=== PATIENT | male | born 1965 | race Caucasian/White ===

== ENCOUNTER 2018-10-16 11:09 | Emergency (ER) | payer MEDICARE, OTHER ==
[2018-10-16 11:27] VITALS: BP 158/99; PULSE 86; RESP 18; TEMP 98.1
[2018-10-16] MEDS ORDERED: KETOROLAC 30 MG/ML 1 ML VIAL IM STA (12:19)
[2018-10-16] MEDS ORDERED: DEXAMETHASONE SOD PHOSPHATE 10 MG/ML 1 ML VIAL IM STA (12:19)
[2018-10-16] MEDS ORDERED: HYDROcodone/APAP 5-325MG 1 EACH TAB PO STA (12:19)
[2018-10-16] MEDS ORDERED: CYCLOBENZAPRINE 10 MG TAB PO STA (12:19)
--- NOTE | 2018-10-16 12:39 | ED ---
General Adult HPI - General Chief complaint: Extremity Problem,Nontraumatic Stated complaint: sciatic nerve problem Time Seen by Provider: 10/16/18 11:56 Source: patient, RN notes reviewed, old records reviewed Mode of arrival: ambulatory Limitations: no limitations - History of Present Illness Initial comments: Pt is a 52 year old male, presents with with chronic back pain and pain radiating down L leg for months. [facility] and had one cancelled today. Patient denies saddle anesthesia. HE takes motrin and tylenol for pain. Pt reports he is frustrated and looking for second opinion. - Related Data Previous Rx's Medication Instructions Recorded Acetaminophen with Codeine 1 tab PO Q6H PRN 3 Days #12 tab 10/16/18 [Tylenol w/codeine #3] Cyclobenzaprine [Flexeril] 10 mg PO TID #20 tab 10/16/18 Dexamethasone 0.75 mg PO DAILY #12 tab 10/16/18 Allergies Allergy/AdvReac Type Severity Reaction Status Date / Time No Known Allergies Allergy Verified 10/16/18 11:27 Review of Systems ROS Statement: Those systems with pertinent positive or pertinent negative responses have been documented in the HPI. ROS Other: All systems not noted in ROS Statement are negative. Past Medical History Past Medical History: Diabetes Mellitus Additional Past Medical History / Comment(s): herniated disks and chronic back issues History of Any Multi-Drug Resistant Organisms: None Reported Past Surgical History: Appendectomy, Orthopedic Surgery Additional Past Surgical History / Comment(s): bilateral rotator cuff, bilateral knee scopes, neck fusion Past Psychological History: PTSD Smoking Status: Current every day smoker Past Alcohol Use History: None Reported Past Drug Use History: None Reported General Exam - General Exam Comments Initial Comments: Pleasant 52 year old male, no distress. Limitations: no limitations General appearance: alert, in no apparent distress Head exam: Present: atraumatic, normocephalic, normal inspection Eye exam: Present: normal appearance, PERRL, EOMI. Absent: scleral icterus, conjunctival injection, periorbital swelling ENT exam: Present: normal exam, mucous membranes moist Neck exam: Present: normal inspection. Absent: tenderness, meningismus, lymphadenopathy Respiratory exam: Present: normal lung sounds bilaterally. Absent: respiratory distress, wheezes, rales, rhonchi, stridor Cardiovascular Exam: Present: regular rate, normal rhythm, normal heart sounds. Absent: systolic murmur, diastolic murmur, rubs, gallop, clicks GI/Abdominal exam: Present: soft, normal bowel sounds. Absent: distended, tenderness, guarding, rebound, rigid Extremities exam: Present: normal inspection, full ROM, normal capillary refill. Absent: tenderness, pedal edema, joint swelling, calf tenderness Back exam: Present: normal inspection Neurological exam: Present: alert, oriented X3, CN II-XII intact Psychiatric exam: Present: normal affect, normal mood Skin exam: Present: warm, dry, intact, normal color. Absent: rash Course Vital Signs 10/16/18 11:23 Temperature 98.1 F Pulse Rate 86 Respiratory 18 Rate Blood Pressure 158/99 O2 Sat by Pulse 98 Oximetry Medical Decision Making - Medical Decision Making 52 year old male preetns with chronic sciatic and back pain looking for relief [facility]. Patient denies saddle anesthis. Patient has normal cap refill, no swelling, and reports prestheia in sciatic nerve pattern. Has had multiple MRI and discussed no need for further imaging today. Patient agrees. Given i< pain medication, steoriods and muscle relaxer. Opiat start talking form completed. Return parameters discussed. Given referral for orthopedic spine specialty. Disposition Clinical Impression: Left sided sciatica Disposition: HOME SELF-CARE Condition: Good Instructions (If sedation given, give patient instructions): Sciatica (ED), Lumbar Radiculopathy (ED) Additional Instructions: Patient advsied to follow-up with her primary care physician and insurance marketing specialist. Take the medication as prescribed. Alternate between heat and ice over the lower back. Return to the emergency department if any alarming signs or symptoms occur. Prescriptions: Dexamethasone 0.75 mg PO DAILY #12 tab Cyclobenzaprine [Flexeril] 10 mg PO TID #20 tab Acetaminophen with Codeine [Tylenol w/codeine #3] 1 tab PO Q6H PRN 3 Days #12 tab PRN Reason: Pain Is patient prescribed a controlled substance at d/c from ED?: Yes If prescribed controlled substance>3 days was MAPS reviewed?: Prescribed <3 Days If opioid is for acute pain is fill amount 7 days or less?: Yes If Rx opioid, was Start Talking consent form obtained?: Yes Referrals: Nonstaff,Physician [Primary Care Provider] - 1-2 days Oscar Paredes DO [Doctor of Osteopathic Medicine] - 1-2 days Time of Disposition: 12:38
== END 2018-10-16 13:06 | disposition home or self-care (01) ==
LOC: EC 11:09
DX: M54.32 Sciatica, left side (principal); F17.200 Nicotine dependence, unspecified, uncomplicated
CPT/HCPCS: 99283; 96372 ×2; J1100; J1885

== ENCOUNTER 2019-03-12 18:45 | Emergency (ER) | payer MEDICARE, OTHER ==
[2019-03-12 19:15] VITALS: RESP 18; TEMP 97.9
--- NOTE | 2019-03-12 20:12 | ED ---
Skin/Abscess/FB HPI - General Chief complaint: Skin/Abscess/Foreign Body Stated complaint: bug bite lt leg Time Seen by Provider: 03/12/19 19:53 Source: patient Mode of arrival: ambulatory Limitations: no limitations - History of Present Illness Initial comments: 53-year-old male patient presents to the emergency department today for evaluation of wounds to the left leg. Patient states that the area started 2 months ago with 3 areas of what he thought were spider bites. Patient states that the one area has completely healed. States he has 2 areas left that have become infected. States they are draining purulent fluid. States that over the last few days the largest one seemed to become worse. States he is having some swelling to the leg. He denies any fever or chills. Denies nausea or vomiting. States he does have vascular insufficiency and did recently have testing to determine the extent. Patient denies any recent rash, shortness breath, chest pain, abdominal pain, diarrhea, constipation, back pain, numbness, tingling, dizziness, weakness, hematuria, dysuria, urinary urgency, urinary frequency, headache, visual changes, or any other complaints. - Related Data Home Medications Medication Instructions Recorded Confirmed Aspirin EC [Ecotrin Low Dose] 81 mg PO BID 03/12/19 03/12/19 Empagliflozin [Jardiance] 25 mg PO DAILY 03/12/19 03/12/19 Insulin Glargine,Hum.rec.anlog 60 unit SQ BID 03/12/19 03/12/19 [Lantus Solostar] Pravastatin Sodium [Pravachol] 80 mg PO HS 03/12/19 03/12/19 Pregabalin [Lyrica] 225 mg PO BID 03/12/19 03/12/19 Previous Rx's Medication Instructions Recorded Cephalexin [Keflex] 500 mg PO Q6HR #40 cap 03/12/19 Sulfamethoxazole/Trimethoprim 1 each PO BID #20 tablet 03/12/19 [Bactrim DS 800-160 mg] Allergies Allergy/AdvReac Type Severity Reaction Status Date / Time No Known Allergies Allergy Verified 03/12/19 20:36 Review of Systems ROS Statement: Those systems with pertinent positive or pertinent negative responses have been documented in the HPI. ROS Other: All systems not noted in ROS Statement are negative. Past Medical History Past Medical History: Diabetes Mellitus Additional Past Medical History / Comment(s): herniated disks and chronic back issues History of Any Multi-Drug Resistant Organisms: None Reported Past Surgical History: Appendectomy, Orthopedic Surgery Additional Past Surgical History / Comment(s): bilateral rotator cuff, bilateral knee scopes, neck fusion Past Psychological History: PTSD Smoking Status: Current every day smoker Past Alcohol Use History: None Reported Past Drug Use History: None Reported General Exam Limitations: no limitations General appearance: alert, in no apparent distress, other (This is a well- developed, well-nourished adult male patient in no acute distress. Vital signs upon presentation are temperature 97.9F, pulse 91, respirations 18, blood pressure 125/84, pulse ox 99% on room air.) Eye exam: Present: normal appearance, PERRL, EOMI. Absent: scleral icterus, conjunctival injection, periorbital swelling ENT exam: Present: normal exam, normal oropharynx, mucous membranes moist Respiratory exam: Present: normal lung sounds bilaterally. Absent: respiratory distress, wheezes, rales, rhonchi, stridor Cardiovascular Exam: Present: regular rate, normal rhythm, normal heart sounds. Absent: systolic murmur, diastolic murmur, rubs, gallop, clicks Extremities exam: Present: full ROM, normal capillary refill, other (There are 2 ulcers noted to the left larson. Both exhibit purulent drainage with mild surrounding erythema. Skin is otherwise pink, warm, dry. Cap refills less than 3 seconds. Pulses are diminished, patient states this is chronic.). Absent: normal inspection, tenderness, pedal edema, joint swelling, calf tenderness Neurological exam: Present: alert, oriented X3, CN II-XII intact Psychiatric exam: Present: normal affect, normal mood Skin exam: Present: warm, dry, intact, normal color. Absent: rash Course Vital Signs 03/12/19 03/12/19 19:13 20:46 Temperature 97.9 F 97.9 F Pulse Rate 91 90 Respiratory 18 18 Rate Blood Pressure 125/84 126/72 O2 Sat by Pulse 99 99 Oximetry Medical Decision Making - Medical Decision Making 53-year-old male patient presents to the emergency department today for evaluation of wounds to the left lower leg. Physical examination did reveal 2 ulcers noted to the anterior left lower leg. There is evidence or purulent drainage and mild surrounding erythema. Wound was cultured. Vital signs are stable no fever. We did discuss wound care. We started on antibiotics. He is instructed to follow up with wound care center for further evaluation. Return parameters were discussed in detail. He verbalizes understanding and agrees with this plan. Disposition Clinical Impression: Chronic wound of extremity Disposition: HOME SELF-CARE Condition: Good Instructions (If sedation given, give patient instructions): Wound Infection (ED), Chronic Wound Care (ED) Additional Instructions: Keep wound clean and dry. Apply wet dressings and peel off dry. Follow up with wound center for evaluation as soon as possible. Return to the emergency department for any new, worsening, or concerning symptoms. Prescriptions: Sulfamethoxazole/Trimethoprim [Bactrim DS 800-160 mg] 1 each PO BID #20 tablet Cephalexin [Keflex] 500 mg PO Q6HR #40 cap Is patient prescribed a controlled substance at d/c from ED?: No Referrals: Nonstaff,Physician [Primary Care Provider] - 1-2 days [facility] [NON-STAFF] - 1-2 days Time of Disposition: 20:25
[2019-03-12] MEDS ORDERED: SULFAMETH-TMP DS STARTER PACK 2 TAB BTL PO STA (20:23)
[2019-03-12] MEDS ORDERED: CEPHALEXIN 500MG STARTER PACK 4 CAP BTL PO STA (20:23)
[2019-03-12 20:47] VITALS: BP 126/72; PULSE 90
== END 2019-03-12 20:47 | disposition home or self-care (01) ==
LOC: EC 18:45
DX: L97.929 Non-pressure chronic ulcer of unspecified part of left lower leg with unspecified severity (principal); E11.9 Type 2 diabetes mellitus without complications; F17.200 Nicotine dependence, unspecified, uncomplicated; Z79.82 Long term (current) use of aspirin; Z79.4 Long term (current) use of insulin; Z79.899 Other long term (current) drug therapy
CPT/HCPCS: 87070; 87205; 99283

== ENCOUNTER 2020-07-10 10:56 | Inpatient (IN) | payer MEDICARE, OTHER ==
[2020-07-10 11:38] LABS: Glucose,Whole Blood 229 mg/dL (75-99)
--- NOTE | 2020-07-10 11:38 | ED ---
SOB HPI - General Source: patient Mode of arrival: ambulatory Limitations: no limitations <Ila Boles - Last Filed: 07/10/20 12:44> <Andrew Diaz - Last Filed: 07/10/20 13:06> - General Chief Complaint: Shortness of Breath Stated Complaint: cough, SOB Time Seen by Provider: 07/10/20 11:11 - History of Present Illness Initial Comments: 54-year-old male presenting for left hand 'wont work" and cough/dyspnea. P atient states the past week he has had worsening cough and shortness of breath. He states that he has coughing spells and he looses his breath. He stated that that time he does have some chest discomfort but other than that he denies any chest pressure jaw or arm pain and he denies pain with deep inspiration patient denies any fevers upper respiratory symptoms leg swelling calf pain hemoptysis h istory of known active cancer hx of DVT/PE, recent surgeries. Patient deniess nausea, vomiting, diarrhea. he denies headaches, vision changes, speech changes, sensation deficits-denies changes in the left hand. (Ila Boles) - Related Data Home Medications Medication Instructions Recorded Confirmed Aspirin EC [Ecotrin Low Dose] 81 mg PO BID 03/12/19 03/12/19 Empagliflozin [Jardiance] 25 mg PO DAILY 03/12/19 03/12/19 Insulin Glargine,Hum.rec.anlog 60 unit SQ BID 03/12/19 03/12/19 [Lantus Solostar] Pravastatin Sodium [Pravachol] 80 mg PO HS 03/12/19 03/12/19 Pregabalin [Lyrica] 225 mg PO BID 03/12/19 03/12/19 Previous Rx's Medication Instructions Recorded Cephalexin [Keflex] 500 mg PO Q6HR #40 cap 03/12/19 Sulfamethoxazole/Trimethoprim 1 each PO BID #20 tablet 03/12/19 [Bactrim DS 800-160 mg] Allergies Allergy/AdvReac Type Severity Reaction Status Date / Time No Known Allergies Allergy Verified 07/10/20 11:08 Review of Systems ROS Other: All systems not noted in ROS Statement are negative. <Ila Boles - Last Filed: 07/10/20 12:44> ROS Other: All systems not noted in ROS Statement are negative. <Andrew Diaz - Last Filed: 07/10/20 13:06> ROS Statement: Those systems with pertinent positive or pertinent negative responses have been documented in the HPI. Past Medical History Past Medical History: Diabetes Mellitus Additional Past Medical History / Comment(s): herniated disks and chronic back issues History of Any Multi-Drug Resistant Organisms: None Reported Past Surgical History: Appendectomy, Coronary Bypass/CABG, Orthopedic Surgery Additional Past Surgical History / Comment(s): bilateral rotator cuff, bilateral knee scopes, neck fusion Past Psychological History: PTSD Smoking Status: Former smoker Past Alcohol Use History: None Reported Past Drug Use History: None Reported <Ila Boles - Last Filed: 07/10/20 12:44> General Exam Limitations: no limitations <Ila Boles - Last Filed: 07/10/20 12:44> Limitations: no limitations General appearance: alert, in no apparent distress Head exam: Present: atraumatic Eye exam: Present: normal appearance, PERRL, EOMI. Absent: nystagmus ENT exam: Present: normal oropharynx Neck exam: Present: normal inspection Extremities exam: Present: pedal edema Neurological exam: Present: alert, oriented X3, CN II-XII intact Expanded Neurological exam: Present: protecting the airway Patient oriented to: Present: person, place, time Speech: Present: fluid speech Cranial nerves: EOM's Intact: Normal, Facial Sensation: Normal Sensory exam: Upper Extremity Light Touch: Normal, Lower Extremity Light Touch: Normal Motor strength exam: RUE: 5, LUE: 4, RLE: 5, LLE: 5 Eye Response: (4) open spontaneously Motor Response: (6) obeys commands Verbal Response: (5) oriented Psychiatric exam: Present: normal affect, normal mood Skin exam: Present: other (Tobacco stained fingers) <Andrew Diaz - Last Filed: 07/10/20 13:06> - General Exam Comments Initial Comments: General: The patient is awake and alert, in no distress Eye: +3 mm pupils are equal, round and reactive to light, extra-ocular movements are intact. No nystagmus. There is normal conjunctiva bilaterally. No signs of icterus. Ears, nose, mouth and throat: There are moist mucous membranes and no oral lesions. Neck: The neck is supple, there is no tenderness or JVD. Cardiovascular: There is a regular rate and rhythm. No murmur, rub or gallop is appreciated. Respiratory: Respirations are non-labored, breath sounds are equal. No wheezes, stridor. Diffuse rhonchi and rales at lung bases. Gastrointestinal: Soft, non-distended, non-tender abdomen without masses or organomegaly noted. There is no rebound or guarding present. Musculoskeletal: Normal ROM, no tenderness. Strength 5/5. Sensation intact. Radial and DP pulses equal bilaterally 2+. Neurological: A&O x 3. CN II-XII intact, weakness with closure of the left hand, states sensation intact. full strength of the elbow, shoulder of left UE. LE 5/5 equal b/l. Sensation intact including hands b/k of the UE and LE, face, chest, abdomen, and back equal per patient. There is possible left sided drift of the UE, none lower. Speech is normal. Skin: Skin is warm and dry and no rashes or lesions are noted. b/l LE swelling, no unilateral swelling or calf pain. Psychiatric: Cooperative, appropriate mood & affect, normal judgment. (Ila Boles) Course <Andrew Diaz - Last Filed: 07/10/20 13:06> Vital Signs 07/10/20 07/10/20 07/10/20 11:05 11:24 11:53 Temperature 98.1 F 98.1 F Pulse Rate 95 98 Respiratory 22 18 18 Rate Blood Pressure 181/113 177/98 O2 Sat by Pulse 99 99 Oximetry 07/10/20 07/10/20 11:57 12:17 Temperature 98.0 F 98.0 F Pulse Rate 100 101 H Respiratory 18 18 Rate Blood Pressure 187/123 190/121 O2 Sat by Pulse 98 98 Oximetry - Reevaluation(s) Reevaluation #1: 07/10/20 11:39 Patient reevaluated by myself, Dr. Diaz. Patient comes in with complaint of shortness of breath. Patient is a heavy smoker and has tobacco staining fingers. 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 Patient states this started yesterday around 2 or 3 PM. Patient states he also needs to concentrate to use that hand more than normal. Patient denies any other area of weakness. Patient denies loss of sensation. No respiratory distress. Computed tomography scan ordered. Code stroke has been ordered. 07/10/20 13:05 Case was earlier discussed with Dr. Rowley who agreed patient is not a TPA candidate secondary to onset greater than 4.5 hours. He does recommend aspirin and Lipitor. He has concern for subacute stroke on CT. He does recommend admission here with consult for neurology. Secondary to possible cardiac component with T wave inversion on EKG and elevated troponin heparin will be started. Cardiology will also be placed on consult. Patient also has quintin estive heart failure (Andrew Diaz) Medical Decision Making - Lab Data Result diagrams: 07/10/20 11:50 07/10/20 11:50 <Ila Boles - Last Filed: 07/10/20 12:44> - Lab Data Result diagrams: 07/10/20 11:50 07/10/20 11:50 <Andrew Diaz - Last Filed: 07/10/20 13:06> - Medical Decision Making 54yo dyspnea cough spells left hand weak. weak localized left hand. lungs has significant rales. leg swelling b/l mild. pt denies chest pain. pt states he has had cough on and off. difficulty lying flat. hx of HTN, PAD. code stroke called. CT no obviuos acute findings. Troponin elevated, BNP high ~56386, no known history, BP elevated. BP medications ordered, lasix initiated and nitro paste. Patient initiated on heparin given the t wave inversion on EKG with elevated troponin. pt case was co-managed with my attending German Diaz is agreeable to admission and care plan. he personally evaluated patient. (Ila Boles) - Lab Data Lab Results 07/10/20 07/10/20 07/10/20 Range/Units 11:37 11:50 11:50 WBC 8.6 (3.8-10.6) k/uL RBC 4.11 L (4.30-5.90) m/uL Hgb 12.2 L (13.0-17.5) gm/dL Hct 35.8 L (39.0-53.0) % MCV 87.1 (80.0-100.0) fL MCH 29.6 (25.0-35.0) pg MCHC 34.0 (31.0-37.0) g/dL RDW 13.5 (11.5-15.5) % Plt Count 242 (150-450) k/uL MPV 8.4 Neutrophils % 70 % Lymphocytes % 19 % Monocytes % 5 % Eosinophils % 4 % Basophils % 2 % Neutrophils # 6.0 (1.3-7.7) k/uL Lymphocytes # 1.7 (1.0-4.8) k/uL Monocytes # 0.4 (0-1.0) k/uL Eosinophils # 0.3 (0-0.7) k/uL Basophils # 0.1 (0-0.2) k/uL PT 9.6 (9.0-12.0) sec INR 0.9 (<1.2) APTT 22.3 (22.0-30.0) sec Sodium (137-145) mmol/L Potassium (3.5-5.1) mmol/L Chloride (98-107) mmol/L Carbon Dioxide (22-30) mmol/L Anion Gap mmol/L BUN (9-20) mg/dL Creatinine (0.66-1.25) mg/dL Est GFR (CKD-EPI)AfAm (>60 ml/min/1.73 sqM) Est GFR (CKD-EPI)NonAf (>60 ml/min/1.73 sqM) Glucose (74-99) mg/dL POC Glucose (mg/dL) 229 H (75-99) mg/dL POC Glu Appetizer Packer ID Calcium (8.4-10.2) mg/dL Total Bilirubin (0.2-1.3) mg/dL AST (17-59) U/L ALT (4-49) U/L Alkaline Phosphatase (38-126) U/L Troponin I (0.000-0.034) ng/mL NT-Pro-B Natriuret Pep pg/mL Total Protein (6.3-8.2) g/dL Albumin (3.5-5.0) g/dL 07/10/20 07/10/20 07/10/20 Range/Units 11:50 11:50 11:50 WBC (3.8-10.6) k/uL RBC (4.30-5.90) m/uL Hgb (13.0-17.5) gm/dL Hct (39.0-53.0) % MCV (80.0-100.0) fL MCH (25.0-35.0) pg MCHC (31.0-37.0) g/dL RDW (11.5-15.5) % Plt Count (150-450) k/uL MPV Neutrophils % % Lymphocytes % % Monocytes % % Eosinophils % % Basophils % % Neutrophils # (1.3-7.7) k/uL Lymphocytes # (1.0-4.8) k/uL Monocytes # (0-1.0) k/uL Eosinophils # (0-0.7) k/uL Basophils # (0-0.2) k/uL PT (9.0-12.0) sec INR (<1.2) APTT (22.0-30.0) sec Sodium 132 L (137-145) mmol/L Potassium 4.4 (3.5-5.1) mmol/L Chloride 104 (98-107) mmol/L Carbon Dioxide 23 (22-30) mmol/L Anion Gap 5 mmol/L BUN 28 H (9-20) mg/dL Creatinine 1.21 (0.66-1.25) mg/dL Est GFR (CKD-EPI)AfAm 78 (>60 ml/min/1.73 sqM) Est GFR (CKD-EPI)NonAf 67 (>60 ml/min/1.73 sqM) Glucose 227 H (74-99) mg/dL POC Glucose (mg/dL) (75-99) mg/dL POC Glu Appetizer Packer ID Calcium 8.8 (8.4-10.2) mg/dL Total Bilirubin 0.5 (0.2-1.3) mg/dL AST 25 (17-59) U/L ALT 13 (4-49) U/L Alkaline Phosphatase 91 (38-126) U/L Troponin I 0.311 H* (0.000-0.034) ng/mL NT-Pro-B Natriuret Pep 57415 pg/mL Total Protein 6.3 (6.3-8.2) g/dL Albumin 3.5 (3.5-5.0) g/dL Disposition Is patient prescribed a controlled substance at d/c from ED?: No Time of Disposition: 12:46 Decision to Admit Reason: Admit from EC Decision Date: 07/10/20 Decision Time: 12:46 <Ila Boles - Last Filed: 07/10/20 12:44> <Andrew Diaz - Last Filed: 07/10/20 13:06> Clinical Impression: Stroke, Elevated troponin, Dyspnea, Heart failure, Pleural effusion Disposition: ADMITTED IP TO THIS [facility] Condition: Serious Referrals: Nonstaff,Physician [Primary Care Provider] - 1-2 days
--- NOTE | 2020-07-10 11:52 | CT ---
EXAMINATION TYPE: CT brain wo con for TPA DATE OF EXAM: 07/10/2020 COMPARISON: None HISTORY: Neuro deficit, acute, stroke suspected CT DLP: 1165.8 mGycm Automated exposure control for dose reduction was used. Helical imaging through the brain. FINDINGS: Periventricular white matter shows patchy low attenuation. There is no hemorrhage or hydrocephalus. C alvarium is intact. Paranasal sinuses and mastoid air cells as visualized are normal. IMPRESSION: NONSPECIFIC WHITE MATTER DEMYELINATION MAY BE DUE TO CHRONIC SMALL VESSEL ISCHEMIC CHANGES. CONSIDER MRI INDICATED.
[2020-07-10 11:58] LABS: Basophils # (A) 0.1 k/uL (0-0.2); Basophils % (A) 2 %; Eosinophils # (A) 0.3 k/uL (0-0.7); Eosinophils % (A) 4 %; HCT 35.8 % (39.0-53.0); HGB 12.2 gm/dL (13.0-17.5); Lymphocytes # (A) 1.7 k/uL (1.0-4.8); Lymphocytes % (A) 19 %; MCH 29.6 pg (25.0-35.0); MCV 87.1 fL (80.0-100.0); Mean Platelet Volume 8.4; Monocytes # (A) 0.4 k/uL (0-1.0); Monocytes % (A) 5 %; Neutrophils % (A) 70 %; Platelet Count 242 k/uL (150-450); RBC 4.11 m/uL (4.30-5.90); RDW 13.5 % (11.5-15.5); WBC 8.6 k/uL (3.8-10.6)
[2020-07-10 12:09] LABS: Albumin 3.5 g/dL (3.5-5.0); Calcium 8.8 mg/dL (8.4-10.2); Potassium 4.4 mmol/L (3.5-5.1); Total Bilirubin 0.5 mg/dL (0.2-1.3); Total Protein 6.3 g/dL (6.3-8.2)
[2020-07-10 12:10] LABS: INR 0.9 (<1.2); Partial Thromboplastin Time 22.3 sec (22.0-30.0); Prothrombin Time 9.6 sec (9.0-12.0)
[2020-07-10] MEDS ORDERED: hydrALAZINE HCL 20 MG/ML 1 ML VIAL IVP STA (12:16)
--- NOTE | 2020-07-10 12:19 | CT ---
EXAMINATION TYPE: CT angio head neck DATE OF EXAM: 07/10/2020 HISTORY: Neuro deficit COMPARISON: CT brain same date CT DLP: 627.1 mGycm. Automated Exposure Control for Dose Reduction was Utilized. TECHNIQUE: CTA scan of the neck is performed with IV Contrast, patient injected with 65 mL of Isovue 370, axial images are obtained, coronal and sagittal reformatted images are reviewed. Three-D recons tructed images are created on an independent workstation and reviewed. FINDINGS: Carotid/Vascular Structures: There are 4 super aortic branch vessels. The innominate, left and right common carotid, left and right subclavian arteries are patent. 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 Atheromatous changes are present at the carotid bulbs. No hemodynamic significant stenosis by NASCET criteria. Vertebral arteries are patent and codominant. [place] of [place] shows no dissection, aneurysm, or embo nicky. Cerebral vascular calcifications are present. . Other: There are large bilateral pleural effusions, some patchy airspace disease present in the upper lobes. Degenerative disc changes and postop changes are noted within the cervical spine IMPRESSION: Large bilateral pleural effusions, correlate for edema, congestive heart failure, pneumon ia.
--- NOTE | 2020-07-10 12:20 | XR ---
EXAMINATION TYPE: XR chest 2V DATE OF EXAM: 07/10/2020 COMPARISON: NONE HISTORY: Dyspnea, cough and shortness of breath TECHNIQUE: Frontal and lateral views of the chest are obtained. FINDINGS: Interstitium is prominent bilaterally. There is patchy perihilar increased attenuation. Bi basilar effusions are present, there is blunting the costophrenic angles. Heart size within normal li mits. There are overlying leads. Postop change noted the cervical spine. IMPRESSION: Correlate for congestive heart failure.
[2020-07-10] MEDS ORDERED: FUROSEMIDE 10 MG/ML 4 ML VIAL IV STA (12:27)
[2020-07-10] MEDS ORDERED: NITROGLYCERIN SL TABS 0.4 MG TAB SUBLINGUAL PRN (12:35)
[2020-07-10] MEDS ORDERED: HEPARIN SODIUM,PORCINE 5,000 UNIT/ML 1 ML VIAL IV PRN (12:39)
[2020-07-10] MEDS ORDERED: HEPARIN SODIUM,PORCINE 5,000 UNIT/ML 1 ML VIAL IV ONE (12:39)
[2020-07-10] MEDS ORDERED: ATORVASTATIN 40 MG TAB PO STA (12:42)
[2020-07-10] MEDS ORDERED: ASPIRIN 81 MG PO STA (12:42)
[2020-07-10] MEDS ORDERED: NITROGLYCERIN OINT 1 INCH/GM PACKET TOPICAL STA (12:43)
[2020-07-10] MEDS: HEPARIN SOD,PORK IN 0.45% NACL 25,000 UNIT in 0.45% NACL 1 250ML.BAG IV SCH (13:10)
--- NOTE | 2020-07-10 15:27 | P.HPIM ---
History of Present Illness This is a pleasant 54 years old male with past medical history of coronary artery disease status post CABG, diabetes mellitus, chronic back pain secondary to herniated disc. He is a patient of the [place] [facility] at [place]. His PCP is Dr. Plata, he sees a inspector repairer at [facility] to where he had bypass of his lower extremity about one week earlier. He sees cocoa bean roaster helper for his diabetes at [facility] as well. Presents because of dyspnea and weakness of the left hand. Patient states for about a week since last Sunday his been having coughing spells mainly last Sunday and today lasted like for 15 minutes associated with no phlegm but he vomited once which looks like phlegm. Associated with some dyspnea but he denies chest pain. Also for the last couple days he is been complaining of from weak left hand pattern vault clerk, he denies trauma. He denies headache, no blurred vision or difficulty talking or swallowing. No other weakness or numbness He is a previous polys office or and he smokes about half pack per day, he is c ounseled to quit and he agrees after risks are explained. He does not want nicotine patch Vitas looks stable, on the presentation his blood pressure was elevated to 187/123, currently is 123/82. Labs including CBC is unremarkable, INR is normal at 0.9. BMP showing only mild hyponatremia at 132, resolved BMP and liver enzymes were unremarkable. Sugar is elevated 2-9 and troponin is elevated at 0.3 EKG showed normal sinus rhythm with left ventricular hypertrophy. Rate at 97 Chest x-ray showing CHF CTA of the brain showing large bilateral pleural effusion correlate for edema and heart failure, possible pneumonia per reports. No significant stenosis CT of the brain: No acute process. In the emergency room he was started on aspirin 325 mg and heparin drip Review of Systems CONSTITUTIONAL: No fever, no malaise, no fatigue. HEENT: No recent visual problems or hearing problems. Denied any sore throat. CARDIOVASCULAR: No palpitation, no dizziness Pulmonary: no chest wall tenderness shortness of breath, no cough, no hemoptysis. GASTROINTESTINAL: No diarrhea, no nausea, no vomiting, no abdominal pain. Normoactive bowel sounds. NEUROLOGICAL: No headaches, no weakness, no numbness. HEMATOLOGICAL: Denies any bleeding or petechiae. GENITOURINARY: Denies any burning micturition, frequency, or urgency. MUSCULOSKELETAL/RHEUMATOLOGICAL: Denies any joint pain, swelling, or any muscle pain. ENDOCRINE: Denies any polyuria or polydipsia. Past Medical History Past Medical History: Diabetes Mellitus Additional Past Medical History / Comment(s): herniated disks and chronic back issues History of Any Multi-Drug Resistant Organisms: None Reported Past Surgical History: Appendectomy, Coronary Bypass/CABG, Orthopedic Surgery Additional Past Surgical History / Comment(s): bilateral rotator cuff, bilateral knee scopes, neck fusion Past Psychological History: PTSD Smoking Status: Former smoker Past Alcohol Use History: None Reported Past Drug Use History: None Reported Medications and Allergies Home Medications Medication Instructions Recorded Confirmed Type Aspirin EC [Ecotrin Low Dose] 81 mg PO BID 03/12/19 03/12/19 History Cephalexin [Keflex] 500 mg PO Q6HR #40 cap 03/12/19 Rx Empagliflozin [Jardiance] 25 mg PO DAILY 03/12/19 03/12/19 History Insulin Glargine,Hum.rec.anlog 60 unit SQ BID 03/12/19 03/12/19 History [Lantus Solostar] Pravastatin Sodium [Pravachol] 80 mg PO HS 03/12/19 03/12/19 History Pregabalin [Lyrica] 225 mg PO BID 03/12/19 03/12/19 History Sulfamethoxazole/Trimethoprim 1 each PO BID #20 tablet 03/12/19 Rx [Bactrim DS 800-160 mg] Allergies Allergy/AdvReac Type Severity Reaction Status Date / Time No Known Allergies Allergy Verified 07/10/20 14:39 Physical Exam Vitals: Vital Signs Temp Pulse Resp BP Pulse Ox 07/10/20 14:37 98.0 F 93 18 123/82 98 07/10/20 12:17 98.0 F 101 H 18 190/121 98 07/10/20 11:57 98.0 F 100 18 187/123 98 07/10/20 11:53 98.1 F 98 18 177/98 99 07/10/20 11:24 18 07/10/20 11:05 98.1 F 95 22 181/113 99 Intake and Output 07/09/20 07/10/20 07/10/20 22:59 06:59 14:59 Other: Weight 83.915 kg GENERAL: The patient is alert and oriented x3, not in any acute distress. Well developed, well nourished. HEENT: Pupils are round and equally reacting to light. EOMI. No scleral icterus. No conjunctival pallor. Normocephalic, atraumatic. No pharyngeal erythema. No thyromegaly. CARDIOVASCULAR: S1 and S2 present. No murmurs, rubs, or gallops. -PULMONARY: Chest is clear to auscultation, no wheezing. Bilateral basal crepitation, decreased breath sounds bilaterally ABDOMEN: Soft, nontender, nondistended, normoactive bowel sounds. No palpable organomegaly. MUSCULOSKELETAL: No joint swelling or deformity. EXTREMITIES: No cyanosis, clubbing, or pedal edema. -NEUROLOGICAL: Cranial nerves are grossly intact. Left hand with weak pattern vault clerk. Sensation is intact. Rest of motor examination is 5/5 of all other extremity except the left hand. Meningeal signs are absent SKIN: No rashes. No petechiae Results CBC & Chem 7: 07/10/20 11:50 07/10/20 11:50 Labs: Abnormal Lab Results - Last 24 Hours (Table) 07/10/20 07/10/20 07/10/20 Range/Units 11:37 11:50 11:50 RBC 4.11 L (4.30-5.90) m/uL Hgb 12.2 L (13.0-17.5) gm/dL Hct 35.8 L (39.0-53.0) % Sodium 132 L (137-145) mmol/L BUN 28 H (9-20) mg/dL Glucose 227 H (74-99) mg/dL POC Glucose (mg/dL) 229 H (75-99) mg/dL Troponin I (0.000-0.034) ng/mL 07/10/20 Range/Units 11:50 RBC (4.30-5.90) m/uL Hgb (13.0-17.5) gm/dL Hct (39.0-53.0) % Sodium (137-145) mmol/L BUN (9-20) mg/dL Glucose (74-99) mg/dL POC Glucose (mg/dL) (75-99) mg/dL Troponin I 0.311 H* (0.000-0.034) ng/mL Assessment and Plan Assessment: possible non-STEMI with elevated troponin Acute dyspnea could be acute CHF , unknown ejection fraction Weakness of the left hand, rule out stroke Diabetes mellitus with hyperglycemia Chronic back pain secondary to herniated disc History of coronary artery disease status post CABG. Plan: this is a pleasant 54 years old male who presents with non-STEMI, acute CHF and possible stroke. Continue with heparin drip and aspirin. Cardiology consult. Neurology consult. We'll check echocardiogram and hb a1c Labs and medication were reviewed.. Continue same treatment. Continue with symptomatic treatment. Resume home medication. Monitor lytes and vitals. DVT and GI prophylaxis. Further recommendations depends on the clinical course of the patient DVT prophylaxis: Subcutaneous heparin GI Prophylaxis: Pepcid PT/OT: Pending Prognosis is guarded
--- NOTE | 2020-07-10 16:36 | ECHOF ---
Referral Reason:heart failure MEASUREMENTS -------- HEIGHT: 193.0 cm WEIGHT: 83.9 kg BP: 162/88 RVIDd: 3.0 cm (< 3.3) IVSd: 1.4 cm (0.6 - 1.1) LVIDd: 5.1 cm (3.9 - 5.3) LVPWd: 1.3 cm (0.6 - 1.1) IVSs: 1.7 cm LVIDs: 4.2 cm LVPWs: 1.9 cm LA Diam: 3.5 cm (2.7 - 3.8) LAESV Index (A-L): 30.30 ml/m Ao Diam: 3.7 cm (2.0 - 3.7) AV Cusp: 2.1 cm (1.5 - 2.6) MV EXCURSION: 21.171 mm (> 18.000) MV EF SLOPE: 125 mm/s (70 - 150) EPSS: 1.6 cm MV E Jose A: 1.28 m/s MV DecT: 116 ms MV A Jose A: 0.82 m/s MV E/A Ratio: 1.57 FINDINGS -------- Resting tachycardia (HR>100bpm). This was a technically adequate study. The left ventricular size is normal. There is moderate concentric left ventricular hypertrophy. O verall left ventricular systolic function is severely impaired with, an EF between 25 - 30 %. The right ventricle is normal in size. LA is midly dilated 29-33ml/m2. The right atrium is normal in size. Interatrial and interventricular septum intact. There is mild aortic valve sclerosis. The mitral valve leaflets are mildly thickened. Mild mitral annular calcification present. Mild m itral regurgitation is present. The tricuspid valve appears structurally normal. The pulmonic valve was not well visualized. The aortic root size is normal. Normal inferior vena cava with normal inspiratory collapse consistent with estimated right atrial pre ssure of 5 mmHg. There is no pericardial effusion. CONCLUSIONS -------- 1. The left ventricular size is normal. 2. There is moderate concentric left ventricular hypertrophy. 3. Overall left ventricular systolic function is severely impaired with, an EF between 25 - 30 %. 4. LA is midly dilated 29-33ml/m2. 5. There is mild aortic valve sclerosis. 6. The mitral valve leaflets are mildly thickened. 7. Mild mitral annular calcification present. 8. Mild mitral regurgitation is present. 9. There is no pericardial effusion. LUGGAGE LINER: Jeanne Mckenzie RDCS
--- NOTE | 2020-07-10 16:41 | P.CNNES ---
History of Present Illness Consult date: 07/10/20 Reason for Consult: left hand weakness, rule out stroke History of Present Illness: The patient is a pleasant, 54-year-old male who is seen in neurologic consultation on July 10, 2020, via teleneurology. The patient is being seen because of left hand weakness and possible stroke. The patient reports that he noticed yesterday, at a proximally 2 PM, that his left hand was "acting weird". 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 He reports noticing this loss of strength, when he was walking his dog. He normally uses a pole and he was unable to hold onto the pole. The patient denies numbness, tingling and pain in his left hand. He denies weakness in his left arm. He denies other weakness. The patient denies headache, difficulty with speech, difficulty swallowing, changes in vision and loss of balance. The patient denies a history of stroke. The patient does report recent coughing and shortness of breath. He states that last Sunday, he had a 5 hour period of continuous coughing. He says that it was a dry cough. He finally vomited. The cough then resolved. Apparently, last night the patient's coughing and shortness of breath returned. He elected to come into the emergency department. He denies a history of fever, chills and exposure to anyone with Covid 19. Review of Systems Eyes: left decreased vision (secondary to "ruptured blood vessels" in the back of the eye) Musculoskeletal: absent: hand pain Past Medical History Past Medical History: Diabetes Mellitus Additional Past Medical History / Comment(s): herniated disks and chronic back issues, peripheral neuropathy History of Any Multi-Drug Resistant Organisms: None Reported Past Surgical History: Appendectomy, Coronary Bypass/CABG, Orthopedic Surgery Additional Past Surgical History / Comment(s): bilateral rotator cuff, bilateral knee scopes, neck fusion Past Anesthesia/Blood Transfusion Reactions: No Reported Reaction Past Psychological History: PTSD Smoking Status: Former smoker Past Alcohol Use History: None Reported Past Drug Use History: None Reported - Past Family History Mother Family Medical History: Congestive Heart Failure (CHF), CVA/TIA, Myocardial Infarction ([place]) Medications and Allergies Home Medications Medication Instructions Recorded Confirmed Type Aspirin EC [Ecotrin Low Dose] 81 mg PO BID 03/12/19 03/12/19 History Cephalexin [Keflex] 500 mg PO Q6HR #40 cap 03/12/19 Rx Empagliflozin [Jardiance] 25 mg PO DAILY 03/12/19 03/12/19 History Insulin Glargine,Hum.rec.anlog 60 unit SQ BID 03/12/19 03/12/19 History [Lantus Solostar] Pravastatin Sodium [Pravachol] 80 mg PO HS 03/12/19 03/12/19 History Pregabalin [Lyrica] 225 mg PO BID 03/12/19 03/12/19 History Sulfamethoxazole/Trimethoprim 1 each PO BID #20 tablet 03/12/19 Rx [Bactrim DS 800-160 mg] Allergies Allergy/AdvReac Type Severity Reaction Status Date / Time No Known Allergies Allergy Verified 07/10/20 14:39 Physical Examination - Vital Signs Vital Signs: Vital Signs Temp Pulse Pulse Resp BP BP Pulse Ox 07/10/20 15:11 97.8 F 95 18 156/90 98 07/10/20 14:37 98.0 F 93 18 123/82 98 07/10/20 12:17 98.0 F 101 H 18 190/121 98 07/10/20 11:57 98.0 F 100 18 187/123 98 07/10/20 11:53 98.1 F 98 18 177/98 99 07/10/20 11:24 18 07/10/20 11:05 98.1 F 95 22 181/113 99 Intake and Output 07/10/20 07/10/20 07/10/20 06:59 14:59 22:59 Other: Weight 83.915 kg 83.915 kg Gen.: The patient is reclining in the bed. He is well-nourished, well-developed and in no acute distress. HEENT: Head is atraumatic, normocephalic. Fundus not visualized. There is no scleral icterus. Mucous membranes are moist. Neck: Without carotid bruits Heart: Regular rate and rhythm Lungs: Clear to auscultation Extremities: There is swelling of the feet bilaterally, left > right. There is evidence of a well healing scar on the left proximal lower extremity. Neurological examination Mental status: Patient is awake, alert and oriented 3. His speech is clear. There is no dysarthria or aphasia Cranial nerves: Pupils are equal at 3 mm and reactive. Visual cotton are full to confrontation. Extraocular movements are intact. There is no nystagmus. Facial sensation is intact. There is possible flattening of the left nasolabial fold. Hearing is grossly intact. Uvula and palate are midline. Shoulder shrug is symmetric. Tongue protrudes to the right of midline. Motor: Bilateral lower extremity strength 5/5. Right upper extremity strength 5/5. Left intrinsic hand muscles 4/5. Left opponens pollicis 3/5. Left finger flexors 4/5. Left finger extensors 4/5. The patient is unable to fully extend his left index finger. He is unable to oppose his left thumb and fifth finger. Other left upper extremity muscle strength is 5/5. Deep tendon reflexes: 1-2+/4+ in the bilateral upper extremities and patellar. Bilateral Achilles reflexes 1+/4+. Plantar responses flexor bilaterally Sensation: Grossly intact to light touch in the upper extremities. Lower extremity sensation was not assessed Coordination: [id number] and [id number] testing are intact. CT scan of the brain images are reviewed. There is a questionable, small area of hypodensity in the right motor strip. CT angiogram of the head and neck reveals no significant stenosis or occlusion Results - Laboratory Findings CBC and BMP: 07/10/20 11:50 07/10/20 11:50 Abnormal Lab Findings: Abnormal Labs 07/10/20 07/10/20 07/10/20 11:37 11:50 11:50 RBC 4.11 L Hgb 12.2 L Hct 35.8 L Sodium 132 L BUN 28 H Glucose 227 H POC Glucose (mg/dL) 229 H Troponin I 07/10/20 11:50 RBC Hgb Hct Sodium BUN Glucose POC Glucose (mg/dL) Troponin I 0.311 H* Assessment and Plan Assessment: 1. The patient is a 54-year-old male with vascular risk factors including coronary artery disease, diabetes mellitus, tobacco abuse who presents to the emergency department with complaints of shortness of breath, coughing and the left hand weakness. The patient's neurological examination reveals weakness confined to his left hand. The left arm and left leg strength are intact. I am concerned that the abnormality on CT scan and the patient's left hand weakness may be consistent with a small lacunar infarct 2. The patient has been checked for Covid 19 infection and has found to be negative. If positive, this could be a potential etiology for cerebral infarct 3. Possible non-ST elevated [place] Plan: 1. Stroke order set including PT, OT and speech therapy consultations 2. 2-D echocardiogram 3. Hemoglobin A1c, lipid panel and TSH 4. High-dose statin and Plavix should be added to the patient's regime when IV heparin has been discontinued 5. We will order MRI of brain to further evaluate infarct Time with Patient: Greater than 30 (spent 40 minutes with patient via teleneurology)
[2020-07-10 17:06] LABS: Glucose,Whole Blood 207 mg/dL (75-99)
[2020-07-10] MEDS: INSULIN ASPART (NovoLOG) 100 UNIT/ML VIAL SQ SCH ×2 (17:22→22:29)
[2020-07-10] MEDS ORDERED: ARTIFICIAL TEARS-HYPROMELLOSE DROPS 15 ML BTL BOTH EYES PRN (18:42)
[2020-07-10 20:22] LABS: Glucose,Whole Blood 196 mg/dL (75-99)
[2020-07-10] MEDS ORDERED: ASPIRIN 81 MG PO SCH (21:00)
[2020-07-10] MEDS: FUROSEMIDE 10 MG/ML 4 ML VIAL IV SCH (22:28)
[2020-07-10] MEDS: PRAVASTATIN SODIUM 80 MG TAB PO SCH (22:29)
[2020-07-10] MEDS: INSULIN DETEMIR (LEVEMIR) 100 UNIT/ML SYR SQ SCH (22:30)
[2020-07-11 05:01] LABS: Glucose,Whole Blood 88 mg/dL (75-99)
[2020-07-11 05:48] LABS: Basophils # (A) 0.1 k/uL (0-0.2); Basophils % (A) 2 %; Eosinophils # (A) 0.2 k/uL (0-0.7); Eosinophils % (A) 3 %; HCT 35.2 % (39.0-53.0); HGB 11.7 gm/dL (13.0-17.5); Lymphocytes # (A) 1.5 k/uL (1.0-4.8); Lymphocytes % (A) 21 %; MCH 29.2 pg (25.0-35.0); MCHC 33.2 g/dL (31.0-37.0); Mean Platelet Volume 8.3; Monocytes # (A) 0.3 k/uL (0-1.0); Monocytes % (A) 4 %; Neutrophils % (A) 69 %; Platelet Count 251 k/uL (150-450); RDW 13.6 % (11.5-15.5); WBC 7.3 k/uL (3.8-10.6)
[2020-07-11 05:58] LABS: Potassium 4.1 mmol/L (3.5-5.1)
[2020-07-11] MEDS: INSULIN ASPART (NovoLOG) 100 UNIT/ML VIAL SQ SCH ×4 (07:32→22:00)
[2020-07-11] MEDS: HEPARIN SOD,PORK IN 0.45% NACL 25,000 UNIT in 0.45% NACL 1 250ML.BAG IV SCH (07:52)
[2020-07-11] MEDS ORDERED: ASPIRIN 81 MG PO SCH (09:00)
[2020-07-11] MEDS ORDERED: ASPIRIN 325 MG TAB PO SCH (09:00)
[2020-07-11] MEDS ORDERED: METOPROLOL TARTRATE 25 MG TAB PO SCH (09:00)
--- NOTE | 2020-07-11 10:18 | P.PN ---
Subjective This is a pleasant 54 years old male with past medical history of coronary artery disease status post CABG, diabetes mellitus, chronic back pain secondary to herniated disc. [facility] a [facility] [place]. His PCP is Dr. Plata, he sees a plate inspector at [facility] to where he had bypass of his lower extremity about one week earlier. He sees hand hide stretcher for his diabetes at [facility] as well. Presents because of dyspnea and weakness of the left hand. Patient states for about a week since last Sunday his been having c oughing spells mainly last Sunday and today lasted like for 15 minutes associated with no phlegm but he vomited once which looks like phlegm. Associated with some dyspnea but he denies chest pain. Also for the last couple days he is been complaining of from weak left hand websphere portal developer, he denies trauma. He denies headache, no blurred vision or difficulty talking or swallowing. 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 He does not want nicotine patch Vitas looks stable, on the presentation his blood pressure was elevated to 187/123, currently is 123/82. Labs including CBC is unremarkable, INR is normal at 0.9. BMP showing only mild hyponatremia at 132, resolved BMP and liver enzymes were unremarkable. Sugar is elevated 2-9 and troponin is elevated at 0.3 EKG showed normal sinus rhythm with left ventricular hypertrophy. Rate at 97 Chest x-ray showing CHF CTA of the brain showing large bilateral pleural effusion correlate for edema and heart failure, possible pneumonia per reports. No significant stenosis CT of the brain: No acute process. In the emergency room he was started on aspirin 325 mg and heparin drip 07/11/2020 States that his breathing is better although he stayed in bed it did not try to get out. No chest pain or coughing Distal have bilateral patellar leg edema. His left hand websphere portal developer is improving up to 80% of its normal function and on examination it looks stronger Neurology input is appreciated and they recommended MRI of the brain which is pending also. Plavix once heparin drip was stopped. Echocardiogram showed ejection fraction of 25-30% with moderate concentric LVH. Labs looks stable History remains on heparin drip for possible non-STEMI and aspirin 81 mg, cardiology team consulted. Also he is on IV Lasix for CHF. Review of Systems CONSTITUTIONAL: No fever, no malaise, no fatigue. HEENT: No recent visual problems or hearing problems. Denied any sore throat. CARDIOVASCULAR: No palpitation, no dizziness Pulmonary: no chest wall tenderness shortness of breath, no cough, no hemoptysis. GASTROINTESTINAL: No diarrhea, no nausea, no vomiting, no abdominal pain. Normoactive bowel sounds. NEUROLOGICAL: No headaches, no weakness, no numbness. HEMATOLOGICAL: Denies any bleeding or petechiae. Active Medications Generic Name Dose Route Start Last Admin Trade Name Freq PRN Reason Stop Dose Admin Artificial Tears 1 drops 07/10/20 18:42 Artificial Tears-Hypromellose Drops 15 Ml Btl BOTH EYES QID PRN Dry Eye(s) Aspirin 81 mg 07/11/20 09:00 Aspirin 81 Mg PO DAILY [facility] Duloxetine HCl 20 mg 07/11/20 09:00 Duloxetine Hcl 20 Mg Capsule.Dr PO DAILY [facility] Ezetimibe 10 mg 07/11/20 09:00 Ezetimibe 10 Mg Tab PO DAILY [facility] Furosemide 40 mg 07/10/20 21:00 07/10/20 22:28 Furosemide 10 Mg/Ml 4 Ml Vial IV 40 mg Q12HR [facility] Administration Heparin Sodium (Porcine) 0 unit 07/10/20 12:39 Heparin Sodium,Porcine 5,000 Unit/Ml 1 Ml Vial IV PER PROTOCOL PRN Low PTT Protocol Heparin Sodium/Sodium Chloride 250 mls @ 10.07 mls/hr 07/10/20 12:45 07/11/20 07:52 25,000 unit/ Sodium Chloride IV 18 units/kg/hr .Q24H [facility] 15.105 mls/hr Administration Protocol 12 UNITS/KG/HR Insulin Aspart 0 unit 07/10/20 17:30 07/11/20 07:32 Insulin Aspart (Novolog) 100 Unit/Ml Vial SQ Not Given ACHS [facility] Protocol Insulin Detemir 25 unit 07/10/20 21:00 07/10/20 22:30 Insulin Detemir (Levemir) 100 Unit/Ml Syr SQ 25 unit BID [facility] Administration Metoprolol Tartrate 25 mg 07/11/20 09:00 Metoprolol Tartrate 25 Mg Tab PO BID [facility] Nitroglycerin 0.4 mg 07/10/20 12:35 Nitroglycerin Sl Tabs 0.4 Mg Tab SUBLINGUAL Q5M PRN Chest Pain Pravastatin Sodium 80 mg 07/10/20 21:00 07/10/20 22:29 Pravastatin Sodium 80 Mg Tab PO 80 mg HS [facility] Administration Objective - Vital Signs Vital signs: Vital Signs Temp 97.8 F 07/11/20 07:55 Pulse 83 07/11/20 07:55 Resp 16 07/11/20 07:55 BP 161/96 07/11/20 07:55 Pulse Ox 94 L 07/11/20 07:55 Intake & Output 07/10/20 07/11/20 07/11/20 18:59 06:59 18:59 Intake Total 240 195.689 19.888 Output Total 350 Balance 240 -154.311 19.888 Weight 83.915 kg 87.3 kg Intake: Intake, IV Titration 195.689 19.888 Amount Heparin Sod,Pork in 0.45% 195.689 19.888 NaCl 25,000 unit In 0.45 % NaCl 1 250ml.bag @ 12 UNITS/KG/HR 10.07 mls/hr IV .Q24H [facility] Rx#: [id number] Oral 240 Output: Urine 350 - Exam GENERAL: The patient is alert and oriented x3, not in any acute distress. Well developed, well nourished. HEENT: Pupils are round and equally reacting to light. EOMI. No scleral icterus. No conjunctival pallor. Normocephalic, atraumatic. No pharyngeal erythema. No thyromegaly. CARDIOVASCULAR: S1 and S2 present. No murmurs, rubs, or gallops. -PULMONARY: Chest is clear to auscultation, no wheezing. Bilateral basal crepitation, decreased breath sounds bilaterally ABDOMEN: Soft, nontender, nondistended, normoactive bowel sounds. No palpable organomegaly. MUSCULOSKELETAL: No joint swelling or deformity. EXTREMITIES: No cyanosis, clubbing, or pedal edema. -NEUROLOGICAL: Cranial nerves are grossly intact. Left hand with weak websphere portal developer, but improving compared to yesterday. Sensation is intact. Rest of motor examination is 5/5 of all other extremity except the left hand. Meningeal signs are absent SKIN: No rashes. No petechiae - Labs CBC & Chem 7: 07/11/20 04:53 07/11/20 04:53 Labs: Abnormal Lab Results - Last 24 Hours (Table) 07/10/20 07/10/20 07/10/20 Range/Units 11:37 11:50 11:50 RBC 4.11 L (4.30-5.90) m/uL Hgb 12.2 L (13.0-17.5) gm/dL Hct 35.8 L (39.0-53.0) % APTT (22.0-30.0) sec Sodium 132 L (137-145) mmol/L BUN 28 H (9-20) mg/dL Creatinine (0.66-1.25) mg/dL Glucose 227 H (74-99) mg/dL POC Glucose (mg/dL) 229 H (75-99) mg/dL Troponin I (0.000-0.034) ng/mL Triglycerides (<150) mg/dL Cholesterol (<200) mg/dL LDL Cholesterol, Calc (0-99) mg/dL 07/10/20 07/10/20 07/10/20 Range/Units 11:50 15:21 17:02 RBC (4.30-5.90) m/uL Hgb (13.0-17.5) gm/dL Hct (39.0-53.0) % APTT (22.0-30.0) sec Sodium (137-145) mmol/L BUN (9-20) mg/dL Creatinine (0.66-1.25) mg/dL Glucose (74-99) mg/dL POC Glucose (mg/dL) 207 H (75-99) mg/dL Troponin I 0.311 H* 0.304 H* (0.000-0.034) ng/mL Triglycerides (<150) mg/dL Cholesterol (<200) mg/dL LDL Cholesterol, Calc (0-99) mg/dL 07/10/20 07/10/20 07/11/20 Range/Units 18:29 20:09 04:53 RBC (4.30-5.90) m/uL Hgb (13.0-17.5) gm/dL Hct (39.0-53.0) % APTT (22.0-30.0) sec Sodium 136 L (137-145) mmol/L BUN 28 H (9-20) mg/dL Creatinine 1.48 H (0.66-1.25) mg/dL Glucose (74-99) mg/dL POC Glucose (mg/dL) 196 H (75-99) mg/dL Troponin I 0.295 H* (0.000-0.034) ng/mL Triglycerides 155 H (<150) mg/dL Cholesterol 221 H (<200) mg/dL LDL Cholesterol, Calc 145 H (0-99) mg/dL 07/11/20 07/11/20 Range/Units 04:53 04:53 RBC 4.00 L (4.30-5.90) m/uL Hgb 11.7 L (13.0-17.5) gm/dL Hct 35.2 L (39.0-53.0) % APTT 32.8 H (22.0-30.0) sec Sodium (137-145) mmol/L BUN (9-20) mg/dL Creatinine (0.66-1.25) mg/dL Glucose (74-99) mg/dL POC Glucose (mg/dL) (75-99) mg/dL Troponin I (0.000-0.034) ng/mL Triglycerides (<150) mg/dL Cholesterol (<200) mg/dL LDL Cholesterol, Calc (0-99) mg/dL Assessment and Plan Assessment: possible non-STEMI with elevated troponin Acute dyspnea could be acute CHF , unknown ejection fraction Weakness of the left hand, rule out stroke Diabetes mellitus with hyperglycemia Chronic back pain secondary to herniated disc History of coronary artery disease status post CABG. Plan: this is a pleasant 54 years old male who presents with non-STEMI, acute CHF and possible stroke. Continue with heparin drip and aspirin. Cardiology consult. Neurology consult. We'll check echocardiogram and hb a1c Labs and medication were reviewed.. Continue same treatment. Continue with symptomatic treatment. Resume home medication. Monitor lytes and vitals. DVT and GI prophylaxis. Further recommendations depends on the clinical course of the patient DVT prophylaxis: Subcutaneous heparin GI Prophylaxis: Pepcid PT/OT: Pending Prognosis is guarded
[2020-07-11 11:36] LABS: Glucose,Whole Blood 81 mg/dL (75-99)
[2020-07-11] MEDS: EZETIMIBE 10 MG TAB PO SCH (12:06)
[2020-07-11] MEDS: DULoxetine HCL 20 MG CAPSULE.DR PO SCH (12:06)
[2020-07-11] MEDS: METOPROLOL SUCCINATE (ER) 25 MG TAB.ER.24H PO SCH (12:06)
[2020-07-11] MEDS: FUROSEMIDE 10 MG/ML 4 ML VIAL IV SCH (12:07)
[2020-07-11] MEDS: INSULIN DETEMIR (LEVEMIR) 100 UNIT/ML SYR SQ SCH ×2 (12:08→20:48)
[2020-07-11] MEDS ORDERED: ALPRAZolam 0.5 MG TAB PO PRN (12:47)
[2020-07-11] MEDS ORDERED: ALPRAZolam 0.25 MG TAB PO PRN (12:47)
--- NOTE | 2020-07-11 12:49 | P.CRDCN ---
<Vandana Cochran - Last Filed: 07/11/20 12:46> History of Present Illness History of present illness: HISTORY OF PRESENTING ILLNESS This is a pleasant 54-year-old male past medical history significant for peripheral vascular disease status post left lower extremity bypass, diabetes mellitus, chronic nicotine dependence the patient quit smoking last week and dyslipidemia. The follows in the [facility] for his medical needs. We have been asked to see in consultation for heart failure. He presented to the hospital with a one-week history of shortness of breath and cough. He states one week ago it started with a 5 hour episode of persistent coughing. He was not able to clear any phlegm or sputum at that time. Throughout the week he noticed worsening shortness of breath. He then had another episode of coughing that seemed to exacerbate things even worse. He also is experiencing numbness and weakness in the left arm. He is currently being evaluated by neurology. An echocardiogram was obtained revealing impaired LV systolic function with ejection fraction 25-30%, mildly dilated left atrium and mild mitral regurgitation. According to the patient he has undergone a cardiac catheterization approximately 10 years ago that he states was normal. As far as he can remember he did have an echocardiogram one to 2 years ago that also he says was normal. He denies any symptoms of chest discomfort throughout the previous one week when he was short of breath. He has no dizziness or palpitati ons. DIAGNOSTICS EKG reveals sinus mechanism heart rate of 97 with T-wave inversions in the anterolateral leads suggestive of LVH. Telemetry tracings indicate persistent sinus mechanism with no acute arrhythmia. Chest xray bibasilar effusions with blunting of the costophrenic angles. CT brain with nonspecific white matter demyelinization due to chronic small vessel ischemic changes. CT angiography reveals large bilateral pleural effusions. Patent left and right internal in a sterile carotid arteries with atheromatous changes. Laboratory reviewed, WBC 7.3, hemoglobin 11.7, platelets 251, sodium 136, potassium 4.1, creatinine on admission 1.20 1 repeat today 1.48, troponin 0.311, 0.304, 0.295, and T proBNP 10,600, LDL 145, HDL 45 and TSH 4.05. Current cardiac medications include aspirin 81 mg twice a day and pravastatin 80 mg at bedtime. REVIEW OF SYSTEMS At the time of my exam: CONSTITUTIONAL: Denies fever or chills. CARDIOVASCULAR: Complains of shortness of breath and orthopnea. Denies chest pain, PND or palpitations. RESPIRATORY: Denies cough. GASTROINTESTINAL: Denies abdominal pain, diarrhea, constipation, nausea or vomiting. MUSCULOSKELETAL: Mild left arm weakness improved since admission. NEUROLOGIC: Denies numbness, tingling, headacbe or weakness. ENDOCRINE: Denies fatigue, weight change, polydipsia or polyurina. GENITOURINARY: Denies burning, hematuria or urgency with micturation. HEMATOLOGIC: Denies history of anemia or bleeding. PHYSICAL EXAMINATION Blood pressure 161/96 heart rate 83 afebrile and maintaining oxygen saturation on room air. CONSTITUTIONAL: No apparent distress. HEENT: Head is normocephalic. Pupils are equal, round. Sclerae anicteric. Mucous membranes of the mouth are moist. No JVD. Bilateral carotid bruit. CHEST EXAMINATION: Bibasilar rales, no rhonchi or wheezes. No chest wall tenderness is noted on palpation or with deep breathing. HEART EXAMINATION: Regular rate and rhythm. S1, S2 heard. No murmurs, gallops or rub. ABDOMEN: Soft, nontender. Positive bowel sounds. EXTREMITIES: 2+ peripheral pulses, no lower extremity edema and no calf tenderness. NEUROLOGIC EXAMINATION: Patient is awake, alert and oriented x3. ASSESSMENT Acute systolic heart failure Right arm weakness, neurology following Hypertension Acute kidney injury Peripheral vascular disease Diabetes mellitus Dyslipidemia Chronic nicotine dependence PLAN Continue IV heparin infusion. Initiate Toprol 25 mg daily. Patient is scheduled to undergo an MRI of the brain today. Recommend proceeding with cardiac catheterization tomorrow if his renal function remained stable. I have discussed the risks, benefits and alternative therapies for the above-mentioned procedure and for both sedation/analgesia as well as necessary blood product administration, if indicated, as they pertain to this patient. The patient has indicated understanding and acceptance of the risks and procedures discussed. Questions have been answered appropriately and he is agreeable to move forward with the above stated procedure. Hold STANLEY/ARB secondary to acute kidney injury. Further recommendations to follow based upon clinical course. Thank you kindly for this consultation. Nurse Practitioner note has been reviewed, I agree with a documented findings and plan of care. Patient was seen and examined. Past Medical History Past Medical History: Diabetes Mellitus Additional Past Medical History / Comment(s): herniated disks and chronic back issues, peripheral neuropathy History of Any Multi-Drug Resistant Organisms: None Reported Past Surgical History: Appendectomy, Coronary Bypass/CABG, Orthopedic Surgery Additional Past Surgical History / Comment(s): bilateral rotator cuff, bilateral knee scopes, neck fusion Past Anesthesia/Blood Transfusion Reactions: No Reported Reaction Past Psychological History: PTSD Smoking Status: Former smoker Past Alcohol Use History: None Reported Past Drug Use History: None Reported - Past Family History Mother Family Medical History: Congestive Heart Failure (CHF), CVA/TIA, Myocardial Infarction ([place]) Medications and Allergies Home Medications Medication Instructions Recorded Confirmed Type Aspirin EC [Ecotrin Low Dose] 81 mg PO BID 03/12/19 07/10/20 History Empagliflozin [Jardiance] 25 mg PO DAILY 03/12/19 07/10/20 History Insulin Glargine,Hum.rec.anlog 30 unit SQ BID 03/12/19 07/10/20 History [Lantus Solostar] Pravastatin Sodium [Pravachol] 80 mg PO HS 03/12/19 07/10/20 History Carboxymethylcellulose Sodium 1 drop BOTH EYES QID PRN 07/10/20 07/10/20 History [Refresh Tears] DULoxetine HCL [Cymbalta] 20 mg PO DAILY 07/10/20 07/10/20 History Insulin Aspart [NovoLOG Flexpen] 6 units SQ AC-TID 07/10/20 07/10/20 History Allergies Allergy/AdvReac Type Severity Reaction Status Date / Time No Known Allergies Allergy Verified 07/10/20 14:39 Physical Exam Vitals: Vital Signs Temp Pulse Pulse Resp BP BP Pulse Ox 07/11/20 07:55 97.8 F 83 16 161/96 94 L 07/11/20 04:00 98.4 F 85 18 154/92 96 07/11/20 02:00 85 20 07/11/20 00:00 97.6 F 85 20 173/109 95 07/10/20 20:00 98.1 F 86 20 153/95 07/10/20 17:55 135/78 07/10/20 15:11 97.8 F 95 18 156/90 98 07/10/20 14:37 98.0 F 93 18 123/82 98 07/10/20 12:17 98.0 F 101 H 18 190/121 98 07/10/20 11:57 98.0 F 100 18 187/123 98 07/10/20 11:53 98.1 F 98 18 177/98 99 07/10/20 11:24 18 07/10/20 11:05 98.1 F 95 22 181/113 99 Intake and Output 07/10/20 07/11/20 07/11/20 22:59 06:59 14:59 Intake Total 332.476 103.213 19.888 Output Total 350 Balance -17.524 103.213 19.888 Intake: Intake, IV Titration 92.476 103.213 19.888 Amount Heparin Sod,Pork in 0.45% 92.476 103.213 19.888 NaCl 25,000 unit In 0.45 % NaCl 1 250ml.bag @ 12 UNITS/KG/HR 10.07 mls/hr IV .Q24H [facility] Rx#: [id number] Oral 240 Output: Urine 350 Other: Weight 83.915 kg 87.3 kg Results 07/11/20 04:53 07/11/20 04:53 Cardiac Enzymes 07/10/20 07/10/20 07/10/20 Range/Units 11:50 11:50 15:21 AST 25 (17-59) U/L Troponin I 0.311 H* 0.304 H* (0.000-0.034) ng/mL 07/10/20 Range/Units 18:29 AST (17-59) U/L Troponin I 0.295 H* (0.000-0.034) ng/mL Coagulation 07/10/20 07/10/20 07/11/20 Range/Units 11:50 18:29 04:53 PT 9.6 (9.0-12.0) sec APTT 22.3 28.9 32.8 H (22.0-30.0) sec Lipids 07/11/20 Range/Units 04:53 Triglycerides 155 H (<150) mg/dL Cholesterol 221 H (<200) mg/dL HDL Cholesterol 45 (40-60) mg/dL CBC 07/10/20 07/11/20 Range/Units 11:50 04:53 WBC 8.6 7.3 (3.8-10.6) k/uL RBC 4.11 L 4.00 L (4.30-5.90) m/uL Hgb 12.2 L 11.7 L (13.0-17.5) gm/dL Hct 35.8 L 35.2 L (39.0-53.0) % Plt Count 242 251 (150-450) k/uL Comprehensive Metabolic Panel 07/10/20 07/11/20 Range/Units 11:50 04:53 Sodium 132 L 136 L (137-145) mmol/L Potassium 4.4 4.1 (3.5-5.1) mmol/L Chloride 104 106 (98-107) mmol/L Carbon Dioxide 23 24 (22-30) mmol/L BUN 28 H 28 H (9-20) mg/dL Creatinine 1.21 1.48 H (0.66-1.25) mg/dL Glucose 227 H 87 (74-99) mg/dL Calcium 8.8 9.0 (8.4-10.2) mg/dL AST 25 (17-59) U/L ALT 13 (4-49) U/L Alkaline Phosphatase 91 (38-126) U/L Total Protein 6.3 (6.3-8.2) g/dL Albumin 3.5 (3.5-5.0) g/dL Current Medications Generic Name Dose Route Start Last Admin Trade Name Freq PRN Reason Stop Dose Admin Artificial Tears 1 drops 07/10/20 18:42 Artificial Tears-Hypromellose Drops 15 Ml Btl BOTH EYES QID PRN Dry Eye(s) Aspirin 81 mg 07/11/20 09:00 Aspirin 81 Mg PO DAILY [facility] Duloxetine HCl 20 mg 07/11/20 09:00 Duloxetine Hcl 20 Mg Capsule.Dr PO DAILY [facility] Ezetimibe 10 mg 07/11/20 09:00 Ezetimibe 10 Mg Tab PO DAILY [facility] Furosemide 40 mg 07/10/20 21:00 07/10/20 22:28 Furosemide 10 Mg/Ml 4 Ml Vial IV 40 mg Q12HR [facility] Administration Heparin Sodium (Porcine) 0 unit 07/10/20 12:39 Heparin Sodium,Porcine 5,000 Unit/Ml 1 Ml Vial IV PER PROTOCOL PRN Low PTT Protocol Heparin Sodium/Sodium Chloride 250 mls @ 10.07 mls/hr 07/10/20 12:45 07/11/20 07:52 25,000 unit/ Sodium Chloride IV 18 units/kg/hr .Q24H [facility] 15.105 mls/hr Administration Protocol 12 UNITS/KG/HR Insulin Aspart 0 unit 07/10/20 17:30 07/11/20 07:32 Insulin Aspart (Novolog) 100 Unit/Ml Vial SQ Not Given ACHS [facility] Protocol Insulin Detemir 25 unit 07/10/20 21:00 07/10/20 22:30 Insulin Detemir (Levemir) 100 Unit/Ml Syr SQ 25 unit BID [facility] Administration Metoprolol Tartrate 25 mg 07/11/20 09:00 Metoprolol Tartrate 25 Mg Tab PO BID [facility] Nitroglycerin 0.4 mg 07/10/20 12:35 Nitroglycerin Sl Tabs 0.4 Mg Tab SUBLINGUAL Q5M PRN Chest Pain Pravastatin Sodium 80 mg 07/10/20 21:00 07/10/20 22:29 Pravastatin Sodium 80 Mg Tab PO 80 mg HS [facility] Administration Intake and Output 07/10/20 07/11/20 07/11/20 22:59 06:59 14:59 Intake Total 332.476 103.213 19.888 Output Total 350 Balance -17.524 103.213 19.888 Intake: Intake, IV Titration 92.476 103.213 19.888 Amount Heparin Sod,Pork in 0.45% 92.476 103.213 19.888 NaCl 25,000 unit In 0.45 % NaCl 1 250ml.bag @ 12 UNITS/KG/HR 10.07 mls/hr IV .Q24H [facility] Rx#: [id number] Oral 240 Output: Urine 350 Other: Weight 83.915 kg 87.3 kg 07/11/20 04:53 07/11/20 04:53 <Asad Alcaraz - Last Filed: 07/11/20 16:07> History of Present Illness History of present illness: Agree with assessment besides right arm weakness should be left arm weakness. MRI+, will do PRATIMA/ catheterization tomorrow. Physical Exam Vitals: Vital Signs Temp Pulse Resp BP Pulse Ox 07/11/20 15:48 83 16 07/11/20 15:41 98.4 F 83 16 159/96 97 07/11/20 11:20 80 16 161/97 98 07/11/20 07:55 97.8 F 83 16 161/96 94 L 07/11/20 04:00 98.4 F 85 18 154/92 96 07/11/20 02:00 85 20 07/11/20 00:00 97.6 F 85 20 173/109 95 07/10/20 20:00 98.1 F 86 20 153/95 07/10/20 17:55 135/78 Intake and Output 07/11/20 07/11/20 07/11/20 06:59 14:59 22:59 Intake Total 103.213 19.888 Balance 103.213 19.888 Intake: Intake, IV Titration 103.213 19.888 Amount Heparin Sod,Pork in 0.45% 103.213 19.888 NaCl 25,000 unit In 0.45 % NaCl 1 250ml.bag @ 12 UNITS/KG/HR 10.07 mls/hr IV .Q24H [facility] Rx#: [id number] Other: # Voids 2 Weight 87.3 kg Results 07/11/20 04:53 07/11/20 04:53 Cardiac Enzymes 07/10/20 07/10/20 Range/Units 15:21 18:29 Troponin I 0.304 H* 0.295 H* (0.000-0.034) ng/mL Coagulation 07/10/20 07/11/20 Range/Units 18:29 04:53 APTT 28.9 32.8 H (22.0-30.0) sec Lipids 07/11/20 Range/Units 04:53 Triglycerides 155 H (<150) mg/dL Cholesterol 221 H (<200) mg/dL HDL Cholesterol 45 (40-60) mg/dL CBC 07/11/20 Range/Units 04:53 WBC 7.3 (3.8-10.6) k/uL RBC 4.00 L (4.30-5.90) m/uL Hgb 11.7 L (13.0-17.5) gm/dL Hct 35.2 L (39.0-53.0) % Plt Count 251 (150-450) k/uL Comprehensive Metabolic Panel 07/11/20 Range/Units 04:53 Sodium 136 L (137-145) mmol/L Potassium 4.1 (3.5-5.1) mmol/L Chloride 106 (98-107) mmol/L Carbon Dioxide 24 (22-30) mmol/L BUN 28 H (9-20) mg/dL Creatinine 1.48 H (0.66-1.25) mg/dL Glucose 87 (74-99) mg/dL Calcium 9.0 (8.4-10.2) mg/dL Current Medications Generic Name Dose Route Start Last Admin Trade Name Freq PRN Reason Stop Dose Admin Alprazolam 0.25 mg 07/11/20 12:47 Alprazolam 0.25 Mg Tab PO Q6HR PRN Mild Anxiety Alprazolam 0.5 mg 07/11/20 12:47 Alprazolam 0.5 Mg Tab PO Q6HR PRN Moderate Anxiety Artificial Tears 1 drops 07/10/20 18:42 Artificial Tears-Hypromellose Drops 15 Ml Btl BOTH EYES QID PRN Dry Eye(s) Aspirin 81 mg 07/13/20 09:00 Aspirin 81 Mg PO DAILY [facility] Aspirin 324 mg 07/12/20 06:00 Aspirin 81 Mg PO 07/12/20 06:01 ONCE ONE Duloxetine HCl 20 mg 07/11/20 09:00 07/11/20 12:06 Duloxetine Hcl 20 Mg Capsule.Dr PO 20 mg DAILY [facility] Administration Ezetimibe 10 mg 07/11/20 09:00 07/11/20 12:06 Ezetimibe 10 Mg Tab PO 10 mg DAILY [facility] Administration Furosemide 40 mg 07/10/20 21:00 07/11/20 12:07 Furosemide 10 Mg/Ml 4 Ml Vial IV 40 mg Q12HR [facility] Administration Heparin Sodium (Porcine) 0 unit 07/10/20 12:39 Heparin Sodium,Porcine 5,000 Unit/Ml 1 Ml Vial IV PER PROTOCOL PRN Low PTT Protocol Heparin Sodium/Sodium Chloride 250 mls @ 10.07 mls/hr 07/10/20 12:45 07/11/20 07:52 25,000 unit/ Sodium Chloride IV 18 units/kg/hr .Q24H [facility] 15.105 mls/hr Administration Protocol 12 UNITS/KG/HR Sodium Chloride 1,000 ml/ IV 1,000 mls @ 87.3 mls/hr 07/11/20 23:59 Solution IV 07/12/20 11:26 .[id number] ONE 1 ML/KG/HR Heparin Sodium (Porcine) 10, 1,001 mls @ 999 mls/hr 07/12/20 07:00 000 unit/ Sodium Chloride IRRIGATION 07/12/20 23:00 ONCE PRN INTRA-OP Heparin Sodium (Porcine) 2,500 250.5 mls @ 250 mls/hr 07/12/20 07:00 unit/ Sodium Chloride IRRIGATION 07/12/20 23:00 ONCE PRN INTRA-OP Insulin Aspart 0 unit 07/10/20 17:30 07/11/20 11:38 Insulin Aspart (Novolog) 100 Unit/Ml Vial SQ Not Given ACHS [facility] Protocol Insulin Detemir 25 unit 07/10/20 21:00 07/11/20 12:08 Insulin Detemir (Levemir) 100 Unit/Ml Syr SQ 25 unit BID [facility] Administration Metoprolol Succinate 25 mg 07/11/20 10:30 07/11/20 12:06 Metoprolol Succinate (Er) 25 Mg Tab.Er.24h PO 25 mg DAILY [facility] Administration Nitroglycerin 0.4 mg 07/10/20 12:35 Nitroglycerin Sl Tabs 0.4 Mg Tab SUBLINGUAL Q5M PRN Chest Pain Pravastatin Sodium 80 mg 07/10/20 21:00 07/10/20 22:29 Pravastatin Sodium 80 Mg Tab PO 80 mg HS [facility] Administration Intake and Output 07/11/20 07/11/20 07/11/20 06:59 14:59 22:59 Intake Total 103.213 19.888 Balance 103.213 19.888 Intake: Intake, IV Titration 103.213 19.888 Amount Heparin Sod,Pork in 0.45% 103.213 19.888 NaCl 25,000 unit In 0.45 % NaCl 1 250ml.bag @ 12 UNITS/KG/HR 10.07 mls/hr IV .Q24H [facility] Rx#: [id number] Other: # Voids 2 Weight 87.3 kg 07/11/20 04:53 07/11/20 04:53
[2020-07-11 14:19] LABS: Hemoglobin A1C 8.4 % (4.0-6.0)
--- NOTE | 2020-07-11 14:34 | MR ---
MR brain without contrast HISTORY: Cerebrovascular accident Multiplanar multisequence imaging through the brain and correlated to CT brain 07/10/2020 Scattered hyperintensities are present in the periventricular region on the right, right parietal lob e as well as frontal lobes. Extensive confluent and scattered hyperintensities are also present on in version recovery T2-weighted sequences in the periventricular, pericallosal and subcortical white mat ter as well as in the distribution of the restricted diffusion. There is no evident hemorrhage or hyd rocephalus. Corpus callosum, pituitary, cervical medullary junction in cerebellopontine angles are no rmal. There are normal vascular flow voids. There is no hemorrhage or hydrocephalus. Orbits show symm etric appearance. IMPRESSION: Subacute infarcts are present bilaterally within the brain, greater than a single vascula r distribution, correlate for possible embolic phenomenon. There is underlying age-related changes of atrophy and probable chronic small vessel ischemia.
--- NOTE | 2020-07-11 15:04 | P.PN ---
Subjective Progress Note Date: 07/11/20 The patient is a pleasant, 54-year-old male who is seen in neurologic consultation on July 10, 2020, via teleneurology. The patient is being seen because of left hand weakness and possible stroke. The patient reports that he noticed yesterday, at a proximally 2 PM, that his left hand was "acting weird". He says that he had loss of scheduling agent strength. He reports noticing this loss of strength, when he was walking his dog. He normally uses a pole and he was unable to hold onto the pole. The patient denies numbness, tingling and pain in his left hand. He denies weakness in his left arm. He denies other weakness. The patient denies headache, difficulty with speech, difficulty swallowing, changes in vision and loss of balance. The patient denies a history of stroke. The patient does report recent coughing and shortness of breath. He states that last Sunday, he had a 5 hour period of continuous coughing. He says that it was a dry cough. He finally vomited. The cough then resolved. Apparently, last night the patient's coughing and shortness of breath returned. He elected to come into the emergency department. He denies a history of fever, chills and exposure to anyone with Covid 19. The patient is seen in neurologic follow-up on July 11, 2020 via telemetry neurology. He feels as if his left hand strength is improving. He is not aware of any new deficits. 2-D echocardiogram has been completed and shows an ejection fraction of 25%. Per patient's RN, cardiology has been consulted. Objective - Vital Signs Vital signs: Vital Signs Temp 97.8 F 07/11/20 07:55 Pulse 83 07/11/20 07:55 Resp 16 07/11/20 07:55 BP 161/96 07/11/20 07:55 Pulse Ox 94 L 07/11/20 07:55 Intake & Output 07/10/20 07/11/20 07/11/20 18:59 06:59 18:59 Intake Total 240 195.689 19.888 Output Total 350 Balance 240 -154.311 19.888 Weight 83.915 kg 87.3 kg Intake: Intake, IV Titration 195.689 19.888 Amount Heparin Sod,Pork in 0.45% 195.689 19.888 NaCl 25,000 unit In 0.45 % NaCl 1 250ml.bag @ 12 UNITS/KG/HR 10.07 mls/hr IV .Q24H [facility] Rx#: [id number] Oral 240 Output: Urine 350 - Exam Gen.: The patient is reclining in the bed. He is well-nourished, well-developed and in no acute distress. HEENT: Head is atraumatic, normocephalic. Fundus not visualized. There is no scleral icterus. Mucous membranes are moist. Extremities: Feet are less mottled today. Pulses are present Neurological examination Cranial nerves: Pupils are equal, round and reactive to light. Visual cotton are full to confrontation. Extraocular movements are intact. There is no nystagmus. Facial sensations intact. There is no facial asymmetry. Hearing is grossly intact. Uvula and palate are midline. Shoulder shrug is symmetric. Tongue protrudes midline. Motor: Left opponens pollicis 4/5. Left finger extensors 4/5. Left finger abductors 4/5. The patient is able to touch his left fifth finger with his thumb. Other muscle strength is 5/5 throughout. Deep tendon reflexes: 1-2+/4+. Sensation: Distal gradient sensory loss to touch in the lower extremities. - Labs CBC & Chem 7: 07/11/20 04:53 07/11/20 04:53 Labs: Abnormal Lab Results - Last 24 Hours (Table) 07/10/20 07/10/20 07/10/20 Range/Units 11:37 11:50 11:50 RBC 4.11 L (4.30-5.90) m/uL Hgb 12.2 L (13.0-17.5) gm/dL Hct 35.8 L (39.0-53.0) % APTT (22.0-30.0) sec Sodium 132 L (137-145) mmol/L BUN 28 H (9-20) mg/dL Creatinine (0.66-1.25) mg/dL Glucose 227 H (74-99) mg/dL POC Glucose (mg/dL) 229 H (75-99) mg/dL Troponin I (0.000-0.034) ng/mL Triglycerides (<150) mg/dL Cholesterol (<200) mg/dL LDL Cholesterol, Calc (0-99) mg/dL 07/10/20 07/10/20 07/10/20 Range/Units 11:50 15:21 17:02 RBC (4.30-5.90) m/uL Hgb (13.0-17.5) gm/dL Hct (39.0-53.0) % APTT (22.0-30.0) sec Sodium (137-145) mmol/L BUN (9-20) mg/dL Creatinine (0.66-1.25) mg/dL Glucose (74-99) mg/dL POC Glucose (mg/dL) 207 H (75-99) mg/dL Troponin I 0.311 H* 0.304 H* (0.000-0.034) ng/mL Triglycerides (<150) mg/dL Cholesterol (<200) mg/dL LDL Cholesterol, Calc (0-99) mg/dL 07/10/20 07/10/20 07/11/20 Range/Units 18:29 20:09 04:53 RBC (4.30-5.90) m/uL Hgb (13.0-17.5) gm/dL Hct (39.0-53.0) % APTT (22.0-30.0) sec Sodium 136 L (137-145) mmol/L BUN 28 H (9-20) mg/dL Creatinine 1.48 H (0.66-1.25) mg/dL Glucose (74-99) mg/dL POC Glucose (mg/dL) 196 H (75-99) mg/dL Troponin I 0.295 H* (0.000-0.034) ng/mL Triglycerides 155 H (<150) mg/dL Cholesterol 221 H (<200) mg/dL LDL Cholesterol, Calc 145 H (0-99) mg/dL 07/11/20 07/11/20 Range/Units 04:53 04:53 RBC 4.00 L (4.30-5.90) m/uL Hgb 11.7 L (13.0-17.5) gm/dL Hct 35.2 L (39.0-53.0) % APTT 32.8 H (22.0-30.0) sec Sodium (137-145) mmol/L BUN (9-20) mg/dL Creatinine (0.66-1.25) mg/dL Glucose (74-99) mg/dL POC Glucose (mg/dL) (75-99) mg/dL Troponin I (0.000-0.034) ng/mL Triglycerides (<150) mg/dL Cholesterol (<200) mg/dL LDL Cholesterol, Calc (0-99) mg/dL Assessment and Plan Assessment: 1. The patient is a 54-year-old male with vascular risk factors including coronary artery disease, diabetes mellitus, tobacco abuse who presents to the emergency department with complaints of shortness of breath, coughing and the left hand weakness. The patient's neurological examination reveals weakness confined to his left hand. The left arm and left leg strength are intact. I am concerned that the abnormality on CT scan and the patient's left hand weakness may be consistent with a small lacunar infarct along the motor strip, consistent with left hand strength ADDENDUM: MRI of the brain had not been obtained at this time of my evaluation of this patient this morning. MRI report indicates bilateral small subacute infarcts, possible embolic etiology. Images have been reviewed Plan: 1. Transesophageal echocardiogram should be obtained looking for etiology embolic infarcts 2. Dr. Delfino Bro will assume neurologic coverage of this patient on July 12, 2020 Time with Patient: Less than 30 (spent 20 minutes with patient via teleneurology)
[2020-07-11 16:33] LABS: Glucose,Whole Blood 188 mg/dL (75-99)
[2020-07-11 20:39] LABS: Glucose,Whole Blood 92 mg/dL (75-99)
[2020-07-11] MEDS: PRAVASTATIN SODIUM 80 MG TAB PO SCH (20:48)
[2020-07-11] MEDS ORDERED: SODIUM CHLORIDE 0.9% 1,000 ML in EMPTY BAG 1 BAG IV ONE (23:59)
[2020-07-12] MEDS: HEPARIN SOD,PORK IN 0.45% NACL 25,000 UNIT in 0.45% NACL 1 250ML.BAG IV SCH (00:35)
[2020-07-12 04:49] LABS: Basophils # (A) 0.2 k/uL (0-0.2); Basophils % (A) 2 %; Eosinophils # (A) 0.5 k/uL (0-0.7); Eosinophils % (A) 5 %; HCT 38.1 % (39.0-53.0); HGB 12.9 gm/dL (13.0-17.5); Lymphocytes # (A) 2.7 k/uL (1.0-4.8); Lymphocytes % (A) 26 %; MCV 88.3 fL (80.0-100.0); Mean Platelet Volume 8.6; Monocytes # (A) 0.5 k/uL (0-1.0); Monocytes % (A) 4 %; Neutrophils # (A) 6.4 k/uL (1.3-7.7); Neutrophils % (A) 62 %; Platelet Count 280 k/uL (150-450); RBC 4.31 m/uL (4.30-5.90); RDW 13.4 % (11.5-15.5); WBC 10.3 k/uL (3.8-10.6)
[2020-07-12 05:42] LABS: Calcium 8.9 mg/dL (8.4-10.2); Potassium 3.7 mmol/L (3.5-5.1)
[2020-07-12] MEDS ORDERED: ASPIRIN 81 MG PO ONE (06:00)
[2020-07-12 06:06] LABS: Glucose,Whole Blood 68 mg/dL (75-99)
[2020-07-12 06:56] LABS: Glucose,Whole Blood 68 mg/dL (75-99)
[2020-07-12] MEDS ORDERED: HEPARIN SODIUM,PORCINE 2,500 UNIT in SODIUM CHLORIDE 0.9% 250 ML IRRIGATION PRN (07:00)
[2020-07-12] MEDS ORDERED: HEPARIN SODIUM,PORCINE 10,000 UNIT in SODIUM CHLORIDE 0.9% 1,000 ML IRRIGATION PRN (07:00)
[2020-07-12] MEDS: INSULIN ASPART (NovoLOG) 100 UNIT/ML VIAL SQ SCH ×4 (07:01→20:59)
[2020-07-12 07:47] LABS: Glucose,Whole Blood 94 mg/dL (75-99)
[2020-07-12] MEDS ORDERED: DEXTROSE 5%-0.9% NACL 1,000 ML IV SCH (08:00)
[2020-07-12] MEDS: METOPROLOL SUCCINATE (ER) 25 MG TAB.ER.24H PO SCH (08:56)
[2020-07-12] MEDS: FUROSEMIDE 40 MG TAB PO SCH (09:32)
--- NOTE | 2020-07-12 09:47 | P.NPCON ---
History of Present Illness - Reason for Consult acute renal failure - History of Present Illness Reason for consultation: Acute kidney injury History of present illness: Patient is a 54-year-old male seen in renal consultation for acute kidney injury. Patient's creatinine on admission 07/10/2020 was 1.21 and is up to 1.53 today. Patient presented to the hospital on 07/10/2020 with left upper extremit y weakness. He was also complaining of cough and shortness of breath. He underwent CT angiogram of the head and neck on July 10 which revealed no significant stenosis. However large bilateral pleural effusions were noted. MRI of the brain revealed subacute infarcts bilaterally with concern for possible embolic phenomenon. Also underwent echocardiogram which revealed ejection fraction of 25-30%. He's scheduled for cardiac catheterization today. PRATIMA has also been ordered. He denies regular use of nonsteroidals. He's been a diabetic for over 15 years. Denies any edema. No chest pain or shortness of breath now. He was been taken on IV Lasix 40 mg twice daily and was changed to oral diuretics today. He was also started on IV fluids today as he is going for cardiac catheterization. No hematuria. No family history of renal disease. Vital signs are stable. General: The patient appeared well nourished and normally developed. HEENT: Head exam is unremarkable. Neck is without jugular venous distension. LUNGS: Breath sounds decreased. HEART: Rate and Rhythm are regular. ABDOMEN: Soft, nontender. EXTREMITITES: No edema. Past Medical History Past Medical History: Diabetes Mellitus Additional Past Medical History / Comment(s): herniated disks and chronic back issues, peripheral neuropathy History of Any Multi-Drug Resistant Organisms: None Reported Past Surgical History: Appendectomy, Coronary Bypass/CABG, Orthopedic Surgery Additional Past Surgical History / Comment(s): bilateral rotator cuff, bilateral knee scopes, neck fusion Past Anesthesia/Blood Transfusion Reactions: No Reported Reaction Past Psychological History: PTSD Smoking Status: Former smoker Past Alcohol Use History: None Reported Past Drug Use History: None Reported - Past Family History Mother Family Medical History: Congestive Heart Failure (CHF), CVA/TIA, Myocardial Infarction ([place]) Medications and Allergies Home Medications Medication Instructions Recorded Confirmed Type Aspirin EC [Ecotrin Low Dose] 81 mg PO BID 03/12/19 07/10/20 History Empagliflozin [Jardiance] 25 mg PO DAILY 03/12/19 07/10/20 History Insulin Glargine,Hum.rec.anlog 30 unit SQ BID 03/12/19 07/10/20 History [Lantus Solostar] Pravastatin Sodium [Pravachol] 80 mg PO HS 03/12/19 07/10/20 History Carboxymethylcellulose Sodium 1 drop BOTH EYES QID PRN 07/10/20 07/10/20 History [Refresh Tears] DULoxetine HCL [Cymbalta] 20 mg PO DAILY 07/10/20 07/10/20 History Insulin Aspart [NovoLOG Flexpen] 6 units SQ AC-TID 07/10/20 07/10/20 History Allergies Allergy/AdvReac Type Severity Reaction Status Date / Time No Known Allergies Allergy Verified 07/10/20 14:39 Physical Exam Vitals: Vital Signs Temp Pulse Resp BP Pulse Ox 07/12/20 08:50 97.6 F 73 18 155/87 95 07/12/20 04:00 82 18 165/97 95 07/12/20 01:07 79 18 07/12/20 00:00 79 18 154/89 94 L 07/11/20 20:15 98.6 F 80 18 168/95 96 07/11/20 15:48 83 16 07/11/20 15:41 98.4 F 83 16 159/96 97 07/11/20 11:20 80 16 161/97 98 Intake and Output 07/11/20 07/12/20 07/12/20 22:59 06:59 14:59 Intake Total 1312.477 37.523 Balance 1312.477 37.523 Intake: Intake, IV Titration 332.477 37.523 Amount Heparin Sod,Pork in 0.45% 212.477 37.523 NaCl 25,000 unit In 0.45 % NaCl 1 250ml.bag @ 12 UNITS/KG/HR 10.07 mls/hr IV .Q24H [facility] Rx#: [id number] Sodium Chloride 0.9% 1, 120 000 ml In Empty Bag 1 bag @ 1 ML/KG/HR 87.3 mls/hr IV .[id number] ONE Rx#: [id number] Oral 980 Other: # Voids 1 2 Weight 88 kg Results - Lab Results Most recent lab results Calcium 8.9 mg/dL (8.4-10.2) 07/12/20 04:36 07/12/20 04:36 07/12/20 04:36 Assessment and Plan Plan: Assessment: 1. Acute kidney injury mostly prerenal secondary to contrast-induced acute kidney injury and component of cardiorenal syndrome. Creatinine was 1.2 on admission and is 1.5 today. Unknown baseline renal function. 2. Diabetes mellitus. 3. Subacute infarcts noted on MRI. Concern for embolic etiology. Also discussed with neurology possible underlying hypercoagulable state. Currently on heparin drip. 4. Acute systolic CHF with ejection fraction of 25-30%. Cardiology following. Cardiac catheterization today. 5. Volume overload. Improved to diuresis. Plan: Hold Lasix today. Can be resumed tomorrow. Maintain IV fluids. Hep-Lock IV fluids 10-12 hours post cardiac catheterization. Check urinalysis. Check renal ultrasound. Avoid nephrotoxins. Risk of worsening renal failure post-IV contrast exposure was discussed with the patient. He understands. Thank you for the consultation. I will continue to follow the patient with you during his hospital stay.
--- NOTE | 2020-07-12 10:23 | P.PN ---
Subjective This is a pleasant 54 years old male with past medical history of coronary artery disease status post CABG, diabetes mellitus, chronic back pain secondary to herniated disc. [facility] [place]. His PCP is Dr. 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 Presents because of dyspnea and weakness of the left hand. Patient states for about a week since last Sunday his been having c oughing spells mainly last Sunday and today lasted like for 15 minutes associated with no phlegm but he vomited once which looks like phlegm. Associated with some dyspnea but he denies chest pain. 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 He denies headache, no blurred vision or difficulty talking or swallowing. 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 He does not want nicotine patch Vitas looks stable, on the presentation his blood pressure was elevated to 187/123, currently is 123/82. Labs including CBC is unremarkable, INR is normal at 0.9. BMP showing only mild hyponatremia at 132, resolved BMP and liver enzymes were unremarkable. Sugar is elevated 2-9 and troponin is elevated at 0.3 EKG showed normal sinus rhythm with left ventricular hypertrophy. Rate at 97 Chest x-ray showing CHF CTA of the brain showing large bilateral pleural effusion correlate for edema and heart failure, possible pneumonia per reports. No significant stenosis CT of the brain: No acute process. In the emergency room he was started on aspirin 325 mg and heparin drip 07/11/2020 States that his breathing is better although he stayed in bed it did not try to get out. No chest pain or coughing Distal have bilateral patellar leg edema. 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 Plavix once heparin drip was stopped. Echocardiogram showed ejection fraction of 25-30% with moderate concentric LVH. Labs looks stable History remains on heparin drip for possible non-STEMI and aspirin 81 mg, cardiology team consulted. Also he is on IV Lasix for CHF. 07/12/2020 Patient today feels better, he denies chest pain, no dyspnea no exertional dyspnea. His hand strength is improving each day and today is better but still weaker than the right side. [employer] are planning for cardiac cath today for non-STEMI. His glucose was running on the low side, his was on normal saline at 88 mL/h change to D5 normal saline at the same rate. STANLEY inhibitor on hold for high creatinine. Lasix also was held today. Nephrology team were consulted on exam he has bilateral basal crepitation and bilateral leg edema however as he stated he has no exertional dyspnea Also regarding his stroke he had MRI of the brain showing multiple bilateral subacute infarcts burning for emboli and for this reason he is scheduled for PRATIMA possibly today. Neurologist on the case. physical therapy and speech evaluation are pending Review of Systems CONSTITUTIONAL: No fever, no malaise, no fatigue. HEENT: No recent visual problems or hearing problems. Denied any sore throat. CARDIOVASCULAR: No palpitation, no dizziness Pulmonary: no chest wall tenderness shortness of breath, no cough, no hemoptysis. GASTROINTESTINAL: No diarrhea, no nausea, no vomiting, no abdominal pain. Nor moactive bowel sounds. NEUROLOGICAL: No headaches, no weakness, no numbness. HEMATOLOGICAL: Denies any bleeding or petechiae. Active Medications Generic Name Dose Route Start Last Admin Trade Name Freq PRN Reason Stop Dose Admin Alprazolam 0.25 mg 07/11/20 12:47 Alprazolam 0.25 Mg Tab PO Q6HR PRN Mild Anxiety Alprazolam 0.5 mg 07/11/20 12:47 Alprazolam 0.5 Mg Tab PO Q6HR PRN Moderate Anxiety Artificial Tears 1 drops 07/10/20 18:42 Artificial Tears-Hypromellose Drops 15 Ml Btl BOTH EYES QID PRN Dry Eye(s) Aspirin 81 mg 07/13/20 09:00 Aspirin 81 Mg PO DAILY [facility] Duloxetine HCl 20 mg 07/11/20 09:00 07/11/20 12:06 Duloxetine Hcl 20 Mg Capsule. PO 20 mg DAILY [facility] Administration Ezetimibe 10 mg 07/11/20 09:00 07/11/20 12:06 Ezetimibe 10 Mg Tab PO 10 mg DAILY [facility] Administration Furosemide 40 mg 07/12/20 09:00 07/12/20 09:32 Furosemide 40 Mg Tab PO Not Given DAILY [facility] Heparin Sodium (Porcine) 0 unit 07/10/20 12:39 Heparin Sodium,Porcine 5,000 Unit/Ml 1 Ml Vial IV PER PROTOCOL PRN Low PTT Protocol Heparin Sodium/Sodium Chloride 250 mls @ 10.07 mls/hr 07/10/20 12:45 07/12/20 00:35 25,000 unit/ Sodium Chloride IV 20 units/kg/hr .Q24H [facility] 16.783 mls/hr Administration Protocol 12 UNITS/KG/HR Sodium Chloride 1,000 ml/ IV 1,000 mls @ 87.3 mls/hr 07/11/20 23:59 07/12/20 06:33 Solution IV 07/12/20 11:26 87.3 mls/hr .[id number] ONE Administration 1 ML/KG/HR Heparin Sodium (Porcine) 10, 1,001 mls @ 999 mls/hr 07/12/20 07:00 000 unit/ Sodium Chloride IRRIGATION 07/12/20 23:00 ONCE PRN INTRA-OP Heparin Sodium (Porcine) 2,500 250.5 mls @ 250 mls/hr 07/12/20 07:00 unit/ Sodium Chloride IRRIGATION 07/12/20 23:00 ONCE PRN INTRA-OP Dextrose/Sodium Chloride 1,000 mls @ 88 mls/hr 07/12/20 08:00 07/12/20 08:02 Dextrose 5%-Ns Iv Soln IV 88 mls/hr .[id number] [facility] Administration Insulin Aspart 0 unit 07/10/20 17:30 07/12/20 07:01 Insulin Aspart (Novolog) 100 Unit/Ml Vial SQ Not Given ACHS [facility] Protocol Insulin Detemir 25 unit 07/10/20 21:00 07/11/20 20:48 Insulin Detemir (Levemir) 100 Unit/Ml Syr SQ 25 unit BID [facility] Administration Metoprolol Succinate 25 mg 07/11/20 10:30 07/12/20 08:56 Metoprolol Succinate (Er) 25 Mg Tab.Er.24h PO 25 mg DAILY [place] Administration Nitroglycerin 0.4 mg 07/10/20 12:35 Nitroglycerin Sl Tabs 0.4 Mg Tab SUBLINGUAL Q5M PRN Chest Pain Pravastatin Sodium 80 mg 07/10/20 21:00 07/11/20 20:48 Pravastatin Sodium 80 Mg Tab PO 80 mg HS [facility] Administration Objective - Vital Signs Vital signs: Vital Signs Temp 97.6 F 07/12/20 08:50 Pulse 73 07/12/20 08:50 Resp 18 07/12/20 08:50 BP 155/87 07/12/20 08:50 Pulse Ox 95 07/12/20 08:50 Intake & Output 07/11/20 07/12/20 07/12/20 18:59 06:59 18:59 Intake Total 1119.888 250.000 Balance 1119.888 250.000 Weight 88 kg Intake: Intake, IV Titration 139.888 250.000 Amount Heparin Sod,Pork in 0.45% 19.888 250.000 NaCl 25,000 unit In 0.45 % NaCl 1 250ml.bag @ 12 UNITS/KG/HR 10.07 mls/hr IV .Q24H [facility] Rx#: [id number] Sodium Chloride 0.9% 1, 120 000 ml In Empty Bag 1 bag @ 1 ML/KG/HR 87.3 mls/hr IV .[id number] ONE Rx#: [id number] Oral 980 Other: # Voids 1 2 - Exam GENERAL: The patient is alert and oriented x3, not in any acute distress. Well developed, well nourished. HEENT: Pupils are round and equally reacting to light. EOMI. No scleral icterus. No conjunctival pallor. Normocephalic, atraumatic. No pharyngeal erythema. No thyromegaly. CARDIOVASCULAR: S1 and S2 present. No murmurs, rubs, or gallops. -PULMONARY: Chest is clear to auscultation, no wheezing. Bilateral basal crepit ation, decreased breath sounds bilaterally ABDOMEN: Soft, nontender, nondistended, normoactive bowel sounds. No palpable organomegaly. MUSCULOSKELETAL: No joint swelling or deformity. EXTREMITIES: No cyanosis, clubbing, or pedal edema. -NEUROLOGICAL: Cranial nerves are grossly intact. 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 Sensation is intact. Rest of motor examinatio n is 5/5 of all other extremity except the left hand. Meningeal signs are absent SKIN: No rashes. No petechiae - Labs CBC & Chem 7: 07/12/20 04:36 07/12/20 04:36 Labs: Abnormal Lab Results - Last 24 Hours (Table) 07/11/20 07/11/20 07/11/20 Range/Units 04:53 16:32 18:54 Hgb (13.0-17.5) gm/dL Hct (39.0-53.0) % APTT 37.7 H (22.0-30.0) sec BUN (9-20) mg/dL Creatinine (0.66-1.25) mg/dL POC Glucose (mg/dL) 188 H (75-99) mg/dL Hemoglobin A1c 8.4 H (4.0-6.0) % 07/12/20 07/12/20 07/12/20 Range/Units 04:36 04:36 04:36 Hgb 12.9 L (13.0-17.5) gm/dL Hct 38.1 L (39.0-53.0) % APTT 50.3 H (22.0-30.0) sec BUN 34 H (9-20) mg/dL Creatinine 1.53 H (0.66-1.25) mg/dL POC Glucose (mg/dL) (75-99) mg/dL Hemoglobin A1c (4.0-6.0) % 07/12/20 07/12/20 Range/Units 06:04 06:54 Hgb (13.0-17.5) gm/dL Hct (39.0-53.0) % APTT (22.0-30.0) sec BUN (9-20) mg/dL Creatinine (0.66-1.25) mg/dL POC Glucose (mg/dL) 68 L 68 L (75-99) mg/dL Hemoglobin A1c (4.0-6.0) % Assessment and Plan Assessment: possible non-STEMI with elevated troponin Acute dyspnea could be acute systolic CHF , ejection fraction 25-30% Weakness of the left hand, secondary to bilateral subacute stroke Acute kidney injury secondary to contrast-induced nephropathy and cardiorenal syndrome Diabetes mellitus with hyperglycemia Chronic back pain secondary to herniated disc History of coronary artery disease status post CABG. Plan: this is a pleasant 54 years old male who presents with non-STEMI, acute CHF and bilateral subacute stroke. Also kidney injury Continue with heparin drip and aspirin. Cardiology consult. Neurology consult. Labs and medication were reviewed.. Continue same treatment. Continue with symptomatic treatment. Resume home medication. Monitor lytes and vitals. DVT and GI prophylaxis. Further recommendations depends on the clinical course of the patient DVT prophylaxis: Subcutaneous heparin GI Prophylaxis: Pepcid PT/OT: Pending Prognosis is guarded
[2020-07-12] MEDS ORDERED: fentaNYL (PF) 50 MCG/ML 2 ML AMP ONE (11:50)
--- NOTE | 2020-07-12 11:51 | ECHOF ---
Referral Reason:R/O THROMBUS MEASUREMENTS -------- HEIGHT: 188.0 cm WEIGHT: 88.0 kg BP: FINDINGS -------- Limited Study with lumason to rule out clot. No clot seen. Lumason used CONCLUSIONS -------- 1. Limited Study with lumason to rule out clot. No clot seen. 2. Lumason used DOCUMENT CONTROL MANAGER: Tori Lang RDCS
[2020-07-12] MEDS ORDERED: IV FLUID CONTINUATION 1,000 ML IV ONE ×2 (12:15→12:29)
[2020-07-12] MEDS: BENZOCAINE SPRAY 1 CAN MUCOUS MEM ONE ×2 (12:20→12:25)
[2020-07-12] MEDS: fentaNYL (PF) 50 MCG/ML 2 ML AMP IV ONE ×2 (12:21→12:25)
[2020-07-12] MEDS: MIDAZOLAM 2 MG/2 ML VIAL IV ONE ×2 (12:21→12:25)
--- NOTE | 2020-07-12 12:56 | P.TEE ---
Description of Procedure(s): Procedure performed: Transesophageal Echocardiogram with color flow doppler, pulsed wave doppler and continuous wave doppler, moderate conscious sedation Moderate conscious sedation: Moderate conscious sedation was supplied with direct supervision of myself using Versed and Fentanyl. Complications: none Indications: Cryptogenic stroke History: Patient is a pleasant 54-year-old male with history of peripheral vascular disease status post left lower extremity bypass, diabetes mellitus, tobacco abuse and hyperlipidemia who presented secondary to one week history of shortness breath and cough as well as left-sided weakness. Patient had workup showing echocardiogram with EF 25-30% which was a new diagnosis as well as MRI showing new stroke. Due to concern of cardioembolic source, PRATIMA was recommended. PROCEDURE: After the risks, benefits and alternatives of the above mentioned procedure was explained in detail with the patient, informed consent was obtained. Patient was brought to the lab in a fasting state. Patient was given IV Versed and Fentanyl for sedation. The throat was sprayed with Hurricane to anesthetize the throat. A lubricated Omni probe was then introduced into the esophagus and stomach and multiple views were obtained. 2D echo with color flow doppler, pulsed wave doppler and continuous wave doppler was utilized. Agitated saline bubbles were injected to assess for any intra-atrial shunt. The probe was then removed. Patient tolerated the procedure well. Patient was transferred to the post procedure area in stable and satisfactory condition. FINDINGS: 1. The aortic valve is tricuspid with normal function. There is mild aortic sclerosis without significant aortic regurgitation or aortic stenosis. 2. The mitral valve appears be normal with mild mitral regurgitation. 3. Tricuspid valve appears to be normal with trace tricuspid regurgitation. RVSP not obtainable. 4. There is evidence of PFO by bubble study. 5. Left atrial appendage is free of clot. 6. Left ventricular function is severely reduced with ejection fraction 30- 35%. 7. There is a moderate pleural effusion noted.
[2020-07-12] MEDS ORDERED: LIDOCAINE 1% INJ 10MG/ML (20 ML MDV) SQ ONE (13:01)
[2020-07-12] MEDS ORDERED: MIDAZOLAM 2 MG/2 ML VIAL IV ONE (13:02)
[2020-07-12] MEDS ORDERED: VERAPAMIL SYRINGE (5 MG/10 ML) INTRAARTER ONE (13:03)
[2020-07-12] MEDS ORDERED: HEPARIN SODIUM 1,000 UN/ML (10ML VL) ONE (13:05)
[2020-07-12] MEDS ORDERED: IOPAMIDOL-370 125ML BTL INJ ONE (13:16)
--- NOTE | 2020-07-12 13:40 | P.CARDCATH ---
Description of Procedure: PROCEDURES PERFORMED: Left heart catheterization, bilateral coronary angiography INDICATION: Elevated troponins, cardiomyopathy HISTORY: Patient is a pleasant 54-year-old male with history of peripheral vascular disease status post left lower extremity bypass, diabetes mellitus, tobacco abuse and hyperlipidemia who presented secondary to one week history of shortness breath and cough as well as left-sided weakness. Patient had workup showing echocardiogram with EF 25-30% which was a new diagnosis as well as MRI showing new stroke. Due to mildly elevated troponins and new-onset heart cardiomyopathy left heart catheterization was recommended. Patient denies having any significant chest pain or pressure. Patient was noted to have mild increase in creatinine today however risks and benefits were explained to the patient by nephrology. CONSENT:I have discussed the risks, benefits and alternative therapies for the above-mentioned procedure and for both sedation/analgesia as well as necessary blood product administration, if indicated, as they pertain to this patient. The patient has indicated understanding and acceptance of the risks and procedures discussed. PROCEDURE: After the risks, benefits and alternatives of the above mentioned procedure explained in detail with the patient, informed consent was obtained. Patient was taken to the catheterization lab and prepped and draped in usual fashion. 1% lidocaine was used to anesthetize the right radial artery. A 6- Haitian sheath was placed in the right radial artery using modified Seldinger technique. Left coronary angiography was performed with a 5-Haitian JL 3.5 catheter and right coronary angiography was performed with a 5-Haitian JR5 catheter in various views. The FR5 catheter was inserted into the left ventricle and pressure measurements were obtained. The right radial sheath was removed and a TR band was placed with hemostasis achieved. The patient tolerated the procedure well. Patient was transported back to the post catheterization holding area in stable condition. Conscious Sedation: Patient was monitored under the direct supervision of vision of myself for conscious sedation using Versed and fentanyl for a total duration of [] minutes HEMODYNAMICS: Aorta: 144/72 LV: 146/4, LVEDP 21 SELECTIVE CORONARY ARTERIOGRAPHY: LEFT MAIN: The left main is a large caliber vessel which bifurcates into the LAD and circumflex. There is 10% stenosis. LEFT ANTERIOR DESCENDING CORONARY ARTERY: LAD is a large caliber vessel which wraps around to the apex. There are mild luminal irregularities of the proximal LAD and then the mid LAD has a 50-60% stenosis after a small caliber diagonal 1 branch. Diagonal 1 has a proximal 50% stenosis. Diagonal 2 nearly trifurcates with diagonal 1 and has a long 90% stenosis. The distal LAD has a 80% stenosis. LEFT CIRCUMFLEX CORONARY ARTERY: Left circumflex is a moderate caliber vessel. There is a long 40-50% stenosis of the proximal to mid circumflex with a mid more focal 80% stenosis. This is approximately 50mm in length. The circumflex is 100% occluded after the OM1 and there are faint left to left collaterals. RIGHT CORONARY ARTERY: The right coronary artery is a moderate to large caliber vessel which gives off a PDA and PLV branch and is the dominant vessel. There is diffuse disease including a 80% proximal RCA, 70% mid, 50-60% distal RCA stenosis. The PLV has mild to moderate disease up to 40%. The PDA is diffusely diseased with long 80-90% stenosis proximally and distal 80% stenosis. FINAL IMPRESSION: 1. Multivessel CAD as described above 2. Elevated left sided filling pressures PLAN: 1. Aggressive risk factor modification per most recent ACC/AHA guidelines. 2. Patient predominantly presenting with heart failure symptoms and stroke and no significant angina. Would recommend optimize heart failure regimen as able then consider revascularization. Will consult cardiothoracic surgery for possible CABG however not ideal targets. Would monitor patient for another day and monitor Cr.
[2020-07-12 14:08] LABS: Glucose,Whole Blood 84 mg/dL (75-99)
[2020-07-12] MEDS: INSULIN DETEMIR (LEVEMIR) 100 UNIT/ML SYR SQ SCH ×2 (14:37→20:56)
[2020-07-12] MEDS: EZETIMIBE 10 MG TAB PO SCH (15:34)
[2020-07-12] MEDS: DULoxetine HCL 20 MG CAPSULE.DR PO SCH (15:35)
--- NOTE | 2020-07-12 16:32 | P.GSCN ---
<Tori Alexander - Last Filed: 07/12/20 16:03> History of Present Illness Consult date: 07/12/20 Reason for Consult: Coronary artery disease Requesting physician: Asad Alcaraz History of present illness: This is a 54-year-old gentleman who follows on an outpatient basis for primary and cardiology at the [facility]. He has a previous medical history of hypertension, hyperlipidemia, insulin dependent diabetes, multiple orthopedic surgeries, and current tobacco dependence with recent cessation approximately 1 week ago. He presented to [facility] emergency room 2 days ago with complaints of his left arm not working properly, as well as shortness of breath. He denied any chest pain, or numbness or weakness in any other extremity. Denied inability to speak or get his thoughts out. Denied any other aggravating or alleviating symptoms. CT of the brain was completed demonstrating nonspecific white matter demyelination due to chronic small vessel ischemic changes. CTA of the head and neck demonstrated no hemodynamically significant stenosis of the neck vessels, patent vertebral arteries, presence of cerebral vascular calcifications. Of note there was also bilateral pleural effusions. Code stroke was called. EKG demonstrated normal sinus rhythm with T-wave inversions in lead 1, aVL, V4 through V6. BNP was 10,600, troponins were elevated and patient was ruled in for non-STEMI. IV heparin was initiated. The patient was admitted for evaluation and treatment with consultation placed to neurology and cardiology. Workup included echocardiogram demonstrating impaired left ventricular systolic function with EF 25-30% with dilated left atrium and mild mitral regurgitation. In addition MRI of the brain was completed indicating bilateral small subacute infarcts, possibly embolic in nature, the patient was recommended to have a transesophageal echocardiogram by neurology, and left heart catheterization by cardiology. Both were completed today. Transesophageal echocardiogram demonstrated EF 30-35%, mild mitral regurgitation, trace tricuspid regurgitation, evidence of small PFO, no clot in the left atrial appendage. Heart catheterization revealed triple-vessel coronary artery disease with mid LAD stenosis 50-60%, distal LAD 80%, first diagonal 50%, second diagonal 90%, mid circumflex 80%, distal circumflex 100% with left to left collaterals, proximal RCA 80%, mid RCA 70%, distal RCA 50-60%, PDA 80-90%. Due to these findings consultation was placed to Dr. Lynch from cardiothoracic surgery for future surgical revascularization recommendations. 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 objects Reports as per HPI Past Medical History Past Medical History: Coronary Artery Disease (CAD), Diabetes Mellitus, Hyperlipidemia, Hypertension, Renal Disease Additional Past Medical History / Comment(s): herniated disks and chronic back issues, peripheral neuropathy History of Any Multi-Drug Resistant Organisms: None Reported Past Surgical History: Appendectomy, Orthopedic Surgery Additional Past Surgical History / Comment(s): bilateral rotator cuff, bilateral knee scopes, neck fusion, left lower extremity bypass last year Past Anesthesia/Blood Transfusion Reactions: No Reported Reaction Past Psychological History: PTSD Smoking Status: Former smoker Past Alcohol Use History: None Reported Additional Past Alcohol Use History / Comment(s): Recent smoking cessation, previously one pack per day 20 years Past Drug Use History: None Reported - Past Family History Mother Family Medical History: Congestive Heart Failure (CHF), CVA/TIA, Myocardial Infarction ([place]) Father Family Medical History: Cancer Medications and Allergies Home Medications Medication Instructions Recorded Confirmed Type Aspirin EC [Ecotrin Low Dose] 81 mg PO BID 03/12/19 07/10/20 History Empagliflozin [Jardiance] 25 mg PO DAILY 03/12/19 07/10/20 History Insulin Glargine,Hum.rec.anlog 30 unit SQ BID 03/12/19 07/10/20 History [Lantus Solostar] Pravastatin Sodium [Pravachol] 80 mg PO HS 03/12/19 07/10/20 History Carboxymethylcellulose Sodium 1 drop BOTH EYES QID PRN 07/10/20 07/10/20 History [Refresh Tears] DULoxetine HCL [Cymbalta] 20 mg PO DAILY 07/10/20 07/10/20 History Insulin Aspart [NovoLOG Flexpen] 6 units SQ AC-TID 07/10/20 07/10/20 History Allergies Allergy/AdvReac Type Severity Reaction Status Date / Time No Known Allergies Allergy Verified 07/10/20 14:39 Surgical - Exam Vital Signs Temp Pulse Resp BP Pulse Ox 98.1 F 95 22 181/113 99 07/10/20 11:05 07/10/20 11:05 07/10/20 11:05 07/10/20 11:05 07/10/20 11:05 - General well developed, well nourished, no distress, no pain - Eyes normal ocular movement - ENT no hearing loss - Neck no masses, trachea midline carotid bruit: bilateral - Respiratory Lungs sounds diminished bilaterally. Respirations even, nonlabored. Currently on room air with oxygen saturation 97%. No chest wall deformities. No clubbing or cyanosis present. - Cardiovascular S1, S2 present. Regular rate and rhythm, sinus rhythm on telemetry with heart rate in the 70s. Palpable peripheral pulses bilaterally. No edema present. No calf pain or tenderness noted. - Abdomen Abdomen: soft, non tender, bowel sounds - Genitourinary Deferred - Rectum Deferred - Integumentary Well-healed incisional scar to left medial knee area no rash, no growths - Neurologic Patient able to wiggle all fingers on his left hand, squeeze ball, somewhat diminished strength normal coordination, normal sensation - Musculoskeletal normal posture - Psychiatric oriented to time, oriented to person, oriented to place, speech is normal, memory intact Results - Labs 07/12/20 04:36 07/12/20 04:36 Abnormal Lab Results - Last 24 Hours (Table) 07/11/20 07/11/20 07/12/20 Range/Units 16:32 18:54 04:36 Hgb 12.9 L (13.0-17.5) gm/dL Hct 38.1 L (39.0-53.0) % APTT 37.7 H (22.0-30.0) sec BUN (9-20) mg/dL Creatinine (0.66-1.25) mg/dL POC Glucose (mg/dL) 188 H (75-99) mg/dL 07/12/20 07/12/20 07/12/20 Range/Units 04:36 04:36 06:04 Hgb (13.0-17.5) gm/dL Hct (39.0-53.0) % APTT 50.3 H (22.0-30.0) sec BUN 34 H (9-20) mg/dL Creatinine 1.53 H (0.66-1.25) mg/dL POC Glucose (mg/dL) 68 L (75-99) mg/dL 07/12/20 Range/Units 06:54 Hgb (13.0-17.5) gm/dL Hct (39.0-53.0) % APTT (22.0-30.0) sec BUN (9-20) mg/dL Creatinine (0.66-1.25) mg/dL POC Glucose (mg/dL) 68 L (75-99) mg/dL Diabetes panel 07/12/20 Range/Units 04:36 Sodium 137 (137-145) mmol/L Potassium 3.7 (3.5-5.1) mmol/L Chloride 105 (98-107) mmol/L Carbon Dioxide 26 (22-30) mmol/L BUN 34 H (9-20) mg/dL Creatinine 1.53 H (0.66-1.25) mg/dL Glucose 86 (74-99) mg/dL Calcium 8.9 (8.4-10.2) mg/dL Calcium panel 07/12/20 Range/Units 04:36 Calcium 8.9 (8.4-10.2) mg/dL Pituitary panel 07/12/20 Range/Units 04:36 Sodium 137 (137-145) mmol/L Potassium 3.7 (3.5-5.1) mmol/L Chloride 105 (98-107) mmol/L Carbon Dioxide 26 (22-30) mmol/L BUN 34 H (9-20) mg/dL Creatinine 1.53 H (0.66-1.25) mg/dL Glucose 86 (74-99) mg/dL Calcium 8.9 (8.4-10.2) mg/dL Adrenal panel 07/12/20 Range/Units 04:36 Sodium 137 (137-145) mmol/L Potassium 3.7 (3.5-5.1) mmol/L Chloride 105 (98-107) mmol/L Carbon Dioxide 26 (22-30) mmol/L BUN 34 H (9-20) mg/dL Creatinine 1.53 H (0.66-1.25) mg/dL Glucose 86 (74-99) mg/dL Calcium 8.9 (8.4-10.2) mg/dL - Imaging Chest x-ray: report reviewed, image reviewed EKG: image reviewed Additional studies: Heart catheterization and PRATIMA films reviewed Assessment and Plan Assessment: 1. Triple-vessel coronary artery disease, non-STEMI this admission 2. Acute CVA with left arm weakness 3. Acute kidney injury 4. Acute systolic heart failure, EF 30-35% on PRATIMA 5. Small PFO noted on PRATIMA 6. Hypertension 7. Hyperlipidemia, cholesterol 221, LDL 145, triglycerides 155 8. Insulin-dependent diabetes, A1c 8.4% 9. Current tobacco dependence, recent cessation 10. Peripheral vascular disease status post left lower extremity bypass Plan: The patient was seen and examined at the bedside. Chart/diagnostics reviewed. The case was discussed with Dr. Croft via phone, will be discussed tomorrow with Dr. Lynch. We would recommend recovery from stroke and heart failure management. Continue aspirin, statin, beta samuel, diuretic therapy. Smoking cessation encouraged. Risk factor modification discussed with the patient and encouraged. Increase activity as tolerated. Patient can be reevaluated for best revascularization strategy once recovered from stroke and acute heart failure. The patient does utilize physicians at the [facility] and indicated he may want to return there for care. Medical management of other comorbidities per primary care service. More recommendations to follow. Thank you Dr. Alcaraz for this consult Time with Patient: Greater than 30 <Delfino Lynch - Last Filed: 07/13/20 10:20> Surgical - Exam Vital Signs Temp Pulse Resp BP Pulse Ox 98.1 F 95 22 181/113 99 07/10/20 11:05 07/10/20 11:05 07/10/20 11:05 07/10/20 11:05 07/10/20 11:05 Results - Labs 07/13/20 07:41 07/13/20 07:41 Abnormal Lab Results - Last 24 Hours (Table) 07/12/20 07/12/20 07/12/20 Range/Units 17:00 20:46 21:40 RBC (4.30-5.90) m/uL Hgb (13.0-17.5) gm/dL Hct (39.0-53.0) % Sodium (137-145) mmol/L BUN (9-20) mg/dL Creatinine (0.66-1.25) mg/dL Glucose (74-99) mg/dL POC Glucose (mg/dL) 150 H 116 H (75-99) mg/dL Urine Protein 1+ H (Negative) Urine Blood Small H (Negative) Urine RBC 8 H (0-5) /hpf Hyaline Casts 4 H (0-2) /lpf Urine Mucus Rare H (None) /hpf 07/13/20 07/13/20 07/13/20 Range/Units 06:19 07:41 07:41 RBC 4.20 L (4.30-5.90) m/uL Hgb 12.7 L (13.0-17.5) gm/dL Hct 37.4 L (39.0-53.0) % Sodium 135 L (137-145) mmol/L BUN 32 H (9-20) mg/dL Creatinine 1.39 H (0.66-1.25) mg/dL Glucose 112 H (74-99) mg/dL POC Glucose (mg/dL) 114 H (75-99) mg/dL Urine Protein (Negative) Urine Blood (Negative) Urine RBC (0-5) /hpf Hyaline Casts (0-2) /lpf Urine Mucus (None) /hpf Diabetes panel 07/13/20 Range/Units 07:41 Sodium 135 L (137-145) mmol/L Potassium 4.5 (3.5-5.1) mmol/L Chloride 104 (98-107) mmol/L Carbon Dioxide 24 (22-30) mmol/L BUN 32 H (9-20) mg/dL Creatinine 1.39 H (0.66-1.25) mg/dL Glucose 112 H (74-99) mg/dL Calcium 8.9 (8.4-10.2) mg/dL Calcium panel 07/13/20 Range/Units 07:41 Calcium 8.9 (8.4-10.2) mg/dL Pituitary panel 07/13/20 Range/Units 07:41 Sodium 135 L (137-145) mmol/L Potassium 4.5 (3.5-5.1) mmol/L Chloride 104 (98-107) mmol/L Carbon Dioxide 24 (22-30) mmol/L BUN 32 H (9-20) mg/dL Creatinine 1.39 H (0.66-1.25) mg/dL Glucose 112 H (74-99) mg/dL Calcium 8.9 (8.4-10.2) mg/dL Adrenal panel 07/13/20 Range/Units 07:41 Sodium 135 L (137-145) mmol/L Potassium 4.5 (3.5-5.1) mmol/L Chloride 104 (98-107) mmol/L Carbon Dioxide 24 (22-30) mmol/L BUN 32 H (9-20) mg/dL Creatinine 1.39 H (0.66-1.25) mg/dL Glucose 112 H (74-99) mg/dL Calcium 8.9 (8.4-10.2) mg/dL Assessment and Plan Plan: The patient was seen and examined. I agree with the above history and plan. The patient is a 54 year old male who presented to the hospital with left upper extremity weakness. Workup including MRI brain revealed acute CVA. PRATIMA revealed an EF of 30% and no evidence of thrombus. Troponin was slightly elevated with increased BNP, consistent with NSTEMI. Cardiac cath with diffuse, multi-vessel CAD. Proximal LAD with mild/moderate disease with more significant lesion distally followed by small vessel. Patient denies chest pain, shortness of breath, or lower extremity edema. At this time, I recommend medical management secondary to heart failure. I would ideally wait at least 4 weeks following his recent CVA before considering intervention as lesions are not critical. Will review films with cardiology as PCI may be an option. He normally receives care at the [facility] in [place] and is scheduled to see them after discharge from the hospital. He may follow up with us as an outpatient if he is cleared to receive care locally.
[2020-07-12 17:01] LABS: Glucose,Whole Blood 150 mg/dL (75-99)
--- NOTE | 2020-07-12 17:36 | P.PN ---
Subjective Progress Note Date: 07/12/20 The patient was seen at bedside and he stated that the he continues to have left hand weakness but he feels like it somewhat better today compared to his initial presentation. He stated that the his mother had the history of stroke but he does not know at what age exactly. Patient was started on heparin drip on 0 2020. Please refer to Dr. Knott's note for further details of that neurological history.. Today the patient had a transesophageal echocardiogram and it's reported as there is mild aortic stenosis without significant aortic regurgitation or stenosis. There is evidence of PFO by bubble study. The left atrial appendage is free of clot. Left ventricular function was severely reduced with ejection fraction between 30-35%. There is moderate pleural effusion noted. Patient PTT today last one the record is 50.3. Objective - Vital Signs Vital signs: Vital Signs Temp 97.6 F 07/12/20 15:30 Pulse 66 07/12/20 12:38 Resp 20 07/12/20 15:30 BP 144/88 07/12/20 15:30 Pulse Ox 97 07/12/20 15:30 Intake & Output 07/11/20 07/12/20 07/12/20 18:59 06:59 18:59 Intake Total 1119.888 647.820 6612 Balance 1119.888 457.479 9895 Weight 88 kg Intake: IV 250 Intake, IV Titration 139.888 250.000 792 Amount Dextrose 5%-0.9% NaCl 1, 528 000 ml @ 88 mls/hr IV . [id number] [facility] Rx#:[id number] Heparin Sod,Pork in 0.45% 19.888 250.000 NaCl 25,000 unit In 0.45 % NaCl 1 250ml.bag @ 12 UNITS/KG/HR 10.07 mls/hr IV .[id number] [facility] Rx#: [id number] Sodium Chloride 0.9% 1, 120 264 000 ml In Empty Bag 1 bag @ 1 ML/KG/HR 87.3 mls/hr IV .[id number] [facility] Rx#: [id number] Oral 980 Other: # Voids 1 2 1 - Exam Gen.: The patient is reclining in the bed. He is well-nourished, well-developed and in no acute distress. HEENT: Head is atraumatic, normocephalic. Fundus not visualized. There is no scleral icterus. Mucous membranes are moist. Neurological examination Higher mental function: The patient is awake, alert, oriented to self place and time. Patient is following simple and complex command. No aphasia and no neglect. Cranial nerves: Pupils are equal, round and reactive to light. Visual cotton are full to confrontation. Extraocular movements are intact. There is no nystagmus. Facial sensations intact. There is no facial asymmetry. Hearing is grossly intact. Uvula and palate are midline. No dysarthria. Shoulder shrug is symmetric. Tongue protrudes midline. Motor: Gait is defered. Left opponens pollicis 4+/5. Left finger extensors 4+/5. Left finger abductors 4+/5. Left hand paper inspector is about 4+ to 5 minus. Oth er muscle strength is 5/5 throughout. Sensation: Distal gradient sensory loss to touch in the lower extremities. Cerebellar: Finger to nose is intact bilaterally without dysmetria or ataxia. Deep tendon reflexes: 1-2+/4+. - Labs CBC & Chem 7: 07/12/20 04:36 07/12/20 04:36 Labs: Abnormal Lab Results - Last 24 Hours (Table) 07/11/20 07/12/20 07/12/20 Range/Units 18:54 04:36 04:36 Hgb 12.9 L (13.0-17.5) gm/dL Hct 38.1 L (39.0-53.0) % APTT 37.7 H (22.0-30.0) sec BUN 34 H (9-20) mg/dL Creatinine 1.53 H (0.66-1.25) mg/dL POC Glucose (mg/dL) (75-99) mg/dL 07/12/20 07/12/20 07/12/20 Range/Units 04:36 06:04 06:54 Hgb (13.0-17.5) gm/dL Hct (39.0-53.0) % APTT 50.3 H (22.0-30.0) sec BUN (9-20) mg/dL Creatinine (0.66-1.25) mg/dL POC Glucose (mg/dL) 68 L 68 L (75-99) mg/dL 01/18/21 Range/Units 17:00 Hgb (13.0-17.5) gm/dL Hct (39.0-53.0) % APTT (22.0-30.0) sec BUN (9-20) mg/dL Creatinine (0.66-1.25) mg/dL POC Glucose (mg/dL) 150 H (75-99) mg/dL Assessment and Plan Assessment: 1. The patient is a 54-year-old male with vascular risk factors including coronary artery disease, diabetes mellitus, tobacco abuse who presents to the emergency department with complaints of shortness of breath, coughing and the left hand weakness. The patient's neurological examination reveals weakness confined to his left hand. Acute Left hand weakness due to acute ischemic stroke over bilateral hemisphere greater (predominately over the right hemisphere upon reviewing MRI Brain). Etiology is emblolic. There is a patent foraminal valve present on today's PRATIMA Acute systolic congestive heart failure with ejection fraction the of 25-30%. Diabetes mellitus not controlled (HbA1c 8.4) Dyslipidemia Acute kidney insufficiency Elevated troponin History of coronary artery disease status post CABG Plan: MRI the brain is a reported as subacute infarct are present bilaterally with the brain, greater than a single vascular distribution, correlate for possible embolic phenomena. There is underlying age-related changes of atrophy and probable chronic small vessel ischemia. Upon reviewing MRI the brain, stroke predominately over the right hemisphere. CTA of the head and neck is reported as the left and right internal and external carotid arteries are patent. After Jonathon changes are present at the carotid bu lbs. No hemodynamic significant stenosis by basic criteria. The vertebral arteries are patent and cold dominant. [place] shows no dissection, aneurysm or embolus. Cerebrovascular consultation are present. The panel: Triglyceride 155, cholesterol is 221, LDL is 145 and HDL of 45. Curently the patient is on aspirin 81 mg and is on heparin drip. Patient is also on the pravastatin 80 mg daily. I'll stop the pravastatin and I'll start the patient on the atorvastatin 80 mg daily Regarding the heparin drip please keep the PTT between 45-60 and please avoid any heparin boluses to avoid the any hemorrhagic conversion of the acute/subacute stroke. I ordered event monitor to be placed prior to discharge. Because of a stroke at a young age I ordered hypercoagulable workup: I ordered a day, antithrombin III, factor V Leiden mutation, homocysteine, lupus anticoagulant, MTHFR genotyping, protein C and protein S activity. I also ordered a duplex of the bilateral upper and lower extremity to rule out any DVT especially with a PFO. I did not order factor VII or 8 at this time. PT and OT as well as METAL FENCE ERECTOR are consulted. I'll speak with the cardiology team tomorrow and find out the size of PFO seen on the PRATIMA. Regarding patient acute kidney insufficiency will defer to the nephrology team. We'll defer the rest of the medical management to the primary team. We'll continue to follow up with the patient. Delfino Bro MD Neuro-Hospitalist Time with Patient: Less than 30
[2020-07-12] MEDS ORDERED: FUROSEMIDE 10 MG/ML 4 ML VIAL IV STA (18:48)
[2020-07-12] MEDS: ATORVASTATIN 80 MG TAB PO SCH (20:52)
[2020-07-12 20:55] LABS: Glucose,Whole Blood 116 mg/dL (75-99)
--- NOTE | 2020-07-12 21:44 | US ---
EXAMINATION TYPE: US venous doppler duplex UE DATE OF EXAM: 07/12/2020 COMPARISON: NONE CLINICAL HISTORY: rule out DVT because stroke with PFO.. R/O DVT because stroke with PFO per order. L imited history from patient. Patient had heart cath today. SIDE PERFORMED: Bilateral Right Arm: No evidence of DVT in veins imaged at this time within the right arm. Limited imaging/eval uation of radial and ulnar veins to due heart catheterization procedure/bandaging. Color flow seen in radial and ulnar veins within upper-mid forearm. Left Arm: No evidence of DVT in veins imaged at this time within the left arm. IMPRESSION: No sign of deep vein thrombosis in the Arms.
--- NOTE | 2020-07-12 21:53 | US ---
EXAMINATION TYPE: US venous doppler duplex LE DATE OF EXAM: 07/12/2020 5:47 PM COMPARISON: NONE CLINICAL HISTORY: rule out DVT because stroke with PFO.. R/O DVT because stroke with PFO per order. L imited history from patient. Patient had heart cath today. SIDE PERFORMED: Bilateral TECHNIQUE: The lower extremity deep venous system is examined utilizing real time linear array sonog jorge with graded compression, doppler sonography and color-flow sonography. VESSELS IMAGED: Common Femoral Vein Deep Femoral Vein Greater Saphenous Vein * Femoral Vein Popliteal Vein Small Saphenous Vein * Proximal Calf Veins (* superficial vessels) Right Leg: No evidence of DVT in veins imaged at this time from prox calf veins to CFV/GSV. Left Leg: No evidence of DVT in veins imaged at this time from prox calf veins to CFV/GSV. IMPRESSION: Normal bilateral leg duplex venous sonogram.
[2020-07-12 22:18] LABS: Appearance,Urine Clear (Clear); Bilirubin,Urine Negative (Negative); Blood,Urine Small (Negative); Color,Urine Colorless; Glucose,Urine (UA) Negative (Negative); Hyaline Casts,Urine 4 /lpf (0-2); Ketones,Urine Negative (Negative); Leukocyte Esterase,Urine Negative (Negative); Mucus,Urine Rare /hpf; Nitrite,Urine Negative (Negative); PH, Urine 5.5 (5.0-8.0); Protein,Urine 1+ (Negative); RBC,Urine 8 /hpf (0-5); Urobilinogen,Urine <2.0 mg/dL (<2.0); WBC,Urine 1 /hpf (0-5)
[2020-07-13 06:40] LABS: Glucose,Whole Blood 114 mg/dL (75-99)
[2020-07-13] MEDS: INSULIN ASPART (NovoLOG) 100 UNIT/ML VIAL SQ SCH ×4 (06:48→21:21)
[2020-07-13 07:58] LABS: Basophils # (A) 0.2 k/uL (0-0.2); Basophils % (A) 2 %; Eosinophils # (A) 0.4 k/uL (0-0.7); Eosinophils % (A) 4 %; HCT 37.4 % (39.0-53.0); HGB 12.7 gm/dL (13.0-17.5); Lymphocytes # (A) 1.5 k/uL (1.0-4.8); Lymphocytes % (A) 18 %; MCH 30.2 pg (25.0-35.0); MCHC 33.9 g/dL (31.0-37.0); Mean Platelet Volume 8.2; Monocytes # (A) 0.3 k/uL (0-1.0); Monocytes % (A) 4 %; Neutrophils # (A) 5.8 k/uL (1.3-7.7); Neutrophils % (A) 71 %; Platelet Count 236 k/uL (150-450); RDW 13.3 % (11.5-15.5); WBC 8.2 k/uL (3.8-10.6)
[2020-07-13 08:07] LABS: Calcium 8.9 mg/dL (8.4-10.2); Potassium 4.5 mmol/L (3.5-5.1)
[2020-07-13] MEDS: INSULIN DETEMIR (LEVEMIR) 100 UNIT/ML SYR SQ SCH ×2 (08:12→21:21)
[2020-07-13] MEDS: EZETIMIBE 10 MG TAB PO SCH (08:12)
[2020-07-13] MEDS: METOPROLOL SUCCINATE (ER) 25 MG TAB.ER.24H PO SCH ×2 (08:12→21:21)
[2020-07-13] MEDS: DULoxetine HCL 20 MG CAPSULE.DR PO SCH (08:12)
[2020-07-13] MEDS: FUROSEMIDE 40 MG TAB PO SCH ×2 (08:12→15:33)
[2020-07-13] MEDS: ASPIRIN 81 MG PO SCH (08:12)
[2020-07-13] MEDS ORDERED: FUROSEMIDE 10 MG/ML 2 ML VIAL IV ONE (09:30)
--- NOTE | 2020-07-13 09:57 | P.PN ---
Subjective Patient is seen in follow-up for acute kidney injury. Renal function a little better today. Good urine output. No chest pain or shortness of breath. Vital signs are stable. General: The patient appeared well nourished and normally developed. HEENT: Head exam is unremarkable. Neck is without jugular venous distension. LUNGS: Breath sounds decreased. HEART: Rate and Rhythm are regular. ABDOMEN: Soft, nontender. EXTREMITITES: No edema. Objective - Vital Signs Vital signs: Vital Signs Temp 98.1 F 07/13/20 08:00 Pulse 80 07/13/20 08:00 Resp 18 07/13/20 08:00 BP 156/91 07/13/20 08:00 Pulse Ox 95 07/13/20 08:00 Intake & Output 07/12/20 07/13/20 07/13/20 18:59 06:59 18:59 Intake Total 1042 800 240 Output Total 750 Balance 1042 800 -510 Weight 88.9 kg Intake: IV 250 Intake, IV Titration 792 Amount Dextrose 5%-0.9% NaCl 1, 528 000 ml @ 88 mls/hr IV . [id number] [facility] Rx#:[id number] Sodium Chloride 0.9% 1, 264 000 ml In Empty Bag 1 bag @ 1 ML/KG/HR 87.3 mls/hr IV .[id number] [facility] Rx#: [id number] Oral 800 240 Output: Urine 750 Other: # Voids 1 2 - Labs CBC & Chem 7: 07/13/20 07:41 07/13/20 07:41 Labs: Abnormal Lab Results - Last 24 Hours (Table) 07/12/20 07/12/20 07/12/20 Range/Units 17:00 20:46 21:40 RBC (4.30-5.90) m/uL Hgb (13.0-17.5) gm/dL Hct (39.0-53.0) % Sodium (137-145) mmol/L BUN (9-20) mg/dL Creatinine (0.66-1.25) mg/dL Glucose (74-99) mg/dL POC Glucose (mg/dL) 150 H 116 H (75-99) mg/dL Urine Protein 1+ H (Negative) Urine Blood Small H (Negative) Urine RBC 8 H (0-5) /hpf Hyaline Casts 4 H (0-2) /lpf Urine Mucus Rare H (None) /hpf 07/13/20 07/13/20 07/13/20 Range/Units 06:19 07:41 07:41 RBC 4.20 L (4.30-5.90) m/uL Hgb 12.7 L (13.0-17.5) gm/dL Hct 37.4 L (39.0-53.0) % Sodium 135 L (137-145) mmol/L BUN 32 H (9-20) mg/dL Creatinine 1.39 H (0.66-1.25) mg/dL Glucose 112 H (74-99) mg/dL POC Glucose (mg/dL) 114 H (75-99) mg/dL Urine Protein (Negative) Urine Blood (Negative) Urine RBC (0-5) /hpf Hyaline Casts (0-2) /lpf Urine Mucus (None) /hpf Assessment and Plan Plan: Assessment: 1. Acute kidney injury mostly prerenal secondary to contrast-induced acute kidney injury and component of cardiorenal syndrome. Creatinine peaked at 1.5 this admission and is 1.36 today. Unknown baseline renal function. 2. Diabetes mellitus. 3. Subacute infarcts noted on MRI. Concern for embolic etiology. Also discussed with neurology possible underlying hypercoagulable state. No clot n oted on PRATIMA. Currently on heparin drip. CTS following. 4. Acute systolic CHF with ejection fraction of 25-30%. Cardiology following. Cardiac catheterization done July 12 revealed multivessel disease. 5. Volume overload. Improved with diuresis. Plan: Off IV fluids. Maintain Lasix. Repeat UA and check UPC. Check renal ultrasound. Avoid nephrotoxins. Continue to monitor renal function and urine output.
--- NOTE | 2020-07-13 10:47 | P.PN ---
Subjective This is a pleasant 54 years old male with past medical history of coronary artery disease status post CABG, diabetes mellitus, chronic back pain secondary to herniated disc. [facility] His PCP is Dr. Plata, he sees a group insurance special agent at [facility] to where he had bypass of his lower extremity about one week earlier. He sees patternmaker plaster for his diabetes at [facility] as well. Presents because of dyspnea and weakness of the left hand. Patient states for about a week since last Sunday his been having c oughing spells mainly last Sunday and today lasted like for 15 minutes associated with no phlegm but he vomited once which looks like phlegm. Associated with some dyspnea but he denies chest pain. 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 He denies headache, no blurred vision or difficulty talking or swallowing. 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 He does not want nicotine patch Vitas looks stable, on the presentation his blood pressure was elevated to 187/123, currently is 123/82. Labs including CBC is unremarkable, INR is normal at 0.9. BMP showing only mild hyponatremia at 132, resolved BMP and liver enzymes were unremarkable. Sugar is elevated 2-9 and troponin is elevated at 0.3 EKG showed normal sinus rhythm with left ventricular hypertrophy. Rate at 97 Chest x-ray showing CHF CTA of the brain showing large bilateral pleural effusion correlate for edema and heart failure, possible pneumonia per reports. No significant stenosis CT of the brain: No acute process. In the emergency room he was started on aspirin 325 mg and heparin drip 07/11/2020 States that his breathing is better although he stayed in bed it did not try to get out. No chest pain or coughing Distal have bilateral patellar leg edema. 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 Plavix once heparin drip was stopped. Echocardiogram showed ejection fraction of 25-30% with moderate concentric LVH. Labs looks stable History remains on heparin drip for possible non-STEMI and aspirin 81 mg, cardiology team consulted. Also he is on IV Lasix for CHF. 07/12/2020 Patient today feels better, he denies chest pain, no dyspnea no exertional dyspnea. His hand strength is improving each day and today is better but still weaker than the right side. [facility] are planning for cardiac cath today for non-STEMI. His glucose was running on the low side, his was on normal saline at 88 mL/h change to D5 normal saline at the same rate. STANLEY inhibitor on hold for high creatinine. Lasix also was held today. Nephrology team were consulted on exam he has bilateral basal crepitation and bilateral leg edema however as he stated he has no exertional dyspnea Also regarding his stroke he had MRI of the brain showing multiple bilateral subacute infarcts burning for emboli and for this reason he is scheduled for PRATIMA possibly today. Neurologist on the case. physical therapy and speech evaluation are pending 07/13/2020 Patient was a slightly dyspneic this morning, yesterday he received 1 Accent dose of IV Lasix and his. When become short of breath. He has minimal crepitation and bilateral leg swelling, hives on by mouth Lasix 40 mg daily and an extra dose of 20 mg is a provided. However he denies chest pain, his weakness in the left hand is significantly improved although it's not back to normal limits. Vitals are stable and labs are stable, creatinine is improving down to 1.3. ProBNP [place] 9150 [place] 66002 upon admission. Cardiac workup yesterday showed triple coronary artery disease, cardiothoracic surgery has been consulted for possible bypass procedure. IV heparin was a stalk. [facility] team. The subcu heparin While stroke workup was PRATIMA showed patent foramen of failed and ultrasound of upper and lower extremity is negative for DVT. Review of Systems CONSTITUTIONAL: No fever, no malaise, no fatigue. HEENT: No recent visual problems or hearing problems. Denied any sore throat. CARDIOVASCULAR: No palpitation, no dizziness Pulmonary: no chest wall tenderness shortness of breath, no cough, no hemoptysis. GASTROINTESTINAL: No diarrhea, no nausea, no vomiting, no abdominal pain. Normoactive bowel sounds. NEUROLOGICAL: No headaches, no weakness, no numbness. HEMATOLOGICAL: Denies any bleeding or petechiae. Active Medications Generic Name Dose Route Start Last Admin Trade Name Freq PRN Reason Stop Dose Admin Alprazolam 0.25 mg 07/11/20 12:47 Alprazolam 0.25 Mg Tab PO Q6HR PRN Mild Anxiety Alprazolam 0.5 mg 07/11/20 12:47 Alprazolam 0.5 Mg Tab PO Q6HR PRN Moderate Anxiety Artificial Tears 1 drops 07/10/20 18:42 Artificial Tears-Hypromellose Drops 15 Ml Btl BOTH EYES QID PRN Dry Eye(s) Aspirin 81 mg 07/13/20 09:00 07/13/20 08:12 Aspirin 81 Mg PO 81 mg DAILY [facility] Administration Atorvastatin Calcium 80 mg 07/12/20 21:00 07/12/20 20:52 Atorvastatin 80 Mg Tab PO 80 mg HS [facility] Administration Duloxetine HCl 20 mg 07/11/20 09:00 07/13/20 08:12 Duloxetine Hcl 20 Mg Capsule.Dr PO 20 mg DAILY [facility] Administration Ezetimibe 10 mg 07/11/20 09:00 07/13/20 08:12 Ezetimibe 10 Mg Tab PO 10 mg DAILY [facility] Administration Furosemide 40 mg 07/13/20 16:00 Furosemide 40 Mg Tab PO BID@0900,1600 [facility] Heparin Sodium (Porcine) 0 unit 07/10/20 12:39 Heparin Sodium,Porcine 5,000 Unit/Ml 1 Ml Vial IV 07/13/20 20:00 PER PROTOCOL PRN Low PTT Protocol Heparin Sodium (Porcine) 5,000 unit 07/13/20 21:00 Heparin Sodium,Porcine 5,000 Unit/Ml 1 Ml Vial SQ Q12HR [facility] Hydralazine HCl 25 mg 07/13/20 16:00 Hydralazine Hcl 25 Mg Tab PO TID [facility] Insulin Aspart 0 unit 07/10/20 17:30 07/13/20 06:48 Insulin Aspart (Novolog) 100 Unit/Ml Vial SQ Not Given ACHS [facility] Protocol Insulin Detemir 18 unit 07/13/20 09:00 07/13/20 08:12 Insulin Detemir (Levemir) 100 Unit/Ml Syr SQ 18 unit BID [facility] Administration Isosorbide Mononitrate 30 mg 07/13/20 10:30 Isosorbide Mononitrate Er 30 Mg Tab.Er.24h PO DAILY [facility] Metoprolol Succinate 25 mg 07/13/20 21:00 Metoprolol Succinate (Er) 25 Mg Tab.Er.24h PO BID [facility] Nitroglycerin 0.4 mg 07/10/20 12:35 Nitroglycerin Sl Tabs 0.4 Mg Tab SUBLINGUAL Q5M PRN Chest Pain Objective - Vital Signs Vital signs: Vital Signs Temp 98.1 F 07/13/20 08:00 Pulse 80 07/13/20 08:00 Resp 18 07/13/20 08:00 BP 156/91 07/13/20 08:00 Pulse Ox 95 07/13/20 08:00 Intake & Output 07/12/20 07/13/20 07/13/20 18:59 06:59 18:59 Intake Total 1042 800 240 Output Total 750 Balance 1042 800 -510 Weight 88.9 kg Intake: IV 250 Intake, IV Titration 792 Amount Dextrose 5%-0.9% NaCl 1, 528 000 ml @ 88 mls/hr IV . [id number] [facility] Rx#:[id number] Sodium Chloride 0.9% 1, 264 000 ml In Empty Bag 1 bag @ 1 ML/KG/HR 87.3 mls/hr IV .[id number] [facility] Rx#: [id number] Oral 800 240 Output: Urine 750 Other: # Voids 1 2 - Exam GENERAL: The patient is alert and oriented x3, not in any acute distress. Well developed, well nourished. HEENT: Pupils are round and equally reacting to light. EOMI. No scleral icterus. No conjunctival pallor. Normocephalic, atraumatic. No pharyngeal erythema. No thyromegaly. CARDIOVASCULAR: S1 and S2 present. No murmurs, rubs, or gallops. -PULMONARY: Chest is clear to auscultation, no wheezing. Bilateral basal crepitation, decreased breath sounds bilaterally ABDOMEN: Soft, nontender, nondistended, normoactive bowel sounds. No palpable organomegaly. MUSCULOSKELETAL: No joint swelling or deformity. EXTREMITIES: No cyanosis, clubbing, or pedal edema. -NEUROLOGICAL: Cranial nerves are grossly intact. 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 Sensation is intact. Rest of motor examination is 5/5 of all other extremity except the left hand. Meningeal signs are absent SKIN: No rashes. No petechiae - Labs CBC & Chem 7: 07/13/20 07:41 07/13/20 07:41 Labs: Abnormal Lab Results - Last 24 Hours (Table) 07/12/20 07/12/20 07/12/20 Range/Units 17:00 20:46 21:40 RBC (4.30-5.90) m/uL Hgb (13.0-17.5) gm/dL Hct (39.0-53.0) % Sodium (137-145) mmol/L BUN (9-20) mg/dL Creatinine (0.66-1.25) mg/dL Glucose (74-99) mg/dL POC Glucose (mg/dL) 150 H 116 H (75-99) mg/dL Urine Protein 1+ H (Negative) Urine Blood Small H (Negative) Urine RBC 8 H (0-5) /hpf Hyaline Casts 4 H (0-2) /lpf Urine Mucus Rare H (None) /hpf 07/13/20 07/13/20 07/13/20 Range/Units 06:19 07:41 07:41 RBC 4.20 L (4.30-5.90) m/uL Hgb 12.7 L (13.0-17.5) gm/dL Hct 37.4 L (39.0-53.0) % Sodium 135 L (137-145) mmol/L BUN 32 H (9-20) mg/dL Creatinine 1.39 H (0.66-1.25) mg/dL Glucose 112 H (74-99) mg/dL POC Glucose (mg/dL) 114 H (75-99) mg/dL Urine Protein (Negative) Urine Blood (Negative) Urine RBC (0-5) /hpf Hyaline Casts (0-2) /lpf Urine Mucus (None) /hpf Assessment and Plan Assessment: non-STEMI with elevated troponin secondary to coronary artery disease Acute dyspnea could be acute systolic CHF , ejection fraction 25-30% Weakness of the left hand, secondary to bilateral subacute stroke, improving Patent foramen ovale Acute kidney injury secondary to contrast-induced nephropathy and cardiorenal syndrome Diabetes mellitus with hyperglycemia Chronic back pain secondary to herniated disc History of coronary artery disease status post CABG. Plan: this is a pleasant 54 years old male who presents with non-STEMI, acute CHF and bilateral subacute stroke. Also kidney injury Continue with heparin drip and aspirin. Cardiology consult. Neurology consult. Labs and medication were reviewed.. Continue same treatment. Continue with symptomatic treatment. Resume home medication. Monitor lytes and vitals. DVT and GI prophylaxis. Further recommendations depends on the clinical course of the patient DVT prophylaxis: Subcutaneous heparin GI Prophylaxis: Pepcid PT/OT: Pending Prognosis is guarded
--- NOTE | 2020-07-13 11:40 | US ---
EXAMINATION TYPE: US kidneys/renal and bladder DATE OF EXAM: 07/13/2020 COMPARISON: NONE CLINICAL HISTORY: shahid. SHAHID EXAM MEASUREMENTS: Right Kidney: 12.0 x 4.7 x 4.4 cm Left Kidney: 11.8 x 5.8 x 5.8 cm Right Kidney: Appeared wnl, lower pole gassed out Left Kidney: Appeared wnl, lower pole gassed out Bladder: wnl Bilateral Jets seen: Yes Incidental finding bilateral pleural effusions, more on left IMPRESSION: No obvious hydronephrosis or nephrolithiasis. Incidental note made of bilateral pleural effusions. Co rrelate clinically.
[2020-07-13] MEDS: ISOSORBIDE MONONITRATE ER 30 MG TAB.ER.24H PO SCH (11:43)
[2020-07-13 12:13] LABS: Glucose,Whole Blood 102 mg/dL (75-99)
--- NOTE | 2020-07-13 13:08 | XR ---
EXAMINATION TYPE: XR chest 2V DATE OF EXAM: 07/13/2020 COMPARISON: 07/10/2020 TECHNIQUE: PA and lateral views submitted. HISTORY: Shortness of breath FINDINGS: Diffuse interstitial pattern with bilateral infiltrate and pleural effusion. Arthropathy of the shoul ders. No pneumothorax. Heart size stable. Postsurgical change overlying the cervical spine. IMPRESSION: 1. Correlate for CHF otherwise consider interstitial pneumonia with basilar infiltrates.
--- NOTE | 2020-07-13 14:42 | P.PN ---
Subjective Progress Note Date: 07/13/20 Patient was seen today and he stated that he's doing well and denies any worsening of the weakness today compared to his initial presentation. He continues to have this mild weakness on the left hand but he stated that it's much improved compared to his initial presentation. Yesterday the patient was taken for cardiac cath and a showed multivessel coronary artery disease as well as elevated left sided filling pressure. The heparin drip was stopped by cardiology yesterday. Objective - Vital Signs Vital signs: Vital Signs Temp 98.1 F 07/13/20 11:56 Pulse 73 07/13/20 11:56 Resp 20 07/13/20 14:00 BP 157/99 07/13/20 11:56 Pulse Ox 94 L 07/13/20 11:56 Intake & Output 07/12/20 07/13/20 07/13/20 18:59 06:59 18:59 Intake Total 1042 800 240 Output Total 750 Balance 1042 800 -510 Weight 88.9 kg Intake: IV 250 Intake, IV Titration 792 Amount Dextrose 5%-0.9% NaCl 1, 528 000 ml @ 88 mls/hr IV . [id number] [facility] Rx#:[id number] Sodium Chloride 0.9% 1, 264 000 ml In Empty Bag 1 bag @ 1 ML/KG/HR 87.3 mls/hr IV .[id number] [facility] Rx#: [id number] Oral 800 240 Output: Urine 750 Other: # Voids 1 2 - Exam Gen.: The patient is reclining in the bed. He is well-nourished, well-developed and in no acute distress. HEENT: Head is atraumatic, normocephalic. Fundus not visualized. There is no scleral icterus. Mucous membranes are moist. Neurological examination Higher mental function: The patient is awake, alert, oriented to self place and time. Patient is following simple and complex command. No aphasia and no neglect. Cranial nerves: Pupils are equal, round and reactive to light. Visual cotton are full to confrontation. Extraocular movements are intact. There is no nystagmus. Facial sensations intact. There is no facial asymmetry. Hearing is grossly intact. Uvula and palate are midline. No dysarthria. Shoulder shrug is symmetric. Tongue protrudes midline. Motor: Gait is defered. Left hand muscles are 4+ to 5-/5. Left hand cold roll catcher is about 4+ to 5 minus. Other muscle strength is 5/5 throughout. Sensation: Distal gradient sensory loss to touch in the lower extremities. Cerebellar: Finger to nose is intact bilaterally without dysmetria or ataxia. Deep tendon reflexes: 1-2+/4+. - Labs CBC & Chem 7: 07/13/20 07:41 07/13/20 07:41 Labs: Abnormal Lab Results - Last 24 Hours (Table) 07/12/20 07/12/20 07/12/20 Range/Units 17:00 20:46 21:40 RBC (4.30-5.90) m/uL Hgb (13.0-17.5) gm/dL Hct (39.0-53.0) % Sodium (137-145) mmol/L BUN (9-20) mg/dL Creatinine (0.66-1.25) mg/dL Glucose (74-99) mg/dL POC Glucose (mg/dL) 150 H 116 H (75-99) mg/dL Urine Protein 1+ H (Negative) Urine Blood Small H (Negative) Urine RBC 8 H (0-5) /hpf Hyaline Casts 4 H (0-2) /lpf Urine Mucus Rare H (None) /hpf 07/13/20 07/13/20 07/13/20 Range/Units 06:19 07:41 07:41 RBC 4.20 L (4.30-5.90) m/uL Hgb 12.7 L (13.0-17.5) gm/dL Hct 37.4 L (39.0-53.0) % Sodium 135 L (137-145) mmol/L BUN 32 H (9-20) mg/dL Creatinine 1.39 H (0.66-1.25) mg/dL Glucose 112 H (74-99) mg/dL POC Glucose (mg/dL) 114 H (75-99) mg/dL Urine Protein (Negative) Urine Blood (Negative) Urine RBC (0-5) /hpf Hyaline Casts (0-2) /lpf Urine Mucus (None) /hpf 07/13/20 Range/Units 12:11 RBC (4.30-5.90) m/uL Hgb (13.0-17.5) gm/dL Hct (39.0-53.0) % Sodium (137-145) mmol/L BUN (9-20) mg/dL Creatinine (0.66-1.25) mg/dL Glucose (74-99) mg/dL POC Glucose (mg/dL) 102 H (75-99) mg/dL Urine Protein (Negative) Urine Blood (Negative) Urine RBC (0-5) /hpf Hyaline Casts (0-2) /lpf Urine Mucus (None) /hpf Assessment and Plan Assessment: 1. The patient is a 54-year-old male with vascular risk factors including coronary artery disease, diabetes mellitus, tobacco abuse who presents to the emergency department with complaints of shortness of breath, coughing and the left hand weakness. The patient's neurological examination reveals weakness confined to his left hand. Acute Left hand weakness due to acute ischemic stroke over bilateral hemisphere greater (predominately over the right hemisphere upon reviewing MRI Brain). Etiology is emblolic and seem cardioembolic especially with history of PFO. There is a patent foraminal valve present on PRATIMA (unsure of size) Multivessel coronary artery disease Acute systolic congestive heart failure with ejection fraction the of 25-30%. Diabetes mellitus not controlled (HbA1c 8.4) Dyslipidemia Acute kidney insufficiency Elevated troponin History of coronary artery disease status post CABG Plan: MRI the brain is a reported as subacute infarct are present bilaterally with the brain, greater than a single vascular distribution, correlate for possible embolic phenomena. There is underlying age-related changes of atrophy and probable chronic small vessel ischemia. Upon reviewing MRI the brain, stroke predominately over the right hemisphere. CTA of the head and neck is reported as the left and right internal and external carotid arteries are patent. After Jonathon changes are present at the carotid bulbs. No hemodynamic significant stenosis by basic criteria. The vertebral arteries are patent and cold dominant. Center of [place] shows no dissection, aneurysm or embolus. Cerebrovascular consultation are present. The panel: Triglyceride 155, cholesterol is 221, LDL is 145 and HDL of 45. Currently the patient is on aspirin 81 mg and heparin drip was stopped by cardiology team yesterday. I notified the patient that likely his stroke is a seems cardioembolic and I notified him that the this is not 100% the surgeon but it seems like it. I notified him that the we can either start him on aspirin and Plavix versus strong on the anticoagulation to prevent future stroke and there is a risk of a bleeding with anticoagulation. He decided to pursue with the anticoagulation so we'll go with Eliquis as well as continue aspirin 81 mg daily. Continue with a total 80 mg daily for secondary stroke prophylaxis. PT and OT as well as BUSINESS EXCELLENCE LEADER are consulted. Because of a stroke at a young age I ordered hypercoagulable workup: ARIAN screen is negative. Venous duplex of bilateral upper and lower extremities are negative for DVT. Pending antithrombin III, factor V Leiden mutation, homocysteine, lupus anticoagulant, MTHFR genotyping, protein C and protein S activity. I did not order factor VII or 8 at this time and can obtain as outpatient. I spoke with the cardiology team and they stated the PFO was small per PRATIMA finding. There is no reason to close it if small. Regarding patient acute kidney insufficiency will defer to the nephrology team. We'll defer the rest of the medical management to the primary team. We'll continue to follow up with the patient. Delfino Bro MD Neuro-Hospitalist Time with Patient: Less than 30
[2020-07-13] MEDS: hydrALAZINE HCL 25 MG TAB PO SCH ×2 (15:33→21:21)
--- NOTE | 2020-07-13 15:52 | P.PN ---
Subjective Progress Note Date: 07/13/20 HISTORY OF PRESENT ILLNESS: Patient underwent PRATIMA yesterday revealing no clot on the left atrial appendage, and evidence of PFO by bubble study. Aortic valve is tricuspid with normal function. Mitral valve appears to be normal with mild mitral regurgitation. Tricuspid valve appears to be normal with trace tricuspid regurgitation. Left ventricular function severely reduced with ejection fraction 30-35%. Moderate pleural effusion noted. He also underwent heart catheterization revealing triple-vessel coronary artery disease with mid LAD stenosis 50-60%, distal LAD 80%, first diagonal 50%, second diagonal 90%, mid circumflex 80%, distal circumflex 100% with left to left collaterals, proximal RCA 80%, mid RCA 70%, distal RCA 50-60%, PDA 80-90%. Cardiothoracic surgery was consulted for possible CABG. CTS recommending to wait at least 4 weeks from his CVA before considering intervention. PHYSICAL EXAM: VITAL SIGNS: Reviewed. GENERAL: Well-developed in no acute distress. NECK: Supple. No JVD or thyromegaly LUNGS: Respirations even and unlabored. Lungs essentially clear to auscultation bilaterally. HEART: Regular rate and rhythm. S1 and S2 heard. EXTREMITIES: Normal range of motion. No clubbing or cyanosis. Peripheral pulses intact. No lower extremity edema. Right radial cath site with pulse present. ASSESSMENT: Non-ST elevated myocardial infection Triple-vessel coronary artery disease Acute CVA PFO noted on PRATIMA Acute systolic heart failure, EF 30-35% per PRATIMA Acute kidney injury Hypertension Peripheral vascular disease Diabetes mellitus Chronic nicotine dependence PLAN: Case discussed with neurology. Will begin patient on Eliquis 5 mg twice a day. Case management consulted to check Eliquis co-pay Continue aspirin 81 mg Patient required a dose of IV Lasix yesterday. Will increase patient's oral Lasix to 40 mg by mouth twice a day Increase metoprolol succinate to 25 mg BID Add Imdur 30 mg daily Add hydralazine 25 mg 3 times a day Monitor blood pressure Monitor kidney function Further recommendations pending patient's course Nurse practitioner note has been reviewed by physician. Signing provider agrees with the documented findings, assessment, and plan of care. Objective - Vital Signs Vital signs: Vital Signs Temp 98.1 F 07/13/20 11:56 Pulse 73 07/13/20 11:56 Resp 20 07/13/20 14:00 BP 157/99 07/13/20 11:56 Pulse Ox 94 L 07/13/20 11:56 Intake & Output 07/12/20 07/13/20 07/13/20 18:59 06:59 18:59 Intake Total 1042 800 240 Output Total 750 Balance 1042 800 -510 Weight 88.9 kg Intake: IV 250 Intake, IV Titration 792 Amount Dextrose 5%-0.9% NaCl 1, 528 000 ml @ 88 mls/hr IV . [id number] [facility] Rx#:[id number] Sodium Chloride 0.9% 1, 264 000 ml In Empty Bag 1 bag @ 1 ML/KG/HR 87.3 mls/hr IV .[id number] [facility] Rx#: [id number] Oral 800 240 Output: Urine 750 Other: # Voids 1 2 - Labs CBC & Chem 7: 07/13/20 07:41 07/13/20 07:41 Labs: Abnormal Lab Results - Last 24 Hours (Table) 07/12/20 07/12/20 07/12/20 Range/Units 17:00 20:46 21:40 RBC (4.30-5.90) m/uL Hgb (13.0-17.5) gm/dL Hct (39.0-53.0) % Sodium (137-145) mmol/L BUN (9-20) mg/dL Creatinine (0.66-1.25) mg/dL Glucose (74-99) mg/dL POC Glucose (mg/dL) 150 H 116 H (75-99) mg/dL Urine Protein 1+ H (Negative) Urine Blood Small H (Negative) Urine RBC 8 H (0-5) /hpf Hyaline Casts 4 H (0-2) /lpf Urine Mucus Rare H (None) /hpf 07/13/20 07/13/20 07/13/20 Range/Units 06:19 07:41 07:41 RBC 4.20 L (4.30-5.90) m/uL Hgb 12.7 L (13.0-17.5) gm/dL Hct 37.4 L (39.0-53.0) % Sodium 135 L (137-145) mmol/L BUN 32 H (9-20) mg/dL Creatinine 1.39 H (0.66-1.25) mg/dL Glucose 112 H (74-99) mg/dL POC Glucose (mg/dL) 114 H (75-99) mg/dL Urine Protein (Negative) Urine Blood (Negative) Urine RBC (0-5) /hpf Hyaline Casts (0-2) /lpf Urine Mucus (None) /hpf 07/13/20 Range/Units 12:11 RBC (4.30-5.90) m/uL Hgb (13.0-17.5) gm/dL Hct (39.0-53.0) % Sodium (137-145) mmol/L BUN (9-20) mg/dL Creatinine (0.66-1.25) mg/dL Glucose (74-99) mg/dL POC Glucose (mg/dL) 102 H (75-99) mg/dL Urine Protein (Negative) Urine Blood (Negative) Urine RBC (0-5) /hpf Hyaline Casts (0-2) /lpf Urine Mucus (None) /hpf
[2020-07-13 17:12] LABS: Appearance,Urine Clear (Clear); Bacteria,Urine Rare /hpf; Bilirubin,Urine Negative (Negative); Blood,Urine Small (Negative); Color,Urine Colorless; Glucose,Urine (UA) Negative (Negative); Hyaline Casts,Urine 4 /lpf (0-2); Ketones,Urine Negative (Negative); Leukocyte Esterase,Urine Negative (Negative); Mucus,Urine Rare /hpf; Nitrite,Urine Negative (Negative); PH, Urine 5.5 (5.0-8.0); Protein,Urine 2+ (Negative); RBC,Urine 8 /hpf (0-5); Urobilinogen,Urine <2.0 mg/dL (<2.0); WBC,Urine 1 /hpf (0-5)
[2020-07-13 17:16] LABS: Glucose,Whole Blood 85 mg/dL (75-99)
[2020-07-13 17:18] LABS: Creatinine,Urine Random 38.9 mg/dL; Protein/Creatinine Ratio,Urine 3.111
[2020-07-13 20:51] LABS: Glucose,Whole Blood 110 mg/dL (75-99)
[2020-07-13] MEDS ORDERED: HEPARIN SODIUM,PORCINE 5,000 UNIT/ML 1 ML VIAL SQ SCH (21:00)
[2020-07-13] MEDS: ATORVASTATIN 80 MG TAB PO SCH (21:21)
[2020-07-13] MEDS: APIXABAN 5 MG TAB PO SCH (21:21)
[2020-07-14 03:12] LABS: Glucose,Whole Blood 71 mg/dL (75-99)
[2020-07-14 06:30] LABS: Glucose,Whole Blood 93 mg/dL (75-99)
[2020-07-14] MEDS: INSULIN ASPART (NovoLOG) 100 UNIT/ML VIAL SQ SCH ×2 (06:30→12:13)
[2020-07-14 07:58] VITALS: RESP 16
[2020-07-14] MEDS ORDERED: hydrALAZINE HCL 50 MG TAB PO SCH (09:00)
[2020-07-14] MEDS ORDERED: INSULIN DETEMIR (LEVEMIR) 100 UNIT/ML SYR SQ SCH ×2 (09:00→21:00)
[2020-07-14 09:03] LABS: Calcium 8.4 mg/dL (8.4-10.2); Potassium 4.2 mmol/L (3.5-5.1)
[2020-07-14 09:48] LABS: APTT 47 Sec(s) (<43); APTT 1:1 Mix 42 Sec(s) (<43); Dilute Russell Viper Venom 40 Sec(s) (<44)
[2020-07-14] MEDS: ASPIRIN 81 MG PO SCH (09:56)
[2020-07-14] MEDS: APIXABAN 5 MG TAB PO SCH (09:56)
[2020-07-14] MEDS: DULoxetine HCL 20 MG CAPSULE.DR PO SCH (09:56)
[2020-07-14] MEDS: METOPROLOL SUCCINATE (ER) 25 MG TAB.ER.24H PO SCH (09:56)
[2020-07-14] MEDS: FUROSEMIDE 40 MG TAB PO SCH (09:56)
[2020-07-14] MEDS: EZETIMIBE 10 MG TAB PO SCH (09:56)
[2020-07-14] MEDS: ISOSORBIDE MONONITRATE ER 30 MG TAB.ER.24H PO SCH (09:56)
[2020-07-14 10:21] LABS: Glucose,Whole Blood 222 mg/dL (75-99)
--- NOTE | 2020-07-14 11:14 | P.PN ---
Subjective Patient is seen in follow-up for acute kidney injury. Renal function stable. Sodium level 131. Does admit to drinking quite a bit of water. Good urine output. No chest pain or shortness of breath. Vital signs are stable. General: The patient appeared well nourished and normally developed. HEENT: Head exam is unremarkable. Neck is without jugular venous distension. LUNGS: Breath sounds decreased. HEART: Rate and Rhythm are regular. ABDOMEN: Soft, nontender. EXTREMITITES: No edema. Objective - Vital Signs Vital signs: Vital Signs Temp 98.1 F 07/14/20 07:57 Pulse 95 07/14/20 08:46 Resp 16 07/14/20 08:46 BP 126/70 07/14/20 07:57 Pulse Ox 95 07/14/20 04:00 Intake & Output 07/13/20 07/14/20 07/14/20 18:59 06:59 18:59 Intake Total 980 240 Output Total 750 900 Balance 230 -900 240 Weight 87.7 kg Intake: Oral 980 240 Output: Urine 750 900 Other: Voiding Method Toilet Toilet # Voids 2 - Labs CBC & Chem 7: 07/13/20 07:41 07/14/20 08:05 Labs: Abnormal Lab Results - Last 24 Hours (Table) 07/13/20 07/13/20 07/13/20 Range/Units 07:41 07:41 12:11 Lupus Anticoag aPTT 47 H (<43) Sec(s) Sodium (137-145) mmol/L BUN (9-20) mg/dL Creatinine (0.66-1.25) mg/dL Glucose (74-99) mg/dL POC Glucose (mg/dL) 102 H (75-99) mg/dL Homocysteine 23.20 H (4.00-14.00) umol/L Urine Protein (Negative) Urine Blood (Negative) Urine RBC (0-5) /hpf Urine Bacteria (None) /hpf Hyaline Casts (0-2) /lpf Urine Mucus (None) /hpf 07/13/20 07/13/20 07/14/20 Range/Units 16:15 20:49 03:10 Lupus Anticoag aPTT (<43) Sec(s) Sodium (137-145) mmol/L BUN (9-20) mg/dL Creatinine (0.66-1.25) mg/dL Glucose (74-99) mg/dL POC Glucose (mg/dL) 110 H 71 L (75-99) mg/dL Homocysteine (4.00-14.00) umol/L Urine Protein 2+ H (Negative) Urine Blood Small H (Negative) Urine RBC 8 H (0-5) /hpf Urine Bacteria Rare H (None) /hpf Hyaline Casts 4 H (0-2) /lpf Urine Mucus Rare H (None) /hpf 07/14/20 07/14/20 Range/Units 08:05 10:00 Lupus Anticoag aPTT (<43) Sec(s) Sodium 131 L (137-145) mmol/L BUN 32 H (9-20) mg/dL Creatinine 1.42 H (0.66-1.25) mg/dL Glucose 169 H (74-99) mg/dL POC Glucose (mg/dL) 222 H (75-99) mg/dL Homocysteine (4.00-14.00) umol/L Urine Protein (Negative) Urine Blood (Negative) Urine RBC (0-5) /hpf Urine Bacteria (None) /hpf Hyaline Casts (0-2) /lpf Urine Mucus (None) /hpf Assessment and Plan Plan: Assessment: 1. Acute kidney injury mostly prerenal secondary to contrast-induced acute kidney injury and component of cardiorenal syndrome. Creatinine peaked at 1.5 this admission and is stable at 1.4 to today. Unknown baseline renal function. No hydronephrosis noted on kidney ultrasound. 2. Diabetes mellitus. 3. Subacute infarcts noted on MRI. Concern for embolic etiology. Also discussed with neurology possible underlying hypercoagulable state. No clot noted on PRATIMA. On anticoagulation. CTS following. 4. Acute systolic CHF with ejection fraction of 25-30%. Cardiology following. Cardiac catheterization done July 12 revealed multivessel disease. 5. Volume overload. Improved with diuresis. 6. Proteinuria. UPC 3.1 g. Etiology is most likely diabetic kidney disease. Further workup outpatient. Plan: Maintain Lasix. 1500 mL fluid restriction. Avoid nephrotoxins. Continue to monitor renal function and urine output. Patient states he will be going to the [facility] today. Add low-dose losartan. Follow up outpatient in 1 week.
[2020-07-14 11:33] LABS: Glucose,Whole Blood 138 mg/dL (75-99)
[2020-07-14 11:41] VITALS: BP 137/84; TEMP 97.8
--- NOTE | 2020-07-14 11:53 | P.PN ---
Subjective Progress Note Date: 07/14/20 Was seen at bedside and he stated that he feels he is improving on a daily basis. He denies any worsening of his left-sided weakness of the arm or any new weakness or numbness or visual disturbance. He denies any difficulty getting his words out. History the patient was started on Eliquis 5 mg 1 tablet twice a day. Objective - Vital Signs Vital signs: Vital Signs Temp 97.8 F 07/14/20 11:40 Pulse 96 07/14/20 11:40 Resp 16 07/14/20 11:40 BP 137/84 07/14/20 11:40 Pulse Ox 95 07/14/20 04:00 Intake & Output 07/13/20 07/14/20 07/14/20 18:59 06:59 18:59 Intake Total 980 240 Output Total 750 900 Balance 230 -900 240 Weight 87.7 kg Intake: Oral 980 240 Output: Urine 750 900 Other: Voiding Method Toilet Toilet Toilet # Voids 2 - Exam Gen.: The patient is reclining in the bed. He is well-nourished, well-developed and in no acute distress. HEENT: Head is atraumatic, normocephalic. Fundus not visualized. There is no scleral icterus. Mucous membranes are moist. Neurological examination Higher mental function: The patient is awake, alert, oriented to self place and time. Patient is following simple and complex command. No aphasia and no neglect. Cranial nerves: Pupils are equal, round and reactive to light. Visual cotton are full to confrontation. Extraocular movements are intact. There is no nystagmus. Facial sensations intact. There is no facial asymmetry. Hearing is grossly intact. Uvula and palate are midline. No dysarthria. Shoulder shrug is symmetric. Tongue protrudes midline. Motor: Gait is normal with normal arm swings. Left hand muscles are 4+ to 5-/5. Left hand bottling attendant is 4+ to 5-. Other muscle strength is 5/5 throughout. Sensation: Distal gradient sensory loss to touch in the lower extremities. Cerebellar: Finger to nose is intact bilaterally without dysmetria or ataxia. Deep tendon reflexes: 1-2+/4+. - Labs CBC & Chem 7: 07/13/20 07:41 07/14/20 08:05 Labs: Abnormal Lab Results - Last 24 Hours (Table) 07/13/20 07/13/20 07/13/20 Range/Units 07:41 07:41 12:11 Lupus Anticoag aPTT 47 H (<43) Sec(s) Sodium (137-145) mmol/L BUN (9-20) mg/dL Creatinine (0.66-1.25) mg/dL Glucose (74-99) mg/dL POC Glucose (mg/dL) 102 H (75-99) mg/dL Homocysteine 23.20 H (4.00-14.00) umol/L Urine Protein (Negative) Urine Blood (Negative) Urine RBC (0-5) /hpf Urine Bacteria (None) /hpf Hyaline Casts (0-2) /lpf Urine Mucus (None) /hpf 07/13/20 07/13/20 07/14/20 Range/Units 16:15 20:49 03:10 Lupus Anticoag aPTT (<43) Sec(s) Sodium (137-145) mmol/L BUN (9-20) mg/dL Creatinine (0.66-1.25) mg/dL Glucose (74-99) mg/dL POC Glucose (mg/dL) 110 H 71 L (75-99) mg/dL Homocysteine (4.00-14.00) umol/L Urine Protein 2+ H (Negative) Urine Blood Small H (Negative) Urine RBC 8 H (0-5) /hpf Urine Bacteria Rare H (None) /hpf Hyaline Casts 4 H (0-2) /lpf Urine Mucus Rare H (None) /hpf 07/14/20 07/14/20 07/14/20 Range/Units 08:05 10:00 11:31 Lupus Anticoag aPTT (<43) Sec(s) Sodium 131 L (137-145) mmol/L BUN 32 H (9-20) mg/dL Creatinine 1.42 H (0.66-1.25) mg/dL Glucose 169 H (74-99) mg/dL POC Glucose (mg/dL) 222 H 138 H (75-99) mg/dL Homocysteine (4.00-14.00) umol/L Urine Protein (Negative) Urine Blood (Negative) Urine RBC (0-5) /hpf Urine Bacteria (None) /hpf Hyaline Casts (0-2) /lpf Urine Mucus (None) /hpf Assessment and Plan Assessment: 1. The patient is a 54-year-old male with vascular risk factors including coronary artery disease, diabetes mellitus, tobacco abuse who presents to the emergency department with complaints of shortness of breath, coughing and the left hand weakness. The patient's neurological examination reveals weakness confined to his left hand. Acute Left hand weakness due to acute ischemic stroke over bilateral hemisphere greater (predominately over the right hemisphere upon reviewing MRI Brain). Etiology is emblolic and seems cardioembolic. There is a patent foraminal valve present on PRATIMA (unsure of size) Multivessel coronary artery disease Acute systolic congestive heart failure with ejection fraction the of 25-30%. Diabetes mellitus not controlled (HbA1c 8.4) Dyslipidemia Acute kidney insufficiency Elevated troponin History of coronary artery disease status post CABG Plan: MRI the brain is a reported as subacute infarct are present bilaterally with the brain, greater than a single vascular distribution, correlate for possible embolic phenomena. There is underlying age-related changes of atrophy and probable chronic small vessel ischemia. Upon reviewing MRI the brain, stroke predominately over the right hemisphere. CTA of the head and neck is reported as the left and right internal and external carotid arteries are patent. After Jonathon changes are present at the carotid bulbs. No hemodynamic significant stenosis by basic criteria. The vertebral arteries are patent and cold dominant. [place] shows no dissection, aneurysm or embolus. Cerebrovascular consultation are present. The panel: Triglyceride 155, cholesterol is 221, LDL is 145 and HDL of 45. Currently the patient is on aspirin 81 mg and heparin drip was stopped by cardiology team yesterday. I notified the patient that likely his stroke is a seems cardioembolic and I notified him that the this is not 100% the surgeon but it seems like it. I notified him that the we can either start him on aspirin and Plavix versus strong on the anticoagulation to prevent future stroke and there is a risk of a bleeding with anticoagulation. He decided to pursue with the anticoagulation so we'll go with Eliquis as well as continue aspirin 81 mg daily. Continue with a total 80 mg daily for secondary stroke prophylaxis. PT and OT as well as ELECTRICAL TECH/PROJECT MANAGER are consulted. Because of a stroke at a young age I ordered hypercoagulable workup: ARIAN screen is negative. Venous duplex of bilateral upper and lower extremities are negative for DVT. antithrombin III antigen is 98% (normal). Lupus anticoagulant-not detected. homocysteine 23.2 (normal is 4-14). Recommend repeating and it within 4-6 weeks to see whether this is actually truly elevated or as in the reactive. Pending , factor V Leiden mutation, ,, MTHFR genotyping, protein C and protein S activity. I did not order factor VII or 8 at this time and can obtain as outpatient. I spoke with the cardiology team and they stated the PFO was small per PRATIMA finding. There is no reason to close it if small. Regarding patient acute kidney insufficiency will defer to the nephrology team. We'll defer the rest of the medical management to the primary team. Neurologic perspective the patient the needs to follow-up with a neurologist as an outpatient within 1 week. He stated that he'll follow up at the [place] [facility]. No further work-up from neurology perspective. Delfino Bro MD Neuro-Hospitalist Time with Patient: Less than 30
--- NOTE | 2020-07-14 12:49 | P.DS ---
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 Do you want consulting provider notified?: Yes Consult Physician Urgent Consulting Provider: Raphael Bragg Consult Reason/Comments: dyspnea with heart failure and troponin elevated Do you want consulting provider notified?: Yes 07/12/20 07:49 Consult Physician Routine Consulting Provider: David Alcantar Consult Reason/Comments: elevated BUN/CREAT Do you want consulting provider notified?: Yes 07/12/20 14:37 Consult Physician Routine Consulting Provider: Delfino Lynch Consult Reason/Comments: CABG Do you want consulting provider notified?: Yes Primary care physician: Physician Nonstaff Hospital Course: Diagnoses: non-STEMI with elevated troponin secondary to coronary artery disease. Cardiac cath showing multiple coronary artery disease as below Acute dyspnea secondary to acute systolic CHF , ejection fraction 25-30%, PRATIMA showed ejection fraction 30-35% Weakness of the left hand, secondary to bilateral subacute stroke, improving Patent foramen ovale Acute kidney injury secondary to contrast-induced nephropathy and cardiorenal syndrome Diabetes mellitus with hyperglycemia Chronic back pain secondary to herniated disc History of coronary artery disease status post CABG. Nicotine dependence, patient is counseled Hospital course: This is a pleasant 54 years old male with past medical history of coronary artery disease status post CABG, diabetes mellitus, chronic back pain secondary to herniated disc. He is a patient of the [facility] at [place]. His PCP is Dr. Plata, he sees a hardness inspector at [place] to where he had bypass of his lower extremity about one week earlier. He sees quantitative software engineer for his diabetes at [place] as well. Presents because of dyspnea and weakness of the left hand. Patient states for about a week he is been having coughing spells some dyspnea but no chest pain. On admission his troponin is elevated at 0.3, Echocardiogram showed ejection fraction of 25-30% with moderate concentric LVH. Patient has been evaluated by hardness inspector for non-STEMI, cardiac cath showed multivessel CAD, LAD has a proximal 50-60% stenosis and distal 80% stenosis, diagonal 1 branch has 90% stenosis, left circumflex artery has 40-50% stenosis and right coronary artery has 80% proximal, 70% mid and 50-60% distal RCA stenosis. Cardiothoracic surgery team were consulted for possible bypass procedure, I discussed the case with the team and they recommended rest and stabilizing the patient heart failure and stroke prior to cardiac bypass surgery. Surgery could be done in a few weeks as per the recommendation. Patient was treated with Lasix and aspirin. I discussed with the cardiology team who cleared the patient for discharge and follow-up as an outpatient. Also I spoke with AMA from CTS recommended outpatient follow-up and they cleared him for discharge today as well Also patient was found to have acute left hand weakness although it is significantly improved upon discharge almost close to normal. MRI of the brain showing multiple bilateral subacute infarcts concerning for emboli , PRATIMA showed small patent foramen ovale and ultrasound of upper and lower extremity is negative for DVT. No exact source for the emboli is found however cardiac structure is highly suspected, patient was started on Eliquis twice daily and he looks okay with it. Also patient is on aspirin, risks including but not limited to intracranial hemorrhage organ dysfunction and/or are explained for the patient and he verbalized understanding and acceptance to continue with the medication. However with think benefits outer years. Co-pay for Eliquis is $4 and patient agrees Also neurologist ordered some hypercoagulable workup but patient does not want to wait for the results to be back and he was to follow up as an outpatient with his PCP. Patient was cleared by neurologist for discharge with Hypercoagulable workup ARIAN screen is negative. Venous duplex of bilateral upper and lower extremities are negative for DVT. antithrombin III antigen is 98% (normal). Lupus anticoagulant-not detected. homocysteine 23.2 (normal is 4-14). Recommend repeating and it within 4-6 weeks to see whether this is actually truly elevated or as in the reactive. Pending , factor V Leiden mutation, ,, MTHFR genotyping, protein C and protein S activity. I did not order factor VII or 8 at this time and can obtain as outpatient. crew dispatcher so the patient for elevated creatinine which is stable on discharge at 1.4, also sodium is with slight dropped to 131, compared to 135 yesterday, water restriction is recommended for the patient Risk of bleeding including but not limited to intracranial hemorrhage are explai alex for the patient and he verbalized understanding and acceptance He takes insulin at home along collecting Lantus 30 units twice a day, here his sugar was on low-dose sotalol was lowered to 16 units twice a day, Problems and management plan were discussed with the patient and he verbalized understanding and acceptance Patient was found stable and can be discharged home in guarded prognosis however he needs follow-up as an outpatient. Patient was instructed to follow up with PCP Dr. Saez on this coming Wednesday 07/19 at 1 PM Also patient was instructed to follow up with hardness inspector Dr. Alcaraz in 2 week, and to follow up with urologist in 1 week and a few names are suggested for him like Shashi Barrientos. Kristy Barrientos, and Dr. brock Patient was instructed to follow up with Dr. Williamson the crew dispatcher in 2 weeks and the cardiothoracic surgeon Dr. Lynch in 2-3 weeks, patient agrees and states he will follow these recommendations Physical exam Gen: patient is a AAOx3, no distress CVS: S1-S2, RRR, no murmur -Lungs: B/L CTA, no wheezing. 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, rest of water examined both extremities upper and lower is 5/5, sensation intact, meningeal signs are absent Time spent more than 35 minutes Patient Condition at Discharge: Serious Plan - Discharge Summary Discharge Rx Participant: No New Discharge Prescriptions: New Apixaban [Eliquis] 5 mg PO BID #60 tab hydrALAZINE HCL [Apresoline] 50 mg PO TID #21 tab Losartan [Cozaar] 25 mg PO DAILY 7 Days #7 tab Isosorbide Mononitrate ER [Imdur] 30 mg PO DAILY 7 Days #7 tab.er.24h Furosemide [Lasix] 40 mg PO BID@0900,1600 7 Days #14 tab Insulin Detemir (Levemir) [Levemir] 17 unit SQ BID #1 vial Atorvastatin [Lipitor] 80 mg PO HS 7 Days #7 tab Nitroglycerin Sl Tabs [Nitrostat] 0.4 mg SUBLINGUAL Q5M PRN #7 tab PRN Reason: Chest Pain Metoprolol Succinate (ER) [Toprol XL] 25 mg PO BID 7 Days #14 tab.er.24h Ezetimibe [Zetia] 10 mg PO DAILY 7 Days #7 tab Continue Aspirin EC [Ecotrin Low Dose] 81 mg PO BID DULoxetine HCL [Cymbalta] 20 mg PO DAILY Carboxymethylcellulose Sodium [Refresh Tears] 1 drop BOTH EYES QID PRN PRN Reason: Dry Eye(S) Discontinued Insulin Glargine,Hum.rec.anlog [Lantus Solostar] 30 unit SQ BID Pravastatin Sodium [Pravachol] 80 mg PO HS Empagliflozin [Jardiance] 25 mg PO DAILY Insulin Aspart [NovoLOG Flexpen] 6 units SQ AC-TID Discharge Medication List Aspirin EC [Ecotrin Low Dose] 81 mg PO BID 03/12/19 [History] Carboxymethylcellulose Sodium [Refresh Tears] 1 drop BOTH EYES QID PRN 07/10/20 [History] DULoxetine HCL [Cymbalta] 20 mg PO DAILY 07/10/20 [History] Apixaban [Eliquis] 5 mg PO BID #60 tab 07/13/20 [Rx] Atorvastatin [Lipitor] 80 mg PO HS 7 Days #7 tab 07/14/20 [Rx] Ezetimibe [Zetia] 10 mg PO DAILY 7 Days #7 tab 07/14/20 [Rx] Furosemide [Lasix] 40 mg PO BID@0900,1600 7 Days #14 tab 07/14/20 [Rx] Insulin Detemir (Levemir) [Levemir] 17 unit SQ BID #1 vial 07/14/20 [Rx] Isosorbide Mononitrate ER [Imdur] 30 mg PO DAILY 7 Days #7 tab.er.24h 07/14/20 [Rx] Losartan [Cozaar] 25 mg PO DAILY 7 Days #7 tab 07/14/20 [Rx] Metoprolol Succinate (ER) [Toprol XL] 25 mg PO BID 7 Days #14 tab.er.24h 07/14/20 [Rx] Nitroglycerin Sl Tabs [Nitrostat] 0.4 mg SUBLINGUAL Q5M PRN #7 tab 07/14/20 [Rx] hydrALAZINE HCL [Apresoline] 50 mg PO TID #21 tab 07/14/20 [Rx] Follow up Appointment(s)/Referral(s): Shashi Garcia MD [REFERRING] - 1 Week Asad Alcaraz DO [STAFF PHYSICIAN] - 2 Weeks Kristy Garcia MD [REFERRING] - 1 Week Delfino Brock MD [STAFF PHYSICIAN] - 1 Week David Alcantar DO [STAFF PHYSICIAN] - 2 Weeks Delfino Lynch MD [STAFF PHYSICIAN] - (Cardiothoracic surgeon) Activity/Diet/Wound Care/Special Instructions: Eliquis covered by insurance, copay is $4 Heart healthy diet, keep salt restriction We recommend water and fluid restriction to 1500 mL the whole day [including juice, soups] Activity is restricted until you see your doctor Please [facility] Dr. Salcedo this coming Sunday on 07/19 at 2:00 in the afternoon. She is expecting U and she is going to order some labs for you and refill your scripts. we recommend you check your blood glucose 4 times a day, before each meal and at bedtime keep the numbers in a log book, and bring continue her doctor on her appointment date If her glucose is less than 70 or more than 400, then called 911 on come to emergency room Discharge Disposition: HOME SELF-CARE
--- NOTE | 2020-07-14 13:06 | P.PN ---
Subjective Progress Note Date: 07/14/20 HISTORY OF PRESENT ILLNESS: 07/13/2020 Patient underwent PRATIMA yesterday revealing no clot on the left atrial appendage, and evidence of PFO by bubble study. Aortic valve is tricuspid with normal function. Mitral valve appears to be normal with mild mitral regurgitation. Tricuspid valve appears to be normal with trace tricuspid regurgitation. Left ventricular function severely reduced with ejection fraction 30-35%. Moderate pleural effusion noted. He also underwent heart catheterization revealing triple-vessel coronary artery disease with mid LAD stenosis 50-60%, distal LAD 80%, first diagonal 50%, second diagonal 90%, mid circumflex 80%, distal circumflex 100% with left to left collaterals, proximal RCA 80%, mid RCA 70%, distal RCA 50-60%, PDA 80-90%. Cardiothoracic surgery was consulted for possible CABG. CTS recommending to wait at least 4 weeks from his CVA before considering intervention. 07/14/2020 Patient examined this morning at the bedside. He denies chest pain or pressure. Denies shortness of breath. Patient's blood pressure was elevated yesterday a nd medication changes were made. Patient's blood pressure significantly improved this morning. She is hoping to be discharged home today. PHYSICAL EXAM: VITAL SIGNS: Reviewed. GENERAL: Well-developed in no acute distress. NECK: Supple. No JVD or thyromegaly LUNGS: Respirations even and unlabored. Lungs essentially clear to auscultation bilaterally. HEART: Regular rate and rhythm. S1 and S2 heard. EXTREMITIES: Normal range of motion. No clubbing or cyanosis. Peripheral pulses intact. No lower extremity edema. Right radial cath site with pulse present. ASSESSMENT: Non-ST elevated myocardial infection Triple-vessel coronary artery disease Acute CVA PFO noted on PRATIMA Acute systolic heart failure, EF 30-35% per PRATIMA Acute kidney injury Hypertension Peripheral vascular disease Diabetes mellitus Chronic nicotine dependence PLAN: Continue current cardiac medications Patient is stable for discharge today from a cardiac perspective. He is to follow up outpatient with Dr. Alcaraz. Nurse practitioner note has been reviewed by physician. Signing provider agrees with the documented findings, assessment, and plan of care. Objective - Vital Signs Vital signs: Vital Signs Temp 97.8 F 07/14/20 11:40 Pulse 96 07/14/20 11:40 Resp 16 07/14/20 11:40 BP 137/84 07/14/20 11:40 Pulse Ox 95 07/14/20 04:00 Intake & Output 07/13/20 07/14/20 07/14/20 18:59 06:59 18:59 Intake Total 980 1020 Output Total 750 900 Balance 230 -900 1020 Weight 87.7 kg Intake: Oral 980 1020 Output: Urine 750 900 Other: Voiding Method Toilet Toilet Toilet # Voids 2 1 - Labs CBC & Chem 7: 07/13/20 07:41 07/14/20 08:05 Labs: Abnormal Lab Results - Last 24 Hours (Table) 07/13/20 07/13/20 07/13/20 Range/Units 07:41 07:41 16:15 Lupus Anticoag aPTT 47 H (<43) Sec(s) Sodium (137-145) mmol/L BUN (9-20) mg/dL Creatinine (0.66-1.25) mg/dL Glucose (74-99) mg/dL POC Glucose (mg/dL) (75-99) mg/dL Homocysteine 23.20 H (4.00-14.00) umol/L Urine Protein 2+ H (Negative) Urine Blood Small H (Negative) Urine RBC 8 H (0-5) /hpf Urine Bacteria Rare H (None) /hpf Hyaline Casts 4 H (0-2) /lpf Urine Mucus Rare H (None) /hpf 07/13/20 07/14/20 07/14/20 Range/Units 20:49 03:10 08:05 Lupus Anticoag aPTT (<43) Sec(s) Sodium 131 L (137-145) mmol/L BUN 32 H (9-20) mg/dL Creatinine 1.42 H (0.66-1.25) mg/dL Glucose 169 H (74-99) mg/dL POC Glucose (mg/dL) 110 H 71 L (75-99) mg/dL Homocysteine (4.00-14.00) umol/L Urine Protein (Negative) Urine Blood (Negative) Urine RBC (0-5) /hpf Urine Bacteria (None) /hpf Hyaline Casts (0-2) /lpf Urine Mucus (None) /hpf 07/14/20 07/14/20 Range/Units 10:00 11:31 Lupus Anticoag aPTT (<43) Sec(s) Sodium (137-145) mmol/L BUN (9-20) mg/dL Creatinine (0.66-1.25) mg/dL Glucose (74-99) mg/dL POC Glucose (mg/dL) 222 H 138 H (75-99) mg/dL Homocysteine (4.00-14.00) umol/L Urine Protein (Negative) Urine Blood (Negative) Urine RBC (0-5) /hpf Urine Bacteria (None) /hpf Hyaline Casts (0-2) /lpf Urine Mucus (None) /hpf
[2020-07-14 13:15] VITALS: PULSE 80
[2020-07-15] MEDS ORDERED: LOSARTAN 25 MG TAB PO SCH (09:00)
[2020-07-16 09:13] LABS: Protein C (Activity) 112 % (71-138)
== END 2020-07-14 14:55 | disposition home or self-care (01) | DRG 64 ==
LOC: EC 10:56 → 3SCARD 14:03
PROVIDERS: ADMIT Internal Medicine; ATTEND Internal Medicine
PROC: 4A023N7 Measurement of Cardiac Sampling and Pressure, Left Heart, Percutaneous Approach (ICD-10-PCS; 2020-07-12)
PROC: B2111ZZ Fluoroscopy of Multiple Coronary Arteries using Low Osmolar Contrast (ICD-10-PCS; 2020-07-12)
PROC: B246ZZ4 Ultrasonography of Right and Left Heart, Transesophageal (ICD-10-PCS; principal; 2020-07-12 10:45)
DX: I63.49 Cerebral infarction due to embolism of other cerebral artery (principal); I21.4 Non-ST elevation (NSTEMI) myocardial infarction; I50.21 Acute systolic (congestive) heart failure; E87.1 Hypo-osmolality and hyponatremia; N17.9 Acute kidney failure, unspecified; I13.0 Hypertensive heart and chronic kidney disease with heart failure and stage 1 through stage 4 chronic kidney disease, or unspecified chronic kidney disease; Q21.1 Atrial septal defect; I42.9 Cardiomyopathy, unspecified; E11.42 Type 2 diabetes mellitus with diabetic polyneuropathy; E11.51 Type 2 diabetes mellitus with diabetic peripheral angiopathy without gangrene; E11.22 Type 2 diabetes mellitus with diabetic chronic kidney disease; Z20.822 Contact with and (suspected) exposure to COVID-19; E11.65 Type 2 diabetes mellitus with hyperglycemia; G83.24 Monoplegia of upper limb affecting left nondominant side; I25.10 Atherosclerotic heart disease of native coronary artery without angina pectoris; Z79.4 Long term (current) use of insulin; F43.10 Post-traumatic stress disorder, unspecified; N18.9 Chronic kidney disease, unspecified; G89.29 Other chronic pain; M51.26 Other intervertebral disc displacement, lumbar region; E78.5 Hyperlipidemia, unspecified; I34.0 Nonrheumatic mitral (valve) insufficiency; N14.1 Nephropathy induced by other drugs, medicaments and biological substances; T50.8X5A Adverse effect of diagnostic agents, initial encounter; Z79.899 Other long term (current) drug therapy; Z79.82 Long term (current) use of aspirin; Z87.891 Personal history of nicotine dependence; Z95.828 Presence of other vascular implants and grafts; Z95.1 Presence of aortocoronary bypass graft; Z90.49 Acquired absence of other specified parts of digestive tract; Z98.890 Other specified postprocedural states; Z98.1 Arthrodesis status; Z82.49 Family history of ischemic heart disease and other diseases of the circulatory system; Z82.3 Family history of stroke
CPT/HCPCS: 36415; 70450; 70496; 70498; 70551; 71046; 76770; 80048; 80053; 80061; 81001; 81241; 81291; 82570; 83036; 83090; 83735; 83880; 84156; 84443; 84484; 85025; 85300; 85301; 85303; 85306; 85610; 85613; 85730; 86038; 87635; 93005; 93306; 93308; 93312; 93320; 93325; 93458; 93970; 96365; 96366; 96375; 96376; 99285

== ENCOUNTER 2021-03-28 16:25 | Inpatient (IN) | payer MEDICARE, OTHER ==
[2021-03-28 17:07] LABS: Basophils # (A) 0.1 k/uL (0-0.2); Basophils % (A) 1 %; Eosinophils # (A) 0.2 k/uL (0-0.7); Eosinophils % (A) 3 %; HCT 35.7 % (39.0-53.0); HGB 12.3 gm/dL (13.0-17.5); Lymphocytes # (A) 1.3 k/uL (1.0-4.8); Lymphocytes % (A) 16 %; MCH 30.8 pg (25.0-35.0); MCHC 34.5 g/dL (31.0-37.0); MCV 89.3 fL (80.0-100.0); Monocytes # (A) 0.4 k/uL (0-1.0); Monocytes % (A) 5 %; Neutrophils # (A) 6.2 k/uL (1.3-7.7); Neutrophils % (A) 74 %; Platelet Count 191 k/uL (150-450); RBC 3.99 m/uL (4.30-5.90); RDW 12.9 % (11.5-15.5); WBC 8.3 k/uL (3.8-10.6)
[2021-03-28 17:15] LABS: INR 0.9 (<1.2); Prothrombin Time 9.7 sec (9.0-12.0)
[2021-03-28 17:20] LABS: Albumin 3.7 g/dL (3.5-5.0); Calcium 8.8 mg/dL (8.4-10.2); Potassium 4.7 mmol/L (3.5-5.1); Total Bilirubin 0.6 mg/dL (0.2-1.3); Total Protein 6.4 g/dL (6.3-8.2)
--- NOTE | 2021-03-28 17:53 | CT ---
EXAMINATION TYPE: CT brain wo con DATE OF EXAM: 03/28/2021 COMPARISON: MR brain 07/11/2020 HISTORY: Left sided weakness CT DLP: 1912 mGycm Automated exposure control for dose reduction was used. FINDINGS: No intracranial hemorrhage, large vessel territory infarct, mass, mass effect or midline shift. No hy drocephalus or extra-axial fluid collection. The blakely-white distinction is maintained. No effacement of the cerebral sulci are the subarachnoid basal cisterns. There is patchy hypodensity of the periven tricular and subcortical white matter. The sinuses and air cells are well-developed and pneumatized. No osseous abnormality. The globes and orbits are within normal limits. IMPRESSION: CHRONIC ISCHEMIC CHANGES WITHOUT AN ACUTE INTRACRANIAL PROCESS.
--- NOTE | 2021-03-28 18:13 | CT ---
EXAMINATION TYPE: CT angio head neck DATE OF EXAM: 03/28/2021 HISTORY: Left sided weakness COMPARISON: CT angiography 07/10/2020 CT DLP: 1912 mGycm. Automated Exposure Control for Dose Reduction was Utilized. TECHNIQUE: CTA scan of the neck is performed with IV Contrast, patient injected with 65 mL of Isovue 370, axial images are obtained, coronal and sagittal reformatted images are reviewed. 3D reconstruct ed images are created on an independent workstation and reviewed. FINDINGS: Carotid/Vascular Structures: 4 Vessel aortic arch. The left vertebral artery arises from the aortic a rch. Mild to moderate atherosclerotic plaque of the common carotid arteries with less than 50% stenos is. Atherosclerotic calcifications at the carotid bifurcations with approximately 70% stenosis of the proximal left ICA and less than 50% stenosis of the cervical right ICA. Atherosclerotic disease proximal right vertebral artery with moderate stenosis. Intracranial vertebral arteries and carotid arteries are patent. A1 segment is hypoplastic. The bilat eral anterior, middle and posterior cerebral arteries are patent. The basilar artery is patent. IMPRESSION: 1. No large vessel occlusion, hemodynamically significant stenosis or aneurysm in the head. 2. Atherosclerotic disease of the bilateral common and internal carotid arteries with approximately 70% stenosis of the proximal left ICA and less than 50% stenosis of the cervical right ICA. 3. Atherosclerotic disease proximal right vertebral artery with moderate stenosis. NASCET criteria was used in interpretation of this exam?
--- NOTE | 2021-03-28 19:03 | XR ---
EXAMINATION TYPE: XR chest 2V DATE OF EXAM: 03/28/2021 COMPARISON: Chest radiograph 07/13/2020 HISTORY: Left arm weakness and AMS. TECHNIQUE: Frontal and lateral views of the chest are obtained. FINDINGS: There is no focal air space opacity, pleural effusion, or pneumothorax seen. The cardiac silhouette size is within normal limits. The osseous structures are intact. Partially visualized ACDF IMPRESSION: No acute cardiopulmonary process.
[2021-03-28] MEDS ORDERED: ASPIRIN 325 MG TAB PO STA (19:08)
--- NOTE | 2021-03-28 19:08 | ED ---
General Adult HPI - General Chief complaint: Neuro Symptoms/Deficit Stated complaint: left arm weakness, possible stroke Time Seen by Provider: 03/28/21 16:36 Source: patient Mode of arrival: ambulatory Limitations: no limitations - History of Present Illness Initial comments: Patient is a 55-year-old male with past medical history of stroke who presents emergency department with strokelike symptoms. 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 He did have a stroke previously in June of this year. States that after the stroke he regained full function and strength. The weakness is completely new as of 2 days ago. He denies any headaches or visual changes. No head trauma. Patient is unsure if he is on a blood thinner. He denies any chest pain or shortness of breath. Does have chronic drop foot in the left lower extremity but does admit to some mild new weakness. Patient states that he has a hole in his heart that is known however was told that this did not cause his old stroke. No other alleviating, precipitating or modifying factors - Related Data Home Medications Medication Instructions Recorded Confirmed Aspirin EC [Ecotrin Low Dose] 81 mg PO DAILY 03/12/19 03/28/21 Carboxymethylcellulose Sodium 1 drop BOTH EYES QID PRN 07/10/20 03/28/21 [Refresh Tears] DULoxetine HCL [Cymbalta] 20 mg PO DAILY 07/10/20 03/28/21 Empagliflozin [Jardiance] 25 mg PO DAILY 03/28/21 03/28/21 Furosemide [Lasix] 40 mg PO DAILY 03/28/21 03/28/21 Metoprolol Succinate (ER) [Toprol 50 mg PO DAILY 03/28/21 03/28/21 Xl] Omeprazole 20 mg PO AC-SUPPER 03/28/21 03/28/21 Pravastatin Sodium [Pravachol] 80 mg PO HS 03/28/21 03/28/21 Previous Rx's Medication Instructions Recorded Apixaban [Eliquis] 5 mg PO BID #60 tab 07/13/20 Allergies Allergy/AdvReac Type Severity Reaction Status Date / Time atorvastatin AdvReac Liver Verified 03/28/21 19:04 Enzymes Abnormal & Muscle Pain simvastatin AdvReac Liver Verified 03/28/21 19:04 Enzymes Abnormal & Muscle Pain Review of Systems ROS Statement: Those systems with pertinent positive or pertinent negative responses have been documented in the HPI. ROS Other: All systems not noted in ROS Statement are negative. Past Medical History Past Medical History: Coronary Artery Disease (CAD), CVA/TIA, Diabetes Mellitus, Hyperlipidemia, Hypertension, Myocardial Infarction ([place]), Renal Disease Additional Past Medical History / Comment(s): herniated disks and chronic back issues, peripheral neuropathy History of Any Multi-Drug Resistant Organisms: None Reported Past Surgical History: Appendectomy, Orthopedic Surgery Additional Past Surgical History / Comment(s): bilateral rotator cuff, bilateral knee scopes, neck fusion, left lower extremity bypass last year Past Anesthesia/Blood Transfusion Reactions: No Reported Reaction Past Psychological History: PTSD Smoking Status: Former smoker Past Alcohol Use History: None Reported Past Drug Use History: None Reported - Past Family History Mother Family Medical History: Congestive Heart Failure (CHF), CVA/TIA, Myocardial Infarction ([place]) Father Family Medical History: Cancer General Exam Limitations: no limitations Course Vital Signs 03/28/21 03/28/21 03/28/21 16:29 17:04 17:44 Temperature 98.4 F Pulse Rate 77 70 73 Respiratory 18 18 18 Rate Blood Pressure 178/84 196/109 176/97 O2 Sat by Pulse 100 100 99 Oximetry 03/28/21 03/28/21 03/28/21 18:04 19:04 20:10 Temperature 98.4 F Pulse Rate 72 75 74 Respiratory 18 18 18 Rate Blood Pressure 197/98 181/105 180/105 O2 Sat by Pulse 98 98 98 Oximetry 03/28/21 03/28/21 03/28/21 21:10 22:10 22:13 Temperature 98.4 F Pulse Rate 75 70 Respiratory 18 18 Rate Blood Pressure 152/101 187/109 O2 Sat by Pulse 98 98 Oximetry EKG Findings - EKG Comments: EKG Findings:: EKG demonstrates a sinus rhythm with ventricular rate of 69. VA interval 148. QRS 94. QTC of 462. No acute ST segment elevations or depressions Medical Decision Making - Medical Decision Making Upon arrival patient is placed into room 5. Thorough history and physical exam is performed. NIH is obtained and is 6 for the patient. Code stroke is not activated as the patient has had symptoms for 48 hours. IV is established. Laboratory studies were conducted and the patient went over for a CT as well as CT angiography. Laboratory studies are reviewed. CT of the patient's brain demonstrates no large vessel occlusion. Atherosclerotic disease of the bilateral common and internal carotid arteries approximate 70% stenosis of the left ICA and 50% of the stenosis of the right ICA. Chest x-ray demonstrates no acute cardio pleuritic process. Recommended admission for neurology consultation for which the patient did agree to. Spoke with Dr. Avilez who agreed to admit the patient. Patient given an aspirin. He is currently awaiting a bed on the floor. - Lab Data Result diagrams: 03/28/21 17:01 03/28/21 17:01 Lab Results 03/28/21 03/28/21 03/28/21 Range/Units 17: 17: 17:01 WBC 8.3 (3.8-10.6) k/uL RBC 3.99 L (4.30-5.90) m/uL Hgb 12.3 L (13.0-17.5) gm/dL Hct 35.7 L (39.0-53.0) % MCV 89.3 (80.0-100.0) fL MCH 30.8 (25.0-35.0) pg MCHC 34.5 (31.0-37.0) g/dL RDW 12.9 (11.5-15.5) % Plt Count 191 (150-450) k/uL MPV 8.0 Neutrophils % 74 % Lymphocytes % 16 % Monocytes % 5 % Eosinophils % 3 % Basophils % 1 % Neutrophils # 6.2 (1.3-7.7) k/uL Lymphocytes # 1.3 (1.0-4.8) k/uL Monocytes # 0.4 (0-1.0) k/uL Eosinophils # 0.2 (0-0.7) k/uL Basophils # 0.1 (0-0.2) k/uL PT 9.7 (9.0-12.0) sec INR 0.9 (<1.2) APTT 23.0 (22.0-30.0) sec Sodium 135 L (137-145) mmol/L Potassium 4.7 (3.5-5.1) mmol/L Chloride 104 (98-107) mmol/L Carbon Dioxide 23 (22-30) mmol/L Anion Gap 8 mmol/L BUN 40 H (9-20) mg/dL Creatinine 1.79 H (0.66-1.25) mg/dL Est GFR (CKD-EPI)AfAm 48 (>60 ml/min/1.73 sqM) Est GFR (CKD-EPI)NonAf 42 (>60 ml/min/1.73 sqM) Glucose 152 H (74-99) mg/dL Calcium 8.8 (8.4-10.2) mg/dL Total Bilirubin 0.6 (0.2-1.3) mg/dL AST 29 (17-59) U/L ALT 15 (4-49) U/L Alkaline Phosphatase 94 (38-126) U/L Troponin I (0.000-0.034) ng/mL Total Protein 6.4 (6.3-8.2) g/dL Albumin 3.7 (3.5-5.0) g/dL 03/28/21 Range/Units 17:01 WBC (3.8-10.6) k/uL RBC (4.30-5.90) m/uL Hgb (13.0-17.5) gm/dL Hct (39.0-53.0) % MCV (80.0-100.0) fL MCH (25.0-35.0) pg MCHC (31.0-37.0) g/dL RDW (11.5-15.5) % Plt Count (150-450) k/uL MPV Neutrophils % % Lymphocytes % % Monocytes % % Eosinophils % % Basophils % % Neutrophils # (1.3-7.7) k/uL Lymphocytes # (1.0-4.8) k/uL Monocytes # (0-1.0) k/uL Eosinophils # (0-0.7) k/uL Basophils # (0-0.2) k/uL PT (9.0-12.0) sec INR (<1.2) APTT (22.0-30.0) sec Sodium (137-145) mmol/L Potassium (3.5-5.1) mmol/L Chloride (98-107) mmol/L Carbon Dioxide (22-30) mmol/L Anion Gap mmol/L BUN (9-20) mg/dL Creatinine (0.66-1.25) mg/dL Est GFR (CKD-EPI)AfAm (>60 ml/min/1.73 sqM) Est GFR (CKD-EPI)NonAf (>60 ml/min/1.73 sqM) Glucose (74-99) mg/dL Calcium (8.4-10.2) mg/dL Total Bilirubin (0.2-1.3) mg/dL AST (17-59) U/L ALT (4-49) U/L Alkaline Phosphatase (38-126) U/L Troponin I <0.012 (0.000-0.034) ng/mL Total Protein (6.3-8.2) g/dL Albumin (3.5-5.0) g/dL Disposition Clinical Impression: Left arm weakness, CVA (cerebral vascular accident) Disposition: ADMITTED IP TO THIS [facility] Condition: Serious Is patient prescribed a controlled substance at d/c from ED?: No Decision to Admit Reason: Admit from EC Decision Date: 03/28/21 Decision Time: 19:08
--- NOTE | 2021-03-28 21:51 | P.HPIM ---
History of Present Illness H&P Date: 03/28/21 Patient is a 55-year-old male with a PMH of ? PFO (on Eliquis), history of CVA last year, type II DM, hypertension, hyperlipidemia, and chronic kidney disease who presented to the emergency room with complaints of strokelike symptoms. The patient reports that he initially noticed left arm and weakness that started roughly 3 days ago. The weakness gradually worsened, and involved the left face with facial drooping and subsequent drooling on the side. He also reported difficulty walking with 2-3 falls at home due to his left leg weakness. The patient reports that his weakness continued to get worse and reached its peak last night, at which time he became alarmed and subsequently came to the hospital earlier today. He reports that his left leg weakness has improved somewhat but he continues to have significant left arm weakness along with facial droop. He also reported left arm numbness and tingling. Denied visual disturbances or changes in his speech. Denied coughing or difficulty eating. Denied headache or neck pain. Denied chest discomfort, shortness of breath, palpitations. Denied lightheadedness or dizziness. Denied nausea, vomiting, abdominal pain, diarrhea. Reports that his symptoms are similar to when he previously had a stroke last year. Reports compliance with all his medications at home. He underwent an extensive evaluation in the emergency room with a CT angiogram of head and neck showing no large vessel occlusion with atherosclerotic disease of bilateral common and internal carotid arteries with approximate 70% stenosis of the proximal left ICA along with moderate stenosis of the right vertebral artery. Chest x-ray was unremarkable. Laboratory ev aluation was remarkable for BUN 40, creatinine 1.79, glucose 152, and troponin less than 0.012. Review of systems: Pertinent positives and negatives as discussed in HPI, a complete review of systems was performed and all other systems are negative. Physical examination: General: non toxic, no distress, appears at stated age, normal weight Derm: no unusual rashes/lesions no unusual ecchymoses, warm, dry Head: atraumatic, normocephalic, symmetric Eyes: EOMI, no lid lag, anicteric sclera, pupils equal round reactive to light ENT: Nose and ears atraumatic, no thrush, no pharyngeal erythema Neck: No thyromegaly, no cervical lymphadenopathy, trachea midline, supple Mouth: no lip lesion, mucus membranes moist Cardiovascular: S1S2 reg, no murmur, positive posterior tibial pulse bilateral, no edema, capillary refill less than 2 seconds Lungs: CTA bilateral, no rhonchi, no rales , no accessory muscle use Abdominal: soft, nontender to palpation, no guarding, no appreciable organomegaly, normal bowel sounds Ext: no gross muscle atrophy, right upper extremity and right lower extremity strengths are 5 out of 5, left upper extremity strength 3 out of 5, left lower extremity strength 4 out of 5, no contractures Neuro: CN II-XI intact with the exception of left facial droop, light touch in tact all 4 extremities, finger to nose within normal limits for right upper extremity but unable to test due to left upper extremity weakness Psych: Alert, oriented, appropriate affect Assessment/plan Acute CVA -Patient not a candidate for TPA due to onset of symptoms nearly 72 hours ago -Head and neck CTA showing greater than 70% stenosis. Vascular surgery consult -Neurology consult -MRI ordered -Neurochecks -Fall, aspiration, seizure precautions -Obtain echocardiogram -The patient is already on Eliquis -AGRONOMY ADVISOR evaluation -Permissive hypertension -PT eval -C/w ASA and Eliquis SHAHID on chronic kidney disease -Monitor BMP for now -Gentle hydration Chronic conditions: Type II DM, hypertension, hyperlipidemia, chronic kidney disease -Check A1c -Lispro insulin sliding scale blood glucose monitoring -Permissive hypertension DVT prophylaxis -Eliquis The patient is admitted with an anticipated greater than 2 midnight stay for evaluation of acute CVA CODE STATUS: Full Code Discussed with: Patient Anticipated discharge date: 2-[address]: Home Past Medical History Past Medical History: Coronary Artery Disease (CAD), CVA/TIA, Diabetes Mellitus, Hyperlipidemia, Hypertension, Myocardial Infarction ([place]), Renal Disease Additional Past Medical History / Comment(s): herniated disks and chronic back issues, peripheral neuropathy History of Any Multi-Drug Resistant Organisms: None Reported Past Surgical History: Appendectomy, Orthopedic Surgery Additional Past Surgical History / Comment(s): bilateral rotator cuff, bilateral knee scopes, neck fusion, left lower extremity bypass last year Past Anesthesia/Blood Transfusion Reactions: No Reported Reaction Past Psychological History: PTSD Smoking Status: Former smoker Past Alcohol Use History: None Reported Past Drug Use History: None Reported - Past Family History Mother Family Medical History: Congestive Heart Failure ([place]), CVA/TIA, Myocardial Infarction ([place]) Father Family Medical History: Cancer Medications and Allergies Home Medications Medication Instructions Recorded Confirmed Type Aspirin EC [Ecotrin Low Dose] 81 mg PO DAILY 03/12/19 03/28/21 History Carboxymethylcellulose Sodium 1 drop BOTH EYES QID PRN 07/10/20 03/28/21 History [Refresh Tears] DULoxetine HCL [Cymbalta] 20 mg PO DAILY 07/10/20 03/28/21 History Apixaban [Eliquis] 5 mg PO BID #60 tab 07/13/20 03/28/21 Rx Empagliflozin [Jardiance] 25 mg PO DAILY 03/28/21 03/28/21 History Furosemide [Lasix] 40 mg PO DAILY 03/28/21 03/28/21 History Metoprolol Succinate (ER) [Toprol 50 mg PO DAILY 03/28/21 03/28/21 History Xl] Omeprazole 20 mg PO AC-SUPPER 03/28/21 03/28/21 History Pravastatin Sodium [Pravachol] 80 mg PO HS 03/28/21 03/28/21 History Allergies Allergy/AdvReac Type Severity Reaction Status Date / Time atorvastatin AdvReac Liver Verified 03/28/21 19:04 Enzymes Abnormal & Muscle Pain simvastatin AdvReac Liver Verified 03/28/21 19:04 Enzymes Abnormal & Muscle Pain Physical Exam Vitals: Vital Signs Temp Pulse Resp BP Pulse Ox 03/28/21 20:10 98.4 F 74 18 180/105 98 03/28/21 19:04 75 18 181/105 98 03/28/21 18:04 72 18 197/98 98 03/28/21 17:44 73 18 176/97 99 03/28/21 17:04 70 18 196/109 100 03/28/21 16:29 98.4 F 77 18 178/84 100 Intake and Output 03/28/21 03/28/21 03/28/21 06:59 14:59 22:59 Other: Weight 83.915 kg Results CBC & Chem 7: 03/28/21 17:01 03/28/21 17:01 Labs: Abnormal Lab Results - Last 24 Hours (Table) 03/28/21 03/28/21 Range/Units 17:01 17:01 RBC 3.99 L (4.30-5.90) m/uL Hgb 12.3 L (13.0-17.5) gm/dL Hct 35.7 L (39.0-53.0) % Sodium 135 L (137-145) mmol/L BUN 40 H (9-20) mg/dL Creatinine 1.79 H (0.66-1.25) mg/dL Glucose 152 H (74-99) mg/dL
[2021-03-28] MEDS: INSULIN DETEMIR (LEVEMIR) 100 UNIT/ML SYR SQ SCH (22:25)
[2021-03-28 22:27] LABS: Glucose,Whole Blood 185 mg/dL (75-99)
[2021-03-29 06:47] LABS: Glucose,Whole Blood 107 mg/dL (75-99)
[2021-03-29 07:47] LABS: WBC 6.9 k/uL (3.8-10.6)
[2021-03-29 07:48] LABS: HCT 33.8 % (39.0-53.0); HGB 11.5 gm/dL (13.0-17.5); MCH 30.7 pg (25.0-35.0); MCV 90.1 fL (80.0-100.0); Mean Platelet Volume 7.7; Platelet Count 185 k/uL (150-450); RBC 3.75 m/uL (4.30-5.90); RDW 13.1 % (11.5-15.5)
[2021-03-29 08:06] LABS: Calcium 8.8 mg/dL (8.4-10.2)
[2021-03-29 08:12] LABS: Glucose,Whole Blood 114 mg/dL (75-99)
[2021-03-29] MEDS: INSULIN ASPART (NovoLOG) 100 UNIT/ML VIAL SQ SCH ×4 (08:16→20:28)
[2021-03-29] MEDS: METOPROLOL SUCCINATE (ER) 50 MG TAB.ER.24H PO SCH (08:51)
[2021-03-29] MEDS: DULoxetine HCL 20 MG CAPSULE.DR PO SCH (08:52)
[2021-03-29] MEDS: APIXABAN 5 MG TAB PO SCH ×2 (08:52→20:28)
[2021-03-29] MEDS ORDERED: ASPIRIN 325 MG TAB PO SCH (09:00)
--- NOTE | 2021-03-29 14:18 | P.PN ---
Subjective Patient is feeling a lot better today. Weakness involving his left arm is completely reserved today. Patient does not have any complaint this morning. Objective - Vital Signs Vital signs: Vital Signs Temp 97.5 F L 03/29/21 06:10 Pulse 69 03/29/21 12:45 Resp 18 03/29/21 12:45 BP 182/102 03/29/21 12:45 Pulse Ox 98 03/29/21 12:45 Intake & Output 03/28/21 03/29/21 03/29/21 18:59 06:59 18:59 Weight 83.915 kg - Exam General: The patient is awake and alert, in no distress Eye: there is normal conjunctiva bilaterally. Neck: The neck is supple, there is no JVD. Cardiovascular: Normal S1-S2, no S3-S4, no murmurs. Respiratory: Lungs clear to auscultation bilaterally Gastrointestinal: Abdomen is soft, nontender Musculoskeletal: There is no pedal edema. Neurological:. Speech is normal. Skin: Skin is warm and dry - Labs CBC & Chem 7: 03/29/21 07:15 03/29/21 07:15 Labs: Abnormal Lab Results - Last 24 Hours (Table) 03/28/21 03/28/21 03/28/21 Range/Units 17:01 17:01 22:16 RBC 3.99 L (4.30-5.90) m/uL Hgb 12.3 L (13.0-17.5) gm/dL Hct 35.7 L (39.0-53.0) % Sodium 135 L (137-145) mmol/L BUN 40 H (9-20) mg/dL Creatinine 1.79 H (0.66-1.25) mg/dL Glucose 152 H (74-99) mg/dL POC Glucose (mg/dL) 185 H (75-99) mg/dL Hemoglobin A1c (4.0-6.0) % 03/29/21 03/29/21 03/29/21 Range/Units 06:45 07:15 07:15 RBC (4.30-5.90) m/uL Hgb (13.0-17.5) gm/dL Hct (39.0-53.0) % Sodium (137-145) mmol/L BUN 36 H (9-20) mg/dL Creatinine 1.66 H (0.66-1.25) mg/dL Glucose 112 H (74-99) mg/dL POC Glucose (mg/dL) 107 H (75-99) mg/dL Hemoglobin A1c 7.1 H (4.0-6.0) % 03/29/21 03/29/21 Range/Units 07:15 08:10 RBC 3.75 L (4.30-5.90) m/uL Hgb 11.5 L (13.0-17.5) gm/dL Hct 33.8 L (39.0-53.0) % Sodium (137-145) mmol/L BUN (9-20) mg/dL Creatinine (0.66-1.25) mg/dL Glucose (74-99) mg/dL POC Glucose (mg/dL) 114 H (75-99) mg/dL Hemoglobin A1c (4.0-6.0) % Assessment and Plan Assessment: This is a 55-year-old male with very complex past medical history noted below that presented to the emergency room 3 days after having symptoms of home of left sided weakness and subsequently left facial droop. Patient was evaluated in the ER and admitted to the hospital for further management of his medical problems noted below. 1. Suspected CVA, computed tomography scan of the head and CT angiogram of the head and neck with no acute findings. MRI done and pending. She is maintained on aspirin and Eliquis. Neurology consulted for further evaluation. Echocardiogram pending. 3. History of prior CVA with reported underlying PFO on anticoagulation with Eliquis 3. Type 2 diabetes, continue home dose of insulin plus sliding scale 4. Hyperlipidemia, maintained on Pravachol awaiting testing lipid profile 5. Essential hypertension, blood pressure not well controlled. Allowed permissive hypertension for the first 24-48 hours. Start Norvasc 5 mg daily starting tomorrow morning. 6. Stage IIIB chronic kidney disease, creatinine appeared to be around baseline Today, I reviewed his medication list and lab work results. CT angiogram of the neck showed bilateral atherosclerotic disease involving the common and internal carotid arteries with approximately 70% stenosis of the proximal left ICA. Awaiting urology evaluation. We will continue supportive care otherwise. Repeat lab work in the morning.
--- NOTE | 2021-03-29 15:57 | MR ---
EXAMINATION TYPE: MR brain wo/w con DATE OF EXAM: 03/29/2021 COMPARISON: 03/28/2021 CT brain HISTORY: Acute CVA, left side weakness CONTRAST: Performed utilizing 8.5 mL intravenous Gadavist gadolinium contrast. TECHNIQUE: Multiplanar, multiecho imaging on a 3.0 Rocio magnet is performed through the brain. Stud y is performed within 24 hours of arrival to the hospital. The craniovertebral junction is normal. The pituitary is normal. Diffusion-weighted imaging is performed. Hyperintensity is present on diffusion weighted imaging thr ough periventricular white matter. Multiple scattered cortical and subcortical white matter changes a re also present within the centrum semiovale and watershed region on the right. Findings are compatib le with acute ischemic changes. There are additional scattered periventricular and deep white matter changes greater than expected fo r patient of this age. Differential diagnosis could include microvascular ischemic change. Consider m ultiple sclerosis and vasculitis within the differential. This is greater than expected for typical m igraine headaches. Lyme disease could be considered. Ventricles and sulci are appropriate for the patient age. No abnormal enhancement is evident. IMPRESSIONS: 1. Acute ischemic type changes scattered within periventricular and deep white matter within the righ t centrum semiovale on the some within the cortex. 2. Additional scattered periventricular white matter changes, likely on the basis of chronic white ma tter ischemic change. Differential diagnosis would include multiple sclerosis.
[2021-03-29] MEDS: CLOPIDOGREL 75 MG TAB PO SCH (16:06)
[2021-03-29 16:34] LABS: Glucose,Whole Blood 178 mg/dL (75-99)
[2021-03-29 16:41] LABS: Chol/HDL Ratio 6.25 Ratio; HDL Cholesterol 33.9 mg/dL (40.00-60.00); LDL Cholesterol,Calculated 128.9 mg/dL (0.0-131.0); VLDL Calculation 49.2 mg/dL (5.00-40.00)
[2021-03-29 20:18] LABS: Glucose,Whole Blood 154 mg/dL (75-99)
[2021-03-29] MEDS ORDERED: PRAVASTATIN SODIUM 80 MG TAB PO SCH (21:00)
--- NOTE | 2021-03-29 21:56 | P.CNNES ---
History of Present Illness Consult date: 03/29/21 Requesting physician: Munira Neumann Reason for Consult: acute left upper extremity weakness, suspected cva History of Present Illness: Patient is a 55-year-old male with history of CAD, hypertension, diabetes, tobacco abuse, recently suffered from a stroke in June 2020, came to the hospital yesterday at 4:25 PM for 2 day history of left arm weakness, left facial droop, left leg weakness and off balance. Patient states that on Sunday, on 03/26/2020 1 in the afternoon he had an argument with his . Right after the argument he noticed acute weakness of the left arm. Also noticed some problems with the balance and droopy face on the left side. Patient states that he did not have any car available at home, therefore he stayed home on the weekend. [place] the car was [place] available. His left-sided weakness was not as severe, but yesterday it became acutely weak, and left arm was flaccid. He went to the bathroom, and his left leg also gave out and he fell. He finally decided to come to the ER. Vital signs on arrival blood pressure 178/84, which went up to 196/109. Heart rate 77, temperature 98.4. Most recent blood pressure is 182/102. CT head showed chronic ischemic changes without an acute intracranial process. CTA of head and neck revealed no large vessel occlusion, hemodynamically significant stenosis or aneurysm in the head. Atherosclerotic disease of the bilateral common and internal carotid arteries with approximately 70% stenosis of the prox imal left ICA and less than 50% stenosis of the cervical right ICA. Atherosclerotic disease proximal right vertebral artery with moderate stenosis. Chest x-ray showed no acute cardiopulmonary process. EKG with normal sinus rhythm. Cannot rule out anterior infarct, age undetermined. Patient was recently admitted to the hospital on 07/10/2020, found to have bilateral ischemic strokes, greater over the right hemispheric region. Etiology was felt to be embolic. Patient had a PFO noted on PRATIMA. Also has multivessel coronary artery disease. Patient was placed on Eliquis and aspirin 81 mg, and Lipitor 80 mg. Hypercoagulable workup was also done. PRATIMA from 07/10/2020 shows mild aortic sclerosis without significant aortic regurgitation or aortic stenosis. There is evidence of PFO by bubble study. Hypercoagulable workup from 07/13/2020 shows negative lupus anticoagulant, normal protein C activity 1 and 12%, normal protein S activity 94%, anti- thrombin 3 and TG 98% and anti-thrombin 3 activity 81%. Factor V Leiden mutation was negative. Hemoglobin A1c 7.1 on 03/29/2021. Patient's total cholesterol 221, LDL 145, HDL 45 and triglycerides 155 on 07/11/2020. Homocystine was quite elevated 23.2/14.0 on 07/13/2020. ARIAN negative. MTHFR is homozygous for the [id number] variant and negative for the [id number] variant. This genotype is, in the general population. Current literature does not support a significant dissociation of this result with coronary artery disease, venous thrombolic embolism or recurrent loss. Patient has history of diabetes for 20 years, hypertension and hyperlipidemia. Patient has been smoking one pack per day since 1995, quit on 06/25/2020. Patient currently takes aspirin 81 mg, Eliquis 5 mg twice a day, Pravachol 80 mg, Lasix, [place]'s, metoprolol, Cymbalta 20 mg. patient states that he is compliant with his medications, did not missed dose of aspirin, or Eliquis for days before his current stroke. Patient has history of bypass surgery 6 months prior to his previous stroke in June 2020. He has been using cane for last 2 years because of chronic back issues. He also has drop foot on the left side for last 2+ years which he attributes to the back. Review of Systems As mentioned above in HPI. Denies any chest pain shortness of breath wheezing or cough. Denies any double vision, loss of vision. No hoarseness, sore throat, dysphagia. No abdominal pain, nausea vomiting diarrhea. No fever or chills. No rash. All other review of systems reviewed and noncontributory. Past Medical History Past Medical History: Coronary Artery Disease (CAD), CVA/TIA, Diabetes Mellitus, Hyperlipidemia, Hypertension, Myocardial Infarction (ND), Renal Disease Additional Past Medical History / Comment(s): herniated disks and chronic back issues, peripheral neuropathy History of Any Multi-Drug Resistant Organisms: None Reported Past Surgical History: Appendectomy, Orthopedic Surgery Additional Past Surgical History / Comment(s): bilateral rotator cuff, bilateral knee scopes, neck fusion, left lower extremity bypass last year Past Anesthesia/Blood Transfusion Reactions: No Reported Reaction Past Psychological History: PTSD Smoking Status: Former smoker Past Alcohol Use History: None Reported Past Drug Use History: None Reported - Past Family History Mother Family Medical History: Congestive Heart Failure (CHF), CVA/TIA, Myocardial Infarction (ND) Father Family Medical History: Cancer Medications and Allergies Home Medications Medication Instructions Recorded Confirmed Type Aspirin EC [Ecotrin Low Dose] 81 mg PO DAILY 03/12/19 03/28/21 History Carboxymethylcellulose Sodium 1 drop BOTH EYES QID PRN 07/10/20 03/28/21 History [Refresh Tears] DULoxetine HCL [Cymbalta] 20 mg PO DAILY 07/10/20 03/28/21 History Apixaban [Eliquis] 5 mg PO BID #60 tab 07/13/20 03/28/21 Rx Empagliflozin [Jardiance] 25 mg PO DAILY 03/28/21 03/28/21 History Furosemide [Lasix] 40 mg PO DAILY 03/28/21 03/28/21 History Metoprolol Succinate (ER) [Toprol 50 mg PO DAILY 03/28/21 03/28/21 History Xl] Omeprazole 20 mg PO AC-SUPPER 03/28/21 03/28/21 History Pravastatin Sodium [Pravachol] 80 mg PO HS 03/28/21 03/28/21 History Allergies Allergy/AdvReac Type Severity Reaction Status Date / Time atorvastatin AdvReac Liver Verified 03/28/21 19:04 Enzymes Abnormal & Muscle Pain simvastatin AdvReac Liver Verified 03/28/21 19:04 Enzymes Abnormal & Muscle Pain Physical Examination - Vital Signs Vital Signs: Vital Signs Temp Pulse Resp BP Pulse Ox 03/29/21 12:45 69 18 182/102 98 03/29/21 06:10 97.5 F L 60 18 185/97 97 03/29/21 05:10 67 18 193/96 97 03/29/21 04:10 62 18 193/96 97 03/29/21 03:10 62 18 185/95 97 03/29/21 02:10 60 18 185/105 98 03/29/21 01:10 62 18 172/92 98 03/29/21 00:10 67 18 165/91 98 03/28/21 23:10 67 18 179/100 98 03/28/21 22:13 98.4 F 03/28/21 22:10 68 18 187/109 98 03/28/21 21:10 75 18 152/101 98 03/28/21 20:10 98.4 F 74 18 180/105 98 03/28/21 19:04 75 18 181/105 98 03/28/21 18:04 72 18 197/98 98 03/28/21 17:44 73 18 176/97 99 03/28/21 17:04 70 18 196/109 100 03/28/21 16:29 98.4 F 77 18 178/84 100 Intake and Output 03/28/21 03/29/21 03/29/21 22:59 06:59 14:59 Other: Weight 83.915 kg Patient is a middle aged male, very pleasant, in no acute distress. Patient is alert awake oriented to time place and person. Speech and language functions are normal. Attention, concentration and fund of knowledge is adequate. Patient can name and repeat. No aphasia or dysarthria. On cranial examination, pupils are round and reacting to light, visual cotton are full on confrontation, extraocular muscles are intact with no nystagmus. Patient has left facial weakness, central type. His tongue protrudes to the midline. Palatal elevation and sensation normal, hearing and shoulder shrug normal, facial sensation normal. Shoulder shrug normal. On muscle strength testing, there is left pronator drift , and the left arm almost hits the bed. Muscle strength is normal in the right arm and right leg. 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 His left hip flexion is 5-, and he had drop left foot about 3-4-, which the patient states is chronic in nature. Deep tendon reflexes are 0 in the right upper limb, 1 in the left upper limb. Knees are 1 bilaterally, absent ankles and plantars are flat on either side. Sensory to touch is equal with no neglect. Cerebellar function showed ataxia for [id number] testing on the left side, normal on the right. Tone and bulk of muscles normal. Gait deferred. On general examination, there is no carotid bruit or murmur, S1-S2 audible. Ab domen is soft nontender. Chest is clear. Peripheral pulses are present. No edema. Results - Laboratory Findings CBC and BMP: 03/29/21 07:15 03/29/21 07:15 Abnormal Lab Findings: Abnormal Labs 03/28/21 03/28/21 03/28/21 17:01 17:01 22:16 RBC 3.99 L Hgb 12.3 L Hct 35.7 L Sodium 135 L BUN 40 H Creatinine 1.79 H Glucose 152 H POC Glucose (mg/dL) 185 H Hemoglobin A1c 03/29/21 03/29/21 03/29/21 06:45 07:15 07:15 RBC Hgb Hct Sodium BUN 36 H Creatinine 1.66 H Glucose 112 H POC Glucose (mg/dL) 107 H Hemoglobin A1c 7.1 H 03/29/21 03/29/21 07:15 08:10 RBC 3.75 L Hgb 11.5 L Hct 33.8 L Sodium BUN Creatinine Glucose POC Glucose (mg/dL) 114 H Hemoglobin A1c Assessment and Plan Assessment: * Acute ischemic stroke within right periventricular and deep white matter within the right centrum semiovale and some within the cortex. CVA likely embolic in nature. Current NIH stroke scale is 5. Patient not a candidate for TPA. * Bilateral ICA stenosis, approximately 70% on the left (asymptomatic side), and less than 50% on the right ICA (symptomatic side). * History of PFO, not underwent closure. * Hypertension * Diabetes * Hyperlipidemia * Chronic back pain, with left foot drop. * X tobacco use. Plan: * MRI of the brain revealed acute ischemic strokes, scattered within the periventricular and deep white matter within the right centrum semiovale and some involving the cortex. Event appears embolic in nature. Patient has been compliant with his Eliquis and aspirin 81 mg daily. Exact cause of CVA remains uncertain. * I would recommend cardiology consultation to consider closure of PFO, but patient claims that he has an appointment with his gluten settling tender in [facility] on 03/31/2021, and he wants to discuss further treatment with his gluten settling tender at [facility]. * Patient's CTA showed ICA stenosis, but is not significant on the symptomatic side. * At this time we will switch from aspirin to Plavix, and continue Apixaban 5 mg twice a day. * Hemoglobin A1c 7.1, which is fairly well controlled. May consider optimizing it further down to <7.0. Patient states his A1c was around 14 about a year ago. * Lipid panel with cholesterol 212, LDL 128, HDL 33.9 and triglycerides 246. We will switch from pravastatin to Lipitor 80 mg daily. * Patient has history of hyper-homocystinemia. We will check B12, MMA, folate, B6 and homocystine level. * Continue telemetry monitoring. * Patient on Apixanan for DVT prophylaxis. * Neurology will follow.
[2021-03-29] MEDS: INSULIN DETEMIR (LEVEMIR) 100 UNIT/ML SYR SQ SCH (22:19)
[2021-03-30 05:36] VITALS: RESP 18
[2021-03-30 06:12] LABS: Glucose,Whole Blood 167 mg/dL (75-99)
[2021-03-30] MEDS: INSULIN ASPART (NovoLOG) 100 UNIT/ML VIAL SQ SCH ×2 (06:30→11:53)
[2021-03-30] MEDS: APIXABAN 5 MG TAB PO SCH (07:45)
[2021-03-30] MEDS: DULoxetine HCL 20 MG CAPSULE.DR PO SCH (07:45)
[2021-03-30] MEDS: METOPROLOL SUCCINATE (ER) 50 MG TAB.ER.24H PO SCH (07:45)
[2021-03-30] MEDS: CLOPIDOGREL 75 MG TAB PO SCH (07:45)
[2021-03-30 07:48] VITALS: TEMP 97.9
[2021-03-30] MEDS ORDERED: amLODIPine 5 MG TAB PO SCH (09:00)
[2021-03-30 11:32] LABS: Glucose,Whole Blood 229 mg/dL (75-99)
[2021-03-30 11:54] VITALS: PULSE 63
[2021-03-30] MEDS ORDERED: hydrALAZINE HCL 20 MG/ML 1 ML VIAL IVP STA (12:49)
--- NOTE | 2021-03-30 12:58 | P.DS ---
Providers Date of admission: 03/28/21 19:08 Expected date of discharge: 03/30/21 Attending physician: Mickie Avilez MD Consults: 03/28/21 19:09 Consult Physician Urgent Consulting Provider: Jorge Mejía Consult Reason/Comments: acute left upper extremity weakness, suspected cva Do you want consulting provider notified?: Yes Primary care physician: Physician Nonstaff Hospital Course: This is a 55-year-old male with very complex past medical history noted below that presented to the emergency room 3 days after having symptoms of home of left sided weakness and subsequently left facial droop. Patient was evaluated in the ER and admitted to the hospital for further management of his medical problems noted below. 1. Acute ischemic stroke in the right periventricular area noted on MRI of the brain. Patient was seen and evaluated by neurology. Aspirin discontinued and patient started on Plavix daily. He is also on anticoagulation. computed tomography scan of the head and CT angiogram of the head and neck with no acute findings. 2. History of prior CVA with underlying PFO noted on PRATIMA in June of this year. I had a prolonged conversation with the patient regarding options for PFO closure and he would like to discuss this with his doctors at the [facility]. 3. Type 2 diabetes, A1c 7.1. Continue home medication 4. Hyperlipidemia, maintained on Pravachol. LDL not at goal. I offered the patient to be switched to Lipitor or Crestor that he refused and he said that he has sensitivity to those medications in the past. He would like to discuss with [facility] 5. Essential hypertension, blood pressure not well controlled. Allowed permissive hypertension for the first 24-48 hours. Started Norvasc 5 mg daily in addition to his home regimen of metoprolol and Lasix 6. Stage IIIB chronic kidney disease, creatinine appeared to be around baseline Patient was seen and evaluated by me on the day of discharge. He is eager to be discharged home as he had an appointment with his physician at the [facility] tomorrow. He will follow up as directed. Physical exam: General: The patient is awake and alert, in no distress Eye: there is normal conjunctiva bilaterally. Neck: The neck is supple, there is no JVD. Cardiovascular: Normal S1-S2, no S3-S4, no murmurs. Respiratory: Lungs clear to auscultation bilaterally Gastrointestinal: Abdomen is soft, nontender Musculoskeletal: There is no pedal edema. Neurological:. Speech is normal. Skin: Skin is warm and dry Patient Condition at Discharge: Fair Plan - Discharge Summary Discharge Rx Participant: No New Discharge Prescriptions: New Clopidogrel [Plavix] 75 mg PO DAILY #30 tab amLODIPine [Norvasc] 5 mg PO DAILY #30 tab Continue DULoxetine HCL [Cymbalta] 20 mg PO DAILY Carboxymethylcellulose Sodium [Refresh Tears] 1 drop BOTH EYES QID PRN PRN Reason: Dry Eye(S) Apixaban [Eliquis] 5 mg PO BID #60 tab Pravastatin Sodium [Pravachol] 80 mg PO HS Metoprolol Succinate (ER) [Toprol XL] 50 mg PO DAILY Furosemide [Lasix] 40 mg PO DAILY Empagliflozin [Jardiance] 25 mg PO DAILY Omeprazole 20 mg PO AC-SUPPER Discontinued Aspirin EC [Ecotrin Low Dose] 81 mg PO DAILY Discharge Medication List Carboxymethylcellulose Sodium [Refresh Tears] 1 drop BOTH EYES QID PRN 07/10/20 [History] DULoxetine HCL [Cymbalta] 20 mg PO DAILY 07/10/20 [History] Apixaban [Eliquis] 5 mg PO BID #60 tab 07/13/20 [Rx] Empagliflozin [Jardiance] 25 mg PO DAILY 03/28/21 [History] Furosemide [Lasix] 40 mg PO DAILY 03/28/21 [History] Metoprolol Succinate (ER) [Toprol XL] 50 mg PO DAILY 03/28/21 [History] Omeprazole 20 mg PO AC-SUPPER 03/28/21 [History] Pravastatin Sodium [Pravachol] 80 mg PO HS 03/28/21 [History] Clopidogrel [Plavix] 75 mg PO DAILY #30 tab 03/30/21 [Rx] amLODIPine [Norvasc] 5 mg PO DAILY #30 tab 03/30/21 [Rx] Follow up Appointment(s)/Referral(s): Nonstaff,Physician [Primary Care Provider] - 1-2 days Discharge Disposition: HOME SELF-CARE
[2021-03-30 13:59] VITALS: BP 180/88
[2021-03-31 10:24] LABS: Folate, Serum 13.5 ng/mL (4.40-31.00)
--- NOTE | 2021-03-31 12:43 | ECHOF ---
Referral Reason:Acute CVA MEASUREMENTS -------- HEIGHT: 188.0 cm WEIGHT: 83.9 kg BP: IVSd: 1.0 cm (0.6 - 1.1) LVIDd: 5.1 cm (3.9 - 5.3) LVPWd: 1.1 cm (0.6 - 1.1) IVSs: 1.2 cm LVIDs: 4.2 cm LVPWs: 1.7 cm LAESV Index (A-L): 31.45 ml/m Ao Diam: 3.4 cm (2.0 - 3.7) AV Cusp: 1.7 cm (1.5 - 2.6) MV EXCURSION: 21.518 mm (> 18.000) MV EF SLOPE: 41 mm/s (70 - 150) MV E Jose A: 0.40 m/s MV DecT: 290 ms MV A Jose A: 0.94 m/s MV E/A Ratio: 0.43 RAP: 5.00 mmHg RVSP: 14.95 mmHg FINDINGS -------- Sinus rhythm. This was a technically good study. LV size, wall thickness and systolic function are normal, with an EF greater than 55%. The left jeannie tricular size is normal. The right ventricle is normal in size. LA is midly dilated 29-33ml/m2. The right atrial size is normal. There is mild aortic valve sclerosis. There is no evidence of aortic regurgitation. Mild mitral regurgitation is present. Mild tricuspid regurgitation present. Right ventricular systolic pressure is normal at < 35 mmHg. There is no pulmonic regurgitation present. There is no pericardial effusion. CONCLUSIONS -------- 1. LV size, wall thickness and systolic function are normal, with an EF greater than 55%. 2. The left ventricular size is normal. 3. The right ventricle is normal in size. 4. LA is midly dilated 29-33ml/m2. 5. The right atrial size is normal. 6. There is mild aortic valve sclerosis. 7. Mild mitral regurgitation is present. 8. Mild tricuspid regurgitation present. 9. There is no pericardial effusion. GENERAL ACCOUNTING MANAGER: Shandra Roberto, [facility]
== END 2021-03-30 14:36 | disposition home or self-care (01) | DRG 65 ==
LOC: EC 16:25 → 3SCARD 19:08
PROVIDERS: ADMIT Internal Medicine; ATTEND Internal Medicine
DX: I63.133 Cerebral infarction due to embolism of bilateral carotid arteries (principal); Q21.1 Atrial septal defect; N17.9 Acute kidney failure, unspecified; G81.94 Hemiplegia, unspecified affecting left nondominant side; I12.9 Hypertensive chronic kidney disease with stage 1 through stage 4 chronic kidney disease, or unspecified chronic kidney disease; I25.10 Atherosclerotic heart disease of native coronary artery without angina pectoris; N18.32 Chronic kidney disease, stage 3b; I25.2 Old myocardial infarction; E11.22 Type 2 diabetes mellitus with diabetic chronic kidney disease; E11.42 Type 2 diabetes mellitus with diabetic polyneuropathy; E78.5 Hyperlipidemia, unspecified; N13.9 Obstructive and reflux uropathy, unspecified; R29.810 Facial weakness; Z20.822 Contact with and (suspected) exposure to COVID-19; R29.705 NIHSS score 5; F43.10 Post-traumatic stress disorder, unspecified; M21.372 Foot drop, left foot; G89.29 Other chronic pain; M54.9 Dorsalgia, unspecified; Z86.73 Personal history of transient ischemic attack (TIA), and cerebral infarction without residual deficits; Z98.1 Arthrodesis status; Z87.891 Personal history of nicotine dependence; Z79.82 Long term (current) use of aspirin; Z79.899 Other long term (current) drug therapy; Z79.01 Long term (current) use of anticoagulants; Z79.84 Long term (current) use of oral hypoglycemic drugs; Z87.74 Personal history of (corrected) congenital malformations of heart and circulatory system; Z82.49 Family history of ischemic heart disease and other diseases of the circulatory system
CPT/HCPCS: 36415; 70450; 70496; 70498; 70553; 71046; 80048; 80053; 80061; 82607; 82746; 83036; 83090; 83921; 84207; 84484; 85025; 85027; 85610; 85730; 87635; 93005; 93306; 99285

== ENCOUNTER 2021-05-08 14:59 | Inpatient (IN) | payer OTHER, MEDICARE ==
[2021-05-08 15:22] LABS: Glucose,Whole Blood 159 mg/dL (75-99)
[2021-05-08] MEDS ORDERED: SODIUM CHLORIDE 0.9% 500 ML 500 ML IV STA (15:27)
[2021-05-08 15:39] LABS: Basophils # (A) 0.1 k/uL (0-0.2); Basophils % (A) 1 %; Eosinophils # (A) 0.2 k/uL (0-0.7); Eosinophils % (A) 3 %; HCT 32.9 % (39.0-53.0); HGB 11.4 gm/dL (13.0-17.5); Lymphocytes # (A) 1.3 k/uL (1.0-4.8); Lymphocytes % (A) 17 %; MCH 30.3 pg (25.0-35.0); MCHC 34.5 g/dL (31.0-37.0); MCV 87.6 fL (80.0-100.0); Mean Platelet Volume 7.5; Monocytes # (A) 0.4 k/uL (0-1.0); Monocytes % (A) 5 %; Neutrophils # (A) 5.3 k/uL (1.3-7.7); Neutrophils % (A) 72 %; Platelet Count 202 k/uL (150-450); RBC 3.75 m/uL (4.30-5.90); RDW 12.8 % (11.5-15.5); WBC 7.4 k/uL (3.8-10.6)
[2021-05-08 15:52] LABS: Albumin 3.3 g/dL (3.5-5.0); Calcium 8.7 mg/dL (8.4-10.2); Potassium 3.9 mmol/L (3.5-5.1); Total Bilirubin 0.3 mg/dL (0.2-1.3); Total Protein 5.9 g/dL (6.3-8.2)
[2021-05-08 16:01] LABS: INR 0.9 (<1.2); Prothrombin Time 9.9 sec (9.0-12.0)
[2021-05-08 16:08] LABS: Partial Thromboplastin Time 21.9 sec (22.0-30.0)
--- NOTE | 2021-05-08 16:10 | CT ---
EXAMINATION TYPE: CT brain wo con for TPA DATE OF EXAM: 05/08/2021 COMPARISON: CT brain 03/28/2021 HISTORY: Left sided weakness. History of stroke/tia. CT DLP: 1264.8 mGycm Automated exposure control for dose reduction was used. FINDINGS: There is no acute intracranial hemorrhage, mass effect, or midline shift identified. The ventricles and sulci are within normal limits in size. The globes are intact and the visualized sinuses are josé miguel ar. Patchy hypodensity of the periventricular white matter is nonspecific but likely relates chronic ischemic microangiopathic change. IMPRESSION: No acute intracranial hemorrhage, mass effect, or midline shift is seen.
--- NOTE | 2021-05-08 16:16 | CT ---
EXAMINATION TYPE: CT angio head neck DATE OF EXAM: 05/08/2021 HISTORY: Left sided weakness. History of stroke/tia. COMPARISON: CT 8 03/28/2021 CT DLP: 631.3 mGycm. Automated Exposure Control for Dose Reduction was Utilized. TECHNIQUE: CTA scan of the neck is performed with IV Contrast, patient injected with 65 mL of Isovue 370, axial images are obtained, coronal and sagittal reformatted images are reviewed. 3D reconstruct ed images are created on an independent workstation and reviewed. FINDINGS: Carotid/Vascular Structures: 4Vessel aortic arch. The left vertebral artery arises from the aortic arch. Mild to moderate atherosc lerotic plaque of the common carotid arteries with less than 50% stenosis. Atherosclerotic calcifications at the carotid bifurcations with approximately 70% stenosis of the pro ximal left ICA and less than 50% stenosis of the cervical right ICA. Atherosclerotic disease proximal right vertebral artery with moderate stenosis. Intracranial vertebral arteries and carotid arteries are patent. A1 segment is hypoplastic. The bilat eral anterior, middle and posterior cerebral arteries are patent. The basilar artery is patent. No aneurysm. IMPRESSION: 1. No large vessel occlusion, hemodynamically significant stenosis or aneurysm in the head. 2. Atherosclerotic disease of the bilateral common and internal carotid arteries with approximately 7 0% stenosis of the proximal left ICA and less than 50% stenosis of the cervical right ICA. 3. Atherosclerotic disease proximal right vertebral artery with moderate stenosis. NASCET criteria was used in interpretation of this exam?
--- NOTE | 2021-05-08 16:23 | XR ---
EXAMINATION TYPE: XR chest 2V DATE OF EXAM: 05/08/2021 COMPARISON: NONE HISTORY: Chest radiograph 07/13/2020 TECHNIQUE: Frontal and lateral views of the chest are obtained. FINDINGS: There is no focal air space opacity, pleural effusion, or pneumothorax seen. The cardiac silhouette size is within normal limits. The osseous structures are intact. IMPRESSION: No acute cardiopulmonary process.
[2021-05-08] MEDS ORDERED: SODIUM CHLORIDE 0.9% 1,000 ML IV SCH (16:45)
--- NOTE | 2021-05-08 16:58 | ED ---
General Adult HPI - General Chief complaint: Neuro Symptoms/Deficit Stated complaint: Stroke Time Seen by Provider: 05/08/21 15:12 Source: patient, EMS, RN notes reviewed, old records reviewed Mode of arrival: EMS Limitations: physical limitation - History of Present Illness Initial comments: 55-year-old male presents with left-sided weakness and fall. Patient had minor head trauma. No loss consciousness. Patient has history of previous stroke. He is anticoagulated. He is initially brought in by EMS without family available for further history. He states that he woke up at about 6 AM at baseline, he had gone back to sleep and awoke just prior to arrival with left- sided weakness. The exact timing is unknown but essentially he was asleep for 8 hours. He is on Eliquis. He complains of a mild headache, and left-sided weakness in both the arm and left side of his face. No central chest pain. No fever. - Related Data Home Medications Medication Instructions Recorded Confirmed Carboxymethylcellulose Sodium 1 drop BOTH EYES QID PRN 07/10/20 05/08/21 [Refresh Tears] DULoxetine HCL [Cymbalta] 20 mg PO DAILY 07/10/20 05/08/21 Empagliflozin [Jardiance] 25 mg PO DAILY 03/28/21 05/08/21 Metoprolol Succinate (ER) [Toprol 50 mg PO DAILY 03/28/21 05/08/21 XL] Omeprazole 20 mg PO AC-SUPPER 03/28/21 05/08/21 Pravastatin Sodium [Pravachol] 80 mg PO HS 03/28/21 05/08/21 Rosuvastatin [Crestor] 10 mg PO HS 05/08/21 05/08/21 amLODIPine [Norvasc] 10 mg PO DAILY 05/08/21 05/08/21 carvediloL [Coreg] 6.25 mg PO BID 05/08/21 05/08/21 Previous Rx's Medication Instructions Recorded Apixaban [Eliquis] 5 mg PO BID #60 tab 07/13/20 Clopidogrel [Plavix] 75 mg PO DAILY #30 tab 03/30/21 Allergies Allergy/AdvReac Type Severity Reaction Status Date / Time atorvastatin AdvReac Liver Verified 05/08/21 16:47 Enzymes Abnormal & Muscle Pain simvastatin AdvReac Liver Verified 05/08/21 16:47 Enzymes Abnormal & Muscle Pain Review of Systems ROS Statement: Those systems with pertinent positive or pertinent negative responses have been documented in the HPI. ROS Other: All systems not noted in ROS Statement are negative. Past Medical History Past Medical History: Coronary Artery Disease (CAD), CVA/TIA, Diabetes Mellitus, Hyperlipidemia, Hypertension, Myocardial Infarction ([place]), Renal Disease Additional Past Medical History / Comment(s): herniated disks and chronic back issues, peripheral neuropathy Last Myocardial Infarction Date:: 06/30/2020 History of Any Multi-Drug Resistant Organisms: None Reported Past Surgical History: Appendectomy, Orthopedic Surgery Additional Past Surgical History / Comment(s): bilateral rotator cuff, bilateral knee scopes, neck fusion, left lower extremity bypass last year Past Anesthesia/Blood Transfusion Reactions: No Reported Reaction Past Psychological History: PTSD Smoking Status: Former smoker Past Alcohol Use History: None Reported Past Drug Use History: None Reported - Past Family History Mother Family Medical History: Congestive Heart Failure (CHF), CVA/TIA, Myocardial Infarction (MT) Father Family Medical History: Cancer General Exam Limitations: physical limitation General appearance: alert, in no apparent distress Head exam: Present: atraumatic, normocephalic Eye exam: Present: normal appearance, PERRL ENT exam: Present: normal exam Neck exam: Present: normal inspection. Absent: tenderness, meningismus Respiratory exam: Present: normal lung sounds bilaterally. Absent: respiratory distress, wheezes Cardiovascular Exam: Present: regular rate, normal rhythm GI/Abdominal exam: Present: soft. Absent: distended, tenderness, guarding Extremities exam: Present: normal inspection, normal capillary refill Neurological exam: Present: alert, oriented X3, other (NIH of 6, mild dysarthria, left facial droop, left upper extremity weakness) Course Vital Signs 05/08/21 05/08/21 05/08/21 15:11 15:23 16:22 Temperature 97.8 F Pulse Rate 59 L 56 L 62 Respiratory 18 18 18 Rate Blood Pressure 162/97 149/80 158/87 O2 Sat by Pulse 99 99 100 Oximetry - Reevaluation(s) Reevaluation #1: 05/08/21 1527 Did discuss case with the stroke intervention was Dr. Gardner. Patient is not a TPA candidate given the anticoagulation and unknown onset. EKG Findings - EKG Comments: EKG Findings:: EKG: Sinus bradycardia, rate of 57, NM interval 156, QRS duration 96, QTC 4:30, no ST segment elevation. Medical Decision Making - Medical Decision Making 55-year-old male with left-sided weakness, initial NIH of 6. Patient is anticoagulated. We'll CT his CT angiography are performed which are negative for intracranial hemorrhage or mass effect, negative for acute occlusion or aneurysmal change in the angiography. I did discuss the patient's history with his who is at bedside and she states he's had 2 strokes in the last year. She did state that he had been somewhat unresponsive and had urinated on himself. The possibility of seizure, although no reported seizure activity. Pt will be admitted to [facility] physicians with neurology on consult. - Lab Data Result diagrams: 05/08/21 16:02 05/08/21 15:27 Lab Results 05/08/21 05/08/21 05/08/21 Range/Units 15:21 15:27 16:02 WBC 7.4 (3.8-10.6) k/uL RBC 3.75 L (4.30-5.90) m/uL Hgb 11.4 L (13.0-17.5) gm/dL Hct 32.9 L (39.0-53.0) % MCV 87.6 (80.0-100.0) fL MCH 30.3 (25.0-35.0) pg MCHC 34.5 (31.0-37.0) g/dL RDW 12.8 (11.5-15.5) % Plt Count 202 (150-450) k/uL MPV 7.5 Neutrophils % 72 % Lymphocytes % 17 % Monocytes % 5 % Eosinophils % 3 % Basophils % 1 % Neutrophils # 5.3 (1.3-7.7) k/uL Lymphocytes # 1.3 (1.0-4.8) k/uL Monocytes # 0.4 (0-1.0) k/uL Eosinophils # 0.2 (0-0.7) k/uL Basophils # 0.1 (0-0.2) k/uL PT (9.0-12.0) sec INR (<1.2) APTT (22.0-30.0) sec Sodium 136 L (137-145) mmol/L Potassium 3.9 (3.5-5.1) mmol/L Chloride 108 H (98-107) mmol/L Carbon Dioxide 18 L (22-30) mmol/L Anion Gap 10 mmol/L BUN 34 H (9-20) mg/dL Creatinine 1.50 H (0.66-1.25) mg/dL Est GFR (CKD-EPI)AfAm 60 (>60 ml/min/1.73 sqM) Est GFR (CKD-EPI)NonAf 52 (>60 ml/min/1.73 sqM) Glucose 161 H (74-99) mg/dL POC Glucose (mg/dL) 159 H (75-99) mg/dL POC Glu Lead Software Tester ID Adelfo So Calcium 8.7 (8.4-10.2) mg/dL Total Bilirubin 0.3 (0.2-1.3) mg/dL AST 22 (17-59) U/L ALT 15 (4-49) U/L Alkaline Phosphatase 90 (38-126) U/L Troponin I (0.000-0.034) ng/mL Total Protein 5.9 L (6.3-8.2) g/dL Albumin 3.3 L (3.5-5.0) g/dL 05/08/21 05/08/21 Range/Units 16:02 16:02 WBC (3.8-10.6) k/uL RBC (4.30-5.90) m/uL Hgb (13.0-17.5) gm/dL Hct (39.0-53.0) % MCV (80.0-100.0) fL MCH (25.0-35.0) pg MCHC (31.0-37.0) g/dL RDW (11.5-15.5) % Plt Count (150-450) k/uL MPV Neutrophils % % Lymphocytes % % Monocytes % % Eosinophils % % Basophils % % Neutrophils # (1.3-7.7) k/uL Lymphocytes # (1.0-4.8) k/uL Monocytes # (0-1.0) k/uL Eosinophils # (0-0.7) k/uL Basophils # (0-0.2) k/uL PT 9.9 (9.0-12.0) sec INR 0.9 (<1.2) APTT 21.9 L (22.0-30.0) sec Sodium (137-145) mmol/L Potassium (3.5-5.1) mmol/L Chloride (98-107) mmol/L Carbon Dioxide (22-30) mmol/L Anion Gap mmol/L BUN (9-20) mg/dL Creatinine (0.66-1.25) mg/dL Est GFR (CKD-EPI)AfAm (>60 ml/min/1.73 sqM) Est GFR (CKD-EPI)NonAf (>60 ml/min/1.73 sqM) Glucose (74-99) mg/dL POC Glucose (mg/dL) (75-99) mg/dL POC Glu Lead Software Tester ID Calcium (8.4-10.2) mg/dL Total Bilirubin (0.2-1.3) mg/dL AST (17-59) U/L ALT (4-49) U/L Alkaline Phosphatase (38-126) U/L Troponin I <0.012 (0.000-0.034) ng/mL Total Protein (6.3-8.2) g/dL Albumin (3.5-5.0) g/dL Critical Care Time Critical Care Time: Yes Total Critical Care Time: 35 Disposition Clinical Impression: CVA (cerebral vascular accident) Disposition: ADMITTED IP TO THIS [facility] Condition: Stable Is patient prescribed a controlled substance at d/c from ED?: No Referrals: Nonstaff,Physician [Primary Care Provider] - 1-2 days Decision to Admit Reason: Admit from EC Decision Date: 05/08/21 Decision Time: 16:57
[2021-05-08] MEDS: SODIUM CHLORIDE 0.9% 1,000 ML IV SCH (17:19)
[2021-05-08] MEDS ORDERED: ARTIFICIAL TEARS-HYPROMELLOSE DROPS 15 ML BTL BOTH EYES PRN (17:24)
[2021-05-08 17:38] LABS: Glucose,Whole Blood 146 mg/dL (75-99)
--- NOTE | 2021-05-08 18:18 | P.HPIM ---
History of Present Illness H&P Date: 05/08/21 Chief Complaint: CVA This is a pleasant 55-year-old male who presents to the ER with his . Patient has an extensive medical history which includes PFO noted on PRAITMA in June 2020, isp-qbqsclc-efsopbrrw diabetes mellitus with hemoglobin A1c of 7.1, hyperlipidemia, hypertension, CKD, and left arm weakness secondary to prior CVA. Patient and his were lounging throughout the day napping and watching TV. Patient states that once he got up to go to the bathroom his leg gave out when he fell to the floor. Patient thinks he may have lost consciousness b ecause he hit his head and his rib cage and lost bladder control. Patient does not believe he was convulsing. The incident was not witnessed since his was in the bathroom. Patient was unable to get up from the floor and patient noticed increased left upper extremity and lower extremity weakness. Patient does have history of a CVA with left upper extremity weakness which has been improving with physical therapy. Patient states that this weakness in his left arm has notably increased. EMS was called and patient was taken to the ER. NIH scale in the emergency department was 6. Upon assessment in the emergency department patient states that his left lower extremity weakness is slowly improving. However, his left upper extremity weakness persists. CT of the brain and CT a were negative for acute CVA. Chest x-ray was negative for acute cardiopulmonary process. Review of Systems All systems: negative Past Medical History Past Medical History: Coronary Artery Disease (CAD), CVA/TIA, Diabetes Mellitus, Hyperlipidemia, Hypertension, Myocardial Infarction ([place]), Renal Disease Additional Past Medical History / Comment(s): herniated disks and chronic back issues, peripheral neuropathy Last Myocardial Infarction Date:: 06/30/2020 History of Any Multi-Drug Resistant Organisms: None Reported Past Surgical History: Appendectomy, Orthopedic Surgery Additional Past Surgical History / Comment(s): bilateral rotator cuff, bilateral knee scopes, neck fusion, left lower extremity bypass last year Past Anesthesia/Blood Transfusion Reactions: No Reported Reaction Past Psychological History: PTSD Smoking Status: Former smoker Past Alcohol Use History: None Reported Past Drug Use History: None Reported - Past Family History Mother Family Medical History: Congestive Heart Failure (CHF), CVA/TIA, Myocardial Infarction (OR) Father Family Medical History: Cancer Medications and Allergies Home Medications Medication Instructions Recorded Confirmed Type Carboxymethylcellulose Sodium 1 drop BOTH EYES QID PRN 07/10/20 05/08/21 History [Refresh Tears] DULoxetine HCL [Cymbalta] 20 mg PO DAILY 07/10/20 05/08/21 History Apixaban [Eliquis] 5 mg PO BID #60 tab 07/13/20 05/08/21 Rx Empagliflozin [Jardiance] 25 mg PO DAILY 03/28/21 05/08/21 History Metoprolol Succinate (ER) [Toprol 50 mg PO DAILY 03/28/21 05/08/21 History XL] Omeprazole 20 mg PO AC-SUPPER 03/28/21 05/08/21 History Pravastatin Sodium [Pravachol] 80 mg PO HS 03/28/21 05/08/21 History Clopidogrel [Plavix] 75 mg PO DAILY #30 tab 03/30/21 05/08/21 Rx Rosuvastatin [Crestor] 10 mg PO HS 05/08/21 05/08/21 History Sacubitril/Valsartan [Entresto 24 1 tab PO BID 05/08/21 05/08/21 History mg-26 mg Tablet] amLODIPine [Norvasc] 10 mg PO DAILY 05/08/21 05/08/21 History carvediloL [Coreg] 6.25 mg PO BID 05/08/21 05/08/21 History Allergies Allergy/AdvReac Type Severity Reaction Status Date / Time atorvastatin AdvReac Liver Verified 05/08/21 16:47 Enzymes Abnormal & Muscle Pain simvastatin AdvReac Liver Verified 05/08/21 16:47 Enzymes Abnormal & Muscle Pain Physical Exam Osteopathic Statement: *. No significant issues noted on an osteopathic structural exam other than those noted in the History and Physical/Consult. Vitals: Vital Signs Temp Pulse Resp BP Pulse Ox 05/08/21 16:51 98.2 F 64 18 159/92 99 05/08/21 16:22 62 18 158/87 100 05/08/21 15:23 56 L 18 149/80 99 05/08/21 15:11 97.8 F 59 L 18 162/97 99 Intake and Output 05/08/21 05/08/21 05/08/21 06:59 14:59 22:59 Other: Weight 87.09 kg General: [non toxic], [no distress], [appears at stated age] Derm: [warm], [dry] Head: [atraumatic], [normocephalic], [symmetric] Eyes: [EOMI], [no lid lag], [anicteric sclera] Mouth: [no lip lesion], [mucus membranes moist] Cardiovascular: [S1S2 reg], [no murmur], [positive posterior tibial pulse bilateral], Lungs: [CTA bilateral], [no rhonchi, no rales] , [no accessory muscle use] Abdominal: [soft], [ nontender to palpation], [no guarding], [no appreciable organomegaly] Ext: [no gross muscle atrophy], [no edema], [no contractures] Neuro: [left hemiparesis] Psych: [Alert], [oriented], [appropriate affect] Results CBC & Chem 7: 05/08/21 16:02 05/08/21 15:27 Labs: Abnormal Lab Results - Last 24 Hours (Table) 05/08/21 05/08/21 05/08/21 Range/Units 15: 15:27 16:02 RBC 3.75 L (4.30-5.90) m/uL Hgb 11.4 L (13.0-17.5) gm/dL Hct 32.9 L (39.0-53.0) % APTT (22.0-30.0) sec Sodium 136 L (137-145) mmol/L Chloride 108 H (98-107) mmol/L Carbon Dioxide 18 L (22-30) mmol/L BUN 34 H (9-20) mg/dL Creatinine 1.50 H (0.66-1.25) mg/dL Glucose 161 H (74-99) mg/dL POC Glucose (mg/dL) 159 H (75-99) mg/dL Total Protein 5.9 L (6.3-8.2) g/dL Albumin 3.3 L (3.5-5.0) g/dL 05/08/21 05/08/21 Range/Units 16:02 17:36 RBC (4.30-5.90) m/uL Hgb (13.0-17.5) gm/dL Hct (39.0-53.0) % APTT 21.9 L (22.0-30.0) sec Sodium (137-145) mmol/L Chloride (98-107) mmol/L Carbon Dioxide (22-30) mmol/L BUN (9-20) mg/dL Creatinine (0.66-1.25) mg/dL Glucose (74-99) mg/dL POC Glucose (mg/dL) 146 H (75-99) mg/dL Total Protein (6.3-8.2) g/dL Albumin (3.5-5.0) g/dL Thrombosis Risk Factor Assmnt - DVT/VTE Prophylaxis DVT/VTE Prophylaxis: Pharmacologic Prophylaxis ordered Assessment and Plan Assessment: 1. Acute TIA rule out CVA with increased left upper extremity weakness Repeat MRI of the brain EEG ordered concern for her seizure disorder Consult neurology Neuro checks PT OT 2. History of PFO seen on PRATIMA June 2020 likely causing #1 Consult cardiology 3. Flf-itryezd-wdaicnyqa diabetes mellitus Insulin sliding scale Hemoglobin A1c at 7.1% done on 03/29/2021 4. History of multivessel coronary artery disease Per cardiac cath 07/10/2020 Continue home medications 5. CKD creatinine stable at 1.5 Monitor BUN and creatinine 6. Hypertension and hyperlipidemia Resume home medications 8. GI DVT prophylaxis 9. A.m. labs Greater than 45 minutes spent coordinating care, documenting, and counseling patient and . Time with Patient: Greater than 30
[2021-05-08] MEDS: PANTOPRAZOLE 40 MG TABLET PO SCH (18:30)
[2021-05-08] MEDS: amLODIPine 10 MG TAB PO SCH (18:30)
[2021-05-08] MEDS: INSULIN ASPART (NovoLOG) 100 UNIT/ML VIAL SQ SCH (18:30)
[2021-05-09] MEDS ORDERED: APIXABAN 5 MG TAB ONE (00:44)
[2021-05-09] MEDS ORDERED: PRAVASTATIN SODIUM 80 MG TAB ONE (00:44)
[2021-05-09 06:27] LABS: Basophils # (A) 0.1 k/uL (0-0.2); Basophils % (A) 1 %; Eosinophils # (A) 0.2 k/uL (0-0.7); Eosinophils % (A) 3 %; HCT 32.1 % (39.0-53.0); Lymphocytes # (A) 1.2 k/uL (1.0-4.8); Lymphocytes % (A) 16 %; MCH 30.6 pg (25.0-35.0); MCHC 34.3 g/dL (31.0-37.0); Mean Platelet Volume 7.7; Monocytes # (A) 0.4 k/uL (0-1.0); Monocytes % (A) 6 %; Neutrophils # (A) 5.6 k/uL (1.3-7.7); Neutrophils % (A) 74 %; Platelet Count 193 k/uL (150-450); RBC 3.61 m/uL (4.30-5.90); WBC 7.6 k/uL (3.8-10.6)
[2021-05-09 07:04] LABS: African American GFR (CKD) 55 (>60 ml/min/1.73 sqM); Anion Gap 6 mmol/L; Blood Urea Nitrogen 32 mg/dL (9-20); Calcium 8.5 mg/dL (8.4-10.2); Carbon Dioxide 21 mmol/L (22-30); Chloride 108 mmol/L (98-107); Glucose 222 mg/dL (74-99); Non-African American GFR(CKD) 47 (>60 ml/min/1.73 sqM); Phosphorus 3.7 mg/dL (2.5-4.5); Potassium 3.6 mmol/L (3.5-5.1); Sodium 135 mmol/L (137-145); Total Bilirubin 0.2 mg/dL (0.2-1.3); Total Protein 5.6 g/dL (6.3-8.2)
[2021-05-09 07:05] LABS: ALT 14 U/L (4-49); AST 23 U/L (17-59); Alkaline Phosphatase 94 U/L (38-126); Magnesium 2.4 mg/dL (1.6-2.3)
[2021-05-09] MEDS: APIXABAN 5 MG TAB PO SCH ×3 (08:52→22:13)
[2021-05-09] MEDS: PRAVASTATIN SODIUM 80 MG TAB PO SCH ×2 (08:52→22:13)
[2021-05-09 09:07] LABS: Glucose,Whole Blood 167 mg/dL (75-99)
[2021-05-09] MEDS ORDERED: POTASSIUM CHLORIDE ER 20 MEQ TAB.ER PO STA (09:23)
[2021-05-09] MEDS: INSULIN ASPART (NovoLOG) 100 UNIT/ML VIAL SQ SCH ×4 (09:50→22:13)
[2021-05-09] MEDS: CLOPIDOGREL 75 MG TAB PO SCH (09:50)
[2021-05-09] MEDS: DULoxetine HCL 20 MG CAPSULE.DR PO SCH (09:50)
[2021-05-09] MEDS: amLODIPine 10 MG TAB PO SCH (09:50)
[2021-05-09] MEDS: NON FORMULARY DRUG (Empagliflozin [Jardiance] 25 MG Tablet) PO SCH (09:51)
[2021-05-09] MEDS: METOPROLOL SUCCINATE (ER) 50 MG TAB.ER.24H PO SCH (09:52)
--- NOTE | 2021-05-09 13:09 | ECHOF ---
Referral Reason:repeat LV function, Hx stroke/PFO MEASUREMENTS -------- HEIGHT: 188.0 cm WEIGHT: 87.1 kg BP: IVSd: 1.3 cm (0.6 - 1.1) LVIDd: 2.8 cm (3.9 - 5.3) LVPWd: 1.7 cm (0.6 - 1.1) IVSs: 1.7 cm LVIDs: 1.6 cm LVPWs: 1.6 cm Ao Diam: 3.5 cm (2.0 - 3.7) AV Cusp: 1.9 cm (1.5 - 2.6) LA Diam: 3.3 cm (2.7 - 3.8) MV EXCURSION: 22.213 mm (> 18.000) MV EF SLOPE: 147 mm/s (70 - 150) EPSS: 2.4 cm MV E Jose A: 0.89 m/s MV DecT: 239 ms MV A Jose A: 1.29 m/s MV E/A Ratio: 0.69 RAP: 5.00 mmHg RVSP: 9.20 mmHg FINDINGS -------- This was a technically difficult study with suboptimal views. The left ventricular size is normal. There is moderate concentric left ventricular hypertrophy. O verall left ventricular systolic function is normal with, an EF between 55 - 60 %. The right ventricle is normal in size. The left atrial size is normal. The right atrial size is normal. Lumason used The aortic valve is trileaflet and appears structurally normal. The mitral valve is normal. There is trace mitral regurgitation. The tricuspid valve appears structurally normal. Trace tricuspid regurgitation present. Right jeannie tricular systolic pressure is normal at < 35 mmHg. There is no pulmonic regurgitation present. The aortic root size is normal. IVC Not well visulized. There is no pericardial effusion. CONCLUSIONS -------- 1. The left ventricular size is normal. 2. There is moderate concentric left ventricular hypertrophy. 3. Overall left ventricular systolic function is normal with, an EF between 55 - 60 %. 4. There is trace mitral regurgitation. 5. Trace tricuspid regurgitation present. 6. There is no pericardial effusion. PAYROLL ADMINISTRATOR: Tori Lang RDCS
[2021-05-09] MEDS ORDERED: ASPIRIN 81 MG PO STA (13:28)
--- NOTE | 2021-05-09 13:37 | P.PN ---
Subjective Progress Note Date: 05/09/21 Hospital course: Patient is a pleasant 55-year-old male who presents to the ER with his . Patient has an extensive medical history which includes PFO noted on PRATIMA in June 2020, tsa-pkksasc-vemekluxr diabetes mellitus with hemoglobin A1c of 7.1, hyperlipidemia, hypertension, CKD stage III, and left arm weakness secondary to prior CVA. patient presented to the hospital on05/08/21 with a chief complaint of increased left upper and lower extremity weakness followed by reports of syncopal episode/loss of consciousness along with loss of bladder control. Per reports patient was unable to get up to the floor secondary to increased left upper and lower extremity weakness. Upon arrival to the emergency department initial NIH was 6. Patient was admitted under our services with consultation to neurology and cardiology. CT head negative for acute intercranial process.CTA head and neck negative for large vessel occlusion or hemodynamically significant stenosis or aneurysm in the head; revealing atherosclerotic disease of the bilateral common and internal carotid arteries with approximately 70% stenosis of the proximal left ICA and less than 50% stenosis of the cervical right ICA; atherosclerotic disease proximal right vertebral artery with moderate stenosis. EKG revealed sinus bradycardia at 57 bpm with no noted T-wave or ST abnormalities showing no signs of acute ischemia. Chest x-ray negative for acute cardiopulmonary process. Bilateral venous Dopplers completed, awaiting results. echocardiogram completed revealing a normal EF between 55 and 60% with no significant valvular abnormalities. Physical exam: Vital signs reviewed and stable. General: Nontoxic, no distress and appears stated age. Derm: Skin warm and dry, normal coloration for ethnicity. Head: Atraumatic, normocephalic and symmetric. Eyes: EOMs intact, no lid lag, and anicteric sclera Mouth: no lip lesions, mucus membranes moist Cardiovascular: regular rate and rhythm with normal S1S2, no murmur, positive posterior tibial pulses bilaterally, and cap refill < 2 seconds. Lungs: Respirations even, regular, and unlabored on room air. Lungs CTA bilaterally, no rhonchi, no rales, no wheezing, and no accessory muscle usage. Abdominal: soft, nontender to palpation, no guarding, no appreciable organomegaly Ext: No gross muscle atrophy, no edema, no contractures Neuro: Speech clear, face symmetrical and CN II-XII grossly intact with left upper and left lower extremity weakness, which patient states is back at baseline. Psych: Alert and oriented to person, place, time, and situation. Appropriate and pleasant affect. Assessment and Plan of Care: Acute TIA vs CVA with increased left upper extremity weakness -CT head negative for acute intercranial process. -CTA head and neck negative for large vessel occlusion or hemodynamically signif icant stenosis or aneurysm in the head; revealing atherosclerotic disease of the bilateral common and internal carotid arteries with approximately 70% stenosis of the proximal left ICA and less than 50% stenosis of the cervical right ICA; atherosclerotic disease proximal right vertebral artery with moderate stenosis. -Neurology consulted, appreciate recommendations -Neuro checks every 2 hours -EEG -MRI -PT/OT -Daily aspirin, Plavix, and pravastatin. History of PFO seen on PRATIMA June 2020 likely causing -Consult cardiology -Echocardiogram completed revealing a normal EF between 55 and 60% with no significant valvular abnormalities. Hyx-voqubkw-zcrqyktqw diabetes mellitus -Glycemic protocol with NovoLog sliding scale -Hemoglobin A1c at 7.1% done on 03/29/2021 History of multivessel coronary artery disease -Per cardiac cath 07/10/2020 -Continue home medication management consisting of Eliquis, amlodipine, aspirin, Plavix, metoprolol and pravastatin CKD stage III creatinine stable at 1.5 -Monitor BUN and creatinine Hypertension -monitor vital signs and continue daily medication regimen. Hyperlipidemia -Continue daily medication regimen with pravastatin 80 mg nightly. CODE STATUS: Full code DVT prophylaxis: Eliquis Discussed with: Patient and RN Anticipated discharge date: Clinical course to determine Anticipated discharge place: Home A total of 45 minutes was spent on the care of this complex patient more than 50% of the time was spent in counseling and care coordination. Objective - Vital Signs Vital signs: Vital Signs Temp 98.2 F 05/09/21 01:00 Pulse 67 05/09/21 01:00 Resp 18 05/09/21 02:00 BP 130/62 05/09/21 01:00 Pulse Ox 98 05/09/21 01:00 Intake & Output 05/08/21 05/09/21 05/09/21 18:59 06:59 18:59 Output Total 1000 Balance -1000 Weight 87.09 kg 87.09 kg Output: Urine 1000 Other: Voiding Method Urinal - Labs CBC & Chem 7: 05/09/21 06:04 05/09/21 06:04 Labs: Abnormal Lab Results - Last 24 Hours (Table) 05/08/21 05/08/21 05/08/21 Range/Units 15:21 15:27 16:02 RBC 3.75 L (4.30-5.90) m/uL Hgb 11.4 L (13.0-17.5) gm/dL Hct 32.9 L (39.0-53.0) % APTT (22.0-30.0) sec Sodium 136 L (137-145) mmol/L Chloride 108 H (98-107) mmol/L Carbon Dioxide 18 L (22-30) mmol/L BUN 34 H (9-20) mg/dL Creatinine 1.50 H (0.66-1.25) mg/dL Glucose 161 H (74-99) mg/dL POC Glucose (mg/dL) 159 H (75-99) mg/dL Magnesium (1.6-2.3) mg/dL Total Protein 5.9 L (6.3-8.2) g/dL Albumin 3.3 L (3.5-5.0) g/dL 05/08/21 05/08/21 05/09/21 Range/Units 16:02 17:36 06:04 RBC (4.30-5.90) m/uL Hgb (13.0-17.5) gm/dL Hct (39.0-53.0) % APTT 21.9 L (22.0-30.0) sec Sodium 135 L (137-145) mmol/L Chloride 108 H (98-107) mmol/L Carbon Dioxide 21 L (22-30) mmol/L BUN 32 H (9-20) mg/dL Creatinine 1.61 H (0.66-1.25) mg/dL Glucose 222 H (74-99) mg/dL POC Glucose (mg/dL) 146 H (75-99) mg/dL Magnesium 2.4 H (1.6-2.3) mg/dL Total Protein 5.6 L (6.3-8.2) g/dL Albumin 3.0 L (3.5-5.0) g/dL 05/09/21 Range/Units 06:04 RBC 3.61 L (4.30-5.90) m/uL Hgb 11.0 L (13.0-17.5) gm/dL Hct 32.1 L (39.0-53.0) % APTT (22.0-30.0) sec Sodium (137-145) mmol/L Chloride (98-107) mmol/L Carbon Dioxide (22-30) mmol/L BUN (9-20) mg/dL Creatinine (0.66-1.25) mg/dL Glucose (74-99) mg/dL POC Glucose (mg/dL) (75-99) mg/dL Magnesium (1.6-2.3) mg/dL Total Protein (6.3-8.2) g/dL Albumin (3.5-5.0) g/dL
--- NOTE | 2021-05-09 14:14 | P.CNNES ---
History of Present Illness Consult date: 05/09/21 Requesting physician: Annie Del Rosario Reason for Consult: CVA History of Present Illness: Patient is a 55-year-old right-hand dominant male with history of hypertension, bilateral ICA stenosis, history of PFO, hypertension, diabetes, hyperlipidemia, X tobacco use came to the hospital by ambulance yesterday at 2:59 PM for evaluation of worsening left-sided weakness. Patient states that yesterday he was trying to go to the bathroom at 9 AM, when he urinated on himself, and fell, felt passed out. His head hit his 's desk. He noticed worsening of weakness of the left side. He was not able to walk. Patient's left arm is much worse than the left leg. He came to the hospital. EMS flow sheet are available in the chart. Vital signs on arrival blood pressure 162/97, pulse rate 59, temperature 97.8. Patient's blood test shows normal CBC with hemoglobin 11.4. PT/PTT normal, sodium 136 potassium 3.9, BUN 34, crit 51.50. Hepatic panel is normal, troponin negative. Coronavirus PCR negative. Patient underwent CTA of the head, which is normal with no significant stenosis or aneurysm. CT head showed no acute intracranial hemorrhage, mass effect or midline shift. CTA of the neck showed atheroscleroti c disease of the bilateral common and internal carotid arteries with approximate 70% stenosis of the proximal left ICA and less than 50% stenosis of the cervical right ICA. Atherosclerotic disease proximal right vertebral artery with moderate stenosis. Chest x-ray showed no acute cardiopulmonary process. EKG with sinus bradycardia. Patient was not a candidate for TPA because he was on anticoagulation. He was not a candidate for any thrombectomy, due to absence of any large vessel occlusion. Patient continues to be weak on the left side. This morning patient was trying to get up to urinate and fell, hit his head on the table. He did not pass out today, although felt he may have blacked out for just a short while. He did not bite his tongue. He did lose control of urine today. The nurse had mentioned that it took almost four people to get him up. Patient [facility] at [facility]. Patient has been seen by myself on 03/29/2021 for an acute ischemic stroke within the right periventricular and deep white matter within the right centrum semiovale and some within the cortex. CVA was felt to be embolic in nature. Patient did not receive TPA at that time. Patient has bilateral ICA stenosis, approximately 70% on the left (asymptomatic at that time), and less than 50% stenosis on the right ICA (symptomatic side). Patient also has history of previous focal, not had undergone closure. Also have multiple vascular risk factors including hypertension diabetes hyperlipidemia X tobacco use. Patient has been on Eliquis and aspirin regimen. Patient was switched from aspirin to Plavix, continued on Apixaban 5 mg twice a day. Patient's hemoglobin A1c was 7.1. Lipid panel showed cholesterol 212, LDL 128, HDL 33.9 and triglycerides 246. Patient's home medications indicate that he is compliant with the medications as above. Also on Crestor 10 mg. Patient had a PRATIMA performed on 07/10/2020, which showed mild aortic sclerosis without significant aortic regurgitation or aortic stenosis. There is evidence of PFO by bubble study. Patient also had hypercoagulable workup performed in which his lupus anticoagulant was negative. Protein C activity, protein S acti vity anti-thrombin 3 were all normal or negative. Patient was negative for factor V Leiden mutation. Patient's B12 was 402, methylmalonic acid 0.45, folate 13.5, homocysteine 13.6 (4-14) and B6 was 18. Patient's ARIAN is negative. MTHFR was homozygous for C677T and and negative for the [id number] variant in the MTHFR gene. This genotype is common in the general population. Current date Kalyani does not support a significant association of this result with coronary artery disease, venous thromboembolism or recurrent loss. Patient stopped smoking June 2020. He does have diabetes. Review of Systems As above in detail. Denies any headache or any new problem with the vision. No slurred speech. He does have some facial droop. No chest pain, abdominal pain, nausea vomiting diarrhea. No double vision. No fever or chills. All other 14 point review of systems reviewed and noncontributory. Past Medical History Past Medical History: Coronary Artery Disease (CAD), CVA/TIA, Diabetes Mellitus, Hyperlipidemia, Hypertension, [place] ([place]), Renal Disease Additional Past Medical History / Comment(s): herniated disks and chronic back issues, peripheral neuropathy Last Myocardial Infarction Date:: 06/30/2020 History of Any Multi-Drug Resistant Organisms: None Reported Past Surgical History: Appendectomy, Orthopedic Surgery Additional Past Surgical History / Comment(s): bilateral rotator cuff, bilateral knee scopes, neck fusion, left lower extremity bypass last year Past Anesthesia/Blood Transfusion Reactions: No Reported Reaction Past Psychological History: PTSD Smoking Status: Former smoker Past Alcohol Use History: None Reported Additional Past Alcohol Use History / Comment(s): Recent smoking cessation, previously one pack per day 20 years Past Drug Use History: None Reported - Past Family History Mother Family Medical History: Congestive Heart Failure (CHF), CVA/TIA, Myocardial Infarction ([place]) Father Family Medical History: Cancer Medications and Allergies Home Medications Medication Instructions Recorded Confirmed Type Carboxymethylcellulose Sodium 1 drop BOTH EYES QID PRN 07/10/20 05/08/21 History [Refresh Tears] DULoxetine HCL [Cymbalta] 20 mg PO DAILY 07/10/20 05/08/21 History Apixaban [Eliquis] 5 mg PO BID #60 tab 07/13/20 05/08/21 Rx Empagliflozin [Jardiance] 25 mg PO DAILY 03/28/21 05/08/21 History Metoprolol Succinate (ER) [Toprol 50 mg PO DAILY 03/28/21 05/08/21 History XL] Omeprazole 20 mg PO AC-SUPPER 03/28/21 05/08/21 History Pravastatin Sodium [Pravachol] 80 mg PO HS 03/28/21 05/08/21 History Clopidogrel [Plavix] 75 mg PO DAILY #30 tab 03/30/21 05/08/21 Rx Rosuvastatin [Crestor] 10 mg PO HS 05/08/21 05/08/21 History Sacubitril/Valsartan [Entresto 24 1 tab PO BID 05/08/21 05/08/21 History mg-26 mg Tablet] amLODIPine [Norvasc] 10 mg PO DAILY 05/08/21 05/08/21 History carvediloL [Coreg] 6.25 mg PO BID 05/08/21 05/08/21 History Allergies Allergy/AdvReac Type Severity Reaction Status Date / Time atorvastatin AdvReac Liver Verified 05/08/21 16:47 Enzymes Abnormal & Muscle Pain simvastatin AdvReac Liver Verified 05/08/21 16:47 Enzymes Abnormal & Muscle Pain Physical Examination - Vital Signs Vital Signs: Vital Signs Temp Pulse Pulse Resp BP BP Pulse Ox 05/09/21 02:00 18 05/09/21 01:00 98.2 F 67 18 130/62 98 05/08/21 21:29 98.3 F 67 18 130/62 98 05/08/21 20:00 18 05/08/21 16:51 98.2 F 64 18 159/92 99 05/08/21 16:22 62 18 158/87 100 05/08/21 15:23 56 L 18 149/80 99 05/08/21 15:11 97.8 F 59 L 18 162/97 99 Intake and Output 05/08/21 05/09/21 05/09/21 22:59 06:59 14:59 Output Total 450 550 Balance -450 -550 Output: Urine 450 550 Other: Voiding Method Urinal Urinal Weight 87.09 kg 87.09 kg Patient is a middle aged male, in no acute distress. Patient is alert awake oriented to time place and person. Speech and language functions are normal. Attention, concentration and fund of knowledge is adequate. On cranial examination, pupils are round and reacting to light, visual cotton reveal some neglect in the left sided visual cotton, left upper quadrant worse in the left lower quadrant. Patient's extraocular muscles are intact with no nystagmus. Patient has obvious left facial weakness, central type. His tongue protrudes to the midline. Palatal elevation and sensation normal, hearing and shoulder shrug normal, facial sensation normal. Shoulder shrug normal. On muscle strength testing, the strength is normal in the right arm and right leg. On the left side deltoid is 1-2, biceps 0, triceps 1, fresh work inspector 3+. In the lower limb hip flexion 1, ankle dorsiflexion 1-2. Deep tendon reflexes are overall diminished and plantars are flat bilaterally. Sensory to touch is equal in the arms, but is apparently decreased in the left leg as compared to the right. He neglects left side on double simultaneous stimulation. Cerebellar function showed no ataxia for [id number] testing on the right, cannot check on the left. No dysdiadochokinesia. Tone of muscles is increased in the left side. Patient's of muscles normal. Gait not checked. On general examination, there is no carotid bruit or murmur, S1-S2 audible. Abdomen is soft nontender. Chest is clear. Peripheral pulses are present. No edema. Results - Laboratory Findings CBC and BMP: 05/10/21 15:14 05/10/21 15:14 Abnormal Lab Findings: Abnormal Labs 05/08/21 05/08/21 05/08/21 15:21 15:27 16:02 RBC 3.75 L Hgb 11.4 L Hct 32.9 L APTT Sodium 136 L Chloride 108 H Carbon Dioxide 18 L BUN 34 H Creatinine 1.50 H Glucose 161 H POC Glucose (mg/dL) 159 H Magnesium Total Protein 5.9 L Albumin 3.3 L 05/08/21 05/08/21 05/09/21 16:02 17:36 06:04 RBC Hgb Hct APTT 21.9 L Sodium 135 L Chloride 108 H Carbon Dioxide 21 L BUN 32 H Creatinine 1.61 H Glucose 222 H POC Glucose (mg/dL) 146 H Magnesium 2.4 H Total Protein 5.6 L Albumin 3.0 L 05/09/21 06:04 RBC 3.61 L Hgb 11.0 L Hct 32.1 L APTT Sodium Chloride Carbon Dioxide BUN Creatinine Glucose POC Glucose (mg/dL) Magnesium Total Protein Albumin Assessment and Plan Assessment: * Acute recurrent ischemic stroke involving right MCA vascular territory. Exact cause remains uncertain. Patient does have stenosis of the right ICA but is only 50%, not critical. However it is symptomatic. * Status post fall, possible syncope. Rule out arrhythmia. * Hypertension * Diabetes * Hyperlipidemia * History of PFO, not underwent closure. * X tobacco use * Chronic back pain Plan: * Await MRI of the brain evaluate for an acute stroke. * EEG. Check orthostatics for recurrent syncopal spell. * Cardiology consulted for PFO. * 2-D echo performed 05/09/2021 showed normal left-ventricular size. Moderate concentric LVH. EF is between 55-60%. Trace MR. (Apparently PFO was noticed in the PRATIMA on 07/12/2020). * We will also consult vascular surgery for bilateral ICA stenosis, with probable symptomatic right ICA stenosis. Patient may be a candidate for right CEA. * Fasting lipid panel * Hemoglobin A1c 7.1 on 03/29/2021. * Continue Plavix 75 mg and Eliquis 5 mg twice a day. Patient has been also started on aspirin 81 mg daily, first dose today. Continue Pravachol 80 mg. * Start B12 injections 1000 g IM daily for 3 days for elevated MMA 0.45 (Normal <0.40). * Cardiology recommended ultrasound of bilateral lower legs. * DVT prophylaxis, patient on Eliquis. * PT OT. * Neurology will follow. Thank you for the consult. Time with Patient: Greater than 30
--- NOTE | 2021-05-09 14:29 | MR ---
EXAMINATION TYPE: MR brain wo/w con DATE OF EXAM: 05/09/2021 COMPARISON: 03/29/2021 HISTORY: TIA CONTRAST: Performed utilizing 9 mL intravenous Gadavist gadolinium contrast. TECHNIQUE: Multiplanar, multiecho imaging on a 3.0 Rocio magnet is performed through the brain. Stud y is performed within 24 hours of arrival to the hospital. The craniovertebral junction is normal. The pituitary is normal. Diffusion-weighted imaging is performed. Multiple small areas of density are present on diffusion-we ighted imaging within the periventricular white matter right cerebrum. White matter changes are adjac ent to the occipital body of the lateral ventricle. Small amount may be within the white matter adjac ent to the frontal horn on the right. More extensive white matter changes are evident on the recovery weighted sequences. The acute ischemi c changes on the right are evident on these images as well. Ventricles and sulci are appropriate for the patient age. No abnormal enhancement is evident. COMPARISON: White matter changes appear more extensive than the comparison of 03/29/2021. Greater numb er and size of white matter change on diffusion is periventricular white matter adjacent to the later al ventricle extending into the centrum semiovale. IMPRESSIONS: 1. There is increasing acute ischemic change through the right centrum semiovale compared to prior st udy. 2. Additional chronic-appearing white matter changes remain present.
--- NOTE | 2021-05-09 14:51 | US ---
EXAMINATION TYPE: US venous doppler duplex LE DATE OF EXAM: 05/09/2021 10:53 AM COMPARISON: NONE CLINICAL HISTORY: rule out DVT. recent falls, unable to use legs, h/o arterial clot in left leg years ago, on thinners SIDE PERFORMED: Bilat TECHNIQUE: The lower extremity deep venous system is examined utilizing real time linear array sonog jorge with graded compression, doppler sonography and color-flow sonography. VESSELS IMAGED: Common Femoral Vein Deep Femoral Vein Greater Saphenous Vein * Femoral Vein Popliteal Vein Small Saphenous Vein * Proximal Calf Veins (* superficial vessels) patient has limited mobility of legs currently and they are rigid, unable to do compression behind knee Right Leg: Negative for DVT Left Leg: Negative for DVT IMPRESSION: Grayscale, color doppler, spectral doppler imaging performed of the deep veins of the lo wer extremities. There is normal flow, compressibility, vascular waveforms.
--- NOTE | 2021-05-09 14:55 | P.GSCN ---
History of Present Illness Consult date: 05/09/21 Reason for Consult: Right ICA stenosis Requesting physician: Jorge Mejía History of present illness: This is a 55-year-old male who presented to the emergency department yesterday afternoon with left-sided weakness and a fall. Patient has a past medical history of coronary artery disease, CVA, diabetes mellitus, hyperlipidemia, hypertension, myocardial infarction and renal disease. Patient does have evidence of PFO by bubble study that is documented from previous admission. The patient is currently on Eliquis, Plavix, and pravastatin 80 mg. Neurology is on consult and consulted vascular surgery for reported right ICA stenosis. The patient suffered from a stroke in June 2020. He was recently hospitalized in March of this year for complaints of left upper and lower extremity weakness along with left facial drooping. Patient states he had been undergoing physical therapy with some improvement in the weakness in his extremities. He states however yesterday he had increased weakness in his left lower extremity and suffered a fall. He did have some slurring of his speech he stated. The patien t had a CT of the brain that showed no acute intracranial hemorrhage, mass effect or midline shift seen. The patient also underwent a CT angiogram of the head and neck which showed no large vessel occlusion, hemodynamically significant stenosis or aneurysm in the head. Arthrosclerotic disease of the bilateral common and internal carotid arteries with approximately 70% stenosis of the proximal left ICA and less than 50% stenosis of the cervical right ICA. Arthrosclerotic disease proximal right vertebral artery with moderate stenosis. This is no change from his previous CT angiogram done in March of this year. Apparently the patient has residual left extremity weakness from his previous CVA. MRI and EEG is currently pending. Patient states his speech is improved today no difficulty with swallowing. He has no vision changes. He just underwent MRI and EEG. He states the left lower extremity feels like there is some increased weakness today. [facility] and he sees Dr. 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 Review of Systems A 14 point review of systems was completed and all pertinent positives and negatives as stated in the HPI. Past Medical History Past Medical History: Coronary Artery Disease (CAD), CVA/TIA, Diabetes Mellitus, Hyperlipidemia, Hypertension, Myocardial Infarction ([place]), Renal Disease Additional Past Medical History / Comment(s): herniated disks and chronic back issues, peripheral neuropathy Last Myocardial Infarction Date:: 06/30/2020 History of Any Multi-Drug Resistant Organisms: None Reported Past Surgical History: Appendectomy, Orthopedic Surgery Additional Past Surgical History / Comment(s): bilateral rotator cuff, bilateral knee scopes, neck fusion, left lower extremity bypass last year Past Anesthesia/Blood Transfusion Reactions: No Reported Reaction Past Psychological History: PTSD Smoking Status: Former smoker Past Alcohol Use History: None Reported Additional Past Alcohol Use History / Comment(s): Recent smoking cessation, previously one pack per day 20 years Past Drug Use History: None Reported - Past Family History Mother Family Medical History: Congestive Heart Failure (CHF), CVA/TIA, Myocardial Infarction ([place]) Father Family Medical History: Cancer Medications and Allergies Home Medications Medication Instructions Recorded Confirmed Type Carboxymethylcellulose Sodium 1 drop BOTH EYES QID PRN 07/10/20 05/08/21 History [Refresh Tears] DULoxetine HCL [Cymbalta] 20 mg PO DAILY 07/10/20 05/08/21 History Apixaban [Eliquis] 5 mg PO BID #60 tab 07/13/20 05/08/21 Rx Empagliflozin [Jardiance] 25 mg PO DAILY 03/28/21 05/08/21 History Metoprolol Succinate (ER) [Toprol 50 mg PO DAILY 03/28/21 05/08/21 History XL] Omeprazole 20 mg PO AC-SUPPER 03/28/21 05/08/21 History Pravastatin Sodium [Pravachol] 80 mg PO HS 03/28/21 05/08/21 History Clopidogrel [Plavix] 75 mg PO DAILY #30 tab 03/30/21 05/08/21 Rx Rosuvastatin [Crestor] 10 mg PO HS 05/08/21 05/08/21 History Sacubitril/Valsartan [Entresto 24 1 tab PO BID 05/08/21 05/08/21 History mg-26 mg Tablet] amLODIPine [Norvasc] 10 mg PO DAILY 05/08/21 05/08/21 History carvediloL [Coreg] 6.25 mg PO BID 05/08/21 05/08/21 History Allergies Allergy/AdvReac Type Severity Reaction Status Date / Time atorvastatin AdvReac Liver Verified 05/08/21 16:47 Enzymes Abnormal & Muscle Pain simvastatin AdvReac Liver Verified 05/08/21 16:47 Enzymes Abnormal & Muscle Pain Surgical - Exam Vital Signs Temp Pulse Resp BP Pulse Ox 97.8 F 59 L 18 162/97 99 05/08/21 15:11 05/08/21 15:11 05/08/21 15:11 05/08/21 15:11 05/08/21 15:11 General appearance: The patient is alert, oriented, in no acute distress. HET: Head is normocephalic and atraumatic. Pupils are equal and reactive. Neck: Supple without lymphadenopathy. Trachea midline. Heart: S1 S2. Regular rate and rhythm. Lungs: Clear to auscultation. Abdomen: Soft, nontender, nondistended. Extremities: Normal skin color and turgor. Bilateral lower extremity +1 edema. Palpable DP pulses bilaterally. Neurological: Patient is alert and oriented 3. Left facial droop, tongue protrudes midline, speech is fluent. Patient is able to answer questions appropriately and follows commands. Good strength and tone on the right upper and lower extremity. Left upper extremity patient is able to lift was somewhat limited mobility, left grasp 1/5. Left lower extremity with decreased strength, able to lift off the bed approximately 20. Results - Labs 05/09/21 06:04 05/09/21 06:04 Abnormal Lab Results - Last 24 Hours (Table) 05/08/21 05/08/21 05/08/21 Range/Units 15:21 15:27 16:02 RBC 3.75 L (4.30-5.90) m/uL Hgb 11.4 L (13.0-17.5) gm/dL Hct 32.9 L (39.0-53.0) % APTT (22.0-30.0) sec Sodium 136 L (137-145) mmol/L Chloride 108 H (98-107) mmol/L Carbon Dioxide 18 L (22-30) mmol/L BUN 34 H (9-20) mg/dL Creatinine 1.50 H (0.66-1.25) mg/dL Glucose 161 H (74-99) mg/dL POC Glucose (mg/dL) 159 H (75-99) mg/dL Magnesium (1.6-2.3) mg/dL Total Protein 5.9 L (6.3-8.2) g/dL Albumin 3.3 L (3.5-5.0) g/dL 05/08/21 05/08/21 05/09/21 Range/Units 16:02 17:36 06:04 RBC (4.30-5.90) m/uL Hgb (13.0-17.5) gm/dL Hct (39.0-53.0) % APTT 21.9 L (22.0-30.0) sec Sodium 135 L (137-145) mmol/L Chloride 108 H (98-107) mmol/L Carbon Dioxide 21 L (22-30) mmol/L BUN 32 H (9-20) mg/dL Creatinine 1.61 H (0.66-1.25) mg/dL Glucose 222 H (74-99) mg/dL POC Glucose (mg/dL) 146 H (75-99) mg/dL Magnesium 2.4 H (1.6-2.3) mg/dL Total Protein 5.6 L (6.3-8.2) g/dL Albumin 3.0 L (3.5-5.0) g/dL 05/09/21 05/09/21 Range/Units 06:04 09:05 RBC 3.61 L (4.30-5.90) m/uL Hgb 11.0 L (13.0-17.5) gm/dL Hct 32.1 L (39.0-53.0) % APTT (22.0-30.0) sec Sodium (137-145) mmol/L Chloride (98-107) mmol/L Carbon Dioxide (22-30) mmol/L BUN (9-20) mg/dL Creatinine (0.66-1.25) mg/dL Glucose (74-99) mg/dL POC Glucose (mg/dL) 167 H (75-99) mg/dL Magnesium (1.6-2.3) mg/dL Total Protein (6.3-8.2) g/dL Albumin (3.5-5.0) g/dL Diabetes panel 05/08/21 05/09/21 Range/Units 15:27 06:04 Sodium 136 L 135 L (137-145) mmol/L Potassium 3.9 3.6 (3.5-5.1) mmol/L Chloride 108 H 108 H (98-107) mmol/L Carbon Dioxide 18 L 21 L (22-30) mmol/L BUN 34 H 32 H (9-20) mg/dL Creatinine 1.50 H 1.61 H (0.66-1.25) mg/dL Glucose 161 H 222 H (74-99) mg/dL Calcium 8.7 8.5 (8.4-10.2) mg/dL AST 22 23 (17-59) U/L ALT 15 14 (4-49) U/L Alkaline Phosphatase 90 94 (38-126) U/L Total Protein 5.9 L 5.6 L (6.3-8.2) g/dL Albumin 3.3 L 3.0 L (3.5-5.0) g/dL Calcium panel 05/08/21 05/09/21 Range/Units 15:27 06:04 Calcium 8.7 8.5 (8.4-10.2) mg/dL Phosphorus 3.7 (2.5-4.5) mg/dL Albumin 3.3 L 3.0 L (3.5-5.0) g/dL Pituitary panel 05/08/21 05/09/21 Range/Units 15:27 06:04 Sodium 136 L 135 L (137-145) mmol/L Potassium 3.9 3.6 (3.5-5.1) mmol/L Chloride 108 H 108 H (98-107) mmol/L Carbon Dioxide 18 L 21 L (22-30) mmol/L BUN 34 H 32 H (9-20) mg/dL Creatinine 1.50 H 1.61 H (0.66-1.25) mg/dL Glucose 161 H 222 H (74-99) mg/dL Calcium 8.7 8.5 (8.4-10.2) mg/dL Adrenal panel 05/08/21 05/09/21 Range/Units 15:27 06:04 Sodium 136 L 135 L (137-145) mmol/L Potassium 3.9 3.6 (3.5-5.1) mmol/L Chloride 108 H 108 H (98-107) mmol/L Carbon Dioxide 18 L 21 L (22-30) mmol/L BUN 34 H 32 H (9-20) mg/dL Creatinine 1.50 H 1.61 H (0.66-1.25) mg/dL Glucose 161 H 222 H (74-99) mg/dL Calcium 8.7 8.5 (8.4-10.2) mg/dL Total Bilirubin 0.3 0.2 (0.2-1.3) mg/dL AST 22 23 (17-59) U/L ALT 15 14 (4-49) U/L Alkaline Phosphatase 90 94 (38-126) U/L Total Protein 5.9 L 5.6 L (6.3-8.2) g/dL Albumin 3.3 L 3.0 L (3.5-5.0) g/dL - Imaging Comments: See HPI for details Assessment and Plan Assessment: 1. Left upper extremity weakness 2. Left ICA stenosis approximately 70%, right ICA stenosis less than 50% per CT angiogram head and neck 3. History of CVA with residual left-sided weakness 4. History of coronary artery disease 5. History of hyperlipidemia and hypertension 6. Former Tobacco abuse 7. Diabetes mellitus Plan: 1. Obtain carotid duplex 2. Await MRI/EEG results 3. Continue Plavix and statin 4. Appreciate further recommendations from neurology 5. Further recommendations forthcoming per vascular surgeon pending results of MRI and carotid duplex Thank you for this consultation and allowing us take part in the plan of care of your patient during his hospital stay. The impression and plan of care has been dictated as directed. Dr. Calle I performed a history and examination of this patient, discussed the same with the dictator. I agree with the dictator's note ,documented as a scribe. Any additional findings or plans will be noted.
--- NOTE | 2021-05-09 15:39 | US ---
EXAMINATION TYPE: US carotid duplex BILAT DATE OF EXAM: 05/09/2021 COMPARISON: CTA CLINICAL HISTORY: left upper extremity weakness, possible CVA. EXAM MEASUREMENTS: RIGHT: Peak Systolic Velocity (PSV) cm/sec ----- Right CCA: 91.9 ----- Right ICA: 85.3 ----- Right ECA: 198.8 ICA/CCA ratio: 0.9 RIGHT: End Diastole cm/sec ----- Right CCA: 12.8 ----- Right ICA: 11.5 ----- Right ECA: 17.4 LEFT: Peak Systolic Velocity (PSV) cm/sec ----- Left CCA: 86.2 ----- Left ICA: 193.7 ----- Left ECA: 144.4 ICA/CCA ratio: 2.2 LEFT: End Diastole cm/sec ----- Left CCA: 17.6 ----- Left ICA: 57.7 ----- Left ECA: 18.3 VERTEBRALS (direction of flow): Right Vertebral: Antegrade Left Vertebral: Antegrade Rhythm: Normal No elevated velocities seen in right ICA, left shows some mild velocity increase. Moderate atheroscle rotic changes. IMPRESSION: 1. There is atherosclerotic changes with approximate 50-69% stenosis involving the proximal left ICA Criteria for Assigning % of Stenosis / Diameter reduction (Estimation based on the indirect measurements of the internal carotid artery velocities (ICA PSV). 1. Normal (no stenosis)=ICA PSV < 125 cm/s: ratio < 2.0: ICA EDV<40 cm/s. 2. Less than 50% stenosis=ICA PSV < 125 cm/s: ratio < 2.0: ICA EDV<40 cm/s. 3. 50 to 69% stenosis=ICA PSV of 125 to 230 cm/s: ration 2.0 ? 4.0: ICA EDV 40-100 cm/s. 4. Greater than 70% stenosis to near occlusion= ICA PSV > 230 cm/s: ratio > 4.0: ICA EDV > 100 cm/s. 5. Near occlusion= ICA PSV velocities may be low or undetectable: variable ratio and ICA EDV. 6. Total occlusion=unable to detect flow.
[2021-05-09] MEDS: PANTOPRAZOLE 40 MG TABLET PO SCH (17:19)
[2021-05-09 17:24] LABS: Glucose,Whole Blood 272 mg/dL (75-99)
[2021-05-09] MEDS: SODIUM CHLORIDE 0.9% 1,000 ML IV SCH ×2 (18:49→23:45)
[2021-05-09 20:18] LABS: Glucose,Whole Blood 178 mg/dL (75-99)
--- NOTE | 2021-05-09 20:36 | CONS ---
CONSULTATION This is a 55-year-old gentleman who has most of his care in the [facility], has presented to the emergency room with complaints of having felt weak in his left leg and lost control and fell. Patient insists that he did not lose consciousness, and clinically there is no evidence to suggest any syncope at all. He is resting comfortably without symptoms. He was seen and evaluated by Dr. Bragg in June of this year. At that time ejection fraction was about 25%. He had significant triple-vessel disease and was seen by Cardiac Surgery, advised to follow up, and since then he went on to [facility] in [place] and had a full evaluation. According to the patient, he was advised continued medical therapy without any surgical intervention since his LV function has improved and his triple-vessel disease was best treated, according to him, by medical therapy only. He has not had angina. He is comfortable. He also complained of mostly weakness in the left leg and did not quite lose consciousness. His investigation so far does not suggest any acute CVA at this time. I am awaiting further input from Neurology. From a cardiac standpoint he also has other comorbid conditions in the form of a PFO, but there was no evidence to suggest any DVT. He has chronic kidney disease, peripheral arterial disease, for which he had a left femoral- popliteal bypass in the past. He seems to be slightly dehydrated. He is asymptomatic for chest pain, does not have any neurological deficits that I can evaluate and he is resting comfortably without symptoms. PAST MEDICAL HISTORY: 1. CAD with triple-vessel disease. Advised medical therapy, according to the patient, at [facility]. 2. History of peripheral artery disease, status post left femoral-popliteal surgery in the past. 3. History of stroke and PFO without DVT, for which he was advised to be on anticoagulants. Details are unavailable. 4. History of chronic kidney disease. MEDICATIONS: Medications at home include: 1. Entresto 24/ one b.i.d. 2. Coreg 6.25 mg b.i.d. 3. Crestor 10 mg daily. 4. Amlodipine 10 mg daily. 5. Metoprolol succinate 50 mg daily. 6. Jardiance 25 mg daily. 7. Plavix 75 mg daily. 8. Eliquis 5 mg b.i.d. 9. He also takes omeprazole. ALLERGIES: There is a question of allergy to simvastatin, atorvastatin. PHYSICAL EXAMINATION: On examination, blood pressure is 130/70, pulse rate is 68 per minute, regular. HEENT unremarkable. Fundus was not examined by me. Neck is supple. No JVD. I do not hear a carotid bruit. Heart exam reveals S1, S2 with a short systolic murmur at the base. Second heart sound is preserved. Lungs are clear. Abdomen is soft, non-tender. Lower extremities reveal diminished pulses. Central nervous system: I did not do a detailed exam, but grossly no focal deficits. There is some weakness in the left leg noted. IMPRESSION: 1. History of cerebrovascular accident in the past. 2. Coronary artery disease, stable on medical therapy. 3. History of hypertension. 4. History of PFO with a previous stroke. 5. Chronic kidney disease. RECOMMENDATIONS: I am recommending that we will hydrate him cautiously, do a venous Doppler, check a troponin level additionally. No other intervention is necessary at this time. If his second troponin is unremarkable, from a cardiac standpoint no intervention is necessary. I do not believe we are dealing with any acute CVA, but I will await further input from Neurology. Thank you very much for the consult. MMODL / IJN: [id number] /
[2021-05-09 20:40] LABS: Chol/HDL Ratio 3.57 Ratio; LDL Cholesterol,Calculated 36.2 mg/dL (0.0-131.0)
--- NOTE | 2021-05-09 20:48 | EEG ---
ELECTROENCEPHALOGRAM REPORT DATE OF SERVICE: 05/09/2021 PREAMBLE: This is a 55-year-old male with possible syncope versus seizure. This study is performed to evaluate for any epileptiform activity. EEG FINDINGS: This is a 21-channel digital EEG recorded with video component, utilizing 10/20 international system with referential and bipolar montages. Background consists of well developed, well regulated, moderate voltage activity in 9 hertz alpha. Background is posterior-dominant and is reactive to eye opening and closing. Significant myogenic activity was seen in bilateral temporal regions intermittently. Photic stimulation was not performed. Hyperventilation was not done. Some drowsiness was seen with appearance of bilaterally symmetric theta frequency rhythm. Deeper stages of sleep were not seen. No focal or generalized epileptiform activity was seen. IMPRESSION: This is a normal awake and drowsy EEG. No focal, lateralized or epileptiform activity was seen. MMODL / IJN: [id number] /
[2021-05-09] MEDS: SACUBITRIL/VALSARTAN 24 MG-26 MG TABLET PO SCH (22:12)
[2021-05-10 06:10] LABS: Glucose,Whole Blood 264 mg/dL (75-99)
[2021-05-10] MEDS: INSULIN ASPART (NovoLOG) 100 UNIT/ML VIAL SQ SCH ×4 (06:23→20:09)
[2021-05-10] MEDS: amLODIPine 10 MG TAB PO SCH (09:00)
[2021-05-10] MEDS: SACUBITRIL/VALSARTAN 24 MG-26 MG TABLET PO SCH ×2 (09:00→20:58)
[2021-05-10] MEDS: APIXABAN 5 MG TAB PO SCH ×2 (09:00→20:08)
[2021-05-10] MEDS: METOPROLOL SUCCINATE (ER) 50 MG TAB.ER.24H PO SCH (09:00)
[2021-05-10] MEDS: CLOPIDOGREL 75 MG TAB PO SCH (09:00)
[2021-05-10] MEDS: DULoxetine HCL 20 MG CAPSULE.DR PO SCH (09:00)
[2021-05-10] MEDS: ASPIRIN 81 MG PO SCH (09:00)
[2021-05-10] MEDS: SODIUM CHLORIDE 0.9% 1,000 ML IV SCH ×2 (09:01→20:08)
[2021-05-10] MEDS: NON FORMULARY DRUG (Empagliflozin [Jardiance] 25 MG Tablet) PO SCH (09:01)
[2021-05-10 11:57] LABS: Glucose,Whole Blood 168 mg/dL (75-99)
[2021-05-10 12:40] LABS: Calcium 8.7 mg/dL (8.4-10.2); Potassium 3.9 mmol/L (3.5-5.1)
--- NOTE | 2021-05-10 13:10 | P.PN ---
Subjective Progress Note Date: 05/10/21 Hospital course: Patient is a pleasant 55-year-old male who presents to the ER with his . Patient has an extensive medical history which includes PFO noted on PRATIMA in June 2020, [id number] diabetes mellitus with hemoglobin A1c of 7.1, hyperlipidemia, hypertension, CKD stage III, and left arm weakness secondary to prior CVA. patient presented to the hospital on05/08/21 with a chief complaint of increased left upper and lower extremity weakness followed by reports of syncopal episode/loss of consciousness along with loss of bladder control. Per reports patient was unable to get up to the floor secondary to increased left upper and lower extremity weakness. Upon arrival to the emergency department initial NIH was 6. Patient was admitted under our services with consultation to neurology and cardiology. CT head negative for acute intercranial process.CTA head and neck negative for large vessel occlusion or hemodynamically significant stenosis or aneurysm in the head; revealing atherosclerotic disease of the bilateral common and internal carotid arteries with approximately 70% stenosis of the proximal left ICA and less than 50% stenosis of the cervical right ICA; atherosclerotic disease proximal right vertebral artery with moderate stenosis. EKG revealed sinus bradycardia at 57 bpm with no noted T-wave or ST abnormalities showing no signs of acute ischemia. Chest x-ray negative for acute cardiopulmonary process. Echocardiogram completed revealing a normal EF between 55 and 60% with no significant valvular abnorm alities. EEG normal awake and drowsy EEG with no focal, lateralized, or eliptiform activity noted. Carotid Dopplers reporting moderate atherosclerotic changes with approximate 50-69% stenosis involving the proximal left ICA. MRI brain with and without contrast revealing increasing acute ischemic changes throughout the right centrum semiovale compared to prior study and additional chronic appearing white matter changes. Bilateral lower extremity Dopplers negative for DVT. Vascular surgery also consulted. Physical exam: Patient seen and fully evaluated at the bedside this morning. He reports increased weakness and left upper extremity and slight improvement of left lower extremity. He continues to deny having any other complaints including headache, lightheadedness, dizziness, chest pain, palpitations, shortness of breath, difficulties with or changes in his speech, dysphasia, nausea, vomiting, or experiencing any difficulties with urinary or bowel function. Discussed with patient benefits of inpatient rehabilitation center upon discharge. Consult placed for Dr. Chambers for evaluation for inpatient rehabilitation center. Vital signs reviewed and stable. General: Nontoxic, no distress and appears stated age. Derm: Skin warm and dry, normal coloration for ethnicity. Head: Atraumatic, normocephalic and symmetric. Eyes: No lid lag, and anicteric sclera. Mouth: no lip lesions, mucus membranes moist. Cardiovascular: regular rate and rhythm with normal S1S2, no murmur, positive posterior tibial pulses bilaterally, and cap refill < 2 seconds. Lungs: Respirations even, regular, and unlabored on room air. Lungs CTA bilaterally, no rhonchi, no rales, no wheezing, and no accessory muscle usage. Abdominal: soft, nontender to palpation, no guarding, no appreciable organomegaly Ext: No gross muscle atrophy, no edema, no contractures Neuro: Speech clear, face symmetrical , GCS 15, patient with left upper extremity weakness in which he reports is worse than baseline and continued left lower extremity weakness. Sensation remains equal and intact to bilateral upper and lower extremities. Psych: Alert and oriented to person, place, time, and situation. Appropriate and pleasant affect. Assessment and Plan of Care: Acute ischemic CVA with increased left upper and lower extremity weakness, recurrent CVA involving right MCA Syncopal episode -CT head negative for acute intercranial process. -CTA head and neck negative for large vessel occlusion or hemodynamically significant stenosis or aneurysm in the head; revealing atherosclerotic disease of the bilateral common and internal carotid arteries with approximately 70% stenosis of the proximal left ICA and less than 50% stenosis of the cervical right ICA; atherosclerotic disease proximal right vertebral artery with moderate stenosis. -Neurology following, appreciate recommendations -Neuro checks every 2 hours -EEG normal awake and drowsy EEG with no focal, lateralized, or eliptiform activity noted. -Carotid Dopplers reporting moderate atherosclerotic changes with approximate 50-69% stenosis involving the proximal left ICA. -MRI brain with and without contrast revealing increasing acute ischemic changes throughout the right centrum semiovale compared to prior study and additional chronic appearing white matter changes. -Bilateral lower extremity Dopplers negative for DVT. -Echocardiogram revealing normal EF between 55 and 60% with no significant valvular abnormalities. -PT/OT -Daily aspirin, Plavix, and pravastatin. -Vascular surgery following, appreciate further recommendations. History of PFO seen on PRATIMA June 2020 possible cause or contributing factor to recurrent CVA -Consult cardiology -Echocardiogram completed revealing a normal EF between 55 and 60% with no significant valvular abnormalities. [id number] diabetes mellitus -Glycemic protocol with NovoLog sliding scale -Hemoglobin A1c at 7.1% done on 03/29/2021 History of multivessel coronary artery disease -Per cardiac cath 07/12/2020 reporting a multivessel coronary artery disease with elevated left-sided filling pressures in which cardiology recommended aggressive risk factor modification and optimizing heart failure regimen, cardiothoracic surgery was consulted for possible CABG however at that time it was deemed not ideal. -Continue home medication management consisting of Eliquis, amlodipine, aspirin, Plavix, metoprolol and pravastatin CKD stage III creatinine stable at 1.58 -Monitor BUN and creatinine Hypertension -Monitor vital signs and continue daily medication regimen. Hyperlipidemia -Continue daily medication regimen with pravastatin 80 mg nightly. CODE STATUS: Full code DVT prophylaxis: Ekaterina Discussed with: Patient and RN Anticipated discharge date: Clinical course to determine Anticipated discharge place: Home A total of 45 minutes was spent on the care of this complex patient more than 50% of the time was spent in counseling and care coordination. Objective - Vital Signs Vital signs: Vital Signs Temp 97.9 F 05/10/21 04:00 Pulse 65 05/10/21 04:00 Resp 16 05/10/21 04:00 BP 168/75 05/10/21 04:00 Pulse Ox 97 05/10/21 04:00 Intake & Output 05/09/21 05/10/21 05/10/21 18:59 06:59 18:59 Intake Total 540 Output Total 1155 Balance -615 Weight 93.5 kg Intake: Oral 540 Output: Urine 1155 Other: Voiding Method External Catheter - Labs CBC & Chem 7: 05/09/21 06:04 05/10/21 12:02 Labs: Abnormal Lab Results - Last 24 Hours (Table) 05/09/21 05/09/21 05/09/21 Range/Units 06:04 09:05 17:08 POC Glucose (mg/dL) 167 H 272 H (75-99) mg/dL Triglycerides 330.00 H (0.00-149.00) mg/dL VLDL Cholesterol, Calc 66.00 H (5.00-40.00) mg/dL HDL Cholesterol 39.80 L (40.00-60.00) mg/dL 05/09/21 05/10/21 Range/Units 20:17 06:09 POC Glucose (mg/dL) 178 H 264 H (75-99) mg/dL Triglycerides (0.00-149.00) mg/dL VLDL Cholesterol, Calc (5.00-40.00) mg/dL HDL Cholesterol (40.00-60.00) mg/dL
--- NOTE | 2021-05-10 13:15 | P.CONS ---
History of Present Illness - Chief Complaint Date disturbance, left hemiplegia - History of Present Illness I had the opportunity to see patient for inpatient rehab consultation with regard to gait disturbance. Patient admitted to [facility] May 08 with seizure and/or syncope/loss of consciousness. Does admit to left-sided weakness. Seen by neurology, Dr. Brody son who diagnosed right MCA infarct. Seen by surgery, Dr. Eubanks. Initial head CT negative as was chest x-ray and venous Doppler. Angiogram CT demonstrates 70% occlusion left ICA and 50% right. Brain MRI demonstrated infarct right centrum semiovale as well as chronic white matter change. Carotid Doppler with 50-70% stenosis left internal carotid. PT, OT, RESEARCH MICROBIOLOGIST all prescribed. Previous functional history as elicited from patient: 55-year-old right-handed white male who is lives in one floor home with and daughter. Patient retired as his . does cooking, laundry, driving. Daughter works full-time. Patient describes independent with own standing shower and gait with standard cane. [facility] Patient has history of tobacco and alcohol but not currently. Review of Systems Review of systems: ENT: Denies sneezes or discharge. Eyes: Denies discharge or photophobia. Cardiac: Denies chest pain or palpitation. Pulmonary: Denies cough or shortness of breath. Gastrointestinal: Denies nausea, emesis, constipation, diarrhea. Genitourinary: Denies discharge or frequency. Musculoskeletal: Denies muscle or bone aches. Neurologic: Left-sided weakness and numbness. Endocrine: Denies shakes or sweats. Oncology: Denies cancers. Dermatologic: Denies rash, itching, pruritus. ALLERGY/immunology: Denies sneezes, rashes. Past Medical History Past Medical History: Coronary Artery Disease (CAD), CVA/TIA, Diabetes Mellitus, Hyperlipidemia, Hypertension, Myocardial Infarction (ME), Renal Disease Additional Past Medical History / Comment(s): herniated disks and chronic back issues, peripheral neuropathy Last Myocardial Infarction Date:: 06/30/2020 History of Any Multi-Drug Resistant Organisms: None Reported Past Surgical History: Appendectomy, Orthopedic Surgery Additional Past Surgical History / Comment(s): bilateral rotator cuff, bilateral knee scopes, neck fusion, left lower extremity bypass last year Past Anesthesia/Blood Transfusion Reactions: No Reported Reaction Past Psychological History: PTSD Smoking Status: Former smoker Past Alcohol Use History: None Reported Additional Past Alcohol Use History / Comment(s): Recent smoking cessation, previously one pack per day 20 years Past Drug Use History: None Reported - Past Family History Mother Family Medical History: Congestive Heart Failure (CHF), CVA/TIA, Myocardial Infarction (ME) Father Family Medical History: Cancer Medications and Allergies Home Medications Medication Instructions Recorded Confirmed Type Carboxymethylcellulose Sodium 1 drop BOTH EYES QID PRN 07/10/20 05/08/21 History [Refresh Tears] DULoxetine HCL [Cymbalta] 20 mg PO DAILY 07/10/20 05/08/21 History Apixaban [Eliquis] 5 mg PO BID #60 tab 07/13/20 05/08/21 Rx Empagliflozin [Jardiance] 25 mg PO DAILY 03/28/21 05/08/21 History Metoprolol Succinate (ER) [Toprol 50 mg PO DAILY 03/28/21 05/08/21 History XL] Omeprazole 20 mg PO AC-SUPPER 03/28/21 05/08/21 History Pravastatin Sodium [Pravachol] 80 mg PO HS 03/28/21 05/08/21 History Clopidogrel [Plavix] 75 mg PO DAILY #30 tab 03/30/21 05/08/21 Rx Rosuvastatin [Crestor] 10 mg PO HS 05/08/21 05/08/21 History Sacubitril/Valsartan [Entresto 24 1 tab PO BID 05/08/21 05/08/21 History mg-26 mg Tablet] amLODIPine [Norvasc] 10 mg PO DAILY 05/08/21 05/08/21 History carvediloL [Coreg] 6.25 mg PO BID 05/08/21 05/08/21 History Allergies Allergy/AdvReac Type Severity Reaction Status Date / Time atorvastatin AdvReac Liver Verified 05/08/21 16:47 Enzymes Abnormal & Muscle Pain simvastatin AdvReac Liver Verified 05/08/21 16:47 Enzymes Abnormal & Muscle Pain Physical Exam Vitals: Vital Signs Temp Pulse Pulse Resp BP BP Pulse Ox 05/10/21 12:00 67 16 167/73 98 05/10/21 08:00 98.1 F 73 16 163/81 97 05/10/21 04:00 97.9 F 65 16 168/75 97 05/10/21 00:00 97.9 F 68 16 158/72 97 05/09/21 20:00 97.5 F L 64 18 158/65 98 05/09/21 16:59 74 16 180/86 98 05/09/21 14:59 70 18 163/87 98 Intake and Output 05/09/21 05/10/21 05/10/21 22:59 06:59 14:59 Intake Total 540 Output Total 120 1035 1200 Balance -120 -495 -1200 Intake: Oral 540 Output: Urine 120 1035 1200 Other: Voiding Method External Catheter External Catheter External Catheter # Bowel Movements 0 Weight 93.5 kg Skin: Good color, texture, turgor. General: Medium build and comfortable appearance. Head: Normocephalic, atraumatic. Eyes: Symmetric. Pupils equal round. Ears: Symmetric. Hearing within normal limits. Mouth: Clear. Neck: Supple. Carotid without bruit. Cardiac: Regular rate and rhythm. Lungs: Clear anteriorly and posteriorly. Abdomen: Soft active nontender. Extremities: Normal tone. Neurological: Mental status: Alert, cooperative, pleasant. Cranial nerves: Symmetric facial tone and trapezius. Motor: Normal strength and isolation right side. Left arm plegic and left leg in extension synergy. Sensation: Intact throughout. DTRs: Symmetric and equal throughout. Mobility: Patient reports hands-on assistance when up and ambulating in room, using a roller walker. Results CBC & Chem 7: 05/09/21 06:04 05/10/21 12:02 Labs: Abnormal Lab Results - Last 24 Hours (Table) 05/09/21 05/09/21 05/09/21 Range/Units 06:04 17:08 20:17 Sodium (137-145) mmol/L Chloride (98-107) mmol/L BUN (9-20) mg/dL Creatinine (0.66-1.25) mg/dL Glucose (74-99) mg/dL POC Glucose (mg/dL) 272 H 178 H (75-99) mg/dL Triglycerides 330.00 H (0.00-149.00) mg/dL VLDL Cholesterol, Calc 66.00 H (5.00-40.00) mg/dL HDL Cholesterol 39.80 L (40.00-60.00) mg/dL 05/10/21 05/10/21 05/10/21 Range/Units 06:09 11:51 12:02 Sodium 136 L (137-145) mmol/L Chloride 108 H (98-107) mmol/L BUN 26 H (9-20) mg/dL Creatinine 1.58 H (0.66-1.25) mg/dL Glucose 153 H (74-99) mg/dL POC Glucose (mg/dL) 264 H 168 H (75-99) mg/dL Triglycerides (0.00-149.00) mg/dL VLDL Cholesterol, Calc (5.00-40.00) mg/dL HDL Cholesterol (40.00-60.00) mg/dL Assessment and Plan (1) Stroke Current Visit: Yes Status: Acute Code(s): I63.9 - CEREBRAL INFARCTION, UNSPECIFIED SNOMED Code(s): 541982792 Plan: Impression: 1. Gait disturbance due to stroke result in left hemiparesthesias. 2. Hypertension. 3. Distal edema. 4. Diabetes. 5. Coronary disease with history of ME. 6. History of stroke. 7. Chronic kidney disease. Comments and plan: At this time PT, OT, RESEARCH MICROBIOLOGIST all ordered. We'll required her notes for any possible inpatient rehab, which seems likely at this time. This was discussed with patient and he seems agreeable if necessary. Should note that [place] [facility].
--- NOTE | 2021-05-10 13:32 | P.PN ---
Subjective HISTORY OF PRESENTING ILLNESS This is a pleasant 55-year-old male past medical history significant for CVA in 06/2020 and 03/2021, PFO, triple vessel coronary artery disease, ischemic cardiomyopathy, peripheral vascular disease status post left lower extremity bypass, diabetes mellitus, chronic nicotine dependence, and dyslipidemia. Patient apparently saw cardiothoracic surgery at [facility] and it was recommended for medical therapy and not to proceed with CABG. The follows in the [facility] for his medical needs. We have been asked to see in consultation for PFO. Patient presents to the emergency department 05/09/21 with increased left upper and lower extremity weakness followed by reports of syncopal episode/loss of consciousness along with loss of bladder control. He was admitted to the hospital in 06/2020 and seen by Cardiology, an echocardiogram was obtained revealing impaired LV systolic function with ej ection fraction 25-30%, mildly dilated left atrium and mild mitral regurgitation. He underwent a PRATIMA and Cardiac catheterization with Dr. Alcaraz. Patient did not follow up in the office as an outpatient. Transesophageal echocardiogram demonstrated EF 30-35%, mild mitral regurgitation, trace tricus pid regurgitation, evidence of small PFO, no clot in the left atrial appendage. Heart catheterization revealed triple-vessel coronary artery disease with mid LAD stenosis 50-60%, distal LAD 80%, first diagonal 50%, second diagonal 90%, mid circumflex 80%, distal circumflex 100% with left to left collaterals, proximal RCA 80%, mid RCA 70%, distal RCA 50-60%, PDA 80-90%. 05/10/2021: Patient seen and examined at bedside. He endorses continued weakness to let upper extremity. He denies any chest pain, shortness of breath. Telemetry reviewed, patient maintaining sinus mechanims HR 60s. Echocardiogram revealed improvement in EF 5560% EEG normal awake and drowsy EEG with no focal, lateralized, or eliptiform activity noted. Carotid Dopplers reporting moderate atherosclerotic changes with approximate 50- 69% stenosis involving the proximal left ICA. MRI brain with and without contrast revealing increasing acute ischemic changes throughout the right centrum semiovale compared to prior study and additional chronic appearing white matter changes. Bilateral lower extremity Dopplers negative for DVT. LABS: Sodium 136, potassium 3.9, BUN 26, serum creatinine 1.58 MEDS: Amlodipine 10 mg daily, Eliquis 5 mg twice a day, aspirin milligrams daily, Plavix 75 mg daily, metoprolol succinate 50 mg daily, pravastatin 80 mg nightly, Entresto 25 mg26 mg BID PHYSICAL EXAMINATION Blood pressure 167/73, 67, afebrile and saturation 90% on room air CONSTITUTIONAL: No apparent distress. HEENT: Neck Supple. No JVD Bilateral carotid bruit. CHEST EXAMINATION: Clear bilaterally No rhonchi or wheezes. No chest wall tenderness is noted on palpation or with deep breathing. HEART EXAMINATION: Regular rate and rhythm. S1, S2 heard. No murmurs, gallops or rub. ABDOMEN: Soft, nontender. Positive bowel sounds. EXTREMITIES: 2+ peripheral pulses, no lower extremity edema and no calf tenderness. NEUROLOGIC EXAMINATION: Patient is awake, alert and oriented x3. ASSESSMENT Acute ischemic CVA with increased left upper and lower extremity weakness Triple vessel coronary artery disease History of Acute ischemic CVA in 06/2020 and 03/2021 Bilateral ICA stenosis PFO noted on PRATIMA in 06/2020, no evidence of DVT Chronic systolic heart failure Ischemic cardiomyopathy Hypertension Peripheral vascular disease Diabetes mellitus Dyslipidemia Chronic nicotine dependence Acute on chronic kidney disease PLAN From a cardiology perspective we will continue current medical therapy with Eliquis, Plavix. In regards to the PFO does not appear to be the only cause of acute ischemia, patient without evidence of DVT. We can address his PFO further after patient recovers from his acute CVA this admission. Continue telemetry, we are not seeing any evidence of atrial fibrillation at this time. Continue home cardiac medications, amlodipine, aspirin, metoprolol succinate, pravastatin, Entresto Further recommendations based on clinical course Nurse Practitioner note has been reviewed, I agree with a documented findings and plan of care. Patient was seen and examined. Objective - Vital Signs Vital signs: Vital Signs Temp 98.1 F 05/10/21 08:00 Pulse 67 05/10/21 12:00 Resp 16 05/10/21 12:00 BP 167/73 05/10/21 12:00 Pulse Ox 98 05/10/21 12:00 Intake & Output 05/09/21 05/10/21 05/10/21 18:59 06:59 18:59 Intake Total 540 720 Output Total 1155 1600 Balance -615 -880 Weight 93.5 kg Intake: Oral 540 720 Output: Urine 1155 1600 Other: Voiding Method External Catheter External Catheter # Bowel Movements 0 - Labs CBC & Chem 7: 05/09/21 06:04 05/10/21 12:02 Labs: Abnormal Lab Results - Last 24 Hours (Table) 05/09/21 05/09/21 05/09/21 Range/Units 06:04 17:08 20:17 Sodium (137-145) mmol/L Chloride (98-107) mmol/L BUN (9-20) mg/dL Creatinine (0.66-1.25) mg/dL Glucose (74-99) mg/dL POC Glucose (mg/dL) 272 H 178 H (75-99) mg/dL Triglycerides 330.00 H (0.00-149.00) mg/dL VLDL Cholesterol, Calc 66.00 H (5.00-40.00) mg/dL HDL Cholesterol 39.80 L (40.00-60.00) mg/dL 05/10/21 05/10/21 05/10/21 Range/Units 06:09 11:51 12:02 Sodium 136 L (137-145) mmol/L Chloride 108 H (98-107) mmol/L BUN 26 H (9-20) mg/dL Creatinine 1.58 H (0.66-1.25) mg/dL Glucose 153 H (74-99) mg/dL POC Glucose (mg/dL) 264 H 168 H (75-99) mg/dL Triglycerides (0.00-149.00) mg/dL VLDL Cholesterol, Calc (5.00-40.00) mg/dL HDL Cholesterol (40.00-60.00) mg/dL
[2021-05-10 14:05] LABS: Glucose,Whole Blood 220 mg/dL (75-99)
--- NOTE | 2021-05-10 14:33 | CT ---
EXAMINATION TYPE: CT brain wo con DATE OF EXAM: 05/10/2021 COMPARISON: 05/08/2021 HISTORY: Unresponsive CT DLP: 1091 mGycm Automated exposure control for dose reduction was used. FINDINGS: There is diffuse areas of abnormal attenuation the white matter which are nonspecific. No midline anastacia ft or mass effect. No acute hemorrhage. Orbits are symmetric. Calvarium intact. Craniocervical junction maintained. Sella turcica has a elliott l appearance. IMPRESSION: DEGENERATIVE AND NONSPECIFIC WHITE MATTER CHANGES MOST TYPICAL REMOTE ISCHEMIA. MORE PRONOUNCED AREA IN THE RIGHT PARIETAL WHITE MATTER LIKELY WAS PRESENT ON THE PRIOR EXAM AND ALSO IS LIKELY REMOTE. IF THERE IS CONCERN FOR ACUTE ISCHEMIA CORRELATE WITH MRI CLINICALLY WARRANTED.
--- NOTE | 2021-05-10 14:37 | XR ---
EXAMINATION TYPE: XR chest 1V DATE OF EXAM: 05/10/2021 COMPARISON: Chest x-ray 05/08/2021 HISTORY: Altered mental status, vomiting, rule out aspiration TECHNIQUE: Single frontal view of the chest is obtained. FINDINGS: Technique is somewhat apical lordotic and rotated. Cardiac mediastinal silhouette is stable . There is no evident pneumonia, pneumothorax, or pleural effusion. Right hemidiaphragm is elevated. There are overlying artifacts. IMPRESSION: No acute process.
--- NOTE | 2021-05-10 15:18 | P.PN ---
Subjective Progress Note Date: 05/10/21 Principal diagnosis: left ICA stenosis She was seen and examined sitting up in bed. No acute changes through the night. Patient still having left extremity weakness. Patient underwent a MRI of the brain showing increasing acute ischemic change to the right centrum semi- oval compared to prior study. Additional chronic appearing white matter changes remain present. His carotid Doppler shows arthrosclerotic changes with approximate 50-69% stenosis involving the proximal left ICA. No elevated velocities in the right ICA. EEG performed with the impression stating normal awake and drowsy EEG. No focal, lateralized or elective form activity seen. Patient also had a repeat CT of the brain today showing degenerative nonspecific white matter changes. Remote ischemia. More pronounced area the right parietal white matter likely was present on the prior examination also likely remote. If there is concern for acute ischemia correlate with MRI as clinically warranted. Objective - Vital Signs Vital signs: Vital Signs Temp 98.1 F 05/10/21 08:00 Pulse 67 05/10/21 12:00 Resp 16 05/10/21 12:00 BP 167/73 05/10/21 12:00 Pulse Ox 98 05/10/21 12:00 Intake & Output 05/09/21 05/10/21 05/10/21 18:59 06:59 18:59 Intake Total 540 720 Output Total 1155 1600 Balance -615 -880 Weight 93.5 kg Intake: Oral 540 720 Output: Urine 1155 1600 Other: Voiding Method External Catheter External Catheter # Bowel Movements 0 - Exam General appearance: The patient is alert, oriented, in no acute distress. HET: Head is normocephalic and atraumatic. Pupils are equal and reactive. Neck: Supple without lymphadenopathy. Trachea midline. Heart: S1 S2. Regular rate and rhythm. Lungs: Clear to auscultation. Abdomen: Soft, nontender, nondistended. Extremities: Normal skin color and turgor. Bilateral lower extremity +1 edema. Palpable DP pulses bilaterally. Neurological: Patient is alert and oriented 3. Left facial droop, tongue protrudes midline, speech is fluent. Patient is able to answer questions appropriately and follows commands. Good strength and tone on the right upper and lower extremity. Left upper extremity patient is able to lift was somewhat limited mobility, left grasp 1/5. Left lower extremity with decreased strength, able to lift off the bed approximately 20. - Labs CBC & Chem 7: 05/09/21 06:04 05/10/21 12:02 Labs: Abnormal Lab Results - Last 24 Hours (Table) 05/09/21 05/09/21 05/09/21 Range/Units 06:04 17:08 20:17 Sodium (137-145) mmol/L Chloride (98-107) mmol/L BUN (9-20) mg/dL Creatinine (0.66-1.25) mg/dL Glucose (74-99) mg/dL POC Glucose (mg/dL) 272 H 178 H (75-99) mg/dL Triglycerides 330.00 H (0.00-149.00) mg/dL VLDL Cholesterol, Calc 66.00 H (5.00-40.00) mg/dL HDL Cholesterol 39.80 L (40.00-60.00) mg/dL 05/10/21 05/10/21 05/10/21 Range/Units 06:09 11:51 12:02 Sodium 136 L (137-145) mmol/L Chloride 108 H (98-107) mmol/L BUN 26 H (9-20) mg/dL Creatinine 1.58 H (0.66-1.25) mg/dL Glucose 153 H (74-99) mg/dL POC Glucose (mg/dL) 264 H 168 H (75-99) mg/dL Triglycerides (0.00-149.00) mg/dL VLDL Cholesterol, Calc (5.00-40.00) mg/dL HDL Cholesterol (40.00-60.00) mg/dL 05/10/21 Range/Units 13:58 Sodium (137-145) mmol/L Chloride (98-107) mmol/L BUN (9-20) mg/dL Creatinine (0.66-1.25) mg/dL Glucose (74-99) mg/dL POC Glucose (mg/dL) 220 H (75-99) mg/dL Triglycerides (0.00-149.00) mg/dL VLDL Cholesterol, Calc (5.00-40.00) mg/dL HDL Cholesterol (40.00-60.00) mg/dL Assessment and Plan Assessment: 1. Left ICA stenosis approximately 70%, right ICA stenosis less than 50% per CT angiogram head and neck, carotid duplex estimating 50-69% left ICA stenosis with no hemodynamically significant stenosis in the right internal carotid artery 2. Acute recurrent ischemic stroke 3. History of CVA with residual left-sided weakness 4. History of coronary artery disease 5. History of hyperlipidemia and hypertension 6. Former Tobacco abuse 7. Diabetes mellitus Plan: 1. MRI, brain CT, carotid duplex reviewed 2. Continue Plavix and statin 3. Appreciate further recommendations from neurology 4. No indications for acute vascular surgical intervention on carotid arteries. This was discussed with the patient, recommend outpatient follow-up within the next 1-2 weeks. May need to consider possible patient angiogram for further evaluation and surgical recommendations. Thank you for this consultation and allowing us take part in the plan of care of your patient during his hospital stay. The impression and plan of care has been dictated as directed. Dr. Cordon I performed a history and examination of this patient, discussed the same with the dictator. I agree with the dictator's note ,documented as a scribe. Any additional findings or plans will be noted.
[2021-05-10 15:47] LABS: HCT 30.4 % (39.0-53.0); Hyperchromasia Slight; MCH 31.4 pg (25.0-35.0); MCHC 36.3 g/dL (31.0-37.0); MCV 86.6 fL (80.0-100.0); Mean Platelet Volume 7.5; Platelet Count 191 k/uL (150-450); RDW 13.5 % (11.5-15.5); WBC 8.1 k/uL (3.8-10.6)
[2021-05-10 16:02] LABS: INR 0.9 (<1.2); Partial Thromboplastin Time 23.4 sec (22.0-30.0); Prothrombin Time 9.9 sec (9.0-12.0)
[2021-05-10 16:36] LABS: Albumin 3.1 g/dL (3.5-5.0); Calcium 8.5 mg/dL (8.4-10.2); Magnesium 2.3 mg/dL (1.6-2.3); Total Bilirubin 0.3 mg/dL (0.2-1.3); Total Protein 5.6 g/dL (6.3-8.2)
[2021-05-10 17:20] LABS: Glucose,Whole Blood 172 mg/dL (75-99)
[2021-05-10] MEDS: PANTOPRAZOLE 40 MG TABLET PO SCH (17:41)
--- NOTE | 2021-05-10 19:10 | P.PN ---
Subjective Progress Note Date: 05/10/21 Patient apparently had another syncopal spell. At 1:55 PM, patient was assisted to commode and became almost unresponsive, followed by projectile emesis. The nurse checked her blood pressure shortly after, was 105/78. Patient was placed in the bed. His blood pressure did improve to 135/80. Stroke code was activated. Patient had a computed tomography scan, which revealed degenerative and nonspecific white matter changes most typical of remote ischemia. More pronounced area in the right parietal white matter likely was present on the prior exam and also is likely remote. There is concern for acute ischemia, correlate with MRI as clinically warranted. Patient continues to be left hemiplegic. I spoke to patient's on the phone. She states that patient has been on Eliquis for his cardiac reasons, initiated at [facility]. They were told that "blood thinners will prevent heart from having any problems in future". He never had any DVTs. She is not aware of any history of atrial fibrillation. Patient states that just before arrival to the hospital, he developed acute onset of weakness of the left arm and left leg, he could not move the arm or leg at all. Objective - Vital Signs Vital signs: Vital Signs Temp 98.1 F 05/10/21 08:00 Pulse 66 05/10/21 16:00 Resp 16 05/10/21 17:00 BP 176/87 05/10/21 16:00 Pulse Ox 94 L 05/10/21 17:00 Intake & Output 05/09/21 05/10/21 05/10/21 18:59 06:59 18:59 Intake Total 540 720 Output Total 1155 1600 Balance -615 -880 Weight 93.5 kg Intake: Oral 540 720 Output: Urine 1155 1600 Other: Voiding Method External Catheter External Catheter # Bowel Movements 0 - Exam Patient is a middle aged male, in no acute distress. Patient is alert awake oriented to time place and person. Speech and language functions are normal. Attention, concentration and fund of knowledge is adequate. On cranial examination, pupils are round and reacting to light, visual cotton reveal some neglect in the left sided visual cotton, left upper quadrant worse in the left lower quadrant. Patient's extraocular muscles are intact with no nystagmus. Patient has obvious left facial weakness, central type. His tongue protrudes to the midline. Palatal elevation and sensation normal, hearing and shoulder shrug normal, facial sensation normal. Shoulder shrug normal. On muscle strength testing, the strength is normal in the right arm and right leg. On the left side deltoid is 0, biceps 0, triceps 1, flare man 1. In the lower limb hip flexion 1, ankle dorsiflexion 0. Deep tendon reflexes are overall diminished and plantars are flat bilaterally. Sensory to touch is equal in the arms, but is apparently decreased in the left leg as compared to the right. He neglects left side on double simultaneous stimulation. Cerebellar function showed no ataxia for [id number] testing on the right, cannot check on the left. No dysdiadochokinesia. Tone of muscles is increased in the left side. Patient's of muscles normal. Gait not checked. On general examination, there is no carotid bruit or murmur, S1-S2 audible. Abdomen is soft nontender. Chest is clear. Peripheral pulses are present. No edema. - Labs CBC & Chem 7: 05/10/21 15:14 05/10/21 15:14 Labs: Abnormal Lab Results - Last 24 Hours (Table) 05/09/21 05/09/21 05/10/21 Range/Units 06:04 20:17 06:09 RBC (4.30-5.90) m/uL Hgb (13.0-17.5) gm/dL Hct (39.0-53.0) % Sodium (137-145) mmol/L Chloride (98-107) mmol/L Carbon Dioxide (22-30) mmol/L BUN (9-20) mg/dL Creatinine (0.66-1.25) mg/dL Glucose (74-99) mg/dL POC Glucose (mg/dL) 178 H 264 H (75-99) mg/dL Total Protein (6.3-8.2) g/dL Albumin (3.5-5.0) g/dL Triglycerides 330.00 H (0.00-149.00) mg/dL VLDL Cholesterol, Calc 66.00 H (5.00-40.00) mg/dL HDL Cholesterol 39.80 L (40.00-60.00) mg/dL 05/10/21 05/10/21 05/10/21 Range/Units 11:51 12:02 13:58 RBC (4.30-5.90) m/uL Hgb (13.0-17.5) gm/dL Hct (39.0-53.0) % Sodium 136 L (137-145) mmol/L Chloride 108 H (98-107) mmol/L Carbon Dioxide (22-30) mmol/L BUN 26 H (9-20) mg/dL Creatinine 1.58 H (0.66-1.25) mg/dL Glucose 153 H (74-99) mg/dL POC Glucose (mg/dL) 168 H 220 H (75-99) mg/dL Total Protein (6.3-8.2) g/dL Albumin (3.5-5.0) g/dL Triglycerides (0.00-149.00) mg/dL VLDL Cholesterol, Calc (5.00-40.00) mg/dL HDL Cholesterol (40.00-60.00) mg/dL 05/10/21 05/10/21 05/10/21 Range/Units 15:14 15:14 17:18 RBC 3.50 L (4.30-5.90) m/uL Hgb 11.0 L (13.0-17.5) gm/dL Hct 30.4 L (39.0-53.0) % Sodium 134 L (137-145) mmol/L Chloride 108 H (98-107) mmol/L Carbon Dioxide 20 L (22-30) mmol/L BUN 29 H (9-20) mg/dL Creatinine 1.61 H (0.66-1.25) mg/dL Glucose 141 H (74-99) mg/dL POC Glucose (mg/dL) 172 H (75-99) mg/dL Total Protein 5.6 L (6.3-8.2) g/dL Albumin 3.1 L (3.5-5.0) g/dL Triglycerides (0.00-149.00) mg/dL VLDL Cholesterol, Calc (5.00-40.00) mg/dL HDL Cholesterol (40.00-60.00) mg/dL Assessment and Plan Assessment: * Acute recurrent ischemic stroke involving right MCA vascular territory in the watershed zone of the right MCA territory. Exact cause remains uncertain. Patient does have stenosis of the right ICA but is only 50%, not critical. However it is symptomatic. * Recurrent syncope, likely due to orthostasis, which makes right hemispheric ischemia worse. * Hypertension * Diabetes * Hyperlipidemia * History of PFO, not underwent closure. * X tobacco use * Chronic back pain Plan: * Patient's current NIH stroke scale is 11. I reviewed CTA of head and neck with Dr. Walters, stroke neurologist professor of communication today. He agreed, there is evidence of possible short segment of severe stenosis or possible occlusion of the right ICA, in the intracranial portion. I discussed with him about possib ility of transfer to [facility], but states that no beds are available. I discussed about possibility of right ICA stenting, but he recommends only medical management at this time. Also recommends continuing Eliquis, dual antiplatelet medications including Plavix 75 mg and aspirin 81 mg. Permissive hypertension. He recommends follow-up with his office in 2 weeks for cerebral angiogram for definitive diagnosis of ICA stenosis/occlusion. * MRI of the brain with and without contrast from 05/09/2021 showed increasing acute ischemic change throughout the right centrum semiovale compared to prior study. Additional, chronic-appearing white matter changes. * EEG was normal, with no epileptiform activity. * Cardiology consulted for PFO, recommending duplex of bilateral lower e xtremity. Venous Doppler ultrasound negative for DVT in either lower limbs. * 2-D echo performed 05/09/2021 showed normal left-ventricular size. Moderate concentric LVH. EF is between 55-60%. Trace MR. (Apparently PFO was noticed in the PRATIMA on 07/12/2020). * Vascular surgery input appreciated. No surgical indication at this time, as there is no extracranial carotid stenosis on the right side. They are recommending outpatient cerebral angiogram. * Fasting lipid panel with cholesterol 142, LDL 36.2, HDL 39 and triglycerides 3:30. * Hemoglobin A1c 7.1 on 03/29/2021. * Continue Plavix 75 mg and Eliquis 5 mg twice a day. Patient has been also started on aspirin 81 mg daily, first dose today. Continue Pravachol 80 mg. * Start B12 injections 1000 g IM daily for 3 days for elevated MMA 0.45 (Normal <0.40). * Cardiology recommended ultrasound of bilateral lower legs. * Telemetry monitoring showing sinus rhythm, PACs, PVCs. During the vasovagal episode/stroke code today, patient went into a strange rhythm, which the groundwater monitoring technician was not sure if it was flutter/fibrillation. We will have cardiology evaluate the strip. * DVT prophylaxis, patient on Eliquis. * PT OT. * Discussed with patient's in detail, updated her about the patient's status. Time with Patient: Greater than 30
[2021-05-10 19:47] LABS: Glucose,Whole Blood 174 mg/dL (75-99)
[2021-05-10] MEDS: CYANOCOBALAMIN 1,000 MCG/ML 1 ML VIAL IM SCH (20:57)
[2021-05-10] MEDS: PRAVASTATIN SODIUM 80 MG TAB PO SCH (20:58)
[2021-05-11] MEDS ORDERED: MAG HYDROX/AL HYDROX/SIMETH 30 ML CUP PO STA (00:14)
[2021-05-11 06:17] LABS: Glucose,Whole Blood 196 mg/dL (75-99)
[2021-05-11] MEDS: INSULIN ASPART (NovoLOG) 100 UNIT/ML VIAL SQ SCH ×4 (06:30→20:51)
[2021-05-11] MEDS: CLOPIDOGREL 75 MG TAB PO SCH (08:31)
[2021-05-11] MEDS: METOPROLOL SUCCINATE (ER) 50 MG TAB.ER.24H PO SCH (08:31)
[2021-05-11] MEDS: ASPIRIN 81 MG PO SCH (08:31)
[2021-05-11] MEDS: APIXABAN 5 MG TAB PO SCH ×2 (08:32→20:51)
[2021-05-11] MEDS: DULoxetine HCL 20 MG CAPSULE.DR PO SCH (08:32)
[2021-05-11] MEDS: amLODIPine 10 MG TAB PO SCH (08:32)
[2021-05-11] MEDS: SACUBITRIL/VALSARTAN 24 MG-26 MG TABLET PO SCH ×2 (08:32→20:51)
[2021-05-11] MEDS: NON FORMULARY DRUG (Empagliflozin [Jardiance] 25 MG Tablet) PO SCH (08:33)
--- NOTE | 2021-05-11 11:42 | P.PN ---
Subjective Progress Note Date: 05/11/21 Hospital course: Patient is a pleasant 55-year-old male who presents to the ER with his . Patient has an extensive medical history which includes PFO noted on PRATIMA in June 2020, [id number]-qszzywsfr diabetes mellitus with hemoglobin A1c of 7.1, hyperlipidemia, hypertension, CKD stage III, and left arm weakness secondary to prior CVA. patient presented to the hospital on05/08/21 with a chief complaint of increased left upper and lower extremity weakness followed by reports of syncopal episode/loss of consciousness along with loss of bladder control. Per reports patient was unable to get up to the floor secondary to increased left upper and lower extremity weakness. Upon arrival to the emergency department initial NIH was 6. Patient was admitted under our services with consultation to neurology and cardiology. CT head negative for acute intercranial process.CTA head and neck negative for large vessel occlusion or hemodynamically significant stenosis or aneurysm in the head; revealing atherosclerotic disease of the bilateral common and internal carotid arteries with approximately 70% stenosis of the proximal left ICA and less than 50% stenosis of the cervical right ICA; atherosclerotic disease proximal right vertebral artery with moderate stenosis. EKG revealed sinus bradycardia at 57 bpm with no noted T-wave or ST abnormalities showing no signs of acute ischemia. Chest x-ray negative for acute cardiopulmonary process. Echocardiogram completed revealing a normal EF between 55 and 60% with no significant valvular abnorm alities. EEG normal awake and drowsy EEG with no focal, lateralized, or eliptiform activity noted. Carotid Dopplers reporting moderate atherosclerotic changes with approximate 50-69% stenosis involving the proximal left ICA. MRI brain with and without contrast revealing increasing acute ischemic changes throughout the right centrum semiovale compared to prior study and additional chronic appearing white matter changes. Bilateral lower extremity Dopplers negative for DVT. Vascular surgery also consulted. Repeat CT was completed 05/10/21 due to reports of patient having a vasovagal/syncopal event while sitting on the toilet followed by an episode of vomiting and loss of consciousness/syncopal event. RN was at bedside, reports patient did not fall over or hit his head, patient was safely assisted back into bed and a code stroke was called. Repeat CT did reveal degenerative and nonspecific white matter changes most typical remote ischemia, more pronounced area in the right parietal white matter likely was present on the prior exam and is also likely remote. Physical exam: Patient seen and fully evaluated at the bedside this morning. He continues to have left sided hemiparesis. Patient also slightly confused today stating that he thinks his arm and leg is not working because they keep "falling in and out of the socket ". Patient reoriented and informed her that his left upper and lower extremity weakness is the result of his stroke. Patient does recall talking to Dr. Chambers regarding inpatient rehabilitation. Patient is in ag reement at this time that this would be best for him. Patient continues to deny having a headache, lightheadedness, dizziness, changes in his vision or hearing, chest pain or palpitations, shortness of breath, difficulties with or changes in his speech, dysphasia, or any other complaints at this time. Arrangements being made for inpatient rehabilitation center placement. Morning labs reviewed. Vital signs stable. Vital signs reviewed and stable. General: Nontoxic, no distress and appears stated age. Derm: Skin warm and dry, normal coloration for ethnicity. Head: Atraumatic, normocephalic and symmetric. Eyes: No lid lag, and anicteric sclera. Mouth: no lip lesions, mucus membranes moist. Cardiovascular: regular rate and rhythm with normal S1S2, no murmur, positive posterior tibial pulses bilaterally, and cap refill < 2 seconds. Lungs: Respirations even, regular, and unlabored on room air. Lungs CTA bilaterally, no rhonchi, no rales, no wheezing, and no accessory muscle usage. Abdominal: soft, nontender to palpation, no guarding, no appreciable organomegaly Ext: No gross muscle atrophy, no edema, no contractures Neuro: Speech clear, face symmetrical , GCS 15, patient with left upper extremity weakness in which he reports is worse than baseline and continued left lower extremity weakness. Sensation remains equal and intact to bilateral upper and lower extremities. Psych: Alert and oriented to person, place, time, and situation. Appropriate and pleasant affect. Assessment and Plan of Care: Acute ischemic CVA with increased left upper and lower extremity weakness, recurrent CVA involving right MCA Syncopal episode -CT head negative for acute intercranial process. -CTA head and neck negative for large vessel occlusion or hemodynamically significant stenosis or aneurysm in the head; revealing atherosclerotic disease of the bilateral common and internal carotid arteries with approximately 70% st enosis of the proximal left ICA and less than 50% stenosis of the cervical right ICA; atherosclerotic disease proximal right vertebral artery with moderate stenosis. -Neurology following, appreciate recommendations -Neuro checks every 2 hours -EEG normal awake and drowsy EEG with no focal, lateralized, or eliptiform activity noted. -Carotid Dopplers reporting moderate atherosclerotic changes with approximate 50-69% stenosis involving the proximal left ICA. -MRI brain with and without contrast revealing increasing acute ischemic changes throughout the right centrum semiovale compared to prior study and additional chronic appearing white matter changes. -Bilateral lower extremity Dopplers negative for DVT. -Echocardiogram revealing normal EF between 55 and 60% with no significant valvular abnormalities. -PT/OT -Daily aspirin, Plavix, and pravastatin. -Vascular surgery following, appreciate further recommendations. -Repeat CT was completed 05/10/21 due to reports of patient having a vasovagal/syncopal event while sitting on the toilet followed by an episode of vomiting and loss of consciousness/syncopal event. RN was at bedside, reports patient did not fall over or hit his head, patient was safely assisted back into bed and a code stroke was called. Repeat CT did reveal degenerative and nonspecific white matter changes most typical remote ischemia, more pronounced area in the right parietal white matter likely was present on the prior exam and is also likely remote. History of PFO seen on PRATIMA June 2020 possible cause or contributing factor to recurrent CVA -Consult cardiology -Echocardiogram completed revealing a normal EF between 55 and 60% with no significant valvular abnormalities. Fvx-[id number]-urwiagmew diabetes mellitus -Glycemic protocol with NovoLog sliding scale -Hemoglobin A1c at 7.1% done on 03/29/2021 History of multivessel coronary artery disease -Per cardiac cath 07/12/2020 reporting a multivessel coronary artery disease with elevated left-sided filling pressures in which cardiology recommended aggressive risk factor modification and optimizing heart failure regimen, cardiothoracic surgery was consulted for possible CABG however at that time it was deemed not ideal. -Continue home medication management consisting of Eliquis, amlodipine, aspirin, Plavix, metoprolol and pravastatin CKD stage III creatinine stable at 1.58 -Monitor BUN and creatinine Hypertension -Monitor vital signs and continue daily medication regimen. Hyperlipidemia -Continue daily medication regimen with pravastatin 80 mg nightly. CODE STATUS: Full code DVT prophylaxis: Eliquis Discussed with: Patient and RN Anticipated discharge date: Clinical course to determine Anticipated discharge place: Inpatient rehabilitation Center A total of 45 minutes was spent on the care of this complex patient more than 50% of the time was spent in counseling and care coordination. Objective - Vital Signs Vital signs: Vital Signs Temp 98.4 F 05/11/21 08:00 Pulse 84 05/11/21 08:00 Resp 16 05/11/21 08:00 BP 152/80 05/11/21 08:00 Pulse Ox 96 05/11/21 08:00 Intake & Output 05/10/21 05/11/21 05/11/21 18:59 06:59 18:59 Intake Total 720 882 240 Output Total 1600 2525 Balance -880 -1643 240 Weight 91.5 kg Intake: Oral 720 882 240 Output: Urine 1600 2525 Other: Voiding Method External Catheter Urinal Urinal # Voids 1 # Bowel Movements 0 2 - Labs CBC & Chem 7: 05/10/21 15:14 05/10/21 15:14 Labs: Abnormal Lab Results - Last 24 Hours (Table) 05/10/21 05/10/21 05/10/21 Range/Units 11:51 12:02 13:58 RBC (4.30-5.90) m/uL Hgb (13.0-17.5) gm/dL Hct (39.0-53.0) % Sodium 136 L (137-145) mmol/L Chloride 108 H (98-107) mmol/L Carbon Dioxide (22-30) mmol/L BUN 26 H (9-20) mg/dL Creatinine 1.58 H (0.66-1.25) mg/dL Glucose 153 H (74-99) mg/dL POC Glucose (mg/dL) 168 H 220 H (75-99) mg/dL Total Protein (6.3-8.2) g/dL Albumin (3.5-5.0) g/dL 05/10/21 05/10/21 05/10/21 Range/Units 15:14 15:14 17:18 RBC 3.50 L (4.30-5.90) m/uL Hgb 11.0 L (13.0-17.5) gm/dL Hct 30.4 L (39.0-53.0) % Sodium 134 L (137-145) mmol/L Chloride 108 H (98-107) mmol/L Carbon Dioxide 20 L (22-30) mmol/L BUN 29 H (9-20) mg/dL Creatinine 1.61 H (0.66-1.25) mg/dL Glucose 141 H (74-99) mg/dL POC Glucose (mg/dL) 172 H (75-99) mg/dL Total Protein 5.6 L (6.3-8.2) g/dL Albumin 3.1 L (3.5-5.0) g/dL 05/10/21 05/11/21 Range/Units 19:46 06:15 RBC (4.30-5.90) m/uL Hgb (13.0-17.5) gm/dL Hct (39.0-53.0) % Sodium (137-145) mmol/L Chloride (98-107) mmol/L Carbon Dioxide (22-30) mmol/L BUN (9-20) mg/dL Creatinine (0.66-1.25) mg/dL Glucose (74-99) mg/dL POC Glucose (mg/dL) 174 H 196 H (75-99) mg/dL Total Protein (6.3-8.2) g/dL Albumin (3.5-5.0) g/dL
[2021-05-11 11:43] LABS: Glucose,Whole Blood 326 mg/dL (75-99)
--- NOTE | 2021-05-11 12:03 | P.PN ---
Subjective HISTORY OF PRESENTING ILLNESS This is a pleasant 55-year-old male past medical history significant for CVA in 06/2020 and 03/2021, PFO, triple vessel coronary artery disease, ischemic cardiomyopathy, peripheral vascular disease status post left lower extremity bypass, diabetes mellitus, chronic nicotine dependence, and dyslipidemia. Patient apparently saw cardiothoracic surgery at [facility] and it was recommended for medical therapy and not to proceed with CABG. The follows in the [facility] for his medical needs. We have been asked to see in consultation for PFO. Patient presents to the emergency department 05/09/21 with increased left upper and lower extremity weakness followed by reports of syncopal episode/loss of consciousness along with loss of bladder control. He was admitted to the hospital in 06/2020 and seen by Cardiology, an echocardiogram was obtained revealing impaired LV systolic function with ej ection fraction 25-30%, mildly dilated left atrium and mild mitral regurgitation. He underwent a PRATIMA and Cardiac catheterization with Dr. Alcaraz. Patient did not follow up in the office as an outpatient. Transesophageal echocardiogram demonstrated EF 30-35%, mild mitral regurgitation, trace tricus pid regurgitation, evidence of small PFO, no clot in the left atrial appendage. Heart catheterization revealed triple-vessel coronary artery disease with mid LAD stenosis 50-60%, distal LAD 80%, first diagonal 50%, second diagonal 90%, mid circumflex 80%, distal circumflex 100% with left to left collaterals, proximal RCA 80%, mid RCA 70%, distal RCA 50-60%, PDA 80-90%. Echocardiogram revealed improvement in EF 5560%. 05/10/2021: Patient was being assisted to the commode, and had a syncope episode, followed by projectile emesis. Code stroke was activated. Patient's BP were stable. Patient underwent CT brain which revealed degenerative and nonspecific white matter changes most typical of remote ischemia.More pronounced area in the right parietal white matter likely was present on the prior exam and also is likely remote. 05/11/21 Patient seen and examined at bedside. He is alert and oriented x 3. No complaints at this time. He endorses continued weakness to let upper extremity. He denies any chest pain, shortness of breath. Telemetry reviewed, patient becky melgar sinus mechanims HR 60s, no evidence of atrial fibrillation. Save Events reviewed from 05/10 syncopal event, appears to be artifact during emesis, resolved after. LABS: pending for today MEDS: Amlodipine 10 mg daily, Eliquis 5 mg twice a day, aspirin 81mg daily, Plavix 75 mg daily, metoprolol succinate 50 mg daily, pravastatin 80 mg nightly, Entresto 25 mg26 mg BID PHYSICAL EXAMINATION Blood pressure 167/73, 67, afebrile and saturation 90% on room air CONSTITUTIONAL: No apparent distress. HEENT: Neck Supple. No JVD Bilateral carotid bruit. CHEST EXAMINATION: Clear bilaterally No rhonchi or wheezes. No chest wall tenderness is noted on palpation or with deep breathing. HEART EXAMINATION: Regular rate and rhythm. S1, S2 heard. No murmurs, gallops or rub. ABDOMEN: Soft, nontender. Positive bowel sounds. EXTREMITIES: 2+ peripheral pulses, no lower extremity edema and no calf tenderness. NEUROLOGIC EXAMINATION: Patient is awake, alert and oriented x3. ASSESSMENT Acute ischemic CVA with increased left upper and lower extremity weakness Triple vessel coronary artery disease History of Acute ischemic CVA in 06/2020 and 03/2021 Bilateral ICA stenosis PFO noted on PRATIMA in 06/2020, no evidence of DVT Chronic systolic heart failure Ischemic cardiomyopathy Hypertension Peripheral vascular disease Diabetes mellitus Dyslipidemia Chronic nicotine dependence Acute on chronic kidney disease Syncopal episode on 05/10, likely vasovagal PLAN -Telemetry reviewed with Dr. Elizalde, saved events appear to be artifact, occurred during emesis and resolved after. -Continue home cardiac medications, amlodipine, aspirin, metoprolol succinate, pravastatin, Entresto -From a cardiology perspective we will continue current medical therapy with Eliquis, Plavix. In regards to the PFO, we recommend for patient to be evaluated for PFO closure. Discussed this with patient. He states that he would like to follow up at [facility] for PFO closure and has already started this process with his family. We will follow the patient as needed. Please reach out with further questions or concerns. Nurse Practitioner note has been reviewed, I agree with a documented findings and plan of care. Patient was seen and examined. Objective - Vital Signs Vital signs: Vital Signs Temp 98.4 F 05/11/21 08:00 Pulse 84 05/11/21 08:00 Resp 16 05/11/21 08:00 BP 152/80 05/11/21 08:00 Pulse Ox 96 05/11/21 08:00 Intake & Output 05/10/21 05/11/21 05/11/21 18:59 06:59 18:59 Intake Total 720 882 240 Output Total 1600 2525 Balance -880 -1643 240 Weight 91.5 kg Intake: Oral 720 882 240 Output: Urine 1600 2525 Other: Voiding Method External Catheter Urinal Urinal # Voids 1 # Bowel Movements 0 2 - Labs CBC & Chem 7: 05/10/21 15:14 05/10/21 15:14 Labs: Abnormal Lab Results - Last 24 Hours (Table) 05/10/21 05/10/21 05/10/21 Range/Units 11:51 12:02 13:58 RBC (4.30-5.90) m/uL Hgb (13.0-17.5) gm/dL Hct (39.0-53.0) % Sodium 136 L (137-145) mmol/L Chloride 108 H (98-107) mmol/L Carbon Dioxide (22-30) mmol/L BUN 26 H (9-20) mg/dL Creatinine 1.58 H (0.66-1.25) mg/dL Glucose 153 H (74-99) mg/dL POC Glucose (mg/dL) 168 H 220 H (75-99) mg/dL Total Protein (6.3-8.2) g/dL Albumin (3.5-5.0) g/dL 05/10/21 05/10/21 05/10/21 Range/Units 15:14 15:14 17:18 RBC 3.50 L (4.30-5.90) m/uL Hgb 11.0 L (13.0-17.5) gm/dL Hct 30.4 L (39.0-53.0) % Sodium 134 L (137-145) mmol/L Chloride 108 H (98-107) mmol/L Carbon Dioxide 20 L (22-30) mmol/L BUN 29 H (9-20) mg/dL Creatinine 1.61 H (0.66-1.25) mg/dL Glucose 141 H (74-99) mg/dL POC Glucose (mg/dL) 172 H (75-99) mg/dL Total Protein 5.6 L (6.3-8.2) g/dL Albumin 3.1 L (3.5-5.0) g/dL 05/10/21 05/11/21 05/11/21 Range/Units 19:46 06:15 11:31 RBC (4.30-5.90) m/uL Hgb (13.0-17.5) gm/dL Hct (39.0-53.0) % Sodium (137-145) mmol/L Chloride (98-107) mmol/L Carbon Dioxide (22-30) mmol/L BUN (9-20) mg/dL Creatinine (0.66-1.25) mg/dL Glucose (74-99) mg/dL POC Glucose (mg/dL) 174 H 196 H 326 H (75-99) mg/dL Total Protein (6.3-8.2) g/dL Albumin (3.5-5.0) g/dL
--- NOTE | 2021-05-11 16:03 | P.PN ---
Subjective Progress Note Date: 05/11/21 Patient seen and examined. Chronic weakness of this is unchanged. Feeling better overall from Objective - Vital Signs Vital signs: Vital Signs Temp 98.4 F 05/11/21 08:00 Pulse 76 05/11/21 12:00 Resp 16 05/11/21 12:00 BP 159/78 05/11/21 12:00 Pulse Ox 97 05/11/21 12:00 Intake & Output 05/10/21 05/11/21 05/11/21 18:59 06:59 18:59 Intake Total 720 882 340 Output Total 1600 2525 Balance -880 -1643 340 Weight 91.5 kg Intake: Intake, IV Titration 100 Amount Sodium Chloride 0.9% 1, 100 000 ml @ 10 mls/hr IV . [facility] Rx#:[id number] Oral 720 882 240 Output: Urine 1600 2525 Other: Voiding Method External Catheter Urinal Urinal # Voids 1 # Bowel Movements 0 2 - Exam Gen. a pleasant and cooperative male in no acute distress. HEENT is normocephalic, atraumatic, extraocular motion intact. Heart appears regular at this time. Lungs are clear bilaterally. Abdomen is soft. Extremity show no clubbing, cyanosis or edema. Weakness of the left side. - Labs CBC & Chem 7: 05/10/21 15:14 05/10/21 15:14 Labs: Abnormal Lab Results - Last 24 Hours (Table) 05/10/21 05/10/21 05/10/21 Range/Units 15:14 17:18 19:46 Sodium 134 L (137-145) mmol/L Chloride 108 H (98-107) mmol/L Carbon Dioxide 20 L (22-30) mmol/L BUN 29 H (9-20) mg/dL Creatinine 1.61 H (0.66-1.25) mg/dL Glucose 141 H (74-99) mg/dL POC Glucose (mg/dL) 172 H 174 H (75-99) mg/dL Total Protein 5.6 L (6.3-8.2) g/dL Albumin 3.1 L (3.5-5.0) g/dL 05/11/21 05/11/21 Range/Units 06:15 11:31 Sodium (137-145) mmol/L Chloride (98-107) mmol/L Carbon Dioxide (22-30) mmol/L BUN (9-20) mg/dL Creatinine (0.66-1.25) mg/dL Glucose (74-99) mg/dL POC Glucose (mg/dL) 196 H 326 H (75-99) mg/dL Total Protein (6.3-8.2) g/dL Albumin (3.5-5.0) g/dL Assessment and Plan Assessment: Left ICA stenosis, asymptomatic No evidence of extracranial right ICA stenosis Focal areas of intracranial right ICA stenosis per neurology revealed Left-sided weakness Plan: At this point no further plans for vascular intervention. Patient will be receiving cerebral angiogram via neuro intervention as an outpatient in the near future. This is all from the neurology note. Continue medication asordered. Will plan for follow-up surveillance of his left internal carotid artery as an outpatient
[2021-05-11 17:02] LABS: Glucose,Whole Blood 175 mg/dL (75-99)
[2021-05-11] MEDS: PANTOPRAZOLE 40 MG TABLET PO SCH (17:15)
[2021-05-11 20:15] LABS: Glucose,Whole Blood 208 mg/dL (75-99)
[2021-05-11] MEDS: PRAVASTATIN SODIUM 80 MG TAB PO SCH (20:51)
[2021-05-11] MEDS: CYANOCOBALAMIN 1,000 MCG/ML 1 ML VIAL IM SCH (20:53)
[2021-05-11] MEDS: SODIUM CHLORIDE 0.9% 1,000 ML IV SCH (20:54)
[2021-05-12] MEDS ORDERED: cloNIDine HCL 0.2 MG TAB PO PRN (01:39)
[2021-05-12 06:50] LABS: Glucose,Whole Blood 152 mg/dL (75-99)
[2021-05-12] MEDS: INSULIN ASPART (NovoLOG) 100 UNIT/ML VIAL SQ SCH ×2 (06:53→12:14)
[2021-05-12 07:20] LABS: Glucose,Whole Blood 166 mg/dL (75-99)
[2021-05-12] MEDS: ASPIRIN 81 MG PO SCH (08:16)
[2021-05-12] MEDS: METOPROLOL SUCCINATE (ER) 50 MG TAB.ER.24H PO SCH (08:16)
[2021-05-12] MEDS: CLOPIDOGREL 75 MG TAB PO SCH (08:17)
[2021-05-12] MEDS: APIXABAN 5 MG TAB PO SCH (08:17)
[2021-05-12] MEDS: NON FORMULARY DRUG (Empagliflozin [Jardiance] 25 MG Tablet) PO SCH (08:18)
[2021-05-12] MEDS: DULoxetine HCL 20 MG CAPSULE.DR PO SCH (08:18)
[2021-05-12] MEDS: SACUBITRIL/VALSARTAN 24 MG-26 MG TABLET PO SCH (08:18)
[2021-05-12] MEDS: amLODIPine 10 MG TAB PO SCH (08:18)
[2021-05-12 08:21] VITALS: RESP 16; TEMP 97.9
[2021-05-12 09:14] VITALS: BMI 24.5
--- NOTE | 2021-05-12 09:39 | P.PN ---
Subjective Progress Note Date: 05/11/21 05/11/2021: Patient is laying comfortably in the bed. Appears much more alert and awake. Does not appear to be in distress. Speech and language functions appears normal. Denies headache. Focal symptoms. States his left leg is improving. Left arm continues to be very flaccid. 05/10/2021: Patient apparently had another syncopal spell. At 1:55 PM, patient was assisted to commode and became almost unresponsive, followed by projectile emesis. The nurse checked her blood pressure shortly after, was 105/78. Patient was placed in the bed. His blood pressure did improve to 135/80. Stroke code was activated. Patient had a computed tomography scan, which revealed degenerative and nonspecific white matter changes most typical of remote ischemia. More pronounced area in the right parietal white matter likely was present on the prior exam and also is likely remote. There is concern for acute ischemia, correlate with MRI as clinically warranted. Patient continues to be left hemiplegic. I spoke to patient's on the phone. She states that patient has been on Eliquis for his cardiac reasons, initiated at [facility]. They were told that "blood thinners will prevent heart from having any problems in future". He never had any DVTs. She is not aware of any history of atrial fibrillation. Patient states that just before arrival to the hospital, he developed acute onset of weakness of the left arm and left leg, he could not move the arm or leg at all. Objective - Vital Signs Vital signs: Vital Signs Temp 97.9 F 05/12/21 08:00 Pulse 62 05/12/21 08:00 Resp 16 05/12/21 08:00 BP 172/92 05/12/21 08:00 Pulse Ox 98 05/12/21 08:00 Intake & Output 05/11/21 05/12/21 05/12/21 18:59 06:59 18:59 Intake Total 562 120 Output Total 600 Balance 562 -480 Weight 91.25 kg Intake: Intake, IV Titration 100 120 Amount Sodium Chloride 0.9% 1, 100 120 000 ml @ 10 mls/hr IV . Q24H [facility] Rx#:[id number] Oral 462 Output: Urine 600 Other: Voiding Method Urinal Urinal - Exam Patient is a middle aged male, in no acute distress. Patient is alert awake oriented to time place and person. Speech and language functions are normal. Attention, concentration and fund of knowledge is adequate. On cranial examination, pupils are round and reacting to light, visual cotton reveal some neglect in the left sided visual cotton. Patient's extraocular muscles are intact with no nystagmus. Patient has obvious left facial weakness, central type. His tongue protrudes to the midline. Palatal elevation and sensation normal, hearing and shoulder shrug normal, facial sensation normal. Shoulder shrug normal. On muscle strength testing, the strength is normal in the right arm and right leg. On the left side deltoid is 0, biceps 0, triceps 1, foxing painter 0. In the lower limb hip flexion 2, ankle dorsiflexion 0. Deep tendon reflexes are overall diminished and plantars are flat bilaterally. Sensory to touch is equal in the arms and legs, but patient has significant neglect on the left side on double simultaneous stimulation. Cerebellar function showed no ataxia for [id number] testing on the right, cannot check on the left. No dysdiadochokinesia. Gait not checked. On general examination, there is no carotid bruit or murmur, S1-S2 audible. Abdomen is soft nontender. Chest is clear. Peripheral pulses are present. No edema. - Labs CBC & Chem 7: 05/10/21 15:14 05/10/21 15:14 Labs: Abnormal Lab Results - Last 24 Hours (Table) 05/11/21 05/11/21 05/11/21 Range/Units 11:31 17:01 20:13 POC Glucose (mg/dL) 326 H 175 H 208 H (75-99) mg/dL 05/12/21 05/12/21 Range/Units 06:49 07:18 POC Glucose (mg/dL) 152 H 166 H (75-99) mg/dL Assessment and Plan Assessment: * Acute recurrent ischemic stroke involving right MCA vascular territory in the watershed zone of the right MCA territory. Possible right ICA occlusion/sten osis involving the intracranial segment. * Recurrent syncope, likely due to orthostasis, which makes right hemispheric ischemia worse. * Hypertension * Diabetes * Hyperlipidemia * History of PFO, not underwent closure. * X tobacco use * Chronic back pain Plan: * Patient's current NIH stroke scale is 10. We will check MRA of the brain to evaluate for right ICA stenosis/occlusion involving the intracranial segment. I reviewed CTA of head and neck with Dr. Walters, stroke neurologist stonemason helper. He agreed, there is evidence of possible short segment of severe stenosis or possible occlusion of the right ICA, in the intracranial portion. I discussed with him about possibility of transfer to [facility], but states that no beds are available. I discussed about possibility of right ICA stenting, but he recommends only medical management at this time. Also recommends continuing Eliquis, dual antiplatelet medications including Plavix 75 mg and aspirin 81 mg. Permissive hypertension. He recommends follow-up with his office in 2 weeks for cerebral angiogram for definitive diagnosis of ICA stenosis/occlusion. * MRI of the brain with and without contrast from 05/09/2021 showed increasing acute ischemic change throughout the right centrum semiovale compared to prior study. Additional, chronic-appearing white matter changes. * EEG was normal, with no epileptiform activity. * Cardiology consulted for PFO, recommending duplex of bilateral lower extremity. Venous Doppler ultrasound negative for DVT in either lower limbs. They're recommending PFO closure possibly at [facility]. * 2-D echo performed 05/09/2021 showed normal left-ventricular size. Moderate concentric LVH. EF is between 55-60%. Trace MR. (Apparently PFO was noticed in the PRATIMA on 07/12/2020). * Vascular surgery input appreciated. No surgical indication at this time, as there is no extracranial carotid stenosis on the right side. They are recommending outpatient cerebral angiogram. * Fasting lipid panel with cholesterol 142, LDL 36.2, HDL 39 and triglycerides 330. * Hemoglobin A1c 7.1 on 03/29/2021. * Continue Plavix 75 mg, aspirin 81 mg and Eliquis 5 mg twice a day. Continue Pravachol 80 mg. * Start B12 injections 1000 g IM daily for 3 days for elevated MMA 0.45 (Normal <0.40). * Discussed telemetry rhythm strip (at the time of syncope/vomiting yesterday) with Dr Elizalde. He believes it was artifactual, likely not atrial fibrillation or flutter. Discussed with Dr. Elizalde about the need for anticoagulation, and he recommends to continue it at this time. * DVT prophylaxis, patient on Eliquis. * PT OT. Time with Patient: Greater than 30
[2021-05-12 09:51] LABS: Basophils # (A) 0.1 k/uL (0-0.2); Basophils % (A) 1 %; Eosinophils # (A) 0.3 k/uL (0-0.7); Eosinophils % (A) 4 %; HCT 32.4 % (39.0-53.0); HGB 11.1 gm/dL (13.0-17.5); Lymphocytes # (A) 1.5 k/uL (1.0-4.8); Lymphocytes % (A) 20 %; MCH 30.1 pg (25.0-35.0); MCHC 34.1 g/dL (31.0-37.0); MCV 88.3 fL (80.0-100.0); Mean Platelet Volume 7.5; Monocytes # (A) 0.5 k/uL (0-1.0); Monocytes % (A) 6 %; Neutrophils % (A) 68 %; Platelet Count 179 k/uL (150-450); RBC 3.67 m/uL (4.30-5.90); WBC 7.4 k/uL (3.8-10.6)
[2021-05-12 10:02] LABS: Calcium 8.3 mg/dL (8.4-10.2); Magnesium 2.4 mg/dL (1.6-2.3); Potassium 4.2 mmol/L (3.5-5.1)
--- NOTE | 2021-05-12 11:02 | MR ---
EXAMINATION TYPE: MR angio head wo con DATE OF EXAM: 05/12/2021 COMPARISON: MRI brain 05/09/2021 HISTORY: Probable RT. INTRACRANIAL ICA occlusion/stenosis TECHNIQUE: Utilizing 3-D [id number] intracranial MRA of the [place] was performed. FINDINGS: There appears to be reduced caliber appearance cavernous portion of the right ICA which could been th e basis of bony stenosis or short segmental occlusion. Middle cerebral posterior cerebral arteries. A1 segment of the anterior cerebral artery and right mar ked diminutive. A2 segments are patent bilaterally. No sizable aneurysm or vascular formation. Left v ertebral artery dominant. IMPRESSION: 1. There is marked reduction in caliber of the cavernous segment of the right ICA. Findings are suspi cious for either severe, critical stenosis or short segmental occlusion. Recommend correlation with d edicated arteriogram. 2. Diminutive A1 segment of the right anterior cerebral artery could be congenital.
[2021-05-12 11:58] LABS: Glucose,Whole Blood 179 mg/dL (75-99)
--- NOTE | 2021-05-12 12:10 | P.PN ---
Subjective HISTORY OF PRESENTING ILLNESS This is a pleasant 55-year-old male past medical history significant for CVA in 06/2020 and 03/2021, PFO, triple vessel coronary artery disease, ischemic cardiomyopathy, peripheral vascular disease status post left lower extremity bypass, diabetes mellitus, chronic nicotine dependence, and dyslipidemia. Patient apparently saw cardiothoracic surgery at [facility] and it was recommended for medical therapy and not to proceed with CABG. The follows in the [facility] for his medical needs. We have been asked to see in consultation for PFO. Patient presents to the emergency department 05/09/21 with increased left upper and lower extremity weakness followed by reports of syncopal episode/loss of consciousness along with loss of bladder control. He was admitted to the hospital in 06/2020 and seen by Cardiology, an echocardiogram was obtained revealing impaired LV systolic function with ej ection fraction 25-30%, mildly dilated left atrium and mild mitral regurgitation. He underwent a [facility]A and Cardiac catheterization with Dr. Alcaraz. Patient did not follow up in the office as an outpatient. Transesophageal echocardiogram demonstrated EF 30-35%, mild mitral regurgitation, trace tricus pid regurgitation, evidence of small PFO, no clot in the left atrial appendage. Heart catheterization revealed triple-vessel coronary artery disease with mid LAD stenosis 50-60%, distal LAD 80%, first diagonal 50%, second diagonal 90%, mid circumflex 80%, distal circumflex 100% with left to left collaterals, proximal RCA 80%, mid RCA 70%, distal RCA 50-60%, PDA 80-90%. Echocardiogram revealed improvement in EF 5560%. 05/10/2021: Patient was being assisted to the commode, and had a syncope episode, followed by projectile emesis. Code stroke was activated. Patient's BP were stable. Patient underwent CT brain which revealed degenerative and nonspecific white matter changes most typical of remote ischemia.More pronounced area in the right parietal white matter likely was present on the prior exam and also is likely remote. 05/11/21 Patient seen and examined at bedside. He is alert and oriented x 3. No complaints at this time. He endorses continued weakness to let upper extremity. He denies any chest pain, shortness of breath. Telemetry reviewed, patient maintaining sinus mechanims HR 60s, no evidence of atrial fibrillation. Save Events reviewed from 05/10 syncopal event, appears to be artifact during emesis, resolved after. 05/12/21: Patient seen and examined at bedside, no acute distress. Vital signs are stable. He is in sinus mechanism HR 60s. No evidence of arrhythmia, atrial fibrillation or bradycardia. LABS: Sodium 134, potassium 4.2, BUN 30, serum creatinine 1.6, magnesium 2.4 MEDS: Amlodipine 10 mg daily, Eliquis 5 mg twice a day, aspirin 81mg daily, Plavix 75 mg daily, metoprolol succinate 50 mg daily, pravastatin 80 mg nightly, Entresto 25 mg26 mg BID PHYSICAL EXAMINATION Blood pressure 154/80, heart rate 70, afebrile, saturations greater than 92% on room air CONSTITUTIONAL: No apparent distress. HEENT: Neck Supple. No JVD Bilateral carotid bruit. CHEST EXAMINATION: Clear bilaterally No rhonchi or wheezes. No chest wall te nderness is noted on palpation or with deep breathing. HEART EXAMINATION: Regular rate and rhythm. S1, S2 heard. No murmurs, gallops or rub. ABDOMEN: Soft, nontender. Positive bowel sounds. EXTREMITIES: 2+ peripheral pulses, no lower extremity edema and no calf tenderness. NEUROLOGIC EXAMINATION: Patient is awake, alert and oriented x3. ASSESSMENT Acute ischemic CVA with increased left upper and lower extremity weakness Triple vessel coronary artery disease History of Acute ischemic CVA in 06/2020 and 03/2021 Bilateral ICA stenosis PFO noted on PRATIMA in 06/2020, no evidence of DVT Chronic systolic heart failure Ischemic cardiomyopathy Hypertension Peripheral vascular disease Diabetes mellitus Dyslipidemia Chronic nicotine dependence Acute on chronic kidney disease Syncopal episode on 05/10, likely vasovagal PLAN -Continue home cardiac medications, amlodipine, aspirin, metoprolol succinate, pravastatin, Entresto -From a cardiology perspective we will continue current medical therapy with Eliquis, Plavix. In regards to the PFO, we recommend for patient to be evaluated for PFO closure. Discussed this with patient. He states that he would like to follow up at [facility] for PFO closure and has already started this process with his family. We will follow the patient as needed. Please reach out with further questions or concerns. Nurse Practitioner note has been reviewed, I agree with a documented findings and plan of care. Patient was seen and examined. Objective - Vital Signs Vital signs: Vital Signs Temp 97.9 F 05/12/21 08:00 Pulse 62 05/12/21 08:00 Resp 16 05/12/21 08:00 BP 172/92 05/12/21 08:00 Pulse Ox 98 05/12/21 08:00 Intake & Output 05/11/21 05/12/21 05/12/21 18:59 06:59 18:59 Intake Total 562 120 Output Total 600 700 Balance 562 -480 -700 Weight 91.25 kg 91.25 kg Intake: Intake, IV Titration 100 120 Amount Sodium Chloride 0.9% 1, 100 120 000 ml @ 10 mls/hr IV . Q24H [facility] Rx#:[id number] Oral 462 Output: Urine 600 700 Other: Voiding Method Urinal Urinal Urinal - Labs CBC & Chem 7: 05/12/21 09:29 05/12/21 09:29 Labs: Abnormal Lab Results - Last 24 Hours (Table) 05/11/21 05/11/21 05/12/21 Range/Units 17:01 20:13 06:49 RBC (4.30-5.90) m/uL Hgb (13.0-17.5) gm/dL Hct (39.0-53.0) % Sodium (137-145) mmol/L Chloride (98-107) mmol/L BUN (9-20) mg/dL Creatinine (0.66-1.25) mg/dL Glucose (74-99) mg/dL POC Glucose (mg/dL) 175 H 208 H 152 H (75-99) mg/dL Calcium (8.4-10.2) mg/dL Magnesium (1.6-2.3) mg/dL 05/12/21 05/12/21 05/12/21 Range/Units 07:18 09:29 09:29 RBC 3.67 L (4.30-5.90) m/uL Hgb 11.1 L (13.0-17.5) gm/dL Hct 32.4 L (39.0-53.0) % Sodium 134 L (137-145) mmol/L Chloride 108 H (98-107) mmol/L BUN 30 H (9-20) mg/dL Creatinine 1.67 H (0.66-1.25) mg/dL Glucose 162 H (74-99) mg/dL POC Glucose (mg/dL) 166 H (75-99) mg/dL Calcium 8.3 L (8.4-10.2) mg/dL Magnesium 2.4 H (1.6-2.3) mg/dL 05/12/21 Range/Units 11:55 RBC (4.30-5.90) m/uL Hgb (13.0-17.5) gm/dL Hct (39.0-53.0) % Sodium (137-145) mmol/L Chloride (98-107) mmol/L BUN (9-20) mg/dL Creatinine (0.66-1.25) mg/dL Glucose (74-99) mg/dL POC Glucose (mg/dL) 179 H (75-99) mg/dL Calcium (8.4-10.2) mg/dL Magnesium (1.6-2.3) mg/dL
[2021-05-12 12:17] VITALS: BP 161/88; PULSE 63
--- NOTE | 2021-05-12 12:54 | P.DS ---
Providers Date of admission: 05/08/21 16:51 Expected date of discharge: 05/12/21 Attending physician: Sheila Lew Consults: 05/08/21 18:02 Consult Physician Routine Consulting Provider: Raphael Bragg Consult Reason/Comments: PFO Do you want consulting provider notified?: Yes 05/08/21 19:02 Consult Physician Routine Consulting Provider: Delfino Bro Consult Reason/Comments: CVA Do you want consulting provider notified?: Yes 05/10/21 12:12 Consult Physician Routine Consulting Provider: Henri Chambers Consult Reason/Comments: in patient rehab, acute ischemic CVA with L sided deficits Do you want consulting provider notified?: Yes Primary care physician: Physician Nonstaff Hospital Course: Discharge Diagnosis: Acute ischemic CVA with increased left upper and lower extremity weakness, recurrent CVA involving right MCA Syncopal episode History of PFO seen on PRATIMA June 2020 possible cause or contributing factor to recurrent CVA Pxs-fkqtpct-acafjvyip diabetes mellitus History of multivessel coronary artery disease CKD stage III creatinine stable at 1.58 Hypertension Hyperlipidemia Hospital Course: Patient is a pleasant 55-year-old male who presents to the ER with his . Patient has an extensive medical history which includes PFO noted on PRATIMA in June 2020, [id number] diabetes mellitus with hemoglobin A1c of 7.1, hyperlipidemia, hypertension, CKD stage III, and left arm weakness secondary to prior CVA. patient presented to the hospital on05/08/21 with a chief complaint of increased left upper and lower extremity weakness followed by reports of syncopal episode/loss of consciousness along with loss of bladder control. Per reports patient was unable to get up to the floor secondary to increased left upper and lower extremity weakness. Upon arrival to the emergency department initial NIH was 6. Patient was admitted under our services with consultation to neurology and cardiology. CT head negative for acute intercranial process.CTA head and neck negative for large vessel occlusion or hemodynamically significant stenosis or aneurysm in the head; revealing atherosclerotic disease of the bilateral common and internal carotid arteries with approximately 70% stenosis of the proximal left ICA and less than 50% stenosis of the cervical right ICA; atherosclerotic disease proximal right vertebral artery with moderate stenosis. EKG revealed sinus bradycardia at 57 bpm with no noted T-wave or ST abnormalities showing no signs of acute ischemia. Chest x-ray negative for acute cardiopulmonary process. Echocardiogram completed revealing a normal EF between 55 and 60% with no significant valvular abnormalities. EEG normal awake and drowsy EEG with no focal, lateralized, or eliptiform activity noted. Carotid Dopplers reporting moderate atherosclerotic changes with approximate 50-69% stenosis involving the proximal left ICA. MRI brain with and without contrast revealing increasing acute ischemic changes throughout the right centrum semiovale compared to prior study and additional chronic appearing white matter changes. Bilateral lower extremity Dopplers negative for DVT. Vascular surgery also consulted. Repeat CT was completed 05/10/21 due to reports of patient having a vasovagal/syncopal event while sitting on the toilet followed by an episode of vomiting and loss of consciousness/syncopal event. RN was at bedside, reports patient did not fall over or hit his head, patient was safely assisted back into bed and a code stroke was called. Repeat CT did reveal degenerative and nonspecific white matter changes most typical remote ischemia, more pronounced area in the right parietal white matter likely was present on the prior exam and is also likely remote. MRA head showing marked reduction in caliber of the cavernous segment of the right ICA findings are suspicious for either severe, critical stenosis or short segmental occlusion, diminutive A1 segment of the right anterior cerebral artery could be congenital. throughout hospitalization patient remained under care of cardiology, vascular surgery, neurology, and hospitalist medicine. Patient diagnosed with acute ischemic CVA involving right MCA. He continues to have left-sided residual deficits. He has been cleared by cardiology, neurolo gy, and vascular surgery to follow up outpatient. Patient is medically stable at this time. Patient being discharged on pravastatin 80 mg nightly as well as dual antiplatelet therapy with aspirin and Plavix and to continue Eliquis as directed by cardiology. Pt being discharged to inpatient rehabilitation Center for continued care. patient to follow up outpatient with neurology for continued long-term monitoring and management, vascular surgery for angiogram and follow- up surveillance of left internal carotid artery, cardiology for monitoring of closure of PFO, and primary care provider as directed. Physical exam: Patient seen and fully evaluated at the bedside this morning. Pt resting comfortably and easily awoken via verbal stimuli, alert and oriented, continues to have left sided hemiparesis. plans for discharge to inpatient rehabilitation Center today as patient has received insurance authorization. Patient medically stable for discharge, vital signs stable. Morning labs reviewed, showing no significant changes or concerns from baseline. patient continues to deny having any headache, lightheadedness, dizziness, changes in his vision or hearing, chest pain or palpitations, shortness of breath, difficulties or changes with his speech or thoughts, and denies any difficulties with urinary or bowel function. Vital signs reviewed and stable. General: Nontoxic, no distress and appears stated age. Derm: Skin warm and dry, normal coloration for ethnicity. Head: Atraumatic, normocephalic and symmetric. Eyes: No lid lag, and anicteric sclera. Mouth: no lip lesions, mucus membranes moist. Cardiovascular: regular rate and rhythm with normal S1S2, no murmur, positive posterior tibial pulses bilaterally, and cap refill < 2 seconds. Lungs: Respirations even, regular, and unlabored on room air. Lungs CTA bilaterally, no rhonchi, no rales, no wheezing, and no accessory muscle usage. Abdominal: soft, nontender to palpation, no guarding, no appreciable organomegaly Ext: No gross muscle atrophy, no edema, no contractures Neuro: Speech clear, face symmetrical , GCS 15, patient with left upper extremity weakness in which he reports is worse than baseline and continued left lower extremity weakness. Sensation remains equal and intact to bilateral upper and lower extremities. Psych: Alert and oriented to person, place, time, and situation. Appropriate and pleasant affect. A total of 45 minutes of time were spent preparing this complex discharge summary. Patient Condition at Discharge: Stable Plan - Discharge Summary Discharge Rx Participant: No New Discharge Prescriptions: New Aspirin 81 mg PO DAILY 30 Days #30 tab Continue DULoxetine HCL [Cymbalta] 20 mg PO DAILY Carboxymethylcellulose Sodium [Refresh Tears] 1 drop BOTH EYES QID PRN PRN Reason: Dry Eye(S) Apixaban [Eliquis] 5 mg PO BID #60 tab Pravastatin Sodium [Pravachol] 80 mg PO HS Clopidogrel [Plavix] 75 mg PO DAILY #30 tab amLODIPine [Norvasc] 10 mg PO DAILY Metoprolol Succinate (ER) [Toprol XL] 50 mg PO DAILY Empagliflozin [Jardiance] 25 mg PO DAILY Omeprazole 20 mg PO AC-SUPPER carvediloL [Coreg] 6.25 mg PO BID Sacubitril/Valsartan [Entresto 24 mg-26 mg Tablet] 1 tab PO BID Discontinued Rosuvastatin [Crestor] 10 mg PO HS Discharge Medication List Carboxymethylcellulose Sodium [Refresh Tears] 1 drop BOTH EYES QID PRN 07/10/20 [History] DULoxetine HCL [Cymbalta] 20 mg PO DAILY 07/10/20 [History] Apixaban [Eliquis] 5 mg PO BID #60 tab 07/13/20 [Rx] Empagliflozin [Jardiance] 25 mg PO DAILY 03/28/21 [History] Metoprolol Succinate (ER) [Toprol XL] 50 mg PO DAILY 03/28/21 [History] Omeprazole 20 mg PO AC-SUPPER 03/28/21 [History] Pravastatin Sodium [Pravachol] 80 mg PO HS 03/28/21 [History] Clopidogrel [Plavix] 75 mg PO DAILY #30 tab 03/30/21 [Rx] Sacubitril/Valsartan [Entresto 24 mg-26 mg Tablet] 1 tab PO BID 05/08/21 [History] amLODIPine [Norvasc] 10 mg PO DAILY 05/08/21 [History] carvediloL [Coreg] 6.25 mg PO BID 05/08/21 [History] Aspirin 81 mg PO DAILY 30 Days #30 tab 05/12/21 [Rx] Follow up Appointment(s)/Referral(s): Shashi Garcia MD [REFERRING] - 1 Week Asad Alcaraz DO [STAFF PHYSICIAN] - 1 Week Mikie Cummings MD [STAFF PHYSICIAN] - 1 Week Vonnie Fierro DO [STAFF PHYSICIAN] - 1 Week Activity/Diet/Wound Care/Special Instructions: Transfer to inpatient rehabilitation center. Accepted by Dr. Chambers. Will need to remain on dual antiplatelet therapy with aspirin and Plavix. Will need to follow up with both vascular surgery and neurology upon discharge from rehabilitation Center. Cardiology also recommending outpatient follow up to evaluate for closure of PFO. Thank you for allowing us to participate in your care, it was a pleasure having you for our patient!! Good luck with your recovery and rehabilitation!! Discharge Disposition: OTHER INSTITUTION NOT DEFINED
== END 2021-05-12 16:28 | DRG 65 ==
LOC: EC 14:59 → 3SCARD 16:51
PROVIDERS: ADMIT Internal Medicine; ATTEND Internal Medicine
DX: I63.511 Cerebral infarction due to unspecified occlusion or stenosis of right middle cerebral artery (principal); G81.94 Hemiplegia, unspecified affecting left nondominant side; I13.0 Hypertensive heart and chronic kidney disease with heart failure and stage 1 through stage 4 chronic kidney disease, or unspecified chronic kidney disease; I50.22 Chronic systolic (congestive) heart failure; Q21.1 Atrial septal defect; R29.706 NIHSS score 6; G89.29 Other chronic pain; F43.10 Post-traumatic stress disorder, unspecified; Z20.822 Contact with and (suspected) exposure to COVID-19; I95.1 Orthostatic hypotension; E11.22 Type 2 diabetes mellitus with diabetic chronic kidney disease; N18.30 Chronic kidney disease, stage 3 unspecified; E78.5 Hyperlipidemia, unspecified; I25.5 Ischemic cardiomyopathy; G40.909 Epilepsy, unspecified, not intractable, without status epilepticus; I25.10 Atherosclerotic heart disease of native coronary artery without angina pectoris; E11.51 Type 2 diabetes mellitus with diabetic peripheral angiopathy without gangrene; F17.200 Nicotine dependence, unspecified, uncomplicated; S09.90XA Unspecified injury of head, initial encounter; R29.810 Facial weakness; R51.9 Headache, unspecified; W18.30XA Fall on same level, unspecified, initial encounter; E86.0 Dehydration; I65.23 Occlusion and stenosis of bilateral carotid arteries; Z98.890 Other specified postprocedural states; I25.2 Old myocardial infarction; Z86.73 Personal history of transient ischemic attack (TIA), and cerebral infarction without residual deficits; Z79.01 Long term (current) use of anticoagulants; Z79.02 Long term (current) use of antithrombotics/antiplatelets; Z79.84 Long term (current) use of oral hypoglycemic drugs; Z79.899 Other long term (current) drug therapy; Z98.1 Arthrodesis status; Z82.49 Family history of ischemic heart disease and other diseases of the circulatory system
CPT/HCPCS: 36415; 70450; 70496; 70498; 70544; 70553; 71045; 71046; 80048; 80053; 80061; 83735; 84100; 84484; 85025; 85027; 85379; 85610; 85730; 87635; 93005; 93306; 93880; 93970; 95816; 96372; 99291

== ENCOUNTER 2021-12-18 19:23 | Observation (INO) | payer OTHER, MEDICARE ==
--- NOTE | 2021-12-18 19:35 | ED ---
General Adult HPI - General Chief complaint: Neuro Symptoms/Deficit Stated complaint: poss TIA Time Seen by Provider: 12/18/21 19:30 Source: patient Mode of arrival: EMS Limitations: no limitations - History of Present Illness Initial comments: Patient presents to the ED by ambulance for evaluation. Patient states that he had an episode of left-sided facial droop and slurred speech about 30 minutes ago, which lasted for approximately 15 seconds and resolved spontaneously. Patient states that his and best friend witnessed this episode, and he s tates that they are all concerned about a possible TIA. Patient states that he has had 5 strokes in the past, and he states that he has residual left upper and lower extremity weakness from his prior strokes. Patient denies any change in his left upper and lower extremity weakness. Patient denies any other neurological deficits. Patient denies trauma or injury, fever or chills, any pain, headache, focal numbness/tingling, visual changes, dizziness, neck/back/extremity pain, chest pain, dyspnea, palpitations, abdominal pain, nausea/vomiting, or any other symptoms or complaints. - Related Data Home Medications Medication Instructions Recorded Confirmed Carboxymethylcellulose Sodium 1 drop BOTH EYES QID PRN 07/10/20 05/08/21 [Refresh Tears] DULoxetine HCL [Cymbalta] 20 mg PO DAILY 07/10/20 05/08/21 Empagliflozin [Jardiance] 25 mg PO DAILY 03/28/21 05/08/21 Metoprolol Succinate (ER) [Toprol 50 mg PO DAILY 03/28/21 05/08/21 XL] Omeprazole 20 mg PO AC-SUPPER 03/28/21 05/08/21 Pravastatin Sodium [Pravachol] 80 mg PO HS 03/28/21 05/08/21 Sacubitril/Valsartan [Entresto 24 1 tab PO BID 05/08/21 05/08/21 mg-26 mg Tablet] amLODIPine [Norvasc] 10 mg PO DAILY 05/08/21 05/08/21 carvediloL [Coreg] 6.25 mg PO BID 05/08/21 05/08/21 Previous Rx's Medication Instructions Recorded Apixaban [Eliquis] 5 mg PO BID #60 tab 07/13/20 Clopidogrel [Plavix] 75 mg PO DAILY #30 tab 10/06/21 Aspirin 81 mg PO DAILY 30 Days #30 tab 05/12/21 Allergies Allergy/AdvReac Type Severity Reaction Status Date / Time atorvastatin AdvReac Liver Verified 05/08/21 16:47 Enzymes Abnormal & Muscle Pain simvastatin AdvReac Liver Verified 05/08/21 16:47 Enzymes Abnormal & Muscle Pain Review of Systems ROS Statement: Those systems with pertinent positive or pertinent negative responses have been documented in the HPI. ROS Other: All systems not noted in ROS Statement are negative. Past Medical History Past Medical History: Coronary Artery Disease (CAD), CVA/TIA, Diabetes Mellitus, Hyperlipidemia, Hypertension, Myocardial Infarction ([place]), Renal Disease Additional Past Medical History / Comment(s): herniated disks and chronic back issues, peripheral neuropathy Last Myocardial Infarction Date:: 06/30/2020 History of Any Multi-Drug Resistant Organisms: None Reported Past Surgical History: Appendectomy, Orthopedic Surgery Additional Past Surgical History / Comment(s): bilateral rotator cuff, bilateral knee scopes, neck fusion, left lower extremity bypass last year Past Anesthesia/Blood Transfusion Reactions: No Reported Reaction Past Psychological History: PTSD Smoking Status: Former smoker Past Alcohol Use History: None Reported Past Drug Use History: None Reported - Past Family History Mother Family Medical History: Congestive Heart Failure (CHF), CVA/TIA, Myocardial Infarction ([place]) Father Family Medical History: Cancer General Exam Limitations: no limitations General appearance: alert, in no apparent distress Head exam: Present: atraumatic, normocephalic Eye exam: Present: normal appearance, PERRL, EOMI ENT exam: Present: mucous membranes moist Neck exam: Present: other (Trachea is in midline). Absent: tenderness Respiratory exam: Present: normal lung sounds bilaterally. Absent: respiratory distress, wheezes, rales, rhonchi, stridor Cardiovascular Exam: Present: regular rate, normal rhythm, normal heart sounds, other (Normal radial pulses bilaterally) GI/Abdominal exam: Present: soft. Absent: distended, tenderness, guarding Extremities exam: Absent: tenderness, pedal edema Back exam: Absent: tenderness Neurological exam: Present: alert, oriented X3, CN II-XII intact, other (2/5 strength in the left upper extremity (chronic per patient); 3/5 strength in left lower extremity (chronic per patient); normal sensation to light touch all over; NIH stroke scale score = 5) Psychiatric exam: Present: normal affect, normal mood Skin exam: Present: warm, dry, intact, normal color Course Vital Signs 12/18/21 12/18/21 19:27 21:05 Temperature 98.2 F Pulse Rate 64 66 Respiratory 18 16 Rate Blood Pressure 182/89 O2 Sat by Pulse 100 99 Oximetry - Reevaluation(s) Reevaluation #1: 12/18/21 20:59 Case, H&P, test results and ED management were discussed with Dr. Murray. He accepts hospital admission. He agrees with neurology consultation. He has no further recommendations at this time. 12/18/21 21:08 Patient denies development of any new symptoms while in the ED. Patient's neurological exam is unchanged. Patient remains alert and breathing comfortably. Patient is aware of his test results and my discussion with Dr. Murray as above. Patient agrees with hospital admission at this time. EKG Findings - EKG Comments: EKG Findings:: Normal sinus rhythm, ventricular rate of 61 bpm, no ectopy, normal NV and QRS intervals, normal QT interval, normal axis, nonspecific ST abnormality Medical Decision Making - Medical Decision Making Patient's symptoms are suggestive of a TIA. Patient's new neurological deficits remain resolved, and he only continues to have residual left hemiparesis, which he has had chronically from a prior stroke. Patient's head CT shows no acute abnormality. Patient was given a dose of aspirin in the ED. Patient's labs show acute on chronic renal insufficiency. Patient was treated with a liter of normal saline in the ED. Will admit the patient the hospital for TIA workup. Dr. Murray has accepted hospital admission. Neurology consultation order has been placed. - Lab Data Result diagrams: 12/18/21 19:46 12/18/21 19:46 Lab Results 12/18/21 12/18/21 12/18/21 Range/Units 19:46 19:46 19:46 WBC 4.8 (3.8-10.6) k/uL RBC 3.09 L (4.30-5.90) m/uL Hgb 9.3 L (13.0-17.5) gm/dL Hct 27.6 L (39.0-53.0) % MCV 89.4 (80.0-100.0) fL MCH 30.2 (25.0-35.0) pg MCHC 33.8 (31.0-37.0) g/dL RDW 13.3 (11.5-15.5) % Plt Count 149 L (150-450) k/uL MPV 7.8 Neutrophils % 72 % Lymphocytes % 17 % Monocytes % 6 % Eosinophils % 3 % Basophils % 1 % Neutrophils # 3.5 (1.3-7.7) k/uL Lymphocytes # 0.8 L (1.0-4.8) k/uL Monocytes # 0.3 (0-1.0) k/uL Eosinophils # 0.2 (0-0.7) k/uL Basophils # 0.1 (0-0.2) k/uL PT 10.5 (9.0-12.0) sec INR 1.0 (<1.2) APTT 23.8 (22.0-30.0) sec Sodium 137 (137-145) mmol/L Potassium 4.6 (3.5-5.1) mmol/L Chloride 112 H (98-107) mmol/L Carbon Dioxide 20 L (22-30) mmol/L Anion Gap 5 mmol/L BUN 53 H (9-20) mg/dL Creatinine 2.52 H (0.66-1.25) mg/dL Est GFR (CKD-EPI)AfAm 31 (>60 ml/min/1.73 sqM) Est GFR (CKD-EPI)NonAf 27 (>60 ml/min/1.73 sqM) Glucose 125 H (74-99) mg/dL Calcium 8.1 L (8.4-10.2) mg/dL Total Bilirubin 0.3 (0.2-1.3) mg/dL AST 16 L (17-59) U/L ALT 11 (4-49) U/L Alkaline Phosphatase 110 (38-126) U/L Troponin I (0.000-0.034) ng/mL Total Protein 5.3 L (6.3-8.2) g/dL Albumin 3.1 L (3.5-5.0) g/dL 12/18/21 Range/Units 19:46 WBC (3.8-10.6) k/uL RBC (4.30-5.90) m/uL Hgb (13.0-17.5) gm/dL Hct (39.0-53.0) % MCV (80.0-100.0) fL MCH (25.0-35.0) pg MCHC (31.0-37.0) g/dL RDW (11.5-15.5) % Plt Count (150-450) k/uL MPV Neutrophils % % Lymphocytes % % Monocytes % % Eosinophils % % Basophils % % Neutrophils # (1.3-7.7) k/uL Lymphocytes # (1.0-4.8) k/uL Monocytes # (0-1.0) k/uL Eosinophils # (0-0.7) k/uL Basophils # (0-0.2) k/uL PT (9.0-12.0) sec INR (<1.2) APTT (22.0-30.0) sec Sodium (137-145) mmol/L Potassium (3.5-5.1) mmol/L Chloride (98-107) mmol/L Carbon Dioxide (22-30) mmol/L Anion Gap mmol/L BUN (9-20) mg/dL Creatinine (0.66-1.25) mg/dL Est GFR (CKD-EPI)AfAm (>60 ml/min/1.73 sqM) Est GFR (CKD-EPI)NonAf (>60 ml/min/1.73 sqM) Glucose (74-99) mg/dL Calcium (8.4-10.2) mg/dL Total Bilirubin (0.2-1.3) mg/dL AST (17-59) U/L ALT (4-49) U/L Alkaline Phosphatase (38-126) U/L Troponin I <0.012 (0.000-0.034) ng/mL Total Protein (6.3-8.2) g/dL Albumin (3.5-5.0) g/dL - Radiology Data Noncontrast head CT: Cerebral atrophy and chronic small vessel ischemia. There is evidence of old right parietal cortical infarct. No acute intracranial abnormality. No significant change compared to old exam. Chest x-ray: Normal chest. No change. Disposition Clinical Impression: Transient neurologic deficit, Acute on chronic renal insufficiency Narrative: Suspected TIA Disposition: ADMITTED IP TO THIS HOSP Condition: Stable Is patient prescribed a controlled substance at d/c from ED?: No Referrals: [facility],Clinic [Primary Care Provider] - 1-2 days Time of Disposition: 21:00
[2021-12-18 19:58] LABS: Basophils # (A) 0.1 k/uL (0-0.2); Basophils % (A) 1 %; Eosinophils # (A) 0.2 k/uL (0-0.7); Eosinophils % (A) 3 %; HCT 27.6 % (39.0-53.0); HGB 9.3 gm/dL (13.0-17.5); Lymphocytes # (A) 0.8 k/uL (1.0-4.8); Lymphocytes % (A) 17 %; MCH 30.2 pg (25.0-35.0); MCHC 33.8 g/dL (31.0-37.0); MCV 89.4 fL (80.0-100.0); Mean Platelet Volume 7.8; Monocytes # (A) 0.3 k/uL (0-1.0); Monocytes % (A) 6 %; Neutrophils # (A) 3.5 k/uL (1.3-7.7); Neutrophils % (A) 72 %; Platelet Count 149 k/uL (150-450); RBC 3.09 m/uL (4.30-5.90); RDW 13.3 % (11.5-15.5); WBC 4.8 k/uL (3.8-10.6)
[2021-12-18 20:13] LABS: Partial Thromboplastin Time 23.8 sec (22.0-30.0); Prothrombin Time 10.5 sec (9.0-12.0)
[2021-12-18 20:18] LABS: Calcium 8.1 mg/dL (8.4-10.2); Total Bilirubin 0.3 mg/dL (0.2-1.3)
--- NOTE | 2021-12-18 20:37 | CT ---
EXAMINATION TYPE: CT brain wo con DATE OF EXAM: 12/18/2021 COMPARISON: 05/10/2021 HISTORY: h/o TIA, left side weakness CT DLP: 1157.4 mGycm Automated exposure control for dose reduction was used. Images of the brain obtained with no contrast. Ventricles have normal size. There is some cerebral cortical atrophy. There is patchy hypodensity in the periventricular white matter. There is hypodensity in the cortex right posterior parietal lobe. N o midline shift. No sign of intracranial hemorrhage. IMPRESSION: Cerebral atrophy and chronic small vessel ischemia. There is evidence of old right parietal cortical infarct. No acute intracranial abnormality. No significant change compared to old exam.
--- NOTE | 2021-12-18 20:39 | XR ---
EXAMINATION TYPE: XR chest 2V DATE OF EXAM: 12/18/2021 COMPARISON: 05/10/2021 HISTORY: Altered mental status TECHNIQUE: FINDINGS: Heart and mediastinum are normal. Lungs are clear. Diaphragm is normal. Bony thorax appears normal. IMPRESSION: Normal chest. No change.
[2021-12-18] MEDS ORDERED: ASPIRIN 81 MG PO STA (20:49)
[2021-12-18 21:00] LABS: Albumin 3.1 g/dL (3.5-5.0); Potassium 4.6 mmol/L (3.5-5.1); Total Protein 5.3 g/dL (6.3-8.2)
[2021-12-18] MEDS ORDERED: SODIUM CHLORIDE 0.9% 1,000 ML IV ONE (21:05)
[2021-12-18] MEDS ORDERED: hydrALAZINE HCL 20 MG/ML 1 ML VIAL IVP STA (23:12)
[2021-12-19] MEDS ORDERED: cloNIDine HCL 0.2 MG TAB PO PRN (01:59)
--- NOTE | 2021-12-19 02:51 | P.HPIM ---
History of Present Illness H&P Date: 12/18/21 Chief Complaint: facial droop 56-year-old male with complex past medical history multiple episodes of stroke/TIA, history of PFO, diabetes mellitus, CK D, hypertension, Patient was at home when suddenly his friend noticed that he is having some droopy left side of the face with slurred speech lasted less than 1 minute patient has had multiple strokes in the past with left-sided residual weakness for which she decided to come into the hospital for evaluation immediately. he is on plavix and eliquis , he denies having PFO, however, his most recent discharge indicated that he was supposed to have PFO repair patient has poor insight of his overall medical conditions. from reviewing medical records, left ICA 70% , recurrent CVA at [facility] , poorly controlled DM , CKD III, recurrent episodes of CVA with PFO. left residual weaknes with contracture of left upper extremity. LVEF 55-60%. he currently reports feeling back to his baseline, denies any headache, vision changes, or any new neuro deficits. in the ED workup showed, SHAHID on CKD , CT brain no acute findings, EKG NSR, worsening anemia compared to his baseline, he denies any GI bleeding , denies any smoking, illicit drugs or alcohol Review of Systems Pertinent positives as noted in HPI. All other systems were reviewed and are negative Past Medical History Past Medical History: Coronary Artery Disease (CAD), CVA/TIA, Diabetes Mellitus, Hyperlipidemia, Hypertension, Myocardial Infarction ([place]), Renal Disease Additional Past Medical History / Comment(s): herniated disks and chronic back issues, peripheral neuropathy Last Myocardial Infarction Date:: 06/30/2020 History of Any Multi-Drug Resistant Organisms: None Reported Past Surgical History: Appendectomy, Orthopedic Surgery Additional Past Surgical History / Comment(s): bilateral rotator cuff, bilateral knee scopes, neck fusion, left lower extremity bypass last year Past Anesthesia/Blood Transfusion Reactions: No Reported Reaction Past Psychological History: PTSD Smoking Status: Former smoker Past Alcohol Use History: None Reported Past Drug Use History: None Reported - Past Family History Mother Family Medical History: Congestive Heart Failure (CHF), CVA/TIA, Myocardial Infarction ([place]) Father Family Medical History: Cancer Medications and Allergies Home Medications Medication Instructions Recorded Confirmed Type DULoxetine HCL [Cymbalta] 20 mg PO DAILY 07/10/20 12/18/21 History Apixaban [Eliquis] 5 mg PO BID #60 tab 07/13/20 12/18/21 Rx Empagliflozin [Jardiance] 25 mg PO DAILY 03/28/21 12/18/21 History Omeprazole 20 mg PO HS 03/28/21 12/18/21 History Clopidogrel [Plavix] 75 mg PO DAILY #30 tab 03/30/21 12/18/21 Rx Sacubitril/Valsartan [Entresto 24 1 tab PO BID 05/08/21 12/18/21 History mg-26 mg Tablet] Insulin Aspart [NovoLOG Flexpen] 2 units SQ ACHS PRN 12/18/21 12/18/21 History Insulin Glargine,Hum.rec.anlog 12 units SQ HS 12/18/21 12/18/21 History [Lantus Solostar Pen] Rosuvastatin [Crestor] 10 mg PO HS 12/18/21 12/18/21 History carvediloL [Coreg] 12.5 mg PO BID-W/MEALS 12/18/21 12/18/21 History Allergies Allergy/AdvReac Type Severity Reaction Status Date / Time atorvastatin AdvReac Liver Verified 12/18/21 21:54 Enzymes Abnormal & Muscle Pain simvastatin AdvReac Liver Verified 12/18/21 21:54 Enzymes Abnormal & Muscle Pain Physical Exam Vitals: Vital Signs Temp Pulse Resp BP Pulse Ox 12/18/21 19:27 98.2 F 64 18 182/89 100 Intake and Output 12/18/21 12/18/21 12/18/21 06:59 14:59 22:59 Other: Weight 88.451 kg Constitutional: No acute distress, conversant, pleasant Eyes: Anicteric sclerae, moist conjunctiva, Pupils equal round reactive to light ENMT: NC/AT Oropharynx clear, no erythema, or exudates Neck: Supple, no masses, or JVD No carotid bruits No thyromegaly Lungs: Clear to auscultation Clear to percussion Normal respiratory effort, no accessory muscle use Cardiovascular: Heart regular in rate and rhythm, No murmurs, gallops, or rubs No peripheral edema Abdominal: Soft Nontender, no guarding, rebound or rigidity Abdomen moving with respiration Normoactive bowel sounds No hepatomegaly, No splenomegaly No palpable mass No abdominal wall hernia noted Skin: Normal temperature, tone, texture, turgor No induration No subcutaneous nodules No rash, lesions No ulcers Extremities: Wearing splint bilateral legs for dropfoot No digital cyanosis No clubbing Pedal pulses intact and symmetrical Radial pulses intact and symmetrical No calf tenderness Psychiatric: Alert and oriented to person, place and time Appropriate affect fair judgement Neuro Muscles Strength 4/5 over the right side, left upper extremity with contracture , strength is 3-4 out of 5 over the left side Sensation to light touch grossly present throughout Cranial nerves II-XII grossly intact Lymphatics: no palpable cervical or supraclavicular , or inguinal lymph nodes Results CBC & Chem 7: 12/18/21 19:46 12/18/21 19:46 Labs: Abnormal Lab Results - Last 24 Hours (Table) 12/18/21 12/18/21 Range/Units 19:46 19:46 RBC 3.09 L (4.30-5.90) m/uL Hgb 9.3 L (13.0-17.5) gm/dL Hct 27.6 L (39.0-53.0) % Plt Count 149 L (150-450) k/uL Lymphocytes # 0.8 L (1.0-4.8) k/uL Chloride 112 H (98-107) mmol/L Carbon Dioxide 20 L (22-30) mmol/L BUN 53 H (9-20) mg/dL Creatinine 2.52 H (0.66-1.25) mg/dL Glucose 125 H (74-99) mg/dL Calcium 8.1 L (8.4-10.2) mg/dL AST 16 L (17-59) U/L Total Protein 5.3 L (6.3-8.2) g/dL Albumin 3.1 L (3.5-5.0) g/dL Assessment and Plan Assessment: TIA Uncontrolled hypertension History of recurrent strokes History of PFO Neuro consult Neurochecks PT OT eval Continue with Plavix, statin Continue with Alquist Continue with home blood pressure medications When necessary clonidine for blood pressure control CT of the brain no acute pathology History of carotid stenosis 70% left internal carotid artery, 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
[2021-12-19 07:21] LABS: Glucose,Whole Blood 88 mg/dL (70-110)
[2021-12-19] MEDS ORDERED: carvediloL 12.5 MG TAB PO SCH (07:30)
[2021-12-19] MEDS: INSULIN ASPART (NovoLOG) 100 UNIT/ML VIAL SQ SCH ×2 (07:52→11:50)
[2021-12-19] MEDS ORDERED: DULoxetine HCL 20 MG CAPSULE.DR PO SCH (09:00)
[2021-12-19] MEDS ORDERED: SACUBITRIL/VALSARTAN 24 MG-26 MG TABLET PO SCH (09:00)
[2021-12-19] MEDS ORDERED: APIXABAN 5 MG TAB PO SCH (09:00)
[2021-12-19] MEDS ORDERED: CLOPIDOGREL 75 MG TAB PO SCH (09:00)
[2021-12-19 09:30] LABS: Chol/HDL Ratio 3.36 Ratio; LDL Cholesterol,Calculated 54.8 mg/dL (0.0-131.0)
--- NOTE | 2021-12-19 10:01 | P.PN ---
Objective - Vital Signs Vital signs: Vital Signs Temp 97.9 F 12/19/21 07:49 Pulse 67 12/19/21 07:49 Resp 18 12/19/21 07:49 BP 145/86 12/19/21 07:49 Pulse Ox 99 12/19/21 07:49 FiO2 Intake & Output 12/18/21 12/19/21 12/19/21 18:59 06:59 18:59 Output Total 300 350 Balance -300 -350 Weight 88.451 kg Output: Urine 300 350 Other: Voiding Method Urinal - Labs CBC & Chem 7: 12/18/21 19:46 12/18/21 19:46 Labs: Abnormal Lab Results - Last 24 Hours (Table) 12/18/21 12/18/21 12/19/21 Range/Units 19:46 19:46 06:17 RBC 3.09 L (4.30-5.90) m/uL Hgb 9.3 L (13.0-17.5) gm/dL Hct 27.6 L (39.0-53.0) % Plt Count 149 L (150-450) k/uL Lymphocytes # 0.8 L (1.0-4.8) k/uL Chloride 112 H (98-107) mmol/L Carbon Dioxide 20 L (22-30) mmol/L BUN 53 H (9-20) mg/dL Creatinine 2.52 H (0.66-1.25) mg/dL Glucose 125 H (74-99) mg/dL Calcium 8.1 L (8.4-10.2) mg/dL AST 16 L (17-59) U/L Total Protein 5.3 L (6.3-8.2) g/dL Albumin 3.1 L (3.5-5.0) g/dL HDL Cholesterol 34.80 L (40.00-60.00) mg/dL
[2021-12-19 11:40] LABS: Glucose,Whole Blood 172 mg/dL (70-110)
--- NOTE | 2021-12-19 12:47 | US ---
EXAMINATION TYPE: US carotid duplex BILAT DATE OF EXAM: 12/19/2021 COMPARISON: NONE CLINICAL HISTORY: TIA, carotid stenosis. TIA EXAM MEASUREMENTS: RIGHT: Peak Systolic Velocity (PSV) cm/sec ----- Right CCA: 122 ----- Right ICA: 55.7 ----- Right ECA: 212 ICA/CCA ratio: 0.46 RIGHT: End Diastole cm/sec ----- Right CCA: 10.4 ----- Right ICA: 18.4 ----- Right ECA: 6.5 LEFT: Peak Systolic Velocity (PSV) cm/sec ----- Left CCA: 130 ----- Left ICA: 245 ----- Left ECA: 153 ICA/CCA ratio: 1.88 LEFT: End Diastole cm/sec ----- Left CCA: 24.9 ----- Left ICA: 81.6 ----- Left ECA: 10.2 VERTEBRALS (direction of flow): Right Vertebral: Antegrade Left Vertebral: Antegrade Rhythm: Normal Moderate plaque bilateral bifurcations. Increased velocities right ECA and left ICA IMPRESSION: 1. Severe stenosis left internal carotid artery. This is estimated at greater than 70%. Consider surg ical consultation. 2. Note is made of severe right external carotid artery stenosis. Criteria for Assigning % of Stenosis / Diameter reduction (Estimation based on the indirect measurements of the internal carotid artery velocities (ICA PSV). 1. Normal (no stenosis)=ICA PSV < 125 cm/s: ratio < 2.0: ICA EDV<40 cm/s. 2. Less than 50% stenosis=ICA PSV < 125 cm/s: ratio < 2.0: ICA EDV<40 cm/s. 3. 50 to 69% stenosis=ICA PSV of 125 to 230 cm/s: ration 2.0 ? 4.0: ICA EDV 40-100 cm/s. 4. Greater than 70% stenosis to near occlusion= ICA PSV > 230 cm/s: ratio > 4.0: ICA EDV > 100 cm/s. 5. Near occlusion= ICA PSV velocities may be low or undetectable: variable ratio and ICA EDV. 6. Total occlusion=unable to detect flow.
[2021-12-19 15:20] VITALS: BP 174/93; PULSE 69; RESP 20; TEMP 98
--- NOTE | 2021-12-19 15:26 | P.DS ---
Providers Date of admission: 12/18/21 21:02 Expected date of discharge: 12/19/21 Attending physician: Emilie Murray MD Consults: 12/18/21 21:03 Consult Physician Urgent Consulting Provider: Delfino Bro Consult Reason/Comments: TIA Do you want consulting provider notified?: Yes Primary care physician: [facility] Course: Hospital course susie 56 years old male patient with complex medical history with multiple episodes of strokes/TIA, history of questionable PFO, carotid artery disease hypertension hyperlipidemia diabetes and chronic any disease, apparently he was at home and suddenly is he is having some droopy left side of the face with slurred speech with some left-sided weakness on the top off his residual left-sided weakness, patient decided to come to emergency department, patient is already on Plavix and Eliquis, by the time he arrived at emergency his symptoms resolved. Patient medical records were extensively reviewed, he told me that he was recently evaluated at [facility] and he was told that he doesn't need PFO repair or intervention for his carotid artery disease and he would like to follow up with [facility]. He does not want to proceed with any further workup or neurology evaluation here at this hospital. He is currently symptom free and he is at home on Plavix and Eliquis. Fever awaiting neurology evaluation the nursing staff paged me that patient is threatening to leave AGAINST MEDICAL ADVICE and does not want to wait for the neurology evaluation. At this point I'm discharging this patient given patient has no symptoms at this point he will continue his Plavix and Eliquis, patient will follow with [facility] after discharge today. General: non toxic, no acute distress, alert oriented to time place and person Head: atraumatic, normocephalic, symmetric Eyes: no lid lesion], anicteric sclera Mouth: no lip lesion, mucus membranes moist Cardiovascular: S1S2 reg rate and rhythm, no murmur, no gallop Lungs: Bilateral equal air entry, no wheezing no rhonchi no crackles. Abdominal: soft, nontender to palpation, no guarding, no appreciable organomegaly Ext: no gross muscle atrophy, no edema extremities warm to suppose a positive Neuro: Alert oriented to time place and person, residual left-sided weakness which is chronic Patient Condition at Discharge: Stable Plan - Discharge Summary New Discharge Prescriptions: Continue DULoxetine HCL [Cymbalta] 20 mg PO DAILY Apixaban [Eliquis] 5 mg PO BID #60 tab Clopidogrel [Plavix] 75 mg PO DAILY #30 tab Rosuvastatin [Crestor] 10 mg PO HS Empagliflozin [Jardiance] 25 mg PO DAILY Omeprazole 20 mg PO HS Sacubitril/Valsartan [Entresto 24 mg-26 mg Tablet] 1 tab PO BID Insulin Aspart [NovoLOG Flexpen] 2 units SQ ACHS PRN PRN Reason: high blood sugar carvediloL [Coreg] 12.5 mg PO BID-W/MEALS Insulin Glargine,Hum.rec.anlog [Lantus Solostar Pen] 12 units SQ HS Discharge Medication List DULoxetine HCL [Cymbalta] 20 mg PO DAILY 07/10/20 [History] Apixaban [Eliquis] 5 mg PO BID #60 tab 07/13/20 [Rx] Empagliflozin [Jardiance] 25 mg PO DAILY 03/28/21 [History] Omeprazole 20 mg PO HS 03/28/21 [History] Clopidogrel [Plavix] 75 mg PO DAILY #30 tab 03/30/21 [Rx] Sacubitril/Valsartan [Entresto 24 mg-26 mg Tablet] 1 tab PO BID 05/08/21 [History] Insulin Aspart [NovoLOG Flexpen] 2 units SQ ACHS PRN 12/18/21 [History] Insulin Glargine,Hum.rec.anlog [Lantus Solostar Pen] 12 units SQ HS 12/18/21 [History] Rosuvastatin [Crestor] 10 mg PO HS 12/18/21 [History] carvediloL [Coreg] 12.5 mg PO BID-W/MEALS 12/18/21 [History] Follow up Appointment(s)/Referral(s): Jorge Mejía MD [STAFF PHYSICIAN] - 1 Week [facility],Clinic [Primary Care Provider] - 1-2 days
[2021-12-19] MEDS ORDERED: PANTOPRAZOLE 40 MG TABLET PO SCH (21:00)
[2021-12-19] MEDS ORDERED: NON FORMULARY DRUG (Rosuvastatin 20 MG Tablet) PO SCH (21:00)
[2021-12-19] MEDS ORDERED: INSULIN DETEMIR (LEVEMIR) 100 UNIT/ML SYR SQ SCH (21:00)
== END 2021-12-19 15:48 ==
LOC: EC 19:23 → 6NMEDSUR 21:02
PROVIDERS: ADMIT Internal Medicine; ATTEND Internal Medicine
DX: G45.9 Transient cerebral ischemic attack, unspecified (principal); N17.9 Acute kidney failure, unspecified; I65.23 Occlusion and stenosis of bilateral carotid arteries; I69.354 Hemiplegia and hemiparesis following cerebral infarction affecting left non-dominant side; I12.9 Hypertensive chronic kidney disease with stage 1 through stage 4 chronic kidney disease, or unspecified chronic kidney disease; N18.30 Chronic kidney disease, stage 3 unspecified; E11.22 Type 2 diabetes mellitus with diabetic chronic kidney disease; I25.10 Atherosclerotic heart disease of native coronary artery without angina pectoris; E78.5 Hyperlipidemia, unspecified; E11.42 Type 2 diabetes mellitus with diabetic polyneuropathy; I25.2 Old myocardial infarction; F43.10 Post-traumatic stress disorder, unspecified; Q21.1 Atrial septal defect; D64.9 Anemia, unspecified; Z79.84 Long term (current) use of oral hypoglycemic drugs; Z79.01 Long term (current) use of anticoagulants; Z79.4 Long term (current) use of insulin; Z79.02 Long term (current) use of antithrombotics/antiplatelets; Z79.82 Long term (current) use of aspirin; Z79.899 Other long term (current) drug therapy; Z88.8 Allergy status to other drugs, medicaments and biological substances; Z87.891 Personal history of nicotine dependence; Z90.49 Acquired absence of other specified parts of digestive tract; Z98.1 Arthrodesis status; Z98.890 Other specified postprocedural states; Z82.49 Family history of ischemic heart disease and other diseases of the circulatory system; Z82.3 Family history of stroke; Z80.9 Family history of malignant neoplasm, unspecified
CPT/HCPCS: 96361 ×3; 96374; 99285; 36415; 93005; 97162; 97166; 80061; 80053; 84484; 85025; 85610; 85730; 83036; 71046; 93880; 70450; G0378 ×2; J0360